=== PATIENT | male | born 1935 | race Caucasian/White ===

== ENCOUNTER → 2016-08-09 | Outpatient (CLI) | payer OTHER ==
[~2016-08-09] MED LIST: ASCA500 PO; ATOR-14 PO; CLOP1TAB15 PO; GLC/500 PO; LOSA1TAB38 PO; LPR25 PO; MGNO400 PO; MULTTAB58 PO; VITA400C3 PO
[2016-08-09 12:50] LABS: HEMATOCRIT 39.2 % (42-52); MEAN CELL VOLUME 87.5 fL (80-100); MEAN CORPUSCULAR HEMOGLOBIN 31.3 pg (25-34); MEAN CORPUSCULAR HGB CONC 35.7 g/dl (32-36); MEAN PLATELET VOLUME 8.6 fL (7.4-10.4); PLATELET COUNT 275 K/uL (130-400); RED BLOOD COUNT 4.48 M/uL (4.7-6.1); WHITE BLOOD COUNT 6.78 K/uL (4.8-10.8)
[2016-08-09 12:56] LABS: ALT/SGPT 22 U/L (12-78); AST/SGOT 14 U/L (15-37); BLOOD UREA NITROGEN 8 mg/dl (7-18); BUN/CREATININE RATIO 9.5 (10-20); CALCIUM 8.5 mg/dl (8.5-10.1); CARBON DIOXIDE 26 mmol/L (21-32); CHLORIDE 98 mmol/L (98-107); CREATININE 0.81 mg/dl (0.60-1.40); GLUCOSE 138 mg/dl (70-99); SODIUM 133 mmol/L (136-145)
[2016-08-09 13:07] LABS: ALB/GLOB RATIO 1.1 (0.9-2); ALKALINE PHOSPHATASE 44 U/L (45-117); CHOLESTEROL 126 mg/dl (0-200); CHOLESTEROL/HDL RATIO 2.6; HDL CHOLESTEROL 48 mg/dl; LDL CHOLESTEROL CALCULATED 61 mg/dl; TRIGLYCERIDES 86 mg/dl (0-150); VERY LOW DENSITY LIPOPROT CALC 17 mg/dl
[2016-08-09 14:10] LABS: ESTIMATED AVERAGE GLUCOSE 134 mg/dl; HA1C FLAG Normal (Normal)
== END | disposition home or self-care (01) ==
LOC: C.LABBFT 10:49
PROVIDERS: ATTEND Internal Medicine
DX: E11.29 Type 2 diabetes mellitus with other diabetic kidney complication (principal)

== ENCOUNTER → 2017-03-06 | Outpatient (CLI) | payer OTHER ==
[2017-03-06 12:41] LABS: MEAN CELL VOLUME 89.3 fL (80-100); MEAN CORPUSCULAR HEMOGLOBIN 31.3 pg (25-34); MEAN PLATELET VOLUME 8.6 fL (7.4-10.4); PLATELET COUNT 239 K/uL (130-400); RED BLOOD COUNT 4.48 M/uL (4.7-6.1); WHITE BLOOD COUNT 8.01 K/uL (4.8-10.8)
[2017-03-06 12:59] LABS: ESTIMATED AVERAGE GLUCOSE 143 mg/dl; HA1C FLAG Normal (Normal)
[2017-03-06 16:55] LABS: ALT/SGPT 21 U/L (12-78); BLOOD UREA NITROGEN 8 mg/dl (7-18); BUN/CREATININE RATIO 11.3 (10-20); CALCIUM 9.5 mg/dl (8.5-10.1); CARBON DIOXIDE 29 mmol/L (21-32); CHLORIDE 94 mmol/L (98-107); CHOLESTEROL 134 mg/dl (0-200); CREATININE 0.69 mg/dl (0.60-1.40); GLUCOSE 114 mg/dl (70-99); POTASSIUM 4.2 mmol/L (3.5-5.1); SODIUM 129 mmol/L (136-145)
[2017-03-06 17:06] LABS: ALB/GLOB RATIO 1.1 (0.9-2); ALKALINE PHOSPHATASE 49 U/L (45-117); AST/SGOT 16 U/L (15-37); CHOLESTEROL/HDL RATIO 3.4; HDL CHOLESTEROL 40 mg/dl; LDL CHOLESTEROL CALCULATED 70 mg/dl; TRIGLYCERIDES 119 mg/dl (0-150); VERY LOW DENSITY LIPOPROT CALC 24 mg/dl
[2017-03-06 17:22] LABS: CREATININE RANDOM URINE < 13.0 mg/dl
== END | disposition home or self-care (01) ==
LOC: C.LABBFT 11:08
PROVIDERS: ATTEND Internal Medicine
DX: E11.29 Type 2 diabetes mellitus with other diabetic kidney complication (principal)

== ENCOUNTER 2017-04-15 18:05 | Inpatient (IN) | payer OTHER ==
[~2017-04-15] VITALS: Ht 177.8 cm; Wt 80.2 kg
[2017-04-15] MEDS ORDERED: SODIUM CHLORIDE 0.9% 1000ML 1,000 ML IV SCH (18:26)
[2017-04-15] MEDS ORDERED: ASCO500T16 PO (19:08)
[2017-04-15] MEDS ORDERED: LPT10 PO (19:08)
--- NOTE | 2017-04-15 19:58 | DIAGNOSTIC IMAGING REPORT ---
AP CHEST WITH LEFT-SIDED RIB SERIES CLINICAL HISTORY: Fall. Left-sided chest wall pain. FINDINGS: An AP upright chest radiograph with 5 additional views from a left-sided rib series is compared to study dated 10/29/2012. Correlation is made with chest CT dated 12/16/2011. The AP view is degraded by patient rotation. The heart is mildly enlarged and there is atherosclerotic calcification of the thoracic aorta. The pulmonary vasculature is noncongested. Emphysema is suspected and there is chronic interstitial thickening. No airspace consolidation or pleural effusion is identified. No pneumothorax is seen. The skeletal structures are osteopenic. Question a nondistracted left posterior 7th rib fracture on the rib series. No additional findings are concerning for acute rib fracture. The remainder of the bony thorax is grossly intact. Degenerative change and scoliosis is noted in the thoracic spine. Arthritic change is seen in the shoulders. IMPRESSION: 1. Cardiomegaly and mild emphysema. 2. No airspace consolidation, pleural effusion, or pneumothorax is seen. 3. Question a nondistracted left posterior 7th rib fracture on the rib series. Correlate for point tenderness at this site. 4. No additional findings are concerning for acute rib fracture. Electronically signed by: Aureliano Cortés M.D. 04/15/2017 7:57 PM Dictated Date/Time: 04/15/2017 7:51 PM
--- NOTE | 2017-04-15 20:04 | DIAGNOSTIC IMAGING REPORT ---
SINGLE VIEW PELVIS CLINICAL HISTORY: Fall. Hip pain. FINDINGS: An AP view of the pelvis is obtained. No prior studies are available for comparison at the time of dictation. The skeletal structures are osteopenic. There is no radiographic evidence of fracture involving the hips or bony pelvis. Moderate arthritic change and joint space narrowing is present in both hips. Large enthesophytes arise from the greater trochanters of the proximal femora and the anterior superior iliac spines. Degenerative sclerosis is seen in the sacroiliac joints and pubic symphysis. The overlying soft tissues are within normal limits. Prostatic calcifications are noted. Lumbosacral spondylosis is partially imaged. There is a nonobstructed abdominal bowel gas pattern. IMPRESSION: Osteopenia and degenerative change as above. There is no radiographic evidence of fracture involving the hips or bony pelvis. Electronically signed by: Aureliano Cortés M.D. 04/15/2017 8:03 PM Dictated Date/Time: 04/15/2017 8:02 PM
[2017-04-15 20:13] LABS: BASO % 0.2 %; BASO ABS # 0.02 K/uL (0-0.2); COMPLETE YES; EOS % 2.9 %; HEMATOCRIT 39.4 % (42-52); IG% 0.2 %; LYMPH % 17.1 %; LYMPH ABS # 1.41 K/uL (1.2-3.4); MEAN CELL VOLUME 87.9 fL (80-100); MEAN CORPUSCULAR HGB CONC 35.3 g/dl (32-36); MEAN PLATELET VOLUME 8.6 fL (7.4-10.4); MONO % 12.3 %; NEUT % 67.3 %; PLATELET COUNT 292 K/uL (130-400); RED BLOOD COUNT 4.48 M/uL (4.7-6.1); WHITE BLOOD COUNT 8.26 K/uL (4.8-10.8)
[2017-04-15 20:19] LABS: PARTIAL THROMBOPLASTIN RATIO 1.1; PROTHROMBIN TIME (PATIENT) 10.7 SECONDS (9.0-12.0)
[2017-04-15 20:21] LABS: BLOOD UREA NITROGEN 13 mg/dl (7-18); BUN/CREATININE RATIO 15.6 (10-20); CALCIUM 9.4 mg/dl (8.5-10.1); CARBON DIOXIDE 28 mmol/L (21-32); CHLORIDE 94 mmol/L (98-107); CREATININE 0.83 mg/dl (0.60-1.40); GLUCOSE 202 mg/dl (70-99); POTASSIUM 3.9 mmol/L (3.5-5.1); SODIUM 128 mmol/L (136-145)
[2017-04-15 20:26] LABS: CKMB/CK RATIO 1.8 (0-3.0)
--- NOTE | 2017-04-15 20:31 | DIAGNOSTIC IMAGING REPORT ---
CT SCAN OF THE BRAIN WITHOUT IV CONTRAST CLINICAL HISTORY: Strokelike symptoms. COMPARISON STUDY: CT of the brain dated 03/18/2015. MRI of the brain dated 03/18/2015. TECHNIQUE: Unenhanced axial CT scan of the brain is performed from the vertex to the skull base. A dose lowering technique was utilized adhering to the principles of ALARA. CT DOSE: 614.27 mGy.cm FINDINGS: Brain parenchyma: Again seen is extensive left MCA territory encephalomalacia consistent with remote infarct. Wallerian degeneration is noted in the left bea. There are age-related involutional changes noting moderate confluent subcortical and periventricular microangiopathic change. There is no hemorrhage, mass effect, or evidence of acute territorial ischemia by CT criteria. Salcedo-white matter is preserved. No extra-axial fluid collection is seen. Ventricles, sulci, cisterns: Prominent secondary to involutional change. There is ex vacuo dilatation of the left lateral ventricle. Intracranial vascular: There is atherosclerotic calcification of the cavernous carotid and vertebral arteries. Calvarium: Intact. Soft tissues: There is a 2.7 cm irregular soft tissue density just deep to the skin in the right suboccipital scalp. This is best seen on image 5 and unchanged from prior examinations. Sinuses and mastoids: There is trace mucosal thickening within the sphenoid and ethmoid sinuses. The remaining visualized paranasal sinuses are clear. The mastoid air cells are well pneumatized. Orbits: The bony orbits are grossly intact. IMPRESSION: 1. Senescent changes and large remote left MCA territory infarct as above. There is no hemorrhage, mass effect, or evidence of acute territorial ischemia by CT criteria. 2. There is unchanged appearance of a 2.7 cm soft tissue density structure just deep to the skin in the right suboccipital scalp as compared to prior examinations. Electronically signed by: Aureliano Cortés M.D. 04/15/2017 8:30 PM Dictated Date/Time: 04/15/2017 8:26 PM
[2017-04-15] MEDS ORDERED: ACETAMINOPHEN IV 100 ML IV PRN (21:00)
[2017-04-15] MEDS ORDERED: DEXTROSE 50% 50 ML SYR IV PRN (21:00)
[2017-04-15] MEDS ORDERED: GLUCOSE 40% GEL 15 GM TUBE PO PRN (21:00)
[2017-04-15] MEDS: INSULIN ASPART 100 UNITS/ML 3 ML PEN SC SCH (21:00)
[2017-04-15] MEDS ORDERED: ONDANSETRON INJ 2 MG/ML 2 ML VIAL IV PRN (21:00)
[2017-04-15] MEDS ORDERED: GLUCOSE 10 TABS/TUBE PO PRN (21:00)
[2017-04-15] MEDS ORDERED: GLUCAGON FOR INJ 1 MG VIAL SQ PRN (21:00)
[2017-04-15 21:36] VITALS: BP 161/83; PULSE 103; TEMP 36.8; O2SAT 96; BMI 25.1
--- NOTE | 2017-04-15 22:00 | EMERGENCY ROOM VISIT NOTE ---
History Report prepared by David: Sunil Barnes Under the Supervision of: Dr. Roberto Riley M.D. First contact with patient: 18:17 Chief Complaint: FALL Stated Complaint: FELL IN SHOWER History of Present Illness The patient is a 81 year old male who presents to the Emergency Room with complaints of constant right sided numbness and weakness beginning yesterday. The patient states that he had a history of right sided weakness with a prior stroke occurring in 1992. He states that his right side weakness has improved significantly since 1992, but he felt similar weakness yesterday before his fall. He states that his right side currently has increased numbness and weakness as well. The patient is on Plavix. He notes that he fell on his left side in the bathtub yesterday while showering. He states that he fell because he lost his balance due to his right leg weakness. He was turning around that time. The patient typically ambulates at home with a cane. He states that he has been unstable recently and has not been able to walk because of his weakness and numbness. He denies any known fevers, vomiting, headache, SOB, chest pain, or abdominal pain. The patient's family notes that the patient occasionally has trouble understanding words. Source of History: patient Onset: Yesterday Position: other (right side of body) Quality: numbness, other (weakness) Timing: constant Associated Symptoms: No fevers (known), No headache, No chest pain, No SOB, No abdominal pain Review of Systems See HPI for pertinent positives & negatives. A total of 10 systems reviewed and were otherwise negative. 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 Social History Smoking Status: Former Smoker Drug Use: none Marital Status: Housing Status: lives with family Occupation Status: retired Current/Historical Medications Scheduled Ascorbic Acid (Ascorbic Acid), 500 MG PO DAILY Atorvastatin (Atorvastatin Calcium), 10 MG PO HS Clopidogrel (Plavix), 75 MG PO DAILY Losartan Potassium (Cozaar), 100 MG PO DAILY Magnesium Oxide (Magnesium-Oxide), 400 MG PO BID Metformin Hcl (Glucophage), 500 MG PO DAILY Metoprolol Tartrate (Lopressor), 12.5 MG PO BID Multiple Vitamin (Multivitamin), 1 TAB PO DAILY Allergies Coded Allergies: No Known Allergies (Verified , 04/15/17) Physical Exam Vital Signs Date Time Temp Pulse Resp B/P (MAP) Pulse Ox O2 Delivery O2 Flow Rate FiO2 04/15/17 20:26 97 16 146/82 96 Room Air 04/15/17 18:57 Room Air 04/15/17 18:11 36.9 98 18 129/86 96 Room Air Physical Exam Constitutional: Vital signs reviewed. Eyes: Pupils are equal round reactive to light. Conjunctiva are noninjected. ENT: Pharynx is clear without erythema or exudate. Mucous membranes are moist. Neck supple without meningeal signs. Respiratory: Clear to auscultation bilaterally. Breath sounds are equal bilaterally. Cardiovascular: Regular rate and rhythm. No rubs or gallops. GI: Soft, nondistended and nontender. Bowel sounds are present. Musculoskeletal: Ecchymosis to the left lower back. Mild tenderness to the left lower ribs. Integumentary: No cyanosis. Neurological: The patient is awake and alert. Cranial nerves II-XII are intact. Sensation is intact to light touch all extremities. No limb ataxia. Right pronator drift with 3/5 strength in the RUE. 4/5 strength in RLE. Aphasia. Psychiatric: Normal affect. Medical Decision & Procedures ER Provider Diagnostic Interpretation: Radiology results as stated below per my review and the radiologist's interpretation: CT SCAN OF THE BRAIN WITHOUT IV CONTRAST FINDINGS: Brain parenchyma: Again seen is extensive left MCA territory encephalomalacia consistent with remote infarct. Wallerian degeneration is noted in the left bea. There are age-related involutional changes noting moderate confluent subcortical and periventricular microangiopathic change. There is no hemorrhage, mass effect, or evidence of acute territorial ischemia by CT criteria. Salcedo-white matter is preserved. No extra-axial fluid collection is seen. Ventricles, sulci, cisterns: Prominent secondary to involutional change. There is ex vacuo dilatation of the left lateral ventricle. Intracranial vascular: There is atherosclerotic calcification of the cavernous carotid and vertebral arteries. Calvarium: Intact. Soft tissues: There is a 2.7 cm irregular soft tissue density just deep to the skin in the right suboccipital scalp. This is best seen on image 5 and unchanged from prior examinations. Sinuses and mastoids: There is trace mucosal thickening within the sphenoid and ethmoid sinuses. The remaining visualized paranasal sinuses are clear. The mastoid air cells are well pneumatized. Orbits: The bony orbits are grossly intact. IMPRESSION: 1. Senescent changes and large remote left MCA territory infarct as above. There is no hemorrhage, mass effect, or evidence of acute territorial ischemia by CT criteria. 2. There is unchanged appearance of a 2.7 cm soft tissue density structure just deep to the skin in the right suboccipital scalp as compared to prior examinations. Electronically signed by: Aureliano Cortés M.D. 04/15/2017 8:30 PM SINGLE VIEW PELVIS FINDINGS: An AP view of the pelvis is obtained. No prior studies are available for comparison at the time of dictation. The skeletal structures are osteopenic. There is no radiographic evidence of fracture involving the hips or bony pelvis. Moderate arthritic change and joint space narrowing is present in both hips. Large enthesophytes arise from the greater trochanters of the proximal femora and the anterior superior iliac spines. Degenerative sclerosis is seen in the sacroiliac joints and pubic symphysis. The overlying soft tissues are within normal limits. Prostatic calcifications are noted. Lumbosacral spondylosis is partially imaged. There is a nonobstructed abdominal bowel gas pattern. IMPRESSION: Osteopenia and degenerative change as above. There is no radiographic evidence of fracture involving the hips or bony pelvis. Electronically signed by: Aureliano Cortés M.D. 04/15/2017 8:03 PM AP CHEST WITH LEFT-SIDED RIB SERIES FINDINGS: An AP upright chest radiograph with 5 additional views from a left-sided rib series is compared to study dated 10/29/2012. Correlation is made with chest CT dated 12/16/2011. The AP view is degraded by patient rotation. The heart is mildly enlarged and there is atherosclerotic calcification of the thoracic aorta. The pulmonary vasculature is noncongested. Emphysema is suspected and there is chronic interstitial thickening. No airspace consolidation or pleural effusion is identified. No pneumothorax is seen. The skeletal structures are osteopenic. Question a nondistracted left posterior 7th rib fracture on the rib series. No additional findings are concerning for acute rib fracture. The remainder of the bony thorax is grossly intact. Degenerative change and scoliosis is noted in the thoracic spine. Arthritic change is seen in the shoulders. IMPRESSION: 1. Cardiomegaly and mild emphysema. 2. No airspace consolidation, pleural effusion, or pneumothorax is seen. 3. Question a nondistracted left posterior 7th rib fracture on the rib series. Correlate for point tenderness at this site. 4. No additional findings are concerning for acute rib fracture. Electronically signed by: Aureliano Cortés M.D. 04/15/2017 7:57 PM Laboratory Results 04/15/17 18:42 Red Blood Count 4.48, Mean Corpuscular Volume 87.9, Mean Corpuscular Hemoglobin 31.0, Mean Corpuscular Hemoglobin Concent 35.3, Mean Platelet Volume 8.6, Neutrophils (%) (Auto) 67.3, Lymphocytes (%) (Auto) 17.1, Monocytes (%) (Auto) 12.3, Eosinophils (%) (Auto) 2.9, Basophils (%) (Auto) 0.2, Neutrophils # (Auto ) 5.55, Lymphocytes # (Auto) 1.41, Monocytes # (Auto) 1.02, Eosinophils # (Auto ) 0.24, Basophils # (Auto) 0.02 04/15/17 18:42 Test 04/15/17 18:42 04/15/17 18:48 White Blood Count 8.26 K/uL (4.8-10.8) Red Blood Count 4.48 M/uL (4.7-6.1) Hemoglobin 13.9 g/dL (14.0-18.0) Hematocrit 39.4 % (42-52) Mean Corpuscular Volume 87.9 fL (80-100) Mean Corpuscular Hemoglobin 31.0 pg (25-34) Mean Corpuscular Hemoglobin Concent 35.3 g/dl (32-36) Platelet Count 292 K/uL (130-400) Mean Platelet Volume 8.6 fL (7.4-10.4) Neutrophils (%) (Auto) 67.3 % Lymphocytes (%) (Auto) 17.1 % Monocytes (%) (Auto) 12.3 % Eosinophils (%) (Auto) 2.9 % Basophils (%) (Auto) 0.2 % Neutrophils # (Auto) 5.55 K/uL (1.4-6.5) Lymphocytes # (Auto) 1.41 K/uL (1.2-3.4) Monocytes # (Auto) 1.02 K/uL (0.11-0.59) Eosinophils # (Auto) 0.24 K/uL (0-0.5) Basophils # (Auto) 0.02 K/uL (0-0.2) RDW Standard Deviation 40.5 fL (36.4-46.3) RDW Coefficient of Variation 12.6 % (11.5-14.5) Immature Granulocyte % (Auto) 0.2 % Immature Granulocyte # (Auto) 0.02 K/uL (0.00-0.02) Prothrombin Time 10.7 SECONDS (9.0-12.0) Prothromb Time International Ratio 1.0 (0.9-1.1) Activated Partial Thromboplast Time 29.4 SECONDS (21.0-31.0) Partial Thromboplastin Ratio 1.1 Anion Gap 6.0 mmol/L (3-11) Est Creatinine Clear Calc Drug Dose 74.5 ml/min Estimated GFR () 97.0 Estimated GFR (Non- 83.7 BUN/Creatinine Ratio 15.6 (10-20) Calcium Level 9.4 mg/dl (8.5-10.1) Total Creatine Kinase 108 U/L (39-308) Creatine Kinase MB 1.9 ng/ml (0.5-3.6) Creatine Kinase MB Ratio 1.8 (0-3.0) Troponin I < 0.015 ng/ml (0-0.045) Bedside Prothrombin Time INR 1.0 (0.9-1.1) Laboratory results as reviewed by me. ECG Indication: other (neurologic symptoms) Rate (beats per minute): 102 Rhythm: sinus tachycardia Findings: no ectopy, other (Low voltage QRS. Limited interpretation due to baseline artifact. ) ED Course 1817: The patient was evaluated in room B2. A complete history and physical exam was performed. 1825: Ordered Sodium Chloride 1000 ml @ 50 mls/hr IV. 2049: Upon reevaluation, the patient is resting comfortably. I discussed tonight 's findings with him. He verbalized agreement of the treatment plan. The patient will be evaluated for further management. Medical Decision This is a 81-year-old male who presents with a fall and difficulty walking with right-sided weakness and numbness. Differential diagnosis includes CVA, TIA, intracranial hemorrhage, intracranial mass, rib fracture, metabolic derangement , pelvic fracture. I did perform a limited focused review of portions of the patient's old chart on the electronic medical record. The patient has had no recent pertinent visits to this hospital. I did evaluate the patient as noted above. On examination patient has right- sided weakness, greater in the upper extremity. He and his family state that he has had some residual weakness as well as aphasia since his stroke in 1992 but he has been able to walk with a cane which she has not been able to do over the past 2 days. He does have some tenderness to his left lower ribs and some ecchymosis in that area. IV access was established. The patient was placed on a continuous syrup mixer assistant. I did order and personally review the patient's 12-lead EKG and chest and pelvis x-ray as described above. He does appear to have a left-sided rib fracture. I did order and review the patient's blood work as noted in the electronic medical record. He is hyponatremic. I did order a CT of the head. I did review the images myself as well as the radiology report as described above. There is no evidence of stroke or bleed. I did discuss the test results with the patient. I did recommend hospitalization for further evaluation of his symptoms. I did discuss case with the hospitalist and registered nurse hh case manager. Medication Reconcilliation Current Medication List: was personally reviewed by me Blood Pressure Screening Patient's blood pressure: Elevated blood pressure Blood pressure disposition: Referred to PCP Consults Time Called: 2029 Consulting Physician[place] [place] [address] [place] [facility] [place] discussed the patient and his results. The patient will be further evaluated [place] [facility] [place] Impression Primary Impression: Right sided weakness Additional Impressions: Right leg numbness Fall Left rib fracture Hyponatremia Scribe Attestation The scribe's documentation has been prepared under my direct and personally reviewed by me in its entirety. I confirm that the note above accurately reflects all work, treatment, procedures, and medical decision making performed by me. Departure Information Dispostion Being Evaluated By Hospitalist Referrals Kevon Post M.D. (PCP) Patient Instructions My [facility] Problem Qualifiers Additional Impressions: Fall Encounter type: initial encounter Qualified Codes: W19.XXXA - Unspecified fall, initial encounter Left rib fracture Encounter type: initial encounter Rib fracture type: single rib Fracture type: closed Qualified Codes: S22.32XA - Fracture of one rib, left side, initial encounter for closed fracture
[2017-04-15] MEDS: NSS + 20MEQ KCL 1000ML 1,000 ML IV SCH (22:07)
[2017-04-15] MEDS: METOPROLOL TARTRATE 25 MG TAB PO SCH (22:08)
[2017-04-15] MEDS: FAMOTIDINE IV INJ 20 MG in DEXTROSE 5% 100ML 100 ML IV SCH (22:08)
[2017-04-15] MEDS: ENOXAPARIN 40 MG/0.4 ML SYR SC SCH (22:09)
[2017-04-15] MEDS: ATORVASTATIN 10 MG TAB PO SCH (22:09)
--- NOTE | 2017-04-15 22:29 | History and Physical ---
History & Physical Date & Time of Service: Apr 15, 2017 at 22:11 Chief Complaint: Fall, Hemiparesis Affecting Right Side As Late Primary Care Physician: Kevon Post M.D. History of Present Illness Source: patient, hospital records The patient is a 81-year-old male with a past medical history of remote, large left MCA CVA in 1992, with residual right hemiparesis, who presents to the emergency department after a fall and reportedly right-sided weakness and numbness that began the previous day. Upon my questioning, the patient reports little change in his symptoms, and notes that he fell while getting out of the bathtub onto his left side yesterday while showering. He usually ambulates with a cane, but does report having felt more unstable recently. The patient's family reports that he occasionally has trouble understanding words, and his speech is occasionally garbled. The patient denies injuring his head with his recent fall. Past Medical/Surgical History Medical Problems: (1) CVA Status: Resolved (2) 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 Status: Chronic Family History Noncontributory Social History Smoking Status: Former Smoker Drug Use: none Marital Status: Housing status: lives with family Occupational Status: retired Immunizations History of Influenza Vaccine: Yes History of Tetanus Vaccine?: Yes History of Pneumococcal: Yes History of Hepatitis B Vaccine: Unknown Multi-Drug Resistant Organisms History of MDRO: No Allergies Coded Allergies: No Known Allergies (Verified , 04/15/17) Home Medications Scheduled Ascorbic Acid (Ascorbic Acid), 500 MG PO DAILY Atorvastatin (Atorvastatin Calcium), 10 MG PO HS Clopidogrel (Plavix), 75 MG PO DAILY Losartan Potassium (Cozaar), 100 MG PO DAILY Magnesium Oxide (Magnesium-Oxide), 400 MG PO BID Metformin Hcl (Glucophage), 500 MG PO DAILY Metoprolol Tartrate (Lopressor), 12.5 MG PO BID Multiple Vitamin (Multivitamin), 1 TAB PO DAILY Review of Systems The patient denies chest pain, palpitations, shortness of breath, cough, lower extremity swelling, vision change, hearing change, sore throat, fevers, chills, sweats, weight change, fatigue, nausea, vomiting, diarrhea or constipation, abdominal pain, pelvic pain, blood in urine or stool, dysuria, urinary frequency or urgency, lightheadedness , dizziness, headache, loss of consciousness, rash, abnormal bruising or bleeding, generalized weakness, generalized arthralgias or myalgias, neck pain, or night sweats. The review of systems is otherwise negative other than for that already noted above, and at least 10 systems have been reviewed. Physical Exam Vital Signs Date Time Temp Pulse Resp B/P (MAP) Pulse Ox O2 Delivery O2 Flow Rate FiO2 04/15/17 21:25 93 16 152/78 98 04/15/17 20:26 97 16 146/82 96 Room Air 04/15/17 18:57 Room Air 04/15/17 18:11 36.9 98 18 129/86 96 Room Air The patient is awake, well-developed and adequately nourished, alert and oriented 3, normocephalic and atraumatic, has somewhat garbled speech, lying in bed and in no acute distress. HEENT--PERRL, EOMI, mucous membranes and oropharynx dry. Neck--supple, no JVD or bruits, thyroid normal, trachea midline, no adenopathy. Heart--normal S1 and S2, no extra beats, no murmurs, rubs or gallops. Lungs--clear bilaterally but diminished throughout, no respiratory distress, no accessory muscle use. Abdomen--normal bowel sounds and soft, nontender and nondistended, no hernias or masses, no organomegaly. Extremities--no cyanosis, clubbing or edema. There are good distal pulses b/l. Dermatologic--normal skin turgor, normal color, warm and dry, no abnormal lymph nodes, no rash. Neurologic--cranial nerves II through XII grossly intact. Right upper extremity 3/5 and right lower extremity 4/5 motor strength, right pronator drift. Rheumatologic--range of motion limited by arthritis Psychiatric--normal affect. Diagnostics Laboratory Results Results Past 24 Hours Test 04/15/17 18:42 04/15/17 18:48 04/15/17 22:02 Range/Units White Blood Count 8.26 4.8-10.8 K/uL Red Blood Count 4.48 4.7-6.1 M/uL Hemoglobin 13.9 14.0-18.0 g/dL Hematocrit 39.4 42-52 % Mean Corpuscular Volume 87.9 80-100 fL Mean Corpuscular Hemoglobin 31.0 25-34 pg Mean Corpuscular Hemoglobin Concent 35.3 32-36 g/dl Platelet Count 292 130-400 K/uL Mean Platelet Volume 8.6 7.4-10.4 fL Neutrophils (%) (Auto) 67.3 % Lymphocytes (%) (Auto) 17.1 % Monocytes (%) (Auto) 12.3 % Eosinophils (%) (Auto) 2.9 % Basophils (%) (Auto) 0.2 % Neutrophils # (Auto) 5.55 1.4-6.5 K/uL Lymphocytes # (Auto) 1.41 1.2-3.4 K/uL Monocytes # (Auto) 1.02 0.11-0.59 K/uL Eosinophils # (Auto) 0.24 0-0.5 K/uL Basophils # (Auto) 0.02 0-0.2 K/uL RDW Standard Deviation 40.5 36.4-46.3 fL RDW Coefficient of Variation 12.6 11.5-14.5 % Immature Granulocyte % (Auto) 0.2 % Immature Granulocyte # (Auto) 0.02 0.00-0.02 K/uL Prothrombin Time 10.7 9.0-12.0 SECONDS Prothromb Time International Ratio 1.0 0.9-1.1 Activated Partial Thromboplast Time 29.4 21.0-31.0 SECONDS Partial Thromboplastin Ratio 1.1 Sodium Level 128 136-145 mmol/L Potassium Level 3.9 3.5-5.1 mmol/L Chloride Level 94 98-107 mmol/L Carbon Dioxide Level 28 21-32 mmol/L Anion Gap 6.0 3-11 mmol/L Blood Urea Nitrogen 13 7-18 mg/dl Creatinine 0.83 0.60-1.40 mg/dl Est Creatinine Clear Calc Drug Dose 74.5 ml/min Estimated GFR () 97.0 Estimated GFR (Non- 83.7 BUN/Creatinine Ratio 15.6 10-20 Random Glucose 202 70-99 mg/dl Calcium Level 9.4 8.5-10.1 mg/dl Total Creatine Kinase 108 39-308 U/L Creatine Kinase MB 1.9 0.5-3.6 ng/ml Creatine Kinase MB Ratio 1.8 0-3.0 Troponin I < 0.015 0-0.045 ng/ml Bedside Prothrombin Time INR 1.0 0.9-1.1 Diagnostic Radiology Patient Name: TEODORA HOGAN Unit Number: [id number] Dictated: 04/15/171950 Transcribed: 04/15/171950 EV Printed Date/Time: [~ rep prt dt]/[~ rep prt tm] [~ rep ct labl] - [~ rep ct ivnm] [facility] Radiology Department [place] [id number] Dictated: 04/15/171950 Transcribed: 04/15/171950 EV Printed Date/Time: [~ rep prt dt]/[~ rep prt tm] [~ rep ct labl] - [~ rep ct ivnm] [~ rep ct add3]] AP CHEST WITH LEFT-SIDED RIB SERIES CLINICAL HISTORY: Fall. Left-sided chest wall pain. FINDINGS: An AP upright chest radiograph with 5 additional views from a left-sided rib series is compared to study dated 10/29/2012. Correlation is made with chest CT dated 12/16/2011. The AP view is degraded by patient rotation. The heart is mildly enlarged and there is atherosclerotic calcification of the thoracic aorta. The pulmonary vasculature is noncongested. Emphysema is suspected and there is chronic interstitial thickening. No airspace consolidation or pleural effusion is identified. No pneumothorax is seen. The skeletal structures are osteopenic. Question a nondistracted left posterior 7th rib fracture on the rib series. No additional findings are concerning for acute rib fracture. The remainder of the bony thorax is grossly intact. Degenerative change and scoliosis is noted in the thoracic spine. Arthritic change is seen in the shoulders. IMPRESSION: 1. Cardiomegaly and mild emphysema. 2. No airspace consolidation, pleural effusion, or pneumothorax is seen. 3. Question a nondistracted left posterior 7th rib fracture on the rib series. Correlate for point tenderness at this site. 4. No additional findings are concerning for acute rib fracture. Electronically signed by: Aureliano Cortés M.D. 04/15/2017 7:57 PM Dictated Date/Time: 04/15/2017 7:51 PM The status of this report is Signed. Draft = Not yet reviewed or approved by Radiologist. Signed = Reviewed and approved by Radiologist. <AttendingPhy></AttendingPhy> <FamilyPhy>Sejal, Kevon,M.D.</FamilyPhy> < PrimaryPhy>Kevon Pots M.D.</PrimaryPhy> <UnitNumber>[id number]</UnitNumber > <VisitNumber>[id number]</VisitNumber> <PatientName>TEODORA HOGAN</ PatientName> <DateOfBirth>1935</DateOfBirth> <Location>C.EDB</Location> < ServiceDate>04/15/17</ServiceDate> <MNE>ESINDI</MNE> <OrderingPhy>Roberto Riley MD</OrderingPhy> <OrderingPhyMNE>f rep ord dr hartley</OrderingPhyMNE> < DictatingPhyMNE>f rep dict dr hartley</DictatingPhyMNE> <CCListMNE>f rep ct mne</ CCListMNE> <AdmittingPhyMNE>f pt admit dr hartley</AdmittingPhyMNE> <AttendingPhyMNE >f pt attend dr hartley</AttendingPhyMNE> <ConsultingPhyMNE>f pt consult dr hartley</ConsultingPhyMNE> <FamilyPhyMNE>f pt fam dr hartley</FamilyPhyMNE> <OtherPhyMNE>f pt other dr hartley</OtherPhyMNE> < PrimaryPhyMNE>f pt prim care dr hartley</PrimaryPhyMNE> <ReferringPhyMNE>f pt referring dr hartley</ReferringPhyMNE> Patient Name: TEODORA HOGAN Unit Number: [id number] Dictated: 04/15/172001 Transcribed: 04/15/172001 EV Printed Date/Time: [~ rep prt dt]/[~ rep prt tm] [~ rep ct labl] - [~ rep ct ivnm] [facility] Radiology Department [place] [id number] Dictated: 04/15/172001 Transcribed: 04/15/172001 EV Printed Date/Time: [~ rep prt dt]/[~ rep prt tm] [~ rep ct labl] - [~ rep ct ivnm] SINGLE VIEW PELVIS CLINICAL HISTORY: Fall. Hip pain. FINDINGS: An AP view of the pelvis is obtained. No prior studies are available for comparison at the time of dictation. The skeletal structures are osteopenic. There is no radiographic evidence of fracture involving the hips or bony pelvis. Moderate arthritic change and joint space narrowing is present in both hips. Large enthesophytes arise from the greater trochanters of the proximal femora and the anterior superior iliac spines. Degenerative sclerosis is seen in the sacroiliac joints and pubic symphysis. The overlying soft tissues are within normal limits. Prostatic calcifications are noted. Lumbosacral spondylosis is partially imaged. There is a nonobstructed abdominal bowel gas pattern. IMPRESSION: Osteopenia and degenerative change as above. There is no radiographic evidence of fracture involving the hips or bony pelvis. Electronically signed by: Aureliano Cortés M.D. 04/15/2017 8:03 PM Dictated Date/Time: 04/15/2017 8:02 PM The status of this report is Signed. Draft = Not yet reviewed or approved by Radiologist. Signed = Reviewed and approved by Radiologist. <AttendingPhy></AttendingPhy> <FamilyPhy>Kevon Post M.D.</FamilyPhy> < PrimaryPhy>Kevon Post M.D.</PrimaryPhy> <UnitNumber>[id number]</UnitNumber > <VisitNumber>[id number]</VisitNumber> <PatientName>TEODORA HOGAN [place]</ PatientName> <DateOfBirth>1935</DateOfBirth> <Location>C.EDB</Location> < ServiceDate>04/15/17</ServiceDate> <MNE>ESINDI</MNE> <OrderingPhy>Roberto Riley MD</OrderingPhy> <OrderingPhyMNE>f rep ord dr hartley</OrderingPhyMNE> < DictatingPhyMNE>f rep dict dr hartley</DictatingPhyMNE> <CCListMNE>f rep ct odilia</ CCListMNE> <AdmittingPhyMNE>f pt admit dr hartley</AdmittingPhyMNE> <AttendingPhyMNE >f pt attend dr hartley</AttendingPhyMNE> <ConsultingPhyMNE>f pt consult dr hartley</ConsultingPhyMNE> <FamilyPhyMNE>f pt fam dr hartley</FamilyPhyMNE> <OtherPhyMNE>f pt other dr hartley</OtherPhyMNE> < PrimaryPhyMNE>f pt prim care dr hartley</PrimaryPhyMNE> <ReferringPhyMNE>f pt referring dr hartley</ReferringPhyMNE> Patient Name: TEODORA HOGAN Unit Number: [id number] Dictated: 04/15/172025 Transcribed: 04/15/172025 EV Printed Date/Time: [~ rep prt dt]/[~ rep prt tm] [~ rep ct labl] - [~ rep ct ivnm] [facility] Radiology Department [place], [place] [id number] Dictated: 04/15/172025 Transcribed: 04/15/172025 EV Printed Date/Time: [~ rep prt dt]/[~ rep prt tm] [~ rep ct labl] - [~ rep ct ivnm] [~ rep ct add3]] CT SCAN OF THE BRAIN WITHOUT IV CONTRAST CLINICAL HISTORY: Strokelike symptoms. COMPARISON STUDY: CT of the brain dated 03/18/2015. MRI of the brain dated 03/18/2015. TECHNIQUE: Unenhanced axial CT scan of the brain is performed from the vertex to the skull base. A dose lowering technique was utilized adhering to the principles of ALARA. CT DOSE: 614.27 mGy.cm FINDINGS: Brain parenchyma: Again seen is extensive left MCA territory encephalomalacia consistent with remote infarct. Wallerian degeneration is noted in the left bea. There are age-related involutional changes noting moderate confluent subcortical and periventricular microangiopathic change. There is no hemorrhage, mass effect, or evidence of acute territorial ischemia by CT criteria. Salcedo-white matter is preserved. No extra-axial fluid collection is seen. Ventricles, sulci, cisterns: Prominent secondary to involutional change. There is ex vacuo dilatation of the left lateral ventricle. Intracranial vascular: There is atherosclerotic calcification of the cavernous carotid and vertebral arteries. Calvarium: Intact. Soft tissues: There is a 2.7 cm irregular soft tissue density just deep to the skin in the right suboccipital scalp. This is best seen on image 5 and unchanged from prior examinations. Sinuses and mastoids: There is trace mucosal thickening within the sphenoid and ethmoid sinuses. The remaining visualized paranasal sinuses are clear. The mastoid air cells are well pneumatized. Orbits: The bony orbits are grossly intact. IMPRESSION: 1. Senescent changes and large remote left MCA territory infarct as above. There is no hemorrhage, mass effect, or evidence of acute territorial ischemia by CT criteria. 2. There is unchanged appearance of a 2.7 cm soft tissue density structure just deep to the skin in the right suboccipital scalp as compared to prior examinations. Electronically signed by: Aureliano Cortés M.D. 04/15/2017 8:30 PM Dictated Date/Time: 04/15/2017 8:26 PM The status of this report is Signed. Draft = Not yet reviewed or approved by Radiologist. Signed = Reviewed and approved by Radiologist. <AttendingPhy></AttendingPhy> <FamilyPhy>Kevon Post M.D.</FamilyPhy> < PrimaryPhy>Kevon Post M.D.</PrimaryPhy> <UnitNumber>[id number]</UnitNumber > <VisitNumber>[id number]</VisitNumber> <PatientName>TEODORA HOGAN</ PatientName> <DateOfBirth>1935</DateOfBirth> <Location>C.EDB</Location> < ServiceDate>04/15/17</ServiceDate> <MNE>ESINDI</MNE> <OrderingPhy>Roberto Riley MD</OrderingPhy> <OrderingPhyMNE>f rep ord dr hartley</OrderingPhyMNE> < DictatingPhyMNE>f rep dict dr hartley</DictatingPhyMNE> <CCListMNE>f rep ct odilia</ CCListMNE> <AdmittingPhyMNE>f pt admit dr hartley</AdmittingPhyMNE> <AttendingPhyMNE >f pt attend dr hartley</AttendingPhyMNE> <ConsultingPhyMNE>f pt consult dr hartley</ConsultingPhyMNE> <FamilyPhyMNE>f pt fam dr hartley</FamilyPhyMNE> <OtherPhyMNE>f pt other dr hartley</OtherPhyMNE> < PrimaryPhyMNE>f pt prim care dr hartley</PrimaryPhyMNE> <ReferringPhyMNE>f pt referring dr hartley</ReferringPhyMNE> EKG EKG shows sinus tachycardia at 102 bpm, there are no acute ST-T changes, and no change compared to 03/18/2015 Impression Assessment and Plan History of remote left, large MCA territory CVA/residual right hemiparesis/with question of recurrent weakness and numbness that is improved today-- CT of the head shows no acute findings Order MRI of brain combo The patient will be admitted to telemetry for serial cardiac enzymes, cardiac rhythm monitoring and a 2-D echocardiogram with Dopplers. Consult PT/OT/social services analyst Continue Plavix 75 mg by mouth daily. Continue metoprolol tartrate 12.5 mg by mouth twice a day. Hold losartan potassium 100 mg by mouth daily. Right posterior seventh rib fracture--asymptomatic Hyperlipidemia--continue atorvastatin 10 mg by mouth at bedtime Diabetes mellitus hold metformin Place on Accu-Cheks before meals and at bedtime with NovoLog coverage per scale. Level of Care Telemetry Resuscitation Status FULL RESUSCITATION VTE Prophylaxis VTE Risk Assessment Done? Y/N: Yes Risk Level: High Given or contraindicated: Enoxaparin (Lovenox)SQ, SCD's
[2017-04-15] MEDS ORDERED: PHARMACIST DISCHARGE MED REC CONSULT PRN (22:30)
[2017-04-15] MEDS ORDERED: INFLUENZA ADMINISTRATION CHARGE ONE (22:45)
[2017-04-15] MEDS ORDERED: INFLUENZA VACCINE HIGH DOSE 65+ 0.5 ML SYR IM. ONE (22:45)
[2017-04-15 23:56] VITALS: BP 143/66; PULSE 87; TEMP 36.8; O2SAT 97
[2017-04-16] VITALS (7 sets, daily range): BP systolic 151–171; BP diastolic 80–97; PULSE 66–106; TEMP 36.6–36.9; O2SAT 93–97
[2017-04-16 05:02] LABS: BASO % 0.2 %; BASO ABS # 0.02 K/uL (0-0.2); COMPLETE YES; EOS % 1.5 %; HEMATOCRIT 38.1 % (42-52); IG% 0.2 %; LYMPH % 12.7 %; LYMPH ABS # 1.08 K/uL (1.2-3.4); MEAN CELL VOLUME 87.4 fL (80-100); MEAN CORPUSCULAR HEMOGLOBIN 31.4 pg (25-34); MEAN PLATELET VOLUME 8.3 fL (7.4-10.4); MONO % 12.9 %; NEUT % 72.5 %; PLATELET COUNT 261 K/uL (130-400); RED BLOOD COUNT 4.36 M/uL (4.7-6.1); WHITE BLOOD COUNT 8.48 K/uL (4.8-10.8)
[2017-04-16 05:12] LABS: PARTIAL THROMBOPLASTIN RATIO 1.2; PROTHROMBIN TIME (PATIENT) 10.9 SECONDS (9.0-12.0)
[2017-04-16 05:36] LABS: BLOOD UREA NITROGEN 10 mg/dl (7-18); BUN/CREATININE RATIO 14.9 (10-20); CALCIUM 8.8 mg/dl (8.5-10.1); CARBON DIOXIDE 27 mmol/L (21-32); CHLORIDE 98 mmol/L (98-107); CREATININE 0.67 mg/dl (0.60-1.40); GLUCOSE 163 mg/dl (70-99); MAGNESIUM 1.9 mg/dl (1.8-2.4); POTASSIUM 3.8 mmol/L (3.5-5.1); SODIUM 129 mmol/L (136-145)
[2017-04-16 05:41] LABS: CHOLESTEROL 128 mg/dl (0-200); CHOLESTEROL/HDL RATIO 2.6; CKMB/CK RATIO 1.9 (0-3.0); HDL CHOLESTEROL 50 mg/dl; LDL CHOLESTEROL CALCULATED 61 mg/dl; TRIGLYCERIDES 86 mg/dl (0-150); VERY LOW DENSITY LIPOPROT CALC 17 mg/dl
[2017-04-16] MEDS: METOPROLOL TARTRATE 25 MG TAB PO SCH ×2 (07:56→20:56)
[2017-04-16] MEDS: NSS + 20MEQ KCL 1000ML 1,000 ML IV SCH (07:56)
[2017-04-16] MEDS: CLOPIDOGREL BISULFATE 75 MG TAB PO SCH (07:57)
[2017-04-16] MEDS: INSULIN ASPART 100 UNITS/ML 3 ML PEN SC SCH ×4 (08:03→21:01)
--- NOTE | 2017-04-16 09:07 | Neurology Consultation ---
Neurology Consultation Date of Consultation: Apr 16, 2017. Attending Physician: Kwame Xavier M.D. Primary Care Physician: Kevon Post M.D. 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 He has presented to [facility] on multiple previous occasions (2011, 2012, 2014, and currently) for perceived transient worsening of his chronic, residual, stroke symptoms. I evaluated him during his 2012 and 2013 hospitalizations. The admission record indicates the patient fell in his shower at home 3 days ago. He has been observed to have more difficulty ambulating and has potentially complained of worsening right-sided symptoms. The patient does have a chronic, residual, expressive aphasia and he is not really able to provide a reliable history of present illness. His family had expressed some concern in the emergency department as he has appeared to have more difficulty ambulating with a walker at home. A recent x-ray reveals a nondisplaced posterior left rib fracture. A CT of the head has revealed the previously identified, chronic, large, left MCA territory infarct with associated encephalomalacia. No hemorrhage. No significant change compared with the previous study done in 2015. I reviewed the images and reports. EKG completed yesterday and today both reveal sinus tachycardia, no atrial fibrillation. As above, the patient is a limited historian due to his significant aphasia. He denies headache, recent vision change, new weakness, new sensory loss, or dizziness. Past Medical/Surgical History Medical Problems: (1) Hyponatremia Status: Acute (2) Left rib fracture Status: Acute (3) Right leg numbness Status: Acute (4) Right sided weakness Status: Acute Family History Family history significant for stroke in the father according to medical records. Social History Smoking Status: Former smoker Drug Use: none Marital Status: Housing Status: lives with family Occupation Status: retired Allergies Coded Allergies: No Known Allergies (Verified , 04/15/17) Current Inpatient Medications Current Inpatient Medications Medications (Trade) Dose Ordered Sig/Mirella Route Start Time Stop Time Status Last Admin Dose Admin Enoxaparin Sodium (Lovenox Inj) 40 mg Q24H SC 10/21/17 22:00 05/15/17 21:59 04/15/17 22:09 40 MG Potassium Chloride/Sodium Chloride 1,000 ml @ 100 mls/hr Q10H IV 04/15/17 22:00 05/15/17 21:59 04/16/17 07:56 100 MLS/HR Atorvastatin Calcium (Lipitor Tab) 10 mg HS PO 04/15/17 21:00 05/15/17 20:59 04/15/17 22:09 10 MG Clopidogrel Bisulfate (plAVix TAB) 75 mg DAILY PO 04/16/17 09:00 05/16/17 08:59 04/16/17 07:57 75 MG Metoprolol Tartrate (Lopressor Tab) 12.5 mg BID PO 04/15/17 21:00 05/15/17 20:59 04/16/17 07:56 12.5 MG Ondansetron HCl (Zofran Inj) 4 mg Q6H PRN IV 04/15/17 21:00 05/15/17 20:59 Insulin Aspart (novoLOG ASPART) SLIDING SCALE If C... ACHS SC 04/15/17 21:00 05/15/17 20:59 04/16/17 08:03 5 UNITS Glucose (Glucose 40% Gel) UD PRN PO 04/15/17 21:00 05/15/17 20:59 Glucose (Glucose Chew Tab) 1 tabs UD PRN PO 04/15/17 21:00 05/15/17 20:59 Dextrose (Dextrose 50% 50ML Syringe) 50 ml UD PRN IV 04/15/17 21:00 05/15/17 20:59 Glucagon (Glucagon Inj) 1 mg UD PRN SQ 04/15/17 21:00 05/15/17 20:59 Acetaminophen 100 ml @ 400 mls/hr Q8H PRN IV 04/15/17 21:00 05/15/17 20:59 Famotidine 20 mg/ Dextrose 102 ml @ 200 mls/hr Q12H IV 04/15/17 22:00 05/15/17 21:59 04/15/17 22:08 200 MLS/HR Miscellaneous Information (Pharmacist Discharge Med Rec Consult) 1 ea UD PRN N/A 04/15/17 22:30 05/15/17 22:29 Review of Systems As above, this patient's aphasia makes him an unreliable historian. Constitutional: No fever or chills Eyes: No recent change in vision or diplopia ENT: No vertigo or dizziness Cardiovascular: No chest pain or palpitations Respiratory: No cough and wheezing or shortness of breath Neurological: As per history of present illness A full 10 point review of systems was obtained from this patient with pertinent positives and negatives as described in history of present illness and otherwise listed above. All remaining systems reviewed and are negative. Again, this patient's aphasia renders the obtained review of systems unreliable. Physical Exam Vital Signs (Past 24 Hrs): Date Time Temp Pulse Resp B/P (MAP) Pulse Ox O2 Delivery O2 Flow Rate FiO2 04/16/17 07:36 36.9 99 20 151/85 (107) 97 Room Air 04/16/17 04:07 36.7 66 18 171/97 (121) 93 Room Air 04/16/17 00:00 Room Air 04/15/17 23:56 36.8 87 18 143/66 (91) 97 Room Air 04/15/17 21:36 36.8 103 22 161/83 96 Room Air 04/15/17 21:25 93 16 152/78 98 04/15/17 20:26 97 16 146/82 96 Room Air 04/15/17 18:57 Room Air 04/15/17 18:11 36.9 98 18 129/86 96 Room Air The patient is a well-developed elderly male. He is lying comfortably in bed and in no acute distress. He is alert and oriented to person and hospital. His aphasia renders the mental status assessment unreliable. He is attentive. Memory function cannot be reliably assessed. The patient has difficulty naming objects due to his expressive aphasia. He has difficulty repeating phrases. I'm unable to assess this patient's fund of knowledge due to his aphasia. He does seem to understand simple commands which indicates at least a moderate degree of verbal comprehension. Visual cazares are grossly full to confrontation although he does appear to have an element of right visual field neglect. Visual acuity normal to finger count. Pupils equal round reactive to light and accommodation. Eye movements normal although patient has a tendency to avoid looking to the right in the context of suspected visual neglect (or possibly chronic injury to the left hemispheric frontal eye cazares for initiation of volitional gaze.) Facial sensation intact. There is a right facial droop present. Hearing intact to finger rub bilaterally. Palate elevates to midline. There is decreased shoulder shrug strength on the right. Tongue protrudes to midline. Sensory examination cannot be reliably assessed due to patient's aphasia. Deep tendon reflexes are increased for the right arm and leg as compared to the left. There is an upgoing plantar response for the right as well. Left plantar response downgoing. Patient exhibits significant dysmetria with finger to nose and heel to lewis for the right. No dysmetria for the left. Ophthalmoscopic examination reveals normal-appearing optic disks and posterior segments. No papilledema or hemorrhages. There are no carotid bruits to auscultation. Gait and station cannot be tested due to safety concerns. Assessment of muscle strength reveals a spastic right hemiparesis affecting the arm and leg. Strength 4/5 for the right arm and leg. Normal for the left arm and leg. There is no atrophy. No abnormal movements observed. Laboratory Results Past 24 Hours: 04/16/17 04:42 Red Blood Count 4.36, Mean Corpuscular Volume 87.4, Mean Corpuscular Hemoglobin 31.4, Mean Corpuscular Hemoglobin Concent 36.0, Mean Platelet Volume 8.3, Neutrophils (%) (Auto) 72.5, Lymphocytes (%) (Auto) 12.7, Monocytes (%) (Auto) 12.9, Eosinophils (%) (Auto) 1.5, Basophils (%) (Auto) 0.2, Neutrophils # (Auto ) 6.14, Lymphocytes # (Auto) 1.08, Monocytes # (Auto) 1.09, Eosinophils # (Auto ) 0.13, Basophils # (Auto) 0.02 04/16/17 04:42 Test 04/15/17 18:48 04/15/17 22:39 04/16/17 04:42 04/16/17 06:57 Bedside Prothrombin Time INR 1.0 (0.9-1.1) White Blood Count 8.48 K/uL (4.8-10.8) Red Blood Count 4.36 M/uL (4.7-6.1) Hemoglobin 13.7 g/dL (14.0-18.0) Hematocrit 38.1 % (42-52) Mean Corpuscular Volume 87.4 fL (80-100) Mean Corpuscular Hemoglobin 31.4 pg (25-34) Mean Corpuscular Hemoglobin Concent 36.0 g/dl (32-36) Platelet Count 261 K/uL (130-400) Mean Platelet Volume 8.3 fL (7.4-10.4) Neutrophils (%) (Auto) 72.5 % Lymphocytes (%) (Auto) 12.7 % Monocytes (%) (Auto) 12.9 % Eosinophils (%) (Auto) 1.5 % Basophils (%) (Auto) 0.2 % Neutrophils # (Auto) 6.14 K/uL (1.4-6.5) Lymphocytes # (Auto) 1.08 K/uL (1.2-3.4) Monocytes # (Auto) 1.09 K/uL (0.11-0.59) Eosinophils # (Auto) 0.13 K/uL (0-0.5) Basophils # (Auto) 0.02 K/uL (0-0.2) RDW Standard Deviation 39.8 fL (36.4-46.3) RDW Coefficient of Variation 12.3 % (11.5-14.5) Immature Granulocyte % (Auto) 0.2 % Immature Granulocyte # (Auto) 0.02 K/uL (0.00-0.02) Prothrombin Time 10.9 SECONDS (9.0-12.0) Prothromb Time International Ratio 1.0 (0.9-1.1) Activated Partial Thromboplast Time 31.3 SECONDS (21.0-31.0) Partial Thromboplastin Ratio 1.2 Anion Gap 4.0 mmol/L (3-11) Est Creatinine Clear Calc Drug Dose 92.3 ml/min Estimated GFR () 105.9 Estimated GFR (Non- 91.4 BUN/Creatinine Ratio 14.9 (10-20) Calcium Level 8.8 mg/dl (8.5-10.1) Magnesium Level 1.9 mg/dl (1.8-2.4) Total Creatine Kinase 107 U/L (39-308) Creatine Kinase MB 2.0 ng/ml (0.5-3.6) Creatine Kinase MB Ratio 1.9 (0-3.0) Troponin I < 0.015 ng/ml (0-0.045) Triglycerides Level 86 mg/dl (0-150) Cholesterol Level 128 mg/dl (0-200) HDL Cholesterol 50 mg/dl LDL Cholesterol, Calculated 61 mg/dl VLDL Cholesterol, Calculated 17 mg/dl Cholesterol/HDL Ratio 2.6 Bedside Glucose 163 mg/dl (70-99) Impression This is a 81-year-old male with a chronic, spastic, right hemiparesis and associated aphasia due to a chronic, large, left MCA territory infarct occurring over 20 years ago due to an occluded left internal carotid artery. He fell in his bathroom 3 days ago and has been admitted for further assessment of possible reported worsening in his right hemiparesis. This patient has had multiple presentations to [facility] for very similar circumstances. I evaluated this patient in 2011 and 2012 for the same. He was also admitted in 2014 for the same. With each of these previous 3 admissions, a subsequent brain MRI was negative for acute or subacute infarct. It is probably unlikely that we will find evidence of a recent stroke during this patient's current hospitalization. However, an acute or subacute infarct cannot be excluded at this time. There is no evidence to suggest seizures, meningoencephalitis, or other significant [employer] pathology in this patient. Plan Agree with obtaining a brain MRI as ordered. Continue with Plavix as ordered. There does not appear to be an indication for anticoagulation in this patient at this time. An up-to-date carotid ultrasound would be reasonable to assess the patency/flow of the right internal carotid artery. I would not expect any change in the chronically occluded left internal carotid artery. Consultations with PT/OT/speech therapy. Please feel free to contact the neurology service for fear any remaining questions or concerns regarding this patient's management.
[2017-04-16 09:57] LABS: ESTIMATED AVERAGE GLUCOSE 134 mg/dl; HA1C FLAG Normal (Normal)
--- NOTE | 2017-04-16 10:11 | DIAGNOSTIC IMAGING REPORT ---
ORBIT RADIOGRAPHS 3 VIEWS HISTORY: pre-MRI screening. COMPARISON: None. FINDINGS: There are no radiopaque foreign bodies identified within the orbits. IMPRESSION: No radiopaque foreign bodies identified within the orbits. Electronically signed by: Jim King M.D. 04/16/2017 10:10 AM Dictated Date/Time: 04/16/2017 10:10 AM
[2017-04-16] MEDS ORDERED: GADAVIST IV PRN (10:55)
--- NOTE | 2017-04-16 11:27 | DIAGNOSTIC IMAGING REPORT ---
MRI OF THE BRAIN WITHOUT AND WITH IV CONTRAST CLINICAL HISTORY: Stroke. Head trauma. COMPARISON STUDY: Head CT dated 04/15/2017, MRI the brain dated 03/18/2015 TECHNIQUE: MRI of the brain was performed from the vertex to the skull base utilizing various T1 and T2 weighted sequences. Following the IV administration of 8 mL of Gadavist contrast, additional enhanced images were obtained. FINDINGS: Sagittal T1, axial diffusion, proton density and T2 weighted axial, coronal FLAIR, and pre and post axial T1-weighted images were acquired. These were supplemented with post gadolinium coronal T1 weighted images. No intra or extra-axial mass lesions are visualized. Axial diffusion-weighted images reveal no evidence of acute or subacute infarction. There is mild compensatory dilatation of the left lateral ventricle. Proton density T2-weighted and FLAIR images reveal scattered foci of increased T2 signal within the white matter, likely on a small vessel basis. 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 There is an absent left internal carotid artery flow void suggesting slow flow or occlusion. There is a 2.5 cm right occipital scalp lesion. This remain similar to the preceding study. IMPRESSION: 1. Old large left MCA territory infarct 2. No evidence of intracranial mass 3. No evidence of acute or subacute infarction 4. No change the nonspecific right occipital scalp lesion Electronically signed by: Jim King M.D. 04/16/2017 11:26 AM Dictated Date/Time: 04/16/2017 11:22 AM
--- NOTE | 2017-04-16 11:46 | DIAGNOSTIC IMAGING REPORT ---
ULTRASOUND OF THE CAROTID ARTERIES CLINICAL HISTORY: Occlusive left internal carotid artery. Transient ischemic attack. COMPARISON STUDY: 03/18/2015 TECHNIQUE: Real-time, grayscale, and color Doppler sonography of the carotid arteries was performed. Imaging reviewed in the transverse and longitudinal planes. NASCET criteria was utilized for stenosis calcification. FINDINGS: There is mild atherosclerotic plaque present . The peak systolic velocity within the right internal carotid artery is 81 cm/sec. The systolic velocity ratio of right internal to common carotid artery is 1.3. The peak systolic velocity within the left internal carotid artery is 0 cm/sec. The systolic velocity ratio left internal to common carotid artery is N/A. Antegrade flow is seen in the vertebral arteries. The external carotid arteries are patent. IMPRESSION: 1. Occluded left internal carotid artery 2. No evidence of hemodynamic significant right internal carotid artery stenosis Electronically signed by: Jim King M.D. 04/16/2017 11:45 AM Dictated Date/Time: 04/16/2017 11:43 AM
[2017-04-16] MEDS: FAMOTIDINE IV INJ 20 MG in DEXTROSE 5% 100ML 100 ML IV SCH ×2 (12:25→21:26)
[2017-04-16] MEDS ORDERED: TRAMADOL HCL 50 MG TAB PO PRN (13:30)
--- NOTE | 2017-04-16 14:22 | Progress Note ---
Subjective Date of Service: Apr 16, 2017. Subjective Pt evaluation today including: conversation w/ patient, conversation w/ family , physical exam, lab review, review of studies, conversation w/ sr technical sales consultant, review of inpatient medication list Pain: 7 out of 10, left rib fracture PO Intake: adequate Voiding: requires PRN straight cath patient feeling well overall, just c/o pain in left posterior rib reviewed MRI and carotid results, shows old left MCA stroke and left internal carotid chronic occlusion, nothing new appreciate neurology consultation, no further recommendations PT recommends rehab, balance is off compared to baseline, would benefit from therapy patient reluctant to going to rehab called by RN, patient trying to void, very little out, bladder scanned for 700cc straight cath for the 700cc per patient, he has had issues with retention, has never seen a urologist will start Flomax and finasteride Problem List Medical Problems: (1) Hyponatremia Status: Acute (2) Left rib fracture Status: Acute (3) Right leg numbness Status: Acute (4) Right sided weakness Status: Acute Review of Systems Constitutional: + weakness, + fatigue Male : + slowing stream, + problem reported (retention) Neurologic: + weakness (right sided), + balance problems All Other Systems: Reviewed and Negative Medications Current Inpatient Medications Medications (Trade) Dose Ordered Sig/Mirella Route Start Time Stop Time Status Last Admin Dose Admin Enoxaparin Sodium (Lovenox Inj) 40 mg Q24H SC 04/15/17 22:00 05/15/17 21:59 04/15/17 22:09 40 MG Atorvastatin Calcium (Lipitor Tab) 10 mg HS PO 04/15/17 21:00 05/15/17 20:59 04/15/17 22:09 10 MG Clopidogrel Bisulfate (plAVix TAB) 75 mg DAILY PO 04/16/17 09:00 05/16/17 08:59 04/16/17 07:57 75 MG Metoprolol Tartrate (Lopressor Tab) 12.5 mg BID PO 04/15/17 21:00 05/15/17 20:59 04/16/17 07:56 12.5 MG Ondansetron HCl (Zofran Inj) 4 mg Q6H PRN IV 04/15/17 21:00 05/15/17 20:59 Insulin Aspart (novoLOG ASPART) SLIDING SCALE If C... ACHS SC 04/15/17 21:00 05/15/17 20:59 04/16/17 12:28 3 UNITS Glucose (Glucose 40% Gel) UD PRN PO 04/15/17 21:00 05/15/17 20:59 Glucose (Glucose Chew Tab) 1 tabs UD PRN PO 04/15/17 21:00 05/15/17 20:59 Dextrose (Dextrose 50% 50ML Syringe) 50 ml UD PRN IV 04/15/17 21:00 05/15/17 20:59 Glucagon (Glucagon Inj) 1 mg UD PRN SQ 04/15/17 21:00 05/15/17 20:59 Acetaminophen 100 ml @ 400 mls/hr Q8H PRN IV 04/15/17 21:00 05/15/17 20:59 Famotidine 20 mg/ Dextrose 102 ml @ 200 mls/hr Q12H IV 04/15/17 22:00 05/15/17 21:59 04/16/17 12:25 200 MLS/HR Miscellaneous Information (Pharmacist Discharge Med Rec Consult) 1 ea UD PRN N/A 04/15/17 22:30 05/15/17 22:29 Gadobutrol (Gadavist) 8 mmol UD PRN IV 04/16/17 10:55 04/20/17 10:54 Tramadol HCl (Ultram Tab) 50 mg Q4H PRN PO 04/16/17 13:30 05/16/17 13:29 Objective Vital Signs Date Time Temp Pulse Resp B/P (MAP) Pulse Ox O2 Delivery O2 Flow Rate FiO2 04/16/17 12:02 36.6 88 18 153/91 (111) 97 Room Air 04/16/17 08:25 106 04/16/17 08:00 97 Room Air 04/16/17 07:36 36.9 99 20 151/85 (107) 97 Room Air 04/16/17 04:07 36.7 66 18 171/97 (121) 93 Room Air 04/16/17 00:00 Room Air 04/15/17 23:56 36.8 87 18 143/66 (91) 97 Room Air 04/15/17 21:36 36.8 103 22 161/83 96 Room Air 04/15/17 21:25 93 16 152/78 98 04/15/17 20:26 97 16 146/82 96 Room Air 04/15/17 18:57 Room Air 04/15/17 18:11 36.9 98 18 129/86 96 Room Air Physical Exam General Appearance: WD/WN, no apparent distress Eyes: normal inspection, EOMI, sclerae normal Neck: supple, no adenopathy, no JVD, trachea midline Respiratory/Chest: chest non-tender, lungs clear, normal breath sounds, no respiratory distress, no accessory muscle use Cardiovascular: regular rate, rhythm, no edema, no gallop, no JVD, no murmur Abdomen: normal bowel sounds, non tender, soft, no organomegaly Extremities: non-tender, no pedal edema, no calf tenderness, normal capillary refill, pelvis stable Neurologic/Psychiatric: rebrander II-XII nml as tested, alert, normal mood/affect, oriented x 3, + abnormal gait, + motor weakness (right side weak) Skin: normal color, warm/dry, no rash Laboratory Results Last 24 Hours Test 04/15/17 18:42 04/15/17 18:48 04/15/17 22:02 04/15/17 22:39 White Blood Count 8.26 K/uL Red Blood Count 4.48 M/uL Hemoglobin 13.9 g/dL Hematocrit 39.4 % Mean Corpuscular Volume 87.9 fL Mean Corpuscular Hemoglobin 31.0 pg Mean Corpuscular Hemoglobin Concent 35.3 g/dl Platelet Count 292 K/uL Mean Platelet Volume 8.6 fL Neutrophils (%) (Auto) 67.3 % Lymphocytes (%) (Auto) 17.1 % Monocytes (%) (Auto) 12.3 % Eosinophils (%) (Auto) 2.9 % Basophils (%) (Auto) 0.2 % Neutrophils # (Auto) 5.55 K/uL Lymphocytes # (Auto) 1.41 K/uL Monocytes # (Auto) 1.02 K/uL Eosinophils # (Auto) 0.24 K/uL Basophils # (Auto) 0.02 K/uL RDW Standard Deviation 40.5 fL RDW Coefficient of Variation 12.6 % Immature Granulocyte % (Auto) 0.2 % Immature Granulocyte # (Auto) 0.02 K/uL Prothrombin Time 10.7 SECONDS Prothromb Time International Ratio 1.0 Activated Partial Thromboplast Time 29.4 SECONDS Partial Thromboplastin Ratio 1.1 Sodium Level 128 mmol/L Potassium Level 3.9 mmol/L Chloride Level 94 mmol/L Carbon Dioxide Level 28 mmol/L Anion Gap 6.0 mmol/L Blood Urea Nitrogen 13 mg/dl Creatinine 0.83 mg/dl Est Creatinine Clear Calc Drug Dose 74.5 ml/min Estimated GFR () 97.0 Estimated GFR (Non- 83.7 BUN/Creatinine Ratio 15.6 Random Glucose 202 mg/dl Calcium Level 9.4 mg/dl Total Creatine Kinase 108 U/L Creatine Kinase MB 1.9 ng/ml Creatine Kinase MB Ratio 1.8 Troponin I < 0.015 ng/ml Bedside Prothrombin Time INR 1.0 Bedside Glucose 199 mg/dl 137 mg/dl Estimated Average Glucose 134 mg/dl Hemoglobin A1c 6.3 % Test 04/16/17 04:42 04/16/17 06:57 04/16/17 11:44 04/16/17 12:39 White Blood Count 8.48 K/uL Red Blood Count 4.36 M/uL Hemoglobin 13.7 g/dL Hematocrit 38.1 % Mean Corpuscular Volume 87.4 fL Mean Corpuscular Hemoglobin 31.4 pg Mean Corpuscular Hemoglobin Concent 36.0 g/dl Platelet Count 261 K/uL Mean Platelet Volume 8.3 fL Neutrophils (%) (Auto) 72.5 % Lymphocytes (%) (Auto) 12.7 % Monocytes (%) (Auto) 12.9 % Eosinophils (%) (Auto) 1.5 % Basophils (%) (Auto) 0.2 % Neutrophils # (Auto) 6.14 K/uL Lymphocytes # (Auto) 1.08 K/uL Monocytes # (Auto) 1.09 K/uL Eosinophils # (Auto) 0.13 K/uL Basophils # (Auto) 0.02 K/uL RDW Standard Deviation 39.8 fL RDW Coefficient of Variation 12.3 % Immature Granulocyte % (Auto) 0.2 % Immature Granulocyte # (Auto) 0.02 K/uL Prothrombin Time 10.9 SECONDS Prothromb Time International Ratio 1.0 Activated Partial Thromboplast Time 31.3 SECONDS Partial Thromboplastin Ratio 1.2 Sodium Level 129 mmol/L Potassium Level 3.8 mmol/L Chloride Level 98 mmol/L Carbon Dioxide Level 27 mmol/L Anion Gap 4.0 mmol/L Blood Urea Nitrogen 10 mg/dl Creatinine 0.67 mg/dl Est Creatinine Clear Calc Drug Dose 92.3 ml/min Estimated GFR () 105.9 Estimated GFR (Non- 91.4 BUN/Creatinine Ratio 14.9 Random Glucose 163 mg/dl Calcium Level 8.8 mg/dl Magnesium Level 1.9 mg/dl Total Creatine Kinase 107 U/L 98 U/L Creatine Kinase MB 2.0 ng/ml 2.0 ng/ml Creatine Kinase MB Ratio 1.9 2.0 Troponin I < 0.015 ng/ml < 0.015 ng/ml Triglycerides Level 86 mg/dl Cholesterol Level 128 mg/dl HDL Cholesterol 50 mg/dl LDL Cholesterol, Calculated 61 mg/dl VLDL Cholesterol, Calculated 17 mg/dl Cholesterol/HDL Ratio 2.6 Bedside Glucose 163 mg/dl 134 mg/dl Assessment and Plan 81 yo male with history of large MCA stroke 20 years ago with right hemiparesis , presented with weakness, balance issues, fell in tub at home with left back pain - Fall at home: appears to be due to chronic issues with residual right hemiparesis, h/o left MCA stroke no new findings on MRI brain or carotid dopplers PT recommends rehab, patient resistant to the idea but it may help since his balance is off Continue Plavix 75 mg by mouth daily. Continue metoprolol tartrate 12.5 mg by mouth twice a day. continue losartan potassium 100 mg by mouth daily. transfer to medical floor, cancel echocardiogram - Right posterior seventh rib fracture: 7 out of 10 pain treat with Tylenol and Ultram - Urinary retention: new issue that has been occurring at home, getting worse straight cath for 700cc start Flomax and finasteride consider urology consult if no improvement - Hyperlipidemia--continue atorvastatin 10 mg by mouth at bedtime Diabetes mellitus hold metformin Place on Accu-Cheks before meals and at bedtime with NovoLog coverage per scale. transfer to medical floor, ask CM to look into rehab tomorrow
[2017-04-16] MEDS: TAMSULOSIN HCL 0.4 MG CAP PO SCH (20:55)
[2017-04-16] MEDS: ATORVASTATIN 10 MG TAB PO SCH (20:56)
[2017-04-16] MEDS: ENOXAPARIN 40 MG/0.4 ML SYR SC SCH (20:57)
[2017-04-16 21:53] LABS: URINE APPEARANCE CLEAR (CLEAR); URINE BILIRUBIN NEG (NEG); URINE COLOR YELLOW; URINE NITRITE NEG (NEG); URINE PH 6.5 (4.5-7.5); UROBILINOGEN NEG (NEG)
[2017-04-16 21:56] LABS: MANUAL MICROSCOPIC REQUIRED? NO; REVIEW REQ? NO
[2017-04-17 00:05] VITALS: BP 148/80; PULSE 78; TEMP 36.6; O2SAT 99
[2017-04-17 06:35] LABS: BASO % 0.2 %; BASO ABS # 0.02 K/uL (0-0.2); COMPLETE YES; EOS % 1.6 %; HEMATOCRIT 37.6 % (42-52); IG% 0.2 %; LYMPH % 11.8 %; LYMPH ABS # 1.03 K/uL (1.2-3.4); MEAN CORPUSCULAR HGB CONC 35.6 g/dl (32-36); MEAN PLATELET VOLUME 8.5 fL (7.4-10.4); MONO % 9.9 %; NEUT % 76.3 %; PLATELET COUNT 265 K/uL (130-400); RED BLOOD COUNT 4.32 M/uL (4.7-6.1)
[2017-04-17 06:42] LABS: PARTIAL THROMBOPLASTIN RATIO 1.2; PROTHROMBIN TIME (PATIENT) 10.6 SECONDS (9.0-12.0)
[2017-04-17 07:04] LABS: BUN/CREATININE RATIO 18.6 (10-20); CALCIUM 8.7 mg/dl (8.5-10.1); CREATININE 0.63 mg/dl (0.60-1.40); MAGNESIUM 1.9 mg/dl (1.8-2.4); POTASSIUM 3.9 mmol/L (3.5-5.1)
[2017-04-17 08:05] VITALS: BP 169/82; PULSE 92; TEMP 36.6; O2SAT 97
[2017-04-17] MEDS: CLOPIDOGREL BISULFATE 75 MG TAB PO SCH (08:18)
[2017-04-17] MEDS: FINASTERIDE 5 MG TAB PO SCH (08:18)
[2017-04-17] MEDS: METOPROLOL TARTRATE 25 MG TAB PO SCH ×2 (08:19→21:15)
[2017-04-17] MEDS: INSULIN ASPART 100 UNITS/ML 3 ML PEN SC SCH ×4 (08:25→21:00)
[2017-04-17] MEDS: FAMOTIDINE 20 MG TAB PO SCH ×2 (10:19→21:16)
--- NOTE | 2017-04-17 13:13 | Progress Note ---
Subjective Date of Service: Apr 17, 2017. Subjective Pt evaluation today including: conversation w/ patient, conversation w/ family , physical exam, chart review, lab review, review of studies, review of inpatient medication list Pt resting comfortably in bed Residual right sided weakness Difficulty speaking and understanding commands as well Problem List Medical Problems: (1) Hyponatremia Status: Acute (2) Left rib fracture Status: Acute (3) Right leg numbness Status: Acute (4) Right sided weakness Status: Acute Review of Systems Constitutional: No fever, No chills, No sweats, No weakness Eyes: No worsening of vision, No eye pain, No redness, No discharge, No diplopia ENT: No hearing loss, No unusual epistaxis, No nasal symptoms, No tinnitus Respiratory: No cough, No sputum, No wheezing, No shortness of breath Cardiac: No chest pain, No orthopnea, No PND, No edema, No claudication Abdomen: No pain, No nausea, No vomiting, No diarrhea Musculoskeletal: No joint pain, No muscle pain, No swelling, No calf pain Male : No dysuria, No urinary frequency, No incontinence, No slowing stream Neurologic: + weakness (residual right sided weakness), + problem reported ( facial droop), No memory loss Psychiatric: No depression symptoms, No anhedonism, No anxiety Endo: No fatigue, No excessive thirst Skin: No rash, No itch Objective Vital Signs Date Time Temp Pulse Resp B/P (MAP) Pulse Ox O2 Delivery O2 Flow Rate FiO2 04/17/17 08:05 36.6 92 18 169/82 (111) 97 04/17/17 08:00 Room Air 04/17/17 01:30 Room Air 04/17/17 00:05 36.6 78 19 148/80 (102) 99 Room Air 04/16/17 16:00 Room Air 04/16/17 14:20 36.6 87 18 155/80 (105) 97 Room Air 04/16/17 14:00 36.6 87 18 97 Physical Exam General Appearance: WD/WN, no apparent distress Eyes: normal inspection, PERRL, EOMI, sclerae normal Neck: supple, no adenopathy, thyroid normal, no JVD Respiratory/Chest: chest non-tender, lungs clear, normal breath sounds, no respiratory distress Cardiovascular: no edema, no gallop, no JVD, no murmur Abdomen: normal bowel sounds, non tender, soft, no organomegaly Neurologic/Psychiatric: alert, + aphasia, + facial droop, + motor weakness ( right sided weakness), + depressed affect Skin: normal color, warm/dry, no rash Lymphatic: no adenopathy Laboratory Results Last 24 Hours Test 04/16/17 16:27 04/16/17 20:55 04/16/17 21:14 04/17/17 05:45 Bedside Glucose 131 mg/dl 173 mg/dl Urine Color YELLOW Urine Appearance CLEAR Urine pH 6.5 Urine Specific [place] 1.020 Urine Protein NEG Urine Glucose (UA) 1+ Urine Ketones NEG Urine Occult Blood NEG Urine Nitrite NEG Urine Bilirubin NEG Urine Urobilinogen NEG Urine Leukocyte Esterase NEG White Blood Count 8.70 K/uL Red Blood Count 4.32 M/uL Hemoglobin 13.4 g/dL Hematocrit 37.6 % Mean Corpuscular Volume 87.0 fL Mean Corpuscular Hemoglobin 31.0 pg Mean Corpuscular Hemoglobin Concent 35.6 g/dl Platelet Count 265 K/uL Mean Platelet Volume 8.5 fL Neutrophils (%) (Auto) 76.3 % Lymphocytes (%) (Auto) 11.8 % Monocytes (%) (Auto) 9.9 % Eosinophils (%) (Auto) 1.6 % Basophils (%) (Auto) 0.2 % Neutrophils # (Auto) 6.63 K/uL Lymphocytes # (Auto) 1.03 K/uL Monocytes # (Auto) 0.86 K/uL Eosinophils # (Auto) 0.14 K/uL Basophils # (Auto) 0.02 K/uL RDW Standard Deviation 39.8 fL RDW Coefficient of Variation 12.3 % Immature Granulocyte % (Auto) 0.2 % Immature Granulocyte # (Auto) 0.02 K/uL Prothrombin Time 10.6 SECONDS Prothromb Time International Ratio 1.0 Activated Partial Thromboplast Time 31.7 SECONDS Partial Thromboplastin Ratio 1.2 Sodium Level 125 mmol/L Potassium Level 3.9 mmol/L Chloride Level 91 mmol/L Carbon Dioxide Level 26 mmol/L Anion Gap 7.0 mmol/L Blood Urea Nitrogen 12 mg/dl Creatinine 0.63 mg/dl Est Creatinine Clear Calc Drug Dose 98.2 ml/min Estimated GFR () 108.6 Estimated GFR (Non- 93.7 BUN/Creatinine Ratio 18.6 Random Glucose 157 mg/dl Calcium Level 8.7 mg/dl Magnesium Level 1.9 mg/dl Test 04/17/17 07:04 04/17/17 11:32 Bedside Glucose 146 mg/dl 180 mg/dl Assessment and Plan 81 yo male with 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 Continue metoprolol tartrate 12.5 mg by mouth twice a day. continue losartan potassium 100 mg by mouth daily. - Right posterior seventh rib fracture: pain improved treat with Tylenol and Ultram - Urinary retention: straight cath PRN cont flomax and finasteride consider urology consult if no improvement - Hyperlipidemia--continue atorvastatin 10 mg by mouth at bedtime, lipid panel unremarkable Diabetes mellitus hold metformin Place on Accu-Cheks before meals and at bedtime with NovoLog coverage per scale.
--- NOTE | 2017-04-17 15:25 | Medical Student: [facility] ---
Med Student History & Physical Date & Time of Service: Apr 17, 2017 at 14:55 Chief Complaint: Fall, Hemiparesis Affecting Right Side As Late Primary Care Physician: Kevon Post M.D. History of Present Illness Source: patient, family Mr. Strickland is a 81 yo male with history of Left MCA stroke in 1992 with subsequent right sided hemiparesis who presented on 04/15 following a fall where he injured his head, back, and leg. Per patient and his son, 1 day prior to the fall he started developing worsening weakness and speech. Initial labs notable for hyponatremia and hypochloridemia, radiology findings notable for no acute brain injuries, possible posterior left 7th rib fracture, no hip fracture , and normal ekg. Past Medical/Surgical History Medical Problems: (1) Hyponatremia Status: Acute (2) Left rib fracture Status: Acute (3) Right leg numbness Status: Acute (4) Right sided weakness Status: Acute Family History Father: cancer (Found lump in his neck, led to cancer, in 40's. Uncertain of cancer type) Social History Smoking Status: Former Smoker (quit 30+ years ago. 10-15 pack years. Swtiched to chewing tobacco till 1992) Smokeless Tobacco Use: Yes (used after quitting smoking until 1992) Alcohol Use: occasionally Drug Use: none Marital Status: Housing status: lives with family Occupational Status: retired Immunizations History of Influenza Vaccine: Yes History of Tetanus Vaccine?: Yes History of Pneumococcal: Yes History of Hepatitis B Vaccine: Unknown Allergies Coded Allergies: No Known Allergies (Verified , 04/15/17) Medications Ascorbic Acid (Ascorbic Acid), 500 MG PO DAILY Atorvastatin (Atorvastatin Calcium), 10 MG PO HS Clopidogrel (Plavix), 75 MG PO DAILY Losartan Potassium (Cozaar), 100 MG PO DAILY Magnesium Oxide (Magnesium-Oxide), 400 MG PO BID Metformin Hcl (Glucophage), 500 MG PO DAILY Metoprolol Tartrate (Lopressor), 12.5 MG PO BID Multiple Vitamin (Multivitamin), 1 TAB PO DAILY Review of Systems Constitutional: + weakness, No fever, No chills, No sweats, No weight loss, No fatigue Eyes: No worsening of vision, No eye pain, No redness, No discharge, No diplopia, No problem reported ENT: No hearing loss, No unusual epistaxis, No nasal symptoms, No sore throat, No tinnitus, No trouble swallowing, No problem reported Respiratory: No cough, No sputum, No wheezing, No shortness of breath, No dyspnea on exertion, No dyspnea at rest, No hemoptysis, No problem reported Cardiovascular: No chest pain, No edema, No claudication, No palpitations, No problem reported Abdomen: No pain, No nausea, No vomiting, No diarrhea, No constipation, No GI bleeding, No problem reported Musculoskeletal: No joint pain, No muscle pain, No swelling, No problem reported Genitourinary - Male: + urinary retention, No hematuria, No dysuria, No urinary frequency, No urinary urgency, No urinary hesitancy, No urinary incontinence Neurologic: + paralysis, + weakness, + problem reported (aphasia) Physical Exam Vital Signs (24 Hours) Date Time Temp Pulse Resp B/P (MAP) Pulse Ox O2 Delivery O2 Flow Rate FiO2 04/17/17 08:05 36.6 92 18 169/82 (111) 97 04/17/17 08:00 Room Air 04/17/17 01:30 Room Air 04/17/17 00:05 36.6 78 19 148/80 (102) 99 Room Air 04/16/17 16:00 Room Air General Appearance: WD/WN, no apparent distress Head: normocephalic ENT: hearing grossly normal Neck: supple, no JVD, no carotid bruits, trachea midline Respiratory/Chest: chest non-tender, lungs clear, normal breath sounds, no respiratory distress, no accessory muscle use Cardiovascular: regular rate, rhythm, no edema, no gallop, no JVD, no murmur, normal peripheral pulses Abdomen/GI: normal bowel sounds, non tender, soft Extremities/Musculoskelatal: no pedal edema Neurologic/Psych: + 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 4/5 strength to R shoulder abduction. Increased tone in RUE. LUE normal strength. 1/ 5 strength to R knee flexion/extension, 3/5 R dorsiflexion, 4/5 R plantarflexion and hip flexion. LLE notable for difficulty flexing knee, otherwise 5/5 strength. Normal tone in lower extremities.), + abnormal reflexes (hyporeflexic on right side) Diagnostics Laboratory Results Results Past 24 Hours Test 04/16/17 16:27 04/16/17 20:55 04/16/17 21:14 04/17/17 05:45 Range/Units Bedside Glucose 131 173 70-99 mg/dl Urine Color YELLOW Urine Appearance CLEAR CLEAR Urine pH 6.5 4.5-7.5 Urine Specific [place] 1.020 1.000-1.030 Urine Protein NEG NEG Urine Glucose (UA) 1+ NEG Urine Ketones NEG NEG Urine Occult Blood NEG NEG Urine Nitrite NEG NEG Urine Bilirubin NEG NEG Urine Urobilinogen NEG NEG Urine Leukocyte Esterase NEG NEG White Blood Count 8.70 4.8-10.8 K/uL Red Blood Count 4.32 4.7-6.1 M/uL Hemoglobin 13.4 14.0-18.0 g/dL Hematocrit 37.6 42-52 % Mean Corpuscular Volume 87.0 80-100 fL Mean Corpuscular Hemoglobin 31.0 25-34 pg Mean Corpuscular Hemoglobin Concent 35.6 32-36 g/dl Platelet Count 265 130-400 K/uL Mean Platelet Volume 8.5 7.4-10.4 fL Neutrophils (%) (Auto) 76.3 % Lymphocytes (%) (Auto) 11.8 % Monocytes (%) (Auto) 9.9 % Eosinophils (%) (Auto) 1.6 % Basophils (%) (Auto) 0.2 % Neutrophils # (Auto) 6.63 1.4-6.5 K/uL Lymphocytes # (Auto) 1.03 1.2-3.4 K/uL Monocytes # (Auto) 0.86 0.11-0.59 K/uL Eosinophils # (Auto) 0.14 0-0.5 K/uL Basophils # (Auto) 0.02 0-0.2 K/uL RDW Standard Deviation 39.8 36.4-46.3 fL RDW Coefficient of Variation 12.3 11.5-14.5 % Immature Granulocyte % (Auto) 0.2 % Immature Granulocyte # (Auto) 0.02 0.00-0.02 K/uL Prothrombin Time 10.6 9.0-12.0 SECONDS Prothromb Time International Ratio 1.0 0.9-1.1 Activated Partial Thromboplast Time 31.7 21.0-31.0 SECONDS Partial Thromboplastin Ratio 1.2 Sodium Level 125 136-145 mmol/L Potassium Level 3.9 3.5-5.1 mmol/L Chloride Level 91 98-107 mmol/L Carbon Dioxide Level 26 21-32 mmol/L Anion Gap 7.0 3-11 mmol/L Blood Urea Nitrogen 12 7-18 mg/dl Creatinine 0.63 0.60-1.40 mg/dl Est Creatinine Clear Calc Drug Dose 98.2 ml/min Estimated GFR () 108.6 Estimated GFR (Non- 93.7 BUN/Creatinine Ratio 18.6 10-20 Random Glucose 157 70-99 mg/dl Calcium Level 8.7 8.5-10.1 mg/dl Magnesium Level 1.9 1.8-2.4 mg/dl Test 04/17/17 07:04 04/17/17 11:32 Range/Units Bedside Glucose 146 180 70-99 mg/dl Diagnostic Radiology ORBIT RADIOGRAPHS 3 VIEWS HISTORY: pre-MRI screening. COMPARISON: None. FINDINGS: There are no radiopaque foreign bodies identified within the orbits. IMPRESSION: No radiopaque foreign bodies identified within the orbits. Electronically signed by: Jim King M.D. 04/16/2017 10:10 AM ULTRASOUND OF THE CAROTID ARTERIES CLINICAL HISTORY: Occlusive left internal carotid artery. Transient ischemic attack. COMPARISON STUDY: 03/18/2015 TECHNIQUE: Real-time, grayscale, and color Doppler sonography of the carotid arteries was performed. Imaging reviewed in the transverse and longitudinal planes. NASCET criteria was utilized for stenosis calcification. FINDINGS: There is mild atherosclerotic plaque present . The peak systolic velocity within the right internal carotid artery is 81 cm/sec. The systolic velocity ratio of right internal to common carotid artery is 1.3. The peak systolic velocity within the left internal carotid artery is 0 cm/sec. The systolic velocity ratio left internal to common carotid artery is N/A. Antegrade flow is seen in the vertebral arteries. The external carotid arteries are patent. IMPRESSION: 1. Occluded left internal carotid artery 2. No evidence of hemodynamic significant right internal carotid artery stenosis Electronically signed by: Jim King M.D. 04/16/2017 11:45 AM MRI OF THE BRAIN WITHOUT AND WITH IV CONTRAST CLINICAL HISTORY: Stroke. Head trauma. COMPARISON STUDY: Head CT dated 04/15/2017, MRI the brain dated 03/18/2015 TECHNIQUE: MRI of the brain was performed from the vertex to the skull base utilizing various T1 and T2 weighted sequences. Following the IV administration of 8 mL of Gadavist contrast, additional enhanced images were obtained. FINDINGS: Sagittal T1, axial diffusion, proton density and T2 weighted axial, coronal FLAIR, and pre and post axial T1-weighted images were acquired. These were supplemented with post gadolinium coronal T1 weighted images. No intra or extra-axial mass lesions are visualized. Axial diffusion-weighted images reveal no evidence of acute or subacute infarction. There is mild compensatory dilatation of the left lateral ventricle. Proton density T2-weighted and FLAIR images reveal scattered foci of increased T2 signal within the white matter, likely on a small vessel basis. 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 There is an absent left internal carotid artery flow void suggesting slow flow or occlusion. There is a 2.5 cm right occipital scalp lesion. This remain similar to the preceding study. IMPRESSION: 1. Old large left MCA territory infarct 2. No evidence of intracranial mass 3. No evidence of acute or subacute infarction 4. No change the nonspecific right occipital scalp lesion Electronically signed by: Jim King M.D. 04/16/2017 11:26 AM SINGLE VIEW PELVIS CLINICAL HISTORY: Fall. Hip pain. FINDINGS: An AP view of the pelvis is obtained. No prior studies are available for comparison at the time of dictation. The skeletal structures are osteopenic. There is no radiographic evidence of fracture involving the hips or bony pelvis. Moderate arthritic change and joint space narrowing is present in both hips. Large enthesophytes arise from the greater trochanters of the proximal femora and the anterior superior iliac spines. Degenerative sclerosis is seen in the sacroiliac joints and pubic symphysis. The overlying soft tissues are within normal limits. Prostatic calcifications are noted. Lumbosacral spondylosis is partially imaged. There is a nonobstructed abdominal bowel gas pattern. IMPRESSION: Osteopenia and degenerative change as above. There is no radiographic evidence of fracture involving the hips or bony pelvis. Electronically signed by: Aureliano Cortés M.D. 04/15/2017 8:03 PM AP CHEST WITH LEFT-SIDED RIB SERIES CLINICAL HISTORY: Fall. Left-sided chest wall pain. FINDINGS: An AP upright chest radiograph with 5 additional views from a left-sided rib series is compared to study dated 10/29/2012. Correlation is made with chest CT dated 12/16/2011. The AP view is degraded by patient rotation. The heart is mildly enlarged and there is atherosclerotic calcification of the thoracic aorta. The pulmonary vasculature is noncongested. Emphysema is suspected and there is chronic interstitial thickening. No airspace consolidation or pleural effusion is identified. No pneumothorax is seen. The skeletal structures are osteopenic. Question a nondistracted left posterior 7th rib fracture on the rib series. No additional findings are concerning for acute rib fracture. The remainder of the bony thorax is grossly intact. Degenerative change and scoliosis is noted in the thoracic spine. Arthritic change is seen in the shoulders. IMPRESSION: 1. Cardiomegaly and mild emphysema. 2. No airspace consolidation, pleural effusion, or pneumothorax is seen. 3. Question a nondistracted left posterior 7th rib fracture on the rib series. Correlate for point tenderness at this site. 4. No additional findings are concerning for acute rib fracture. Electronically signed by: Aureliano Cortés M.D. 04/15/2017 7:57 PM Normal EKG Impression Assessment and Plan Mr. 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 Imaging and testing performed suggest possible Left Posterior 7th rib fracture, hyponatremia and hypochloridemia. Fall in the setting of R sided hemiparesis: patient is doing well, imaging is supportive that there were no serious injuries inflicted. Chest pain has improved since yesterday. Breathing well, no shortness of breath. Continues to have weakness of the right side. Plan: Plan for physical therapy/Occupational therapy. Likely will be discharged to rehab facility such as [facility] (Son of patient would prefer). Promote ambulation as tolerated. Hypertension: Fluctuates with a range from 148 to 169 systolic. Asymptomatic. Plan: Continue with Atorvastatin PO 10mg HS, Metoprolol 12.5mg PO BID Diabetes Mellitus, Type 2: Metformin controlled. Plan: Continue with Metformin 500mg PO daily. Blood glucose checks with meals. Urinary retention: Likely has a BPH component. Currently catheterized and no complaints at this time. Plan: Continue with Finasteride 5mg QAM and tamsulosin 0.4mg PO HS Previous Stroke: R sided hemiparesis still evident. MRI negative for new lesions. Likely has returned to his baseline status. Plan: Clopidogrel 75mg PO daily, Enoxaparin 40mg SC daily. Monitor BP. Rib Fracture: No pain today, likely resolving. Plan: Continue with pain management with tramadol 50mg PO q4h PRN for pain. Health Maintenance: Plan: Continue Ascorbic acid and Multivitamin Advanced Directives Existing Living Will: Yes Existing Power of Manager Power: Yes
[2017-04-17 16:11] VITALS: BP 149/81; PULSE 87; TEMP 36.4; O2SAT 98
[2017-04-17 18:25] VITALS: BP 151/75; PULSE 96; TEMP 36.6; O2SAT 97
[2017-04-17] MEDS: ATORVASTATIN 10 MG TAB PO SCH (21:14)
[2017-04-17] MEDS: TAMSULOSIN HCL 0.4 MG CAP PO SCH (21:15)
[2017-04-17] MEDS: ENOXAPARIN 40 MG/0.4 ML SYR SC SCH (21:16)
[2017-04-17 23:10] VITALS: BP 145/80; PULSE 86; TEMP 36.7; O2SAT 94
[2017-04-18] VITALS (7 sets, daily range): BP systolic 93–171; BP diastolic 56–106; PULSE 61–100; TEMP 36.3–36.6; O2SAT 94–97; Ht 177.8 cm; Wt 80.2 kg
[2017-04-18 06:06] LABS: BASO % 0.1 %; BASO ABS # 0.01 K/uL (0-0.2); COMPLETE YES; EOS % 0.4 %; HEMATOCRIT 33.9 % (42-52); IG% 0.2 %; LYMPH % 11.3 %; MEAN CELL VOLUME 84.5 fL (80-100); MEAN CORPUSCULAR HEMOGLOBIN 31.2 pg (25-34); MEAN CORPUSCULAR HGB CONC 36.9 g/dl (32-36); MONO % 8.9 %; NEUT % 79.1 %; PLATELET COUNT 235 K/uL (130-400); RED BLOOD COUNT 4.01 M/uL (4.7-6.1); WHITE BLOOD COUNT 9.74 K/uL (4.8-10.8)
[2017-04-18 06:17] LABS: PARTIAL THROMBOPLASTIN RATIO 1.2; PROTHROMBIN TIME (PATIENT) 10.9 SECONDS (9.0-12.0)
[2017-04-18 06:39] LABS: BUN/CREATININE RATIO 22.2 (10-20); CALCIUM 8.5 mg/dl (8.5-10.1); CREATININE 0.6 mg/dl (0.60-1.40); MAGNESIUM 2.1 mg/dl (1.8-2.4); POTASSIUM 4.1 mmol/L (3.5-5.1)
[2017-04-18] MEDS: CLOPIDOGREL BISULFATE 75 MG TAB PO SCH (08:21)
[2017-04-18] MEDS: METOPROLOL TARTRATE 25 MG TAB PO SCH ×2 (08:21→20:35)
[2017-04-18] MEDS: LOSARTAN POTASSIUM 50 MG TAB PO SCH (08:22)
[2017-04-18] MEDS: FAMOTIDINE 20 MG TAB PO SCH ×2 (08:22→20:35)
[2017-04-18] MEDS: FINASTERIDE 5 MG TAB PO SCH (08:22)
[2017-04-18] MEDS: INSULIN ASPART 100 UNITS/ML 3 ML PEN SC SCH ×4 (08:25→20:29)
[2017-04-18] MEDS ORDERED: HydrALAZINE HCL 20 MG/ML VIAL IV. PRN (10:15)
[2017-04-18] MEDS ORDERED: INSULIN ASPART 100 UNITS/ML 3 ML PEN SC ONE (11:30)
[2017-04-18] MEDS ORDERED: FLM4 PO (13:52)
--- NOTE | 2017-04-18 13:56 | Discharge Instructions ---
Discharge Instructions Date of Service Apr 18, 2017. Admission Reason for Admission: Fall, Hemiparesis Affecting Right Side As Late Discharge Discharge Diagnosis / Problem: Fall, deconditioning Discharge Goals Goal(s): Decrease discomfort, Improve function, Increase independence, Improve disease control, Learn about illness, Diagnostic testing, Therapeutic intervention, Prevent Disease Progression Activity Recommendations Activity Limitations: resume your previous activity Exercise/Sports Limitations: as tolerated . Instructions / Follow-Up Instructions / Follow-Up Patient to be discharged to [facility] Will need intensive rehab for deconditioning Has had prior falls with this fall leading to rib fracture Please continue taking flomax once daily for urinary retention No further changes in medication Current Hospital Diet Patient's current hospital diet: AHA Diet (Heart Healthy), Diabetes Type 2 Diet Discharge Diet Recommended Diet: Diabetes Type 2 Diet Pending Studies Studies pending at discharge: no Laboratory Results Hemoglobin A1c Test 04/15/17 22:39 Range/Units Estimated Average Glucose 134 mg/dl Hemoglobin A1c 6.3 H 4.5-5.6 % Lipid Panel Test 04/16/17 04:42 Range/Units Triglycerides Level 86 0-150 mg/dl Cholesterol Level 128 0-200 mg/dl HDL Cholesterol 50 mg/dl Cholesterol/HDL Ratio 2.6 LDL Cholesterol, Calculated 61 mg/dl Medical Emergencies . Who to Call and When: Medical Emergencies: If at any time you feel your situation is an emergency, please call 911 immediately. . Non-Emergent Contact Non-Emergency issues call your: Primary Care Provider Call Non-Emergent contact if: you have any medication questions . . "Provider Documentation" section prepared by Chester Anderson. . VTE Core Measure Inpt VTE Proph given/why not?: Enoxaparin (Lovenox)SQ, SCD's
--- NOTE | 2017-04-18 15:02 | Medical Student: [facility] ---
Med Student Progress Note Date of Service Apr 18, 2017. Subjective Pt evaluation today including: conversation w/ patient, physical exam Mr. Strickland is feeling well today. No changes since yesterday. Denies chest pain , fever, chills, n/v/d/c, swelling, rib pain, headaches. Review of Systems Constitutional: + see HPI Respiratory: + see HPI Cardiac: + see HPI Abdomen: + see HPI Musculoskeletal: + see HPI Neurologic: + see HPI Heme: + see HPI Objective Vital Signs Date Time Temp Pulse Resp B/P (MAP) Pulse Ox O2 Delivery O2 Flow Rate FiO2 04/18/17 13:01 36.5 85 16 107/67 (80) 97 Room Air 04/18/17 12:03 93/56 (68) 04/18/17 09:55 92 171/97 (121) 04/18/17 08:10 Room Air 04/18/17 07:25 36.6 100 20 164/106 (125) 96 04/18/17 00:00 94 Room Air 04/17/17 23:10 36.7 86 20 145/80 (101) 94 Room Air 04/17/17 18:25 36.6 96 151/75 (100) 97 Room Air 04/17/17 16:11 36.4 87 18 149/81 (103) 98 Room Air 04/17/17 16:00 Room Air Physical Exam General Appearance: WD/WN, no apparent distress ENT: hearing grossly normal Neck: no JVD, no carotid bruits, trachea midline Respiratory/Chest: chest non-tender, lungs clear, normal breath sounds, no respiratory distress, no accessory muscle use Cardiovascular: regular rate, rhythm, no edema, no gallop, no JVD, no murmur Abdomen: normal bowel sounds, non tender, soft Extremities: non-tender, normal inspection, no pedal edema, no calf tenderness Neurologic/Psychiatric: alert, normal mood/affect, + aphasia, + facial droop, + motor weakness, + pertinent finding (Muscle strength findings same as yesterday per my H&P. R extremities in general are hypertonic, areflexic and diffuse motor weakness. Has difficulty with coordination of right sided movements. Often tries to use L arm to manipulate R arm when asking him to perform tests. May have carlin neglect present. ) Laboratory Results Last 24 Hours Test 04/17/17 16:25 04/17/17 20:16 04/18/17 05:55 04/18/17 07:14 Bedside Glucose 203 mg/dl 124 mg/dl 154 mg/dl White Blood Count 9.74 K/uL Red Blood Count 4.01 M/uL Hemoglobin 12.5 g/dL Hematocrit 33.9 % Mean Corpuscular Volume 84.5 fL Mean Corpuscular Hemoglobin 31.2 pg Mean Corpuscular Hemoglobin Concent 36.9 g/dl Platelet Count 235 K/uL Mean Platelet Volume 8.0 fL Neutrophils (%) (Auto) 79.1 % Lymphocytes (%) (Auto) 11.3 % Monocytes (%) (Auto) 8.9 % Eosinophils (%) (Auto) 0.4 % Basophils (%) (Auto) 0.1 % Neutrophils # (Auto) 7.70 K/uL Lymphocytes # (Auto) 1.10 K/uL Monocytes # (Auto) 0.87 K/uL Eosinophils # (Auto) 0.04 K/uL Basophils # (Auto) 0.01 K/uL RDW Standard Deviation 37.7 fL RDW Coefficient of Variation 12.1 % Immature Granulocyte % (Auto) 0.2 % Immature Granulocyte # (Auto) 0.02 K/uL Prothrombin Time 10.9 SECONDS Prothromb Time International Ratio 1.0 Activated Partial Thromboplast Time 31.7 SECONDS Partial Thromboplastin Ratio 1.2 Sodium Level 121 mmol/L Potassium Level 4.1 mmol/L Chloride Level 88 mmol/L Carbon Dioxide Level 24 mmol/L Anion Gap 9.0 mmol/L Blood Urea Nitrogen 13 mg/dl Creatinine 0.60 mg/dl Est Creatinine Clear Calc Drug Dose 103.1 ml/min Estimated GFR () 110.8 Estimated GFR (Non- 95.6 BUN/Creatinine Ratio 22.2 Random Glucose 164 mg/dl Calcium Level 8.5 mg/dl Magnesium Level 2.1 mg/dl Test 04/18/17 11:20 Bedside Glucose 382 mg/dl Assessment and Plan Assessment and Plan: Mr. 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 Imaging and testing performed suggest possible Left Posterior 7th rib fracture, hyponatremia and hypochloridemia. Fall in the setting of R sided hemiparesis: patient is doing well, imaging is supportive that there were no serious injuries inflicted. Rib pain continues to be absent since 2 days ago. Breathing well, no shortness of breath. Continues to have weakness of the right side secondary to L MCA stroke. Plan: Plan for physical therapy/Occupational therapy upon discharge. Likely will be discharged today to [facility] (Son of patient would prefer). Promote ambulation as tolerated as well as consider passive muscle stretching. Hypertension: Fluctuates with a range from 145 to 164 systolic. Asymptomatic. Losartan given today. Plan: Continue with Atorvastatin PO 10mg HS, Metoprolol 12.5mg PO BID, Losartan 100mg PO daily Diabetes Mellitus, Type 2: Metformin controlled. Plan: Continue with Metformin 500mg PO daily. Blood glucose checks with meals. Hyponatremia: Has been downtrending since admission. Recently 121 and Chloride of 88. May be worsening his aphasia, and due to aphasia it is difficult to assess for altered mental status. Plan: NaCl tablets PO daily. Repeat BMP within week following discharge. Monitor for altered mental status. Urinary retention: Patient confirmed BPH history. Straight cathed this AM, produced 1000mL. Plan: Continue with Finasteride 5mg QAM and tamsulosin 0.4mg PO HS Previous Stroke: R sided hemiparesis still evident. MRI negative for new lesions. Likely has returned to his baseline status. Plan: Clopidogrel 75mg PO daily upon discharge. Monitor BP. Rib Fracture: No pain today, likely resolving. Plan: Continue with pain management with tramadol 50mg PO q4h PRN for pain. Health Maintenance: Plan: Continue Ascorbic acid and Multivitamin Discharge planning: rehab hospital
--- NOTE | 2017-04-18 15:39 | Discharge Summary ---
Discharge Summary Date of Service Apr 18, 2017. Discharge Summary Admission Date: Apr 15, 2017 at 20:50 Discharge Date: Apr 18, 2017 Discharge Disposition: Rehab Principal Diagnosis: Deconditioning, fall, rib fracture Immunizations: Have You Had Influenza Vaccine: Yes History of Tetanus Vaccine?: Yes History of Pneumococcal: Yes History of Hepatitis B Vaccine: Unknown Consultations: Neurology Medication Reconciliation New Medications: Tamsulosin HCl (Tamsulosin HCl) 0.4 Mg Cap 0.4 MG PO HS, #30 CAP Continued Medications: Ascorbic Acid (Ascorbic Acid) 500 Mg Tab 500 MG PO DAILY, TAB Atorvastatin (Atorvastatin Calcium) 10 Mg Tab 10 MG PO HS Clopidogrel (Plavix) 75 Mg Tab 75 MG PO DAILY, TAB Losartan Potassium (Cozaar) 100 Mg Tab 100 MG PO DAILY, TAB Magnesium Oxide (Magnesium-Oxide) 400 Mg Tab 400 MG PO BID for 5 Days, TAB Metformin Hcl (Glucophage) 500 Mg Tab 500 MG PO DAILY, TAB Metoprolol Tartrate (Lopressor) 25 Mg Tab 12.5 MG PO BID for 30 Days, TAB Multiple Vitamin (Multivitamin) 1 Tab Tab 1 TAB PO DAILY, TAB Discharge Exam Review of Systems: Constitutional: + weakness, + fatigue, No fever, No chills, No sweats Respiratory: No cough, No sputum, No wheezing, No shortness of breath, No dyspnea on exertion Cardiovascular: No chest pain, No orthopnea, No PND, No edema Abdomen: No pain, No nausea, No vomiting, No diarrhea Musculoskeletal: No joint pain, No muscle pain, No swelling, No calf pain Genitourinary - Male: + urinary retention, No hematuria, No dysuria, No urinary frequency Neurologic: + weakness (right sided), No memory loss, No paralysis, No numbness/tingling Psychiatric: No depression symptoms, No anhedonism, No anxiety, No insomnia Endocrine: No fatigue, No excessive thirst Integumentary: No rash, No itch Physical Exam: General Appearance: WD/WN, no apparent distress Eyes: normal inspection, PERRL, EOMI, sclerae normal Neck: supple, no adenopathy, thyroid normal, no JVD Respiratory/Chest: chest non-tender, lungs clear, normal breath sounds, no respiratory distress Cardiovascular: regular rate, rhythm, no edema, no gallop, no JVD Abdomen / GI: normal bowel sounds, non tender, soft, no organomegaly Extremities: normal inspection, no calf tenderness, normal capillary refill , no pedal edema Neurologic/Psychiatric: alert, normal mood/affect, normal reflexes, + motor weakness (right sided residual weakness, 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 Continue metoprolol tartrate 12.5 mg by mouth twice a day. continue losartan potassium 100 mg by mouth daily. - Right posterior seventh rib fracture: pain improved treat with Tylenol and Ultram - Urinary retention: straight cath PRN straight cath PRN cont flomax on discharge consider urology consult if no improvement - Hyperlipidemia--continue atorvastatin 10 mg by mouth at bedtime, lipid panel unremarkable Diabetes mellitus hold metformin Place on Accu-Cheks before meals and at bedtime with NovoLog coverage per scale. Total Time Spent: Greater than 30 minutes This includes examination of the patient, discharge planning, medication reconciliation, and communication with other providers. Discharge Instructions Please refer to the electronic Patient Visit Report (Discharge Instructions) for additional information. Additional Copies To Kevon Post M.D.
[2017-04-18] MEDS: ENOXAPARIN 40 MG/0.4 ML SYR SC SCH (20:34)
[2017-04-18] MEDS: TAMSULOSIN HCL 0.4 MG CAP PO SCH (20:35)
[2017-04-18] MEDS: ATORVASTATIN 10 MG TAB PO SCH (20:35)
[2017-04-19 00:48] VITALS: BP 138/77; PULSE 84; TEMP 36.7; O2SAT 95
[2017-04-19 07:09] VITALS: BP 155/83; PULSE 99; TEMP 36.6; O2SAT 96
[2017-04-19] MEDS: FINASTERIDE 5 MG TAB PO SCH (07:46)
[2017-04-19] MEDS: CLOPIDOGREL BISULFATE 75 MG TAB PO SCH (07:46)
[2017-04-19] MEDS: METOPROLOL TARTRATE 25 MG TAB PO SCH (07:46)
[2017-04-19] MEDS: FAMOTIDINE 20 MG TAB PO SCH (07:46)
[2017-04-19] MEDS: LOSARTAN POTASSIUM 50 MG TAB PO SCH (07:46)
[2017-04-19] MEDS: INSULIN ASPART 100 UNITS/ML 3 ML PEN SC SCH (08:14)
[2017-04-19 11:07] VITALS: BP 155/83; PULSE 99; TEMP 36.6; O2SAT 96
== END 2017-04-19 11:45 | DRG 57 ==
LOC: C.EDB 18:06 → C.2E 20:50 → ENRESERV 21:01 → EDBEDREQ 21:03 → ENRESERV 04-16 13:39 → C.MS2W 04-16 14:15
PROVIDERS: ADMIT Hospitalist; ATTEND Hospitalist
DX: I69.951 Hemiplegia and hemiparesis following unspecified cerebrovascular disease affecting right dominant side (principal); S22.32XA Fracture of one rib, left side, initial encounter for closed fracture; E87.1 Hypo-osmolality and hyponatremia; I65.22 Occlusion and stenosis of left carotid artery; I69.920 Aphasia following unspecified cerebrovascular disease; R33.9 Retention of urine, unspecified; E11.9 Type 2 diabetes mellitus without complications; Y92.012 Bathroom of single-family (private) house as the place of occurrence of the external cause; Y93.E1 Activity, personal bathing and showering; Z87.891 Personal history of nicotine dependence; W18.2XXA Fall in (into) shower or empty bathtub, initial encounter

== ENCOUNTER → 2017-05-01 | Outpatient (CLI) | payer OTHER ==
[~2017-05-01] MED LIST changes: -ASCA500 PO; +ASCO500T16 PO; -ATOR-14 PO; +FLM4 PO; +LPT10 PO; -VITA400C3 PO
--- NOTE | 2017-05-01 07:52 | DIAGNOSTIC IMAGING REPORT ---
LUMBAR SPINE W/O CONTRAST CLINICAL HISTORY: 81 years-old Male with HX STROKE. Acute fall with inability to ambulate. COMPARISON: CT abdomen and pelvis 04/28/2017 TECHNIQUE: Multiplanar, multi sequence MRI of the lumbar spine was performed without intravenous contrast. FINDINGS: Horseshoe kidney redemonstrated with fibrous band. There is trabeculation of the urinary bladder wall with marked urinary bladder distention measuring approximately 11.6 x 8.2 x 14.3 cm in transverse, AP and craniocaudal dimension. The prostate also appears to be enlarged. There is 15 degrees levoscoliosis measured from L1-L4. No acute fracture or focal bone marrow edema. Conus medullaris terminates at L1. Signal within the cord appears normal. Remote Schmorl's node involves the superior endplate L1 with mild anterior endplate wedging. Multilevel endplate spurring and facet arthropathy is noted with discogenic degenerative changes as below. 4 mm anterolisthesis L4 on L5 is likely secondary to long-standing severe facet disease. T12-L1: Moderate intervertebral disc space narrowing with spondylitic spurring and circumferential annular disc bulge with moderate facet arthrosis. Flattening of the ventral thecal sac without significant central canal or foraminal narrowing on the sagittal images. L1-L2: Moderate to severe intervertebral disc space narrowing with spondylitic spurring and circumferential annular disc bulge with severe facet arthrosis. There is mild central canal and mild to moderate bilateral foraminal narrowing. L2-L3: Moderate intervertebral disc space narrowing with spondylitic spurring and circumferential annular disc bulge with moderate facet arthropathy. Flattening of the ventral thecal sac without central canal stenosis. There is mild bilateral foraminal narrowing. L3-L4: Moderate to severe intervertebral disc space narrowing with posterior spondylitic spurring, broad-based posterior disc bulge and superimposed right foraminal disc protrusion with severe facet arthropathy. There is moderate central canal, mild right lateral recess and moderate bilateral foraminal narrowing. L4-L5: Moderate intervertebral disc space narrowing with 4 mm anterolisthesis. Spondylitic spurring with broad-based posterior disc bulge, severe facet arthropathy and small bilateral facet effusions with ligamentum flavum thickening. These changes cause mild to moderate central canal, moderate left and mild to moderate right foraminal narrowing. L5-S1: Severe intervertebral disc space narrowing with posterior spondylitic spurring, annular fissure and broad-based posterior disc bulge flattens the ventral thecal sac. Severe facet arthropathy is also noted. Central canal is generally patent. There is moderate bilateral foraminal narrowing. IMPRESSION: 1. No acute fracture, subluxation or focal bone marrow edema. 2. Multilevel severe facet arthropathy with moderate to severe discogenic degenerative changes as above, most pronounced at the L3-L4 level where there is moderate central canal and moderate bilateral foraminal narrowing. 3. 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 4. 4 mm anterolisthesis L4 on L5 is likely secondary to long-standing advanced facet disease. The above report was generated using voice recognition software. It may contain grammatical, syntax or spelling errors. Electronically signed by: Dany Goyal M.D. 05/01/2017 7:50 AM Dictated Date/Time: 05/01/2017 7:30 AM
== END | disposition home or self-care (01) ==
LOC: C.MRI 06:24
PROVIDERS: ATTEND Physical Medicine & Rehabilitation
DX: I63.9 Cerebral infarction, unspecified (principal); R29.6 Repeated falls; M99.73 Connective tissue and disc stenosis of intervertebral foramina of lumbar region; Q63.1 Lobulated, fused and horseshoe kidney; N40.0 Benign prostatic hyperplasia without lower urinary tract symptoms; M53.86 Other specified dorsopathies, lumbar region

== ENCOUNTER → 2017-05-15 | Outpatient (CLI) | payer OTHER ==
[2017-05-15 09:57] LABS: BASO % 0.4 %; BASO ABS # 0.03 K/uL (0-0.2); COMPLETE YES; EOS % 3.3 %; HEMATOCRIT 37.5 % (42-52); IG% 0.3 %; LYMPH % 15.4 %; LYMPH ABS # 1.08 K/uL (1.2-3.4); MEAN CELL VOLUME 93.3 fL (80-100); MEAN CORPUSCULAR HEMOGLOBIN 31.1 pg (25-34); MEAN CORPUSCULAR HGB CONC 33.3 g/dl (32-36); MEAN PLATELET VOLUME 8.9 fL (7.4-10.4); MONO % 11.7 %; NEUT % 68.9 %; PLATELET COUNT 286 K/uL (130-400); RED BLOOD COUNT 4.02 M/uL (4.7-6.1); WHITE BLOOD COUNT 7.02 K/uL (4.8-10.8)
[2017-05-15 10:16] LABS: ALT/SGPT 26 U/L (12-78); BLOOD UREA NITROGEN 13 mg/dl (7-18); BUN/CREATININE RATIO 17.8 (10-20); CALCIUM 8.8 mg/dl (8.5-10.1); CARBON DIOXIDE 29 mmol/L (21-32); CHLORIDE 99 mmol/L (98-107); CREATININE 0.74 mg/dl (0.60-1.40); GLUCOSE 149 mg/dl (70-99); POTASSIUM 3.9 mmol/L (3.5-5.1); SODIUM 134 mmol/L (136-145)
[2017-05-15 10:19] LABS: ALB/GLOB RATIO 0.8 (0.9-2); ALKALINE PHOSPHATASE 56 U/L (45-117); AST/SGOT 13 U/L (15-37)
== END ==
LOC: C.LABCC 09:38
PROVIDERS: ATTEND Internal Medicine
DX: E87.1 Hypo-osmolality and hyponatremia (principal); D64.9 Anemia, unspecified; R33.9 Retention of urine, unspecified; I10 Essential (primary) hypertension

== ENCOUNTER → 2017-06-06 | Outpatient (CLI) | payer OTHER ==
[~2017-06-06] MED LIST changes: +OPTIRAY 320 IV PRN
--- NOTE | 2017-06-06 10:12 | DIAGNOSTIC IMAGING REPORT ---
ABD/PELVIS COMBO HISTORY: 81 years-old Male R31.29 Hematuria, [id number] Benign prostatic hyperplasia COMPARISON: CT abdomen 04/28/2017 TECHNIQUE: Multiple axial CT images of the abdomen and pelvis were obtained both with and without the use of 119 mL Optiray 320 IV contrast utilizing institutional hematuria protocol. A dose lowering technique was used consistent with the principals of BERENICE. FINDINGS: The exam is mildly motion degraded. Large consolidation of the left lower lobe and to a lesser extent the inferior segment lingular appears unchanged with central air bronchograms. Calcific granuloma of the right middle lobe. Groundglass opacities of the right lung base suggest atelectasis. No pneumatosis or pneumoperitoneum. Imaged inferior cardiac chambers are mildly enlarged. Trace pericardial effusion. Coronary arterial disease. The liver, spleen, and right adrenal gland are unremarkable. Calcification near the lateral limb left adrenal gland is unchanged and may reflect prior hemorrhage or infection. Mild gallbladder distention without inflammatory changes to suggest acute cholecystitis. Moderate diffuse pancreatic atrophy. No intrahepatic biliary ductal dilation. Horseshoe kidney noted with fibrous connection. Mild nonspecific bilateral perinephric stranding. 4 mm calcification of the inferior pole left kidney is again noted, image 242 series 3 which appears to be a parenchymal calcification. No hydronephrosis or additional renal calcifications identified. Ureters appear normal in caliber. Prostamegaly with central coarse prostate calcifications. Circumferential wall thickening of the bladder is noted with mild bladder distention. No filling defects identified within either collecting system or within the right ureter. Portions of the mid and distal ureters are not well opacified and therefore difficult to evaluate. Contrast-filled outpouching involves the distal left ureter, 1.6 x 0.7 x 1.5 cm nicely seen on image 362 series 5. No associated mass identified within this region. The remainder of the left ureter is within normal limits. Moderate to severe mixed atherosclerotic plaquing of the abdominal aorta. Mildly prominent 11 x 8 mm right iliac chain lymph node is seen on image 292 series 5. Additional smaller nonenlarged iliac chain and periaortic lymph nodes are present suggesting physiologic etiology. Small sliding-type hiatal hernia. There is no bowel obstruction or focal bowel wall thickening. The appendix is not dilated and appears noninflamed. Mild diastases recti. Soft tissues are unremarkable. Bones appear intact without suspicious lytic or blastic bony lesions identified. Multilevel facet arthrosis and endplate spurring of the spine. Grade 1 anterolisthesis L4 on L5, likely secondary to facet disease. IMPRESSION: 1. Horseshoe kidney with fibrous connection. No renal calculi or hydronephrosis. Cortical calcification of the inferior pole left kidney is again seen, 4 mm. 2. Prostamegaly with chronic bladder outlet obstruction. 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 3. Chronic left lower lobe consolidation. 4. Additional findings as above. The above report was generated using voice recognition software. It may contain grammatical, syntax or spelling errors. Electronically signed by: Dany Goyal M.D. 06/06/2017 10:10 AM Dictated Date/Time: 06/06/2017 9:29 AM
== END | disposition home or self-care (01) ==
LOC: C.CTS 08:54
PROVIDERS: ATTEND Urology
DX: R31.29 Other microscopic hematuria (principal); N40.1 Benign prostatic hyperplasia with lower urinary tract symptoms; R33.9 Retention of urine, unspecified; Q63.1 Lobulated, fused and horseshoe kidney; J84.10 Pulmonary fibrosis, unspecified

== ENCOUNTER 2017-10-10 14:33 | Emergency (ER) | payer OTHER ==
[~2017-10-10 14:33] MED LIST changes: -OPTIRAY 320 IV PRN
[2017-10-10 14:41] VITALS: TEMP 36.7; Ht 172.7 cm
[2017-10-10] MEDS ORDERED: LIDOCAINE/EPINEPH/TETRACAINE 1 EA SYR EXT STA (15:12)
--- NOTE | 2017-10-10 15:36 | EMERGENCY ROOM VISIT NOTE ---
ED Visit Note First contact with patient: 14:46 I have seen and examined this patient with Elijah Montez and agree with the treatment plan Problem List Medical Problems: (1) CVA Status: Resolved (2) 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 Status: Chronic Current/Historical Medications Scheduled Ascorbic Acid (Ascorbic Acid), 500 MG PO DAILY Atorvastatin (Lipitor), 10 MG PO HS Clopidogrel (Plavix), 75 MG PO DAILY Losartan Potassium (Cozaar), 100 MG PO DAILY Magnesium Oxide (Magnesium-Oxide), 400 MG PO BID Metformin Hcl (Glucophage), 500 MG PO DAILY Metoprolol Tartrate (Lopressor), 12.5 MG PO BID Multiple Vitamin (Multivitamin), 1 TAB PO DAILY Tamsulosin HCl (Tamsulosin HCl), 0.4 MG PO HS Allergies Coded Allergies: No Known Allergies (Verified , 04/15/17) Vital Signs Date Time Temp Pulse Resp B/P (MAP) Pulse Ox O2 Delivery O2 Flow Rate FiO2 10/10/17 14:41 36.7 43 20 172/83 90 Room Air Departure Information Referrals Kevon Post M.D. (PCP) Patient Instructions My [facility]
--- NOTE | 2017-10-10 15:43 | DIAGNOSTIC IMAGING REPORT ---
HEAD WITHOUT CONTRAST (CT) CLINICAL HISTORY: 82 years-old Male with Fall, L eyebrow laceration. Acute left-sided facial pain status post fall TECHNIQUE: Multiple axial CT images of the head were obtained without contrast. A dose lowering technique was utilized adhering to the principles of ALARA. CT DOSE: 788.63 mGycm COMPARISON: Head CT 04/15/2017. FINDINGS: No acute intracranial hemorrhage, midline shift, intracranial mass, hydrocephalus, territorial ischemia or abnormal extra-axial collection. Large area of encephalomalacia involving the left MCA distribution from remote infarction is redemonstrated. There is moderate atrophy with ex vacuo ventriculomegaly. Moderate areas of low-attenuation within the white matter of the cerebral hemispheres bilaterally suggests chronic microvascular ischemic changes, also unchanged. The calvarium is intact. Mastoid air cells are clear. Mild mucosal thickening of the ethmoid air cells. No skull fracture. Orbits are unremarkable. Unchanged 2.4 cm soft tissue density structure involving the subcutaneous tissues adjacent to the right occiput, unchanged. IMPRESSION: 1. No acute intracranial abnormality. 2. Atrophy with chronic microvascular ischemic changes and large area of encephalomalacia from remote infarction involving the left MCA distribution. The above report was generated using voice recognition software. It may contain grammatical, syntax or spelling errors. Electronically signed by: Dany Goyal M.D. 10/10/2017 3:41 PM Dictated Date/Time: 10/10/2017 3:38 PM
--- NOTE | 2017-10-10 15:43 | DIAGNOSTIC IMAGING REPORT ---
CERVICAL SPINE W/O CLINICAL HISTORY: 82 years-old Male presenting with Fall, L eyebrow laceration. TECHNIQUE: Multidetector CT of the cervical spine was performed without the use of intravenous contrast. IV contrast: None. A dose lowering technique was used consistent with the principles of ALARA (as low as reasonably achievable). COMPARISON: MR from 05/02/2017. CT DOSE (mGy.cm): The estimated cumulative dose is 480.92 mGycm. FINDINGS: Associate Director Of Development topogram: Unremarkable. Slight reversal of normal cervical lordosis likely due to extensive multilevel degenerative changes. No acute fracture or malalignment. Vertebral bodies maintain normal height and alignment. Intervertebral disc height loss noted at C5-6 and C6-7. Disc osteophyte complexes evident at every level to varying degrees. Significant posterior bony spurring at C5-6 and C6-7. Significant anterior osteophytosis with associated mass effect on the cervical esophagus. Disc osteophyte complexes/uncovertebral hypertrophy in combination with facet arthropathy results in osseous neural foraminal narrowing on the right at C2-3, on the right at C3-4 bilaterally at C5-6 and bilaterally at C6-7. Skull base intact. Significant degenerative change at the atlantodental articulation. Lung apices clear. Paraspinal soft tissues within normal limits allowing for noncontrast technique. IMPRESSION: 1. No acute osseous injury of the cervical spine. 2. Significant multilevel degenerative changes. Electronically signed by: Davis Castillo M.D. 10/10/2017 3:42 PM Dictated Date/Time: 10/10/2017 3:38 PM
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
[2017-10-10 17:16] VITALS: BP 146/88; PULSE 78; O2SAT 96
== END 2017-10-10 17:17 | disposition home or self-care (01) ==
LOC: C.EDB 14:37 → C.EDC 17:17
DX: T14.8XXA Other injury of unspecified body region, initial encounter (principal); S01.81XA Laceration without foreign body of other part of head, initial encounter; W19.XXXA Unspecified fall, initial encounter; Z86.73 Personal history of transient ischemic attack (TIA), and cerebral infarction without residual deficits; I69.351 Hemiplegia and hemiparesis following cerebral infarction affecting right dominant side

== ENCOUNTER → 2018-01-23 | Outpatient (CLI) | payer OTHER ==
[2018-01-23 17:27] LABS: BASO % 0.3 %; BASO ABS # 0.02 K/uL (0-0.2); EOS % 6.7 %; EOS ABS # 0.46 K/uL (0-0.5); HEMATOCRIT 42.9 % (42-52); IG# 0.01 K/uL (0.00-0.02); LYMPH % 22.4 %; LYMPH ABS # 1.54 K/uL (1.2-3.4); MEAN CELL VOLUME 90.1 fL (80-100); MEAN CORPUSCULAR HEMOGLOBIN 31.5 pg (25-34); MONO % 11.2 %; MONO ABS # 0.77 K/uL (0.11-0.59); NEUT % 59.3 %; NEUT ABS # 4.09 K/uL (1.4-6.5); PLATELET COUNT 216 K/uL (130-400); RED CELL DISTRIBUTION WIDTH CV 12.7 % (11.5-14.5); RED CELL DISTRIBUTION WIDTH SD 41.7 fL (36.4-46.3); WHITE BLOOD COUNT 6.89 K/uL (4.8-10.8)
[2018-01-23 17:53] LABS: ALBUMIN 3.8 gm/dl (3.4-5.0); ALKALINE PHOSPHATASE 46 U/L (45-117); ALT/SGPT 25 U/L (12-78); AST/SGOT 17 U/L (15-37); BLOOD UREA NITROGEN 14 mg/dl (7-18); CARBON DIOXIDE 27 mmol/L (21-32); CHOLESTEROL 127 mg/dl (0-200); CREATININE 0.97 mg/dl (0.60-1.40); GLUCOSE 181 mg/dl (70-99); LDL CHOLESTEROL CALCULATED 53 mg/dl; POTASSIUM 4.5 mmol/L (3.5-5.1); SODIUM 132 mmol/L (136-145); TOTAL PROTEIN 7.8 gm/dl (6.4-8.2)
[2018-01-24 07:27] LABS: HEMOGLOBIN A1C 6.8 % (4.5-5.6)
== END | disposition home or self-care (01) ==
LOC: C.LABBFT 14:34
PROVIDERS: ATTEND Physician Assistant Medical
DX: E11.29 Type 2 diabetes mellitus with other diabetic kidney complication (principal)

== ENCOUNTER 2022-07-23 03:34 | Inpatient (IN) ==
--- NOTE | 2022-07-23 03:53 | Emergency Department Note ---
History of Present Illness General Chief complaint: Neuro Symptoms/Deficit Stated complaint: Weakness, R Side Pain, Hypertension Time Seen by Provider: 07/23/22 03:36 History of Present Illness 86-year-old male presents emergency department very poor historian reportedly had confusion and right arm pain; patient reportedly is on Plavix and has been having generalized weakness and arm pain for the past week with a cyst on his arm as well. According to EMS family stated that he had generalized weakness and some confusion this evening as well. Home Medications Medication Instructions Recorded Confirmed Type [id number] acid 300 1 tab PO QAM 02/15/19 05/02/22 History mcg-lycopene 600 mcg-lutein 300 mcg tablet (Centrum Silver Men) magnesium oxide 400 mg PO BID 03/30/21 05/02/22 History clopidogrel 75 mg tablet 75 mg PO QAM 10/16/21 05/02/22 History loratadine 10 mg tablet (Claritin) 10 mg PO QAM 10/16/21 05/02/22 History simvastatin 20 mg tablet 20 mg PO HS #90 tabs 10/26/21 05/02/22 Rx metformin 500 mg tablet 500 mg PO BID #180 tabs 11/11/21 05/02/22 Rx bilateral LE AFO braces #1 ea 11/23/21 05/02/22 Rx losartan 100 mg tablet 100 mg PO QAM #90 tabs 01/28/22 05/02/22 Rx metoprolol tartrate 25 mg tablet 12.5 mg PO BID #90 tabs 02/02/22 05/02/22 Rx finasteride 5 mg tablet 5 mg PO QAM #90 tabs 07/15/22 Rx Allergies Allergy/AdvReac Type Severity Reaction Status Date / Time No Known Allergies Allergy Verified 05/02/22 13:13 Past Med/Surg History Medical History (Updated 07/23/22 @ 06:13 by Stephanie Kang DO) Cerebral vascular accident Diabetes Hyperlipidemia Hypertension Peripheral artery disease Surgical History No significant past surgical history Family History Mother Coronary heart disease Brother Coronary heart disease Diabetes Hypertension Father Diabetes Denies family history of Ovarian cancer Prostate cancer Myocardial infarction Breast cancer Lung cancer Colorectal cancer Social History Smoking Status: Unknown if ever smoked Tobacco Type: Cigarettes Age Started Using Tobacco: 18; Age Quit Using Tobacco: 37; packs per day: 1; Second Hand Exposure: No; Hx Alcohol Use: Yes Alcohol type: beer, wine and hard liquor Alcohol Intake Frequency: 2-4 x/Month Alcohol Intake Frequency Comment: OCCASIONAL Hx Substance Use: No Preferred Language: Georgian Communication Ability: Effective Visual Impairment: No Limitations Hearing Ability: Use of Hearing Aid marital status: / Current Living Situation: Alone and Family Current Living Situation Comment: has one of his children stay with him everyday/night current occupational status: retired 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 Feels Safe at Home: Yes Childhood Exposure to Second-Hand Smoke: Yes caffeine: Yes Dental Care, Regularly: No Physical Activity Frequency: 5-6 Times per Week Seatbelt Use: never Sunscreen Use: Yes Review of Systems Unobtainable due to cognitive status Physical Exam Vital Signs Vital Signs - 24 hr 07/23/22 03:50 07/23/22 03:57 07/23/22 04:27 Temperature 36.5 C Temperature Source Oral Pulse Rate 74 Pulse Rate [Apical] 68 Pulse Rhythm [Apical] Pulse Strength [Apical] Respiratory Rate 22 16 Respiratory Effort / Characteristics Non-Labored Spontaneous Non-Labored Spontaneous Respiratory Depth Normal Normal Respiratory Pattern Regular Regular Blood Pressure 202/98 H Blood Pressure [Left Arm] 193/97 H Blood Pressure Mean 132 Blood Pressure Mean [Left Arm] 129 Blood Pressure Position Semi-fowlers Blood Pressure Position [Left Arm] Semi-fowlers Pulse Oximetry 95 95 95 Oxygen Delivery Method Room Air Room Air Room Air Sepsis Recent Fever Within 48 Hours No Sepsis New/Unexplained Change in Mental Status N/A Sepsis Action Taken by Nursing No Action Required 07/23/22 05:31 07/23/22 06:00 Temperature Temperature Source Pulse Rate Pulse Rate [Apical] 76 78 Pulse Rhythm [Apical] Regular Pulse Strength [Apical] Normal Respiratory Rate 16 18 Respiratory Effort / Characteristics Non-Labored Spontaneous Non-Labored Spontaneous Respiratory Depth Normal Normal Respiratory Pattern Regular Regular Blood Pressure Blood Pressure [Left Arm] 164/101 H 189/92 H Blood Pressure Mean Blood Pressure Mean [Left Arm] 122 124 Blood Pressure Position Blood Pressure Position [Left Arm] Semi-fowlers Semi-fowlers Pulse Oximetry 97 98 Oxygen Delivery Method Room Air Room Air Sepsis Recent Fever Within 48 Hours Sepsis New/Unexplained Change in Mental Status Sepsis Action Taken by Nursing GENERAL: Patient is awake alert in no acute distress EYES: The conjunctivae are clear. The pupils are round and reactive. EARS, NOSE, MOUTH AND THROAT: The nose is without any evidence of any deformity. Mucous membranes are moist. Tongue is midline. NECK: The neck is nontender and supple. RESPIRATORY: Normal respiratory effort is noted there is no evidence of wheezing rhonchi or rales CARDIOVASCULAR: Regular rate and rhythm noted there no murmurs rubs or gallops normal S1 normal S2. GASTROINTESTINAL: The abdomen is soft. Abdomen is nontender. BACK: No midline tenderness or or step-off noted range of motion in flexion extension as well as rotation no signs of muscle spasm noted MUSCULOSKELETAL/EXTREMITIES: There is no evidence of gross deformity; patient is in the bilateral lower extremities the right upper extremity has decreased range of motion is a small cystic structure on the extensor surface of the right forearm SKIN: There is no obvious evidence of any rash. There are no petechiae, pallor or cyanosis noted. NEUROLOGIC: Patient is awake alert oriented x1; has right-sided upper and lower extremity weakness that appears to be chronic Course Reevaluation(s) Reevaluation #1: Repeat examination the patient is alert speaking to me complains of right upper and right lower extremity pain. I did speak to the family who are at bedside. They were concerned about a cystic structure on the patient's right forearm plus he typically does not complain of pain there is been no recent fall no injury. Patient typically walks with a cane. Patient was tested for ambulation and complains of pain and inability to ambulate Time: 05:21 Consultations [facility] Time: 05:21 Medical Decision Making Medical Records Attestation: I reviewed the patient's medical records. Home Medications Current Medication List: was personally reviewed by me Laboratory Data Attestation: I reviewed the patient's lab results. Labs reviewed by me unremarkable 07/23/22 03:47 07/23/22 03:47 Lab Results 07/23/22 07/23/22 07/23/22 Range/Units 03:47 03:47 03:47 WBC 9.73 (4.8-10.8) K/ul RBC 4.72 (4.70-6.10) M/uL Hgb 14.5 (14.0-18.0) g/dl Hct 42.7 (42.0-52.0) % MCV 90.5 (80.0-100.0) fL MCH 30.7 (25.0-34.0) pg MCHC 34.0 (32.0-36.0) g/dL RDW Std Deviation 42.0 (36.4-46.3) fL RDW Coeff of Doris 12.7 (11.5-14.5) % Plt Count 248 (130-400) K/uL MPV 8.6 L (9.4-12.4) fL Immature Gran % (Auto) 0.3 % Neut % (Auto) 64.7 % Lymph % (Auto) 21.6 % Lawrence % (Auto) 9.1 % Eos % (Auto) 3.7 % Baso % (Auto) 0.6 % Neut # (Auto) 6.29 (1.40-6.50) K/uL Lymph # (Auto) 2.10 (1.2-3.4) K/uL Lawrence # (Auto) 0.89 H (0.11-0.59) K/uL Eos # (Auto) 0.36 (0-0.50) K/uL Baso # (Auto) 0.06 (0-0.2) K/uL Immature Gran # (Auto) 0.03 (0.01-0.20) K/uL PT 10.8 (9.0-12.0) Seconds INR 1.0 (0.9-1.1) Sodium 133 L (136-145) mmol/L Potassium 4.6 (3.5-5.1) mmol/L Chloride 99 (98-107) mmol/L Carbon Dioxide 29 (21-32) mmol/L Anion Gap 5 (3-11) BUN 21 (6-23) mg/dl Creatinine 0.95 (0.6-1.4) mg/dl Est Cr Clr Drug Dosing Not Reportable Est GFR ( Amer) 84.9 ml/min Est GFR (Non-Af Amer) 73.2 ml/min BUN/Creatinine Ratio 22.1 H (10-20) Glucose 129 H (70-99(Fasting)) mg/dl POC Glucose (70-99) mg/dl Calcium 9.9 (8.5-10.1) mg/dl Magnesium 1.9 (1.7-2.4) mg/dl Total Bilirubin 0.5 (0.2-1.0) mg/dl AST 16 (13-39) U/L ALT 13 (7-52) U/L Alkaline Phosphatase 41 (34-104) U/L Troponin I High Sens 7.6 (0-20) pg/ml Total Protein 7.7 (6.0-8.3) gm/dl Albumin 4.3 (3.4-5.0) gm/dl Globulin 3.4 (2.5-4.0) gm/dl Albumin/Globulin Ratio 1.3 (0.9-2) SARS-CoV-2, RNA, NAAT (NEGATIVE) 07/23/22 07/23/22 Range/Units 03:47 03:51 WBC (4.8-10.8) K/ul RBC (4.70-6.10) M/uL Hgb (14.0-18.0) g/dl Hct (42.0-52.0) % MCV (80.0-100.0) fL MCH (25.0-34.0) pg MCHC (32.0-36.0) g/dL RDW Std Deviation (36.4-46.3) fL RDW Coeff of Doris (11.5-14.5) % Plt Count (130-400) K/uL MPV (9.4-12.4) fL Immature Gran % (Auto) % Neut % (Auto) % Lymph % (Auto) % Lawrence % (Auto) % Eos % (Auto) % Baso % (Auto) % Neut # (Auto) (1.40-6.50) K/uL Lymph # (Auto) (1.2-3.4) K/uL Lawrence # (Auto) (0.11-0.59) K/uL Eos # (Auto) (0-0.50) K/uL Baso # (Auto) (0-0.2) K/uL Immature Gran # (Auto) (0.01-0.20) K/uL PT (9.0-12.0) Seconds INR (0.9-1.1) Sodium (136-145) mmol/L Potassium (3.5-5.1) mmol/L Chloride (98-107) mmol/L Carbon Dioxide (21-32) mmol/L Anion Gap (3-11) BUN (6-23) mg/dl Creatinine (0.6-1.4) mg/dl Est Cr Clr Drug Dosing Est GFR ( Amer) ml/min Est GFR (Non-Af Amer) ml/min BUN/Creatinine Ratio (10-20) Glucose (70-99(Fasting)) mg/dl POC Glucose 109 H (70-99) mg/dl Calcium (8.5-10.1) mg/dl Magnesium (1.7-2.4) mg/dl Total Bilirubin (0.2-1.0) mg/dl AST (13-39) U/L ALT (7-52) U/L Alkaline Phosphatase (34-104) U/L Troponin I High Sens (0-20) pg/ml Total Protein (6.0-8.3) gm/dl Albumin (3.4-5.0) gm/dl Globulin (2.5-4.0) gm/dl Albumin/Globulin Ratio (0.9-2) SARS-CoV-2, RNA, NAAT NEGATIVE (NEGATIVE) Imaging Data Attestation: I personally reviewed and interpreted this imaging study as follows: My Impression: Chest x-ray interpreted by me negative for infiltrate, right forearm xray :negative for fracture CT of the brain reviewed by me and appreciate stat rads interpretation Radiologist's Impression: * Patient: TEODORA HOGAN (Male) : 39 Status: ER Date: 07/23/22 04:16 Room #: History: WEAKNESS, RIGHT SIDED PAIN , HYPERTENSION Slices: 66 Priors: Tech: Mehdi Hein @ [phone] Exams: CT HEAD Contrast: Accession Numbers: [id number] Referring Physician: TERRY CASTRO Preliminary Findings Only See Final Report For Complete Findings CT HEAD: Comparison 04/14/22. No acute intracranial abnormality. Large left MCA territory ischemic infarct. Atrophy and chronic small vessel ischemic changes. Chronic right sphenoid sinusitis. Radiologist: Ramona Veloz MD4:54 AM10 days left ECG Data Attestation: I personally reviewed and interpreted this ECG as follows: MDM Narrative Medical decision making differential diagnosis includes TIA, metabolic derangement, electrolyte abnormality, musculoskeletal pain, radiculopathy, deconditioning Plan is to check labs, EKG, CT brain External medical records were reviewed by me EMS records of this patient's presentation were reviewed by me Nursing notes reviewed and appreciated Patient's CT was nonrevealing, labs were unremarkable, patient was having ambulatory dysfunction, complaining of pain on the right upper and right lower extremity. Patient will be admitted for further evaluation from PT OT and potential for rehab Impression & Plan 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, Gait abnormality, Upper extremity pain Discharge Plan Visit Data Chief Complaint: Neuro Symptoms/Deficit Stated Complaint: Weakness, R Side Pain, Hypertension ED Provider: Terry Castro Discharge Problem: 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, Gait abnormality, Upper extremity pain Patient Disposition: Admitted As Inpatient Forms Stand Alone Forms: My [facility] Prescriptions Prescriptions: No Action simvastatin 20 mg tablet 20 mg PO HS Qty: 90 3RF metformin 500 mg tablet 500 mg PO BID Qty: 180 3RF losartan 100 mg tablet 100 mg PO QAM Qty: 90 3RF metoprolol tartrate 25 mg tablet 12.5 mg PO BID Qty: 90 3RF Rx Instructions: take 1/2 tablet by mouth every 12 hours finasteride 5 mg tablet 5 mg PO QAM Qty: 90 3RF Centrum Silver Men 300-600-300 mcg tablet 1 tab PO QAM (DME) bilateral LE AFO braces See Rx Instructions .Route .MEDSUPPLY Qty: 1 0RF Rx Instructions: As directed clopidogrel 75 mg tablet 75 mg PO QAM loratadine [Claritin] 10 mg tablet 10 mg PO QAM magnesium oxide 400 mg magnesium Tablet 400 mg PO BID Referrals Referrals: Salomon Stanton, [Primary Care Provider] -
[2022-07-23 03:56] LABS: Basophils # (auto) 0.06 K/uL (0-0.2); Basophils % (auto) 0.6 %; Eosinophils # (auto) 0.36 K/uL (0-0.50); Eosinophils % (auto) 3.7 %; Hematocrit (blood only) 42.7 % (42.0-52.0); Hemoglobin 14.5 g/dl (14.0-18.0); Immature Granulocytes # (auto) 0.03 K/uL (0.01-0.20); Immature Granulocytes % (auto) 0.3 %; Lymphocytes % (auto) 21.6 %; Mean Corpuscular Hemoglobin 30.7 pg (25.0-34.0); Mean Corpuscular Volume 90.5 fL (80.0-100.0); Mean Platelet Volume 8.6 fL (9.4-12.4); Monocytes # (auto) 0.89 K/uL (0.11-0.59); Monocytes % (auto) 9.1 %; Neutrophils # (auto) 6.29 K/uL (1.40-6.50); Neutrophils % (auto) 64.7 %; Platelet Count 248 K/uL (130-400); RDW Coefficient of Variation 12.7 % (11.5-14.5); Red Blood Count 4.72 M/uL (4.70-6.10); White Blood Count 9.73 K/ul (4.8-10.8)
[2022-07-23 04:16] LABS: Prothrombin Time 10.8 Seconds (9.0-12.0)
[2022-07-23 04:21] LABS: Albumin Level 4.3 gm/dl (3.4-5.0); Anion Gap 5 (3-11); Bilirubin,Total 0.5 mg/dl (0.2-1.0); Calcium 9.9 mg/dl (8.5-10.1); Carbon Dioxide 29 mmol/L (21-32); Chloride 99 mmol/L (98-107); Magnesium 1.9 mg/dl (1.7-2.4); Potassium 4.6 mmol/L (3.5-5.1); Sodium 133 mmol/L (136-145)
[2022-07-23 04:24] LABS: Troponin I High Sensitivity 7.6 pg/ml (0-20)
[2022-07-23 04:27] LABS: Alanine Aminotransferase 13 U/L (7-52); Albumin Globulin Ratio 1.3 (0.9-2); Alkaline Phosphatase 41 U/L (34-104); Aspartate Aminotransferase 16 U/L (13-39); BUN Creatinine Ratio 22.1 (10-20); Blood Urea Nitrogen 21 mg/dl (6-23); Est GFR (African American) 84.9 ml/min; Est GFR (Non-African American) 73.2 ml/min; Globulin 3.4 gm/dl (2.5-4.0); Glucose 129 mg/dl (70-99(Fasting)); Total Protein 7.7 gm/dl (6.0-8.3)
--- NOTE | 2022-07-23 06:16 | History & Physical Report ---
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 Patient is having difficulty ambulating and standing with this new pain. He denies trauma or fall. No other instigating factors identified. Patient's muscles do appear tight and painful to the touch. Question central neurological disorder such as central poststroke pain syndrome versus muscle spasm Labs and images are largely unremarkable Observation to medical Check total CK Please heat wraps to right side of body as tolerateduse caution to avoid tolliver in elderly patient with diminished sensation likely Tylenol as needed for pain Tizanidine 2 mg p.o. twice daily for possible spasm. Advance as tolerated Fall precautions PT/OT evaluations appreciated (2) Cerebral vascular accident: Plan: Patient with prior CVA stroke in 1992 with resultant right-sided hemiparesis. Continue Plavix Continue simvastatin (3) Controlled type 2 diabetes mellitus with microalbuminuria: Plan: Overall well controlled. Last hemoglobin A1c = 6.5 on 03/25/2021. Patient is on metformin We will hold metformin while inpatient Lantus 40 units twice daily and insulin sliding scale Check hemoglobin A1c with next blood draw (4) Hypercholesteremia: Plan: Chronic. Stable. Continue simvastatin (5) Hypertension: Plan: Blood pressure elevated upon arrival Continue metoprolol 12.5 mg p.o. twice daily Continue losartan 100 mg p.o. every morning Continue to monitor (6) Benign prostatic hyperplasia with urinary obstruction: Plan: Monitor urine output Continue finasteride F/E/NLR at 80 mL/h x 1 L, monitor electrolytes and replete as needed, consistent carb diet as tolerated with aspiration precautions CodeDNR per discussion with family Dispoobservation to medical History of Present Illness Chief Complaint: Right-sided pain Primary Care Provider: Salomon Stanton DO Chris Strickland is an 86-year-old male with history of prior MCA stroke in 1992 with resultant right-sided hemiparesis, diabetes, hypertension, hyperlipidemia and DALY presenting with his sons with complaint of right-sided pain that began this morning around 2 AM. Patient has pain in his right neck, right shoulder, forearm as well as right leg. He has been having difficulty ambulating and standing with this new pain. Patient denies fall, trauma, changes in his braces or shoes. No rash but he does have new wartlike bump on his right forearm. Patient lives at home. He ambulates with the use of a cane and occasionally a wheelchair. He has 5 children that take care of him nearly [id number]. Overall, he does well at home. In the ER, he is afebrile, hypertensive Allergies Allergy/AdvReac Type Severity Reaction Status Date / Time No Known Allergies Allergy Verified 05/02/22 13:13 Home Medications Medication Instructions Recorded Confirmed Type flilqhdb-mhn-[id number] acid 300 1 tab PO QAM 02/15/19 05/02/22 History mcg-lycopene 600 mcg-lutein 300 mcg tablet (Centrum Silver Men) magnesium oxide 400 mg PO BID 03/30/21 05/02/22 History clopidogrel 75 mg tablet 75 mg PO QAM 10/16/21 05/02/22 History loratadine 10 mg tablet (Claritin) 10 mg PO QAM 10/16/21 05/02/22 History simvastatin 20 mg tablet 20 mg PO HS #90 tabs 10/26/21 05/02/22 Rx metformin 500 mg tablet 500 mg PO BID #180 tabs 11/11/21 05/02/22 Rx bilateral LE AFO braces #1 ea 11/23/21 05/02/22 Rx losartan 100 mg tablet 100 mg PO QAM #90 tabs 01/28/22 05/02/22 Rx metoprolol tartrate 25 mg tablet 12.5 mg PO BID #90 tabs 02/02/22 05/02/22 Rx finasteride 5 mg tablet 5 mg PO QAM #90 tabs 07/15/22 Rx Past Med/Surg History Medical History (Updated 07/23/22 @ 06:13 by Stephanie Kang DO) Cerebral vascular accident Diabetes Hyperlipidemia Hypertension Peripheral artery disease Surgical History No significant past surgical history Family History Mother Coronary heart disease Brother Coronary heart disease Diabetes Hypertension Father Diabetes Denies family history of Ovarian cancer Prostate cancer Myocardial infarction Breast cancer Lung cancer Colorectal cancer Social History Smoking Status: Unknown if ever smoked Tobacco Type: Cigarettes Age Started Using Tobacco: 18; Age Quit Using Tobacco: 37; packs per day: 1; Second Hand Exposure: No; Hx Alcohol Use: Yes Alcohol type: beer, wine and hard liquor Alcohol Intake Frequency: 2-4 x/Month Alcohol Intake Frequency Comment: OCCASIONAL Hx Substance Use: No Preferred Language: Citizen Of [place] Communication Ability: Effective Visual Impairment: No Limitations Hearing Ability: Use of Hearing Aid marital status: / Current Living Situation: Alone and Family Current Living Situation Comment: has one of his children stay with him everyday/night current occupational status: retired 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 Feels Safe at Home: Yes Childhood Exposure to Second-Hand Smoke: Yes caffeine: Yes Dental Care, Regularly: No Physical Activity Frequency: 5-6 Times per Week Seatbelt Use: never Sunscreen Use: Yes Review of Systems Review of Systems: All systems reviewed & are unremarkable except as noted in HPI & below Physical Exam Physical Exam: General: patient resting comfortably, NAD, non-toxic in appearance Skin: warm, dry, intact, wartlike bump on right forearm HEENT: NC/AT, PERRL, EOMI, anicteric sclera, conjunctiva without injection, external ear normal to inspection and nontender, nares patent, moist mucus membranes, dentition intact, no oropharyngeal lesions, neck supple, trachea midline, no LAD, no thyromegaly, no JVD Heart: +S1/S2, regular, no m/r/g Lungs: equal air entry bilaterally, no rales/rhonchi/wheezes Abd: +BS, soft, NT/ND, no masses/organomegaly/ascites Ext: warm, 2+ pulses in UE/LE bilaterally, no clubbing/cyanosis or edema Neuro: Right-sided hemiparesis with flexion contractures of upper extremity, pain with palpation of the right side of the neck, shoulder, forearm as well as thigh and leg. Muscles do feel tight and in spasm to some degree. Results & Data Results & Data ([facility]) Vital Signs (Past 12 Hours) Vital Signs Temp Pulse Pulse Resp BP BP Pulse Ox 07/23/22 05:31 76 16 164/101 H 97 07/23/22 04:27 68 16 193/97 H 95 07/23/22 03:57 36.5 C 74 22 202/98 H 95 07/23/22 03:50 95 O2 Del Method 07/23/22 05:31 Room Air 07/23/22 04:27 Room Air 07/23/22 03:57 Room Air 07/23/22 03:50 Room Air Laboratory Results Laboratory Results WBC 9.73 K/ul (4.8-10.8) 07/23/22 03:47 RBC 4.72 M/uL (4.70-6.10) 07/23/22 03:47 Hgb 14.5 g/dl (14.0-18.0) 07/23/22 03:47 Hct 42.7 % (42.0-52.0) 07/23/22 03:47 MCV 90.5 fL (80.0-100.0) 07/23/22 03:47 MCH 30.7 pg (25.0-34.0) 07/23/22 03:47 MCHC 34.0 g/dL (32.0-36.0) 07/23/22 03:47 RDW Std Deviation 42.0 fL (36.4-46.3) 07/23/22 03:47 RDW Coeff of Doris 12.7 % (11.5-14.5) 07/23/22 03:47 Plt Count 248 K/uL (130-400) 07/23/22 03:47 MPV 8.6 fL (9.4-12.4) L 07/23/22 03:47 Immature Gran % (Auto) 0.3 % 07/23/22 03:47 Neut % (Auto) 64.7 % 07/23/22 03:47 Lymph % (Auto) 21.6 % 07/23/22 03:47 Emmons % (Auto) 9.1 % 07/23/22 03:47 Eos % (Auto) 3.7 % 07/23/22 03:47 Baso % (Auto) 0.6 % 07/23/22 03:47 Neut # (Auto) 6.29 K/uL (1.40-6.50) 07/23/22 03:47 Lymph # (Auto) 2.10 K/uL (1.2-3.4) 07/23/22 03:47 Emmons # (Auto) 0.89 K/uL (0.11-0.59) H 07/23/22 03:47 Eos # (Auto) 0.36 K/uL (0-0.50) 07/23/22 03:47 Baso # (Auto) 0.06 K/uL (0-0.2) 07/23/22 03:47 Immature Gran # (Auto) 0.03 K/uL (0.01-0.20) 07/23/22 03:47 PT 10.8 Seconds (9.0-12.0) 07/23/22 03:47 INR 1.0 (0.9-1.1) 07/23/22 03:47 Sodium 133 mmol/L (136-145) L 07/23/22 03:47 Potassium 4.6 mmol/L (3.5-5.1) 07/23/22 03:47 Chloride 99 mmol/L (98-107) 07/23/22 03:47 Carbon Dioxide 29 mmol/L (21-32) 07/23/22 03:47 Anion Gap 5 (3-11) 07/23/22 03:47 BUN 21 mg/dl (6-23) 07/23/22 03:47 Creatinine 0.95 mg/dl (0.6-1.4) 07/23/22 03:47 Est Cr Clr Drug Dosing Not Reportable 07/23/22 03:47 Est GFR ( Amer) 84.9 ml/min 07/23/22 03:47 Est GFR (Non-Af Amer) 73.2 ml/min 07/23/22 03:47 BUN/Creatinine Ratio 22.1 (10-20) H 07/23/22 03:47 Glucose 129 mg/dl (70-99(Fasting)) H 07/23/22 03:47 POC Glucose 109 mg/dl (70-99) H 07/23/22 03:51 Calcium 9.9 mg/dl (8.5-10.1) 07/23/22 03:47 Magnesium 1.9 mg/dl (1.7-2.4) 07/23/22 03:47 Total Bilirubin 0.5 mg/dl (0.2-1.0) 07/23/22 03:47 AST 16 U/L (13-39) 07/23/22 03:47 ALT 13 U/L (7-52) 07/23/22 03:47 Alkaline Phosphatase 41 U/L (34-104) 07/23/22 03:47 Troponin I High Sens 7.6 pg/ml (0-20) 07/23/22 03:47 Total Protein 7.7 gm/dl (6.0-8.3) 07/23/22 03:47 Albumin 4.3 gm/dl (3.4-5.0) 07/23/22 03:47 Globulin 3.4 gm/dl (2.5-4.0) 07/23/22 03:47 Albumin/Globulin Ratio 1.3 (0.9-2) 07/23/22 03:47 SARS-CoV-2, RNA, NAAT NEGATIVE (NEGATIVE) 07/23/22 03:47 PG Care Time/CCT Total # of Minutes Spent Total Time Spent with Patient: Total time spent is greater than 50% in coordination of care (as documented) at patient's floor/unit and/or counseling patient: Coding Level of Care Code 18061 INT INP/OBS CARE 2/55MIN Diagnoses Upper extremity pain M79.603 Cerebral vascular accident I63.9 Controlled type 2 diabetes mellitus with microalbuminuria E11.29; R80.9 Hypercholesteremia E78.00 Hypertension I10 Benign prostatic hyperplasia with urinary obstruction N40.1; N13.8
--- NOTE | 2022-07-23 07:17 | Electrocardiogram Report ---
Test Reason : Blood Pressure : / mmHG Vent. Rate : 074 BPM Atrial Rate : 074 BPM P-R Int : 154 ms QRS Dur : 096 ms QT Int : 382 ms P-R-T Axes : 057 -02 015 degrees QTc Int : 424 ms Poor data quality, interpretation may be adversely affected Normal sinus rhythm Nonspecific ST abnormality Abnormal ECG When compared with ECG of 14-APR-2022 07:03, ST no longer depressed in Anterior leads Confirmed by Carson Leon ([id number]) on 07/23/2022 7:17:01 AM Referred By: REFERRED SELF Confirmed By:Beau Leon
--- NOTE | 2022-07-23 07:55 | XRay Report ---
XR chest 1V portable CLINICAL HISTORY: weakness COMPARISON STUDY: Chest radiograph April 14, 2022. Chest CT April 28, 2017 FINDINGS: No pneumothorax is present. Slight blunting of the left costophrenic angle is noted. There is no evidence for pulmonary edema. Mild cardiomegaly is unchanged. Mild left basilar opacity favors atelectasis. IMPRESSION: 1. Mild bibasilar opacities which favor atelectasis. An infectious process is considered less likely. 2. Possible trace left pleural effusion. ACT 112: Negative or not required by law. Electronically signed by: Sanya Hernández M.D. 07/23/2022 7:54 AM
--- NOTE | 2022-07-23 07:57 | XRay Report ---
XR forearm RT 2V CLINICAL HISTORY: Right forearm pain. COMPARISON: Right forearm radiographs December 27, 2021. FINDINGS: No fracture within the right radius or ulna site identified. No osseous lesions are noted. Alignment of the right elbow is anatomic. There is no evidence for right elbow joint effusion. There are mild degenerative changes of the right elbow. IMPRESSION: No fractures within the right radius or ulna. ACT 112: Negative or not required by law. Electronically signed by: Sanya Hernández M.D. 07/23/2022 7:56 AM
--- NOTE | 2022-07-23 08:01 | CT Scan Report ---
CT OF THE HEAD WITHOUT CONTRAST CLINICAL HISTORY: weakness COMPARISON STUDY: MRI of the brain April 26, 2017. Head CT April 14, 2022. CT DOSE: 614.27 mGy.cm TECHNIQUE: Helical axial images of the head were obtained without IV contrast. Automated exposure con trol was utilized for the study. A dose lowering technique was utilized adhering to the principles o f ALARA. FINDINGS: No acute intracranial hemorrhage, midline shift or mass effect is present. A large left MCA territory infarct with extensive encephalomalacia is unchanged. The appearance of the brain is uncha nged. There is associated dilatation of the left lateral ventricle. Basal cisterns are patent. There are no extra-axial collections. White matter hypodensities are unchanged. There are no findings to guzman ggest acute dural sinus thrombosis or acute territorial infarct. 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 No acute calvarial fracture. IMPRESSION: 1. No acute intracranial findings. No change in appearance of the brain. 2. Old left MCA territory infarct. ACT 112: Negative or not required by law. Electronically signed by: Sanya Hernández M.D. 07/23/2022 7:59 AM
[2022-07-23] MEDS ORDERED: CARBOHYDRATES FOR HYPOGLYCEMIA PO PRN (08:29)
[2022-07-23] MEDS ORDERED: GLUCAGON FOR INJ 1 MG VIAL SQ PRN (08:29)
[2022-07-23] MEDS ORDERED: GLUCOSE 10 TAB/TUBE PO PRN (08:29)
[2022-07-23] MEDS ORDERED: LACTATED RINGER'S 1,000 ML IV SCH (08:29)
[2022-07-23] MEDS ORDERED: DEXTROSE 50% 50 ML SYRINGE IV PRN (08:29)
[2022-07-23] MEDS ORDERED: GLUCOSE 40% GEL 15 GM TUBE PO PRN (08:29)
[2022-07-23] MEDS ORDERED: ACETAMINOPHEN 325 MG TAB PO PRN (08:29)
[2022-07-23] MEDS: tiZANidine HCL 4 MG TABLET PO SCH ×2 (10:12→20:50)
[2022-07-23] MEDS: LORATADINE 10 MG TAB PO SCH (10:13)
[2022-07-23] MEDS: LOSARTAN POTASSIUM 50 MG TAB PO SCH (10:13)
[2022-07-23] MEDS: FINASTERIDE 5 MG TAB PO SCH (10:13)
[2022-07-23] MEDS: MAGNESIUM OXIDE 400 MG TAB PO SCH ×2 (10:13→20:50)
[2022-07-23] MEDS: CLOPIDOGREL BISULFATE 75 MG TAB PO SCH (10:13)
[2022-07-23] MEDS: METOPROLOL TARTRATE 25 MG TAB PO SCH ×2 (10:14→20:51)
[2022-07-23] MEDS: INSULIN ASPART PER UNIT SC SCH ×4 (10:26→20:27)
[2022-07-23] MEDS: LANTUS PER UNIT CHARGE SQ SCH ×2 (10:26→20:55)
[2022-07-23 10:44] LABS: Estimated Average Glucose 137 mg/dl; Hemoglobin A1C 6.4 % (4.5-5.6)
[2022-07-23] MEDS: AMOXICILLIN/CLAVULANATE 875 MG TAB PO SCH (20:49)
[2022-07-23] MEDS: SIMVASTATIN 20 MG TAB PO SCH (20:49)
[2022-07-23] MEDS: DOCUSATE SODIUM 100 MG CAP PO SCH (20:52)
[2022-07-24 07:04] LABS: Hematocrit (blood only) 40.1 % (42.0-52.0); Mean Corpuscular Hemoglobin 30.7 pg (25.0-34.0); Mean Corpuscular Hgb Conc 34.9 g/dL (32.0-36.0); Mean Corpuscular Volume 87.9 fL (80.0-100.0); Mean Platelet Volume 8.7 fL (9.4-12.4); Platelet Count 229 K/uL (130-400); RDW Coefficient of Variation 12.7 % (11.5-14.5); RDW Standard Deviation 40.5 fL (36.4-46.3); Red Blood Count 4.56 M/uL (4.70-6.10); White Blood Count 8.71 K/ul (4.8-10.8)
[2022-07-24 07:25] LABS: Calcium 9.4 mg/dl (8.5-10.1)
[2022-07-24 07:31] LABS: BUN Creatinine Ratio 21.6 (10-20); Creatinine Clr Calc Pharmacy 70.9 ml/min; Est GFR (African American) 98.2 ml/min; Est GFR (Non-African American) 84.7 ml/min
[2022-07-24] MEDS: METOPROLOL TARTRATE 25 MG TAB PO SCH ×2 (08:08→19:30)
[2022-07-24] MEDS: MAGNESIUM OXIDE 400 MG TAB PO SCH ×2 (08:09→19:32)
[2022-07-24] MEDS: CLOPIDOGREL BISULFATE 75 MG TAB PO SCH (08:09)
[2022-07-24] MEDS: tiZANidine HCL 4 MG TABLET PO SCH ×2 (08:09→19:31)
[2022-07-24] MEDS: LOSARTAN POTASSIUM 50 MG TAB PO SCH (08:09)
[2022-07-24] MEDS: AMOXICILLIN/CLAVULANATE 875 MG TAB PO SCH ×2 (08:09→18:02)
[2022-07-24] MEDS: LORATADINE 10 MG TAB PO SCH (08:09)
[2022-07-24] MEDS: FINASTERIDE 5 MG TAB PO SCH (08:09)
[2022-07-24] MEDS: DOCUSATE SODIUM 100 MG CAP PO SCH ×3 (08:14→19:30)
--- NOTE | 2022-07-24 08:34 | CT Scan Report ---
ABDOMEN AND PELVIS CT WITHOUT CONTRAST CT DOSE: 644.10 mGy.cm HISTORY: abdominal distention, pain TECHNIQUE: Multiaxial CT images of the abdomen and pelvis were performed without contrast. A dose lo wering technique was utilized adhering to the principles of ALARA. COMPARISON STUDY: Abdomen and pelvis CT 08/28/2021. FINDINGS: Dependent changes noted at the lung bases. No pneumoperitoneum. No pneumatosis. There is an acute nondisplaced right lateral 10th rib fracture on image 146. The unenhanced liver, gallbladder, pancreas, spleen, and adrenal glands unremarkable. A horseshoe kidney is again noted. No hydronephros is. The bladder is distended. Calcified plaque again noted within the normal caliber abdominal aorta. No retroperitoneal or pelvic lymphadenopathy. No pelvic free fluid. Suboptimal evaluation for bowel pathology due to the lack of intravenous and oral contrast. However, there is no definite bowel wall thickening or obstruction. Moderate fecal retention is noted. Small left posterior bladder diverticul um. IMPRESSION: 1. No definite bowel wall thickening or obstruction. 2. Moderate fecal retention. 3. Horseshoe kidney. 4. Distended bladder. 5. An acute nondisplaced right lateral 10th rib fracture. ACT 112: Negative or not required by law. Electronically signed by: Attila Sifuentes M.D. 07/24/2022 8:32 AM
[2022-07-24] MEDS: INSULIN ASPART PER UNIT SC SCH ×4 (08:37→20:55)
[2022-07-24] MEDS: LANTUS PER UNIT CHARGE SQ SCH ×2 (08:37→21:10)
--- NOTE | 2022-07-24 19:17 | Hospitalist Progress Note ---
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 Patient is having difficulty ambulating and standing with this new pain. He denies trauma or fall. No other instigating factors identified. Patient's muscles do appear tight and painful to the touch. Question central neurological disorder such as central poststroke pain syndrome versus muscle spasm Labs and images are largely unremarkable Observation to medical Check total CK Please heat wraps to right side of body as tolerateduse caution to avoid tolliver in elderly patient with diminished sensation likely Tylenol as needed for pain Tizanidine 2 mg p.o. twice daily for possible spasm. Advance as tolerated Fall precautions PT/OT evaluations appreciated 07/24-patient had CT of abdomen that shows no definite bowel wall thickening or obstruction Patient has moderate fecal retention with a distended bladder and acute right lateral 10th rib fracture Patient does not have any respiratory difficulty Is right-sided pain most likely secondary to a fall PT OT to be continued and discussed with family that Based on PT OT recommendations and safety recommendations further discharge planning whether he returns to his home Or to a facility will be decided Case management assistance for placement Answered all questions to the family who was present at the bedside Patient also had some induration over this right hand with early cellulitic changes On oral antibiotic regimen with Augmentin started yesterday shows improvement (2) Cerebral vascular accident: Plan: Patient with prior CVA stroke in 1992 with resultant right-sided hemiparesis. Continue Plavix Continue simvastatin (3) Controlled type 2 diabetes mellitus with microalbuminuria: Plan: Overall well controlled. Last hemoglobin A1c = 6.5 on 03/25/2021. Patient is on metformin We will hold metformin while inpatient Lantus 40 units twice daily and insulin sliding scale Check hemoglobin A1c with next blood draw (4) Hypercholesteremia: Plan: Chronic. Stable. Continue simvastatin (5) Hypertension: Plan: Blood pressure elevated upon arrival Continue metoprolol 12.5 mg p.o. twice daily Continue losartan 100 mg p.o. every morning Continue to monitor (6) Benign prostatic hyperplasia with urinary obstruction: Plan: Monitor urine output Continue finasteride F/E/NLR at 80 mL/h x 1 L, monitor electrolytes and replete as needed, consistent carb diet as tolerated with aspiration precautions CodeDNR per discussion with family Dispoobservation to medical Admission and Anticipated Discharge Date Admission Date: July 23, 2022 Results & Data Results & Data ([facility]) Vital Signs (Past 12 Hours) Vital Signs Temp Pulse Resp BP Pulse Ox O2 Del Method 07/24/22 15:02 36.4 C L 64 18 151/75 H 98 Room Air PG Care Time/CCT Total # of Minutes Spent Total Time Spent with Patient: Total time spent is greater than 50% in coordination of care (as documented) at patient's floor/unit and/or counseling patient: Coding Level of Care Code 05863 SUB INP/OBS CARE 2/35MIN Diagnoses Upper extremity pain M79.603 Cerebral vascular accident I63.9 Controlled type 2 diabetes mellitus with microalbuminuria E11.29; R80.9 Hypercholesteremia E78.00 Hypertension I10 Benign prostatic hyperplasia with urinary obstruction N40.1; N13.8
[2022-07-24] MEDS: SIMVASTATIN 20 MG TAB PO SCH (19:32)
[2022-07-25 06:19] LABS: Hematocrit (blood only) 39.5 % (42.0-52.0); Hemoglobin 13.7 g/dl (14.0-18.0); Mean Corpuscular Hemoglobin 30.9 pg (25.0-34.0); Mean Corpuscular Hgb Conc 34.7 g/dL (32.0-36.0); Mean Platelet Volume 8.7 fL (9.4-12.4); Platelet Count 233 K/uL (130-400); RDW Coefficient of Variation 12.8 % (11.5-14.5); RDW Standard Deviation 41.8 fL (36.4-46.3); Red Blood Count 4.44 M/uL (4.70-6.10); White Blood Count 9.51 K/ul (4.8-10.8)
[2022-07-25 06:50] LABS: Calcium 9.3 mg/dl (8.5-10.1); Potassium 4.1 mmol/L (3.5-5.1)
[2022-07-25 06:55] LABS: BUN Creatinine Ratio 21.7 (10-20); Creatinine Clr Calc Pharmacy 63.2 ml/min; Est GFR (African American) 93.6 ml/min; Est GFR (Non-African American) 80.8 ml/min
[2022-07-25] MEDS: MAGNESIUM OXIDE 400 MG TAB PO SCH (08:37)
[2022-07-25] MEDS: METOPROLOL TARTRATE 25 MG TAB PO SCH (08:37)
[2022-07-25] MEDS: tiZANidine HCL 4 MG TABLET PO SCH (08:37)
[2022-07-25] MEDS: AMOXICILLIN/CLAVULANATE 875 MG TAB PO SCH (08:37)
[2022-07-25] MEDS: DOCUSATE SODIUM 100 MG CAP PO SCH (08:37)
[2022-07-25] MEDS: CLOPIDOGREL BISULFATE 75 MG TAB PO SCH (08:37)
[2022-07-25] MEDS: LORATADINE 10 MG TAB PO SCH (08:37)
[2022-07-25] MEDS: FINASTERIDE 5 MG TAB PO SCH (08:37)
[2022-07-25] MEDS: LOSARTAN POTASSIUM 50 MG TAB PO SCH (08:37)
[2022-07-25] MEDS: LANTUS PER UNIT CHARGE SQ SCH (08:44)
[2022-07-25] MEDS: INSULIN ASPART PER UNIT SC SCH ×2 (08:44→12:21)
[2022-07-25] MEDS ORDERED: metFORMIN HCL 500 MG TAB PO SCH (09:30)
--- NOTE | 2022-07-25 11:15 | Discharge Summary ---
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 Patient has pain in his right neck, right shoulder, forearm as well as right leg. He has been having difficulty ambulating and standing with this new pain. Patient denies fall, trauma, changes in his braces or shoes. No rash but he does have new wartlike bump on his right forearm. Patient lives at home. He ambulates with the use of a cane and occasionally a wheelchair. He has 5 children that take care of him nearly [id number]. Overall, he does well at home. In the ER, he is afebrile, hypertensive Principal Diagnosis Right-sided body pain, right 10th rib fracture, mechanical fall, new raised lesion on the right mid forearm with possible associated cellulitis Discharge Exam General-alert, no fevers, no chills HEENT-head atraumatic and normocephalic, pupils equal and reactive to light, extraocular muscles intact Neck-no lymphadenopathy or thyromegaly, trachea midline Chest-clear to auscultation percussion. No rales wheezing or rhonchi Cardiac-regular rate and rhythm, normal S1 and S2, no murmurs Abdomen-normal bowel sounds, nontender, no hepatosplenomegaly Extremities-1/2 cm circular raised lesion on the mid right forearm dorsally with surrounding erythema. Mildly tender to touch. No bleeding Neuro-cranial nerves II through XII intact, motor and sensory function within normal limits, strength symmetrical , no focal deficits Psych-normal affect, normal mood, baseline dementia Discharge Data Allergies Allergy/AdvReac Type Severity Reaction Status Date / Time No Known Allergies Allergy Verified 05/02/22 13:13 Consultations 07/23/22 05:22 ED Decision to Admit Stat Ordered Studies 07/23/22 03:43 CT head/brain wo con Urgent 07/23/22 18:47 CT Abd and Pelvis [CT abd pelvis wo con] Routine Hospital Course (1) Upper extremity pain: 86-year-old male with history of hypertension, hyperlipidemia, diabetes and prior MCA CVA in 1992 with resultant right-sided hemiparesis presenting with acute onset of right-sided body pain to involve his neck, upper and lower extremities. Patient is having difficulty ambulating and standing with this new pain. He denies trauma or fall. No other instigating factors identified. Patient's muscles do appear tight and painful to the touch. Question central neurological disorder such as central poststroke pain syndrome versus muscle spasm Labs and images are largely unremarkable Observation to medical Check total CK Please heat wraps to right side of body as tolerateduse caution to avoid tolliver in elderly patient with diminished sensation likely Tylenol as needed for pain Tizanidine 2 mg p.o. twice daily for possible spasm. Advance as tolerated Fall precautions PT/OT evaluations appreciated 07/24-patient had CT of abdomen that shows no definite bowel wall thickening or obstruction Patient has moderate fecal retention with a distended bladder and acute right lateral 10th rib fracture Patient does not have any respiratory difficulty Is right-sided pain most likely secondary to a fall PT OT to be continued and discussed with family that Based on PT OT recommendations and safety recommendations further discharge planning whether he returns to his home Or to a facility will be decided Case management assistance for placement Answered all questions to the family who was present at the bedside Patient also had some induration over this right hand with early cellulitic changes On oral antibiotic regimen with Augmentin started yesterday shows improvement 07/25 resolved (2) Cerebral vascular accident: Patient with prior CVA stroke in 1992 with resultant right-sided hemiparesis. Continue Plavix Continue simvastatin -Supportive care (3) Controlled type 2 diabetes mellitus with microalbuminuria: Overall well controlled. Last hemoglobin A1c = 6.5 on 03/25/2021. Patient is on metformin We will hold metformin while inpatient. Restart at discharge Lantus 40 units twice daily and insulin sliding scale while hospitalized (4) Hypercholesteremia: Chronic. Stable. Continue simvastatin (5) Hypertension: Blood pressure elevated upon arrival Continue metoprolol 12.5 mg p.o. twice daily Continue losartan 100 mg p.o. every morning Continue to monitor (6) Benign prostatic hyperplasia with urinary obstruction: Monitor urine output Continue finasteride Plan Discharge to home today, July 25. Family is not requesting home health services at this time Total Time Total Time Spent Total Time Spent (In Minutes): 35 minutes Discharge Plan Discharge Items Patient Disposition: Home - Self-Care Reason For Visit: RIGHT SIDED PAIN Discharge Diagnosis: Mechanical fall, right-sided body pain, right 10th rib fracture, raised right forearm lesion with possible surrounding cellulitis Activity: Resume your previous activity Non-emergency contact: Primary Care Provider Call non-emergency contact if: you have any medication questions Follow-up/Referrals: Salomon Stanton, [Primary Care Provider] - Diet: Carb Consistent or DM2 and Heart Healthy Addtl Attending Provider Instructions: Take amoxicillin/clavulanate for 1 more week. Have the right forearm lesion looked at by your primary care provider. It may need to be removed Pending Studies at Discharge: No Stand-Alone Forms: [facility], Sm[facility] Cess[facility] Medications and DC Order Prescriptions: New amoxicillin-pot clavulanate 875-125 mg Tablet 1 tab PO BIDM Qty: 10 0RF Continued simvastatin 20 mg tablet 20 mg PO HS Qty: 90 3RF metformin 500 mg tablet 500 mg PO BID Qty: 180 3RF losartan 100 mg tablet 100 mg PO QAM Qty: 90 3RF metoprolol tartrate 25 mg tablet 12.5 mg PO BID Qty: 90 3RF Rx Instructions: take 1/2 tablet by mouth every 12 hours finasteride 5 mg tablet 5 mg PO QAM Qty: 90 3RF Centrum Silver Men 300-600-300 mcg tablet 1 tab PO QAM (DME) bilateral LE AFO braces See Rx Instructions .Route .MEDSUPPLY Qty: 1 0RF Rx Instructions: As directed clopidogrel 75 mg tablet 75 mg PO QAM loratadine [Claritin] 10 mg tablet 10 mg PO QAM magnesium oxide 400 mg magnesium Tablet 400 mg PO BID Discharge Orders: Discharge Order (Routine); Ordered 07/25/22 Ordered By: Riley Ayala/Other Patient Handouts: Managing Type 2 Diabetes Admission Data Admit Date/Time: 07/25/22 09:07 Attending Provider: Riley Petersen Admit Provider: Stephanie Kang Primary Care Provider: Salomon Stanton Other Providers: Stephanie Kagn Coding Level of Care Code HOSP INP/OBS DISCH >30 MIN Diagnoses Upper extremity pain M79.603 Cerebral vascular accident I63.9 Controlled type 2 diabetes mellitus with microalbuminuria E11.29; R80.9 Hypercholesteremia E78.00 Hypertension I10 Benign prostatic hyperplasia with urinary obstruction N40.1; N13.8
== END 2022-07-25 13:37 | disposition home or self-care (01) | DRG 556 ==
LOC: ED 03:34 → 3E 03:34 → SUATTDRO 06:00 → 3E 08:12

== ENCOUNTER 2022-12-24 18:26 | Inpatient (IN) ==
[2022-12-24] MEDS ORDERED: ACETAMINOPHEN 500 MG TAB PO STA (18:47)
[2022-12-24] MEDS ORDERED: ONDANSETRON INJ 2 MG/ML 2 ML VIAL IV STA (18:51)
[2022-12-24] MEDS ORDERED: MoRPHine SULFATE 4 MG/ML 1 ML CARP\\VIAL IV STA (18:51)
[2022-12-24 19:09] LABS: Basophils # (auto) 0.06 K/uL (0-0.2); Basophils % (auto) 0.7 %; Eosinophils # (auto) 0.54 K/uL (0-0.50); Hematocrit (blood only) 40.9 % (42.0-52.0); Hemoglobin 14.3 g/dl (14.0-18.0); Immature Granulocytes # (auto) 0.04 K/uL (0.01-0.20); Immature Granulocytes % (auto) 0.4 %; Lymphocytes # (auto) 2.18 K/uL (1.2-3.4); Lymphocytes % (auto) 24.2 %; Mean Corpuscular Hemoglobin 31.3 pg (25.0-34.0); Mean Corpuscular Volume 89.5 fL (80.0-100.0); Mean Platelet Volume 8.6 fL (9.4-12.4); Monocytes # (auto) 0.88 K/uL (0.11-0.59); Monocytes % (auto) 9.8 %; Neutrophils # (auto) 5.32 K/uL (1.40-6.50); Neutrophils % (auto) 58.9 %; Platelet Count 287 K/uL (130-400); RDW Coefficient of Variation 12.2 % (11.5-14.5); RDW Standard Deviation 39.8 fL (36.4-46.3); Red Blood Count 4.57 M/uL (4.70-6.10); White Blood Count 9.02 K/ul (4.8-10.8)
[2022-12-24 19:14] LABS: Albumin Globulin Ratio 1.4 (0.9-2); Albumin Level 4.5 gm/dl (3.4-5.0); BUN Creatinine Ratio 19.4 (10-20); Bilirubin,Total 0.4 mg/dl (0.2-1.0); Creatinine Clr Calc Pharmacy 56.2 ml/min; Est GFR (African American) 86.5 ml/min; Est GFR (Non-African American) 74.6 ml/min; Globulin 3.2 gm/dl (2.5-4.0); Potassium 4.2 mmol/L (3.5-5.1); Total Protein 7.7 gm/dl (6.0-8.3)
[2022-12-24 19:21] LABS: Troponin I High Sensitivity 9.5 pg/ml (0-20)
[2022-12-24 19:36] LABS: Prothrombin Time 10.8 Seconds (9.0-12.0)
--- NOTE | 2022-12-24 20:00 | XRay Report ---
XR femur RT 2V routine, XR knee RT 3V CLINICAL HISTORY: Right femur and right knee pain, distal, fall COMPARISON STUDY: Right knee 08/26/2020. FINDINGS: No acute fracture or dislocation within the right femur or right knee. No significant knee effusion. Vascular calcifications are noted. The visualized pelvic bones are intact. 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 No significant soft tissue swelling. IMPRESSION: No fractures within the right femur or right knee. ACT 112: Negative or not required by law. Electronically signed by: Attila Sifuentes M.D. 12/24/2022 7:59 PM
--- NOTE | 2022-12-24 20:02 | XRay Report ---
XR chest 1V not portable HISTORY: Fall. leg pain COMPARISON: Chest 07/15/2022. FINDINGS: No pneumothorax. No pleural effusions. No new focal lung consolidations to suggest a pneumo grecia. No evidence for pulmonary edema. The cardiac silhouette is normal in size. There are calcificati ons within the aortic knob. No acute fractures identified. A few small left basilar linear densities suggesting subsegmental atelectasis or scarring. IMPRESSION: No acute process. ACT 112: Negative or not required by law. Electronically signed by: Attila Sifuentes M.D. 12/24/2022 8:01 PM
[2022-12-24] MEDS ORDERED: LABETALOL HCL IV 5 MG/ML 20ML IV STA (20:08)
--- NOTE | 2022-12-24 20:13 | Emergency Department Note ---
Impression & Plan Severe hypertension, Acute pain of right knee, Abnormal ECG ED Provider Note INFORMANT: Patient and family ED PROVIDER(S): Azeem Wilkinson MD CHIEF COMPLAINT: Leg pain PLAN: Disposition: Admitted Condition: Good Outpatient prescription management: none Referral: None patient presented because of leg pain. MEDICAL DECISION MAKING: Family noted he was also weak. He was markedly hypertensive when he came in. ECG was performed and did show inferolateral T wave inversions which are new. Patient's troponin was negative. X-ray imaging of the right lower extremity did not reveal any evidence of bony pathology. Degenerative changes noted. There was some abrasion noted to the right knee and it appeared the patient may have fallen. Patient CBC, chemistry panel and LFTs were unremarkable. Patient was given IV labetalol. He was also given Tylenol. Patient declined morphine. Consultation was made with the [facility]. Patient was evaluated in the ER admitted for further management. Discussed with public policy manager After review of the information above and other included data, I feel the patient requires admission. Triage Nursing notes reviewed and agree them. Vital Signs: reviewed and remarkable for marked hypertension Prior /Outside records reviewed: none Differential diagnosis: Fracture, dislocation, neurovascular compromise, compartment syndrome, soft tissue injury, as well as other pathologies. Diagnostics, as interpreted by me: ECG: Twelve-lead ECG reveals sinus tachycardia 107 bpm. Inferolateral T wave inversions present. No ST elevation. Cardiac Monitoring: Cardiac monitoring ordered by me: The patient was placed on continuous cardiac monitoring and observed. It revealed a normal sinus rhythm at 79 beats per minute without ectopy or evidence of dysrhythmia. Medical decision rules: none Imaging studies: X-ray ridging of the right femur and right knee negative for acute process. Degenerative changes. Chest x-ray. Findings: A chest x-ray was performed and revealed no pneumothorax, effusion, infiltrate, pulmonary edema, free air under the diaphragm, or wide mediastinum. Impression: No acute disease. HPI: The patient is a 87year old male who presents to the Emergency Room with complaints of right leg pain.. This started yesterday and is localized to the right knee. Patient states that he may have fallen yesterday. 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 Patient's daughter did arrive and states that he did have a fall a week ago. Today the ambulance was called because he was having trouble bearing weight on the right leg. She denies any change in his mental status. The patient also notes the following associated symptoms, none. The patient has taken no medication for relieving factors. Current pain is rated as 5/10. Pt denies LOC, headache, fevers, chills, diaphoresis, visual changes, neck pain, chest pain, breathing difficulties, nausea, vomiting, abdominal pain, back pain, melena, hematochezia, urinary symptoms, numbness, focal weakness, lymphadenopathy, rash, or other complaints. PAST MEDICAL HISTORY: See Below, CVA, hypertension PAST SURGICAL HISTORY: See Below, SOCIAL HISTORY: See Below, retired HOME MEDICATIONS: See Below ALLERGIES: See Below VITALS: See Below PHYSICAL EXAMINATION: GENERAL: Awake, alert, well-appearing, in no distress HENT: Normocephalic, atraumatic. Oropharynx unremarkable. EYES: Normal conjunctiva. Sclera non-icteric. NECK: Inspection normal. Non-tender. Supple. No nuchal rigidity. FROM. No masses. RESPIRATORY: Clear to auscultation. No wheezes. No rales. Normal respiratory effort. CARDIAC: Normal rate. Normal rhythm. No murmurs. No rubs. Extremities warm and well perfused. Pulses equal. No JVD. GI: Soft, non-distended. No tenderness to palpation. No rebound or guarding. No masses. RECTAL: Deferred. MUSCULOSKELETAL: Abrasion and scab noted to the anterior aspect of the right knee. There is associated tenderness around this area without obvious joint effusion. Range of motion is somewhat limited of the right knee secondary to pain. The distal right lower extremity as well as the proximal right lower extremity examined atraumatically and unremarkable. Good range of motion of the right hip. Chest examination reveals no tenderness. The back is symmetrical on inspection without obvious abnormality. There is no CVA tenderness to palpation. No joint edema. LOWER EXTREMITIES: Calves are equal size bilaterally and non-tender. No edema. No discoloration. NEURO: Normal sensorium. Expressive aphasia present. Patient is able to communicate basic information. No focal sensory or motor deficits noted. SKIN: No rash or jaundice noted. Past Med/Surg History Medical History Benign prostatic hyperplasia with urinary obstruction Cerebral vascular accident Controlled type 2 diabetes mellitus with microalbuminuria Diabetes Gait abnormality 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 Hypercholesteremia Hyperlipidemia Hypertension Peripheral artery disease Surgical History No significant past surgical history Family History Mother Coronary heart disease Brother Coronary heart disease Diabetes Hypertension Father Diabetes Denies family history of Ovarian cancer Prostate cancer Myocardial infarction Breast cancer Lung cancer Colorectal cancer Social History Smoking Status: Former smoker Tobacco Type: Cigarettes Age Started Using Tobacco: 18; Age Quit Using Tobacco: 37; packs per day: 1; Second Hand Exposure: No; Do You Dip or Chew Tobacco: No; Hx Alcohol Use: No Hx Substance Use: No Preferred Language: Czech Communication Ability: Effective Visual Impairment: No Limitations Hearing Ability: Use of Hearing Aid Punch Out Crew Member Required: No Beliefs That Will Affect Care: None marital status: / Current Living Situation: Alone Current Living Situation Comment: has one of his children stay with him everyday/night current occupational status: retired 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 Feels Safe at Home: Yes Childhood Exposure to Second-Hand Smoke: Yes Diet: regular caffeine: Yes Dental Care, Regularly: No Physical Activity Frequency: 5-6 Times per Week Seatbelt Use: never Sunscreen Use: Yes Assistive Devices: Cane Allergies Allergies Allergy/AdvReac Type Severity Reaction Status Date / Time No Known Allergies Allergy Verified 12/24/22 21:35 Home Meds Home Medications Medication Instructions Recorded Confirmed gmngeumj-vco-jwflb acid 300 1 tab PO QAM 02/15/19 12/24/22 mcg-lycopene 600 mcg-lutein 300 mcg tablet (Centrum Silver Men) magnesium oxide 400 mg PO BID 03/30/21 12/24/22 loratadine 10 mg tablet (Claritin) 10 mg PO QAM PRN allergies 10/16/21 12/24/22 clopidogrel 75 mg tablet 75 mg PO DAILY 12/24/22 12/24/22 Previous Rx's Medication Instructions Recorded bilateral LE AFO braces #1 ea 11/23/21 losartan 100 mg tablet 100 mg PO QAM #90 tabs 01/28/22 metoprolol tartrate 25 mg tablet 12.5 mg PO BID #90 tabs 02/02/22 finasteride 5 mg tablet 5 mg PO QAM #90 tabs 07/15/22 triamcinolone acetonide 0.1 % 1 applic topical BID PRN Skin 08/01/22 topical cream Irritation #30 grams blood sugar diagnostic (FreeStyle #100 ea 08/02/22 Lite Strips) blood-glucose meter (FreeStyle #1 ea 08/02/22 Lite Meter kit) lancets 28 gauge (FreeStyle #100 ea 08/02/22 Lancets) simvastatin 20 mg tablet 20 mg PO HS #90 tabs 09/07/22 metformin 500 mg tablet 500 mg PO BID #180 tabs 10/13/22 Results & Data (ED) Vital Signs Vital Signs - 24 hr 12/24/22 18:34 12/24/22 18:53 12/24/22 18:34 Temperature 36.7 C Temperature Source Oral Pulse Rate 113 H 113 H 111 H Respiratory Rate 20 17 Respiratory Effort / Characteristics Non-Labored Spontaneous Respiratory Depth Normal Blood Pressure 226/113 H Blood Pressure Mean 150 Pulse Oximetry 96 Oxygen Delivery Method Room Air Sepsis Recent Fever Within 48 Hours No Sepsis New/Unexplained Change in Mental Status N/A Sepsis Action Taken by Nursing No Action Required 12/24/22 18:45 12/24/22 19:00 12/24/22 19:15 Temperature Temperature Source Pulse Rate 107 H 103 H 101 H Respiratory Rate 15 21 19 Respiratory Effort / Characteristics Respiratory Depth Blood Pressure 215/109 H Blood Pressure Mean 144 Pulse Oximetry Oxygen Delivery Method Sepsis Recent Fever Within 48 Hours Sepsis New/Unexplained Change in Mental Status Sepsis Action Taken by Nursing 12/24/22 20:35 12/24/22 20:00 12/24/22 20:15 Temperature Temperature Source Pulse Rate 97 H 98 H 101 H Respiratory Rate 15 25 H Respiratory Effort / Characteristics Respiratory Depth Blood Pressure 179/107 H 203/131 H Blood Pressure Mean 155 Pulse Oximetry 94 Oxygen Delivery Method Room Air Sepsis Recent Fever Within 48 Hours Sepsis New/Unexplained Change in Mental Status Sepsis Action Taken by Nursing 12/24/22 20:30 12/24/22 20:53 12/24/22 20:45 Temperature Temperature Source Pulse Rate 98 H 86 88 Respiratory Rate 17 26 H Respiratory Effort / Characteristics Respiratory Depth Blood Pressure 179/107 H Blood Pressure Mean 131 Pulse Oximetry 95 Oxygen Delivery Method Room Air Sepsis Recent Fever Within 48 Hours Sepsis New/Unexplained Change in Mental Status Sepsis Action Taken by Nursing 12/24/22 20:52 12/24/22 21:00 12/24/22 21:15 Temperature Temperature Source Pulse Rate 82 86 88 Respiratory Rate 19 19 14 Respiratory Effort / Characteristics Respiratory Depth Blood Pressure 152/75 H 159/85 H Blood Pressure Mean 100 109 Pulse Oximetry 95 97 97 Oxygen Delivery Method Room Air Room Air Room Air Sepsis Recent Fever Within 48 Hours Sepsis New/Unexplained Change in Mental Status Sepsis Action Taken by Nursing 12/24/22 21:30 12/24/22 21:45 12/24/22 22:00 Temperature Temperature Source Pulse Rate 86 87 87 Respiratory Rate 19 18 13 Respiratory Effort / Characteristics Respiratory Depth Blood Pressure 154/79 H 145/77 H Blood Pressure Mean 104 99 Pulse Oximetry 92 91 92 Oxygen Delivery Method Room Air Room Air Room Air Sepsis Recent Fever Within 48 Hours Sepsis New/Unexplained Change in Mental Status Sepsis Action Taken by Nursing 12/24/22 22:15 12/24/22 22:30 12/24/22 22:45 Temperature Temperature Source Pulse Rate 86 85 84 Respiratory Rate 19 20 14 Respiratory Effort / Characteristics Respiratory Depth Blood Pressure 139/73 Blood Pressure Mean 95 Pulse Oximetry 91 94 94 Oxygen Delivery Method Room Air Room Air Room Air Sepsis Recent Fever Within 48 Hours Sepsis New/Unexplained Change in Mental Status Sepsis Action Taken by Nursing 12/24/22 22:30 Temperature Temperature Source Pulse Rate 85 Respiratory Rate Respiratory Effort / Characteristics Respiratory Depth Blood Pressure 139/73 Blood Pressure Mean Pulse Oximetry Oxygen Delivery Method Sepsis Recent Fever Within 48 Hours Sepsis New/Unexplained Change in Mental Status Sepsis Action Taken by Nursing Laboratory Data 12/24/22 18:40 12/24/22 18:40 Lab Results 12/24/22 12/24/22 12/24/22 Range/Units 18:40 18:40 18:40 WBC 9.02 (4.8-10.8) K/ul RBC 4.57 L (4.70-6.10) M/uL Hgb 14.3 (14.0-18.0) g/dl Hct 40.9 L (42.0-52.0) % MCV 89.5 (80.0-100.0) fL MCH 31.3 (25.0-34.0) pg MCHC 35.0 (32.0-36.0) g/dL RDW Std Deviation 39.8 (36.4-46.3) fL RDW Coeff of Doris 12.2 (11.5-14.5) % Plt Count 287 (130-400) K/uL MPV 8.6 L (9.4-12.4) fL Immature Gran % (Auto) 0.4 % Neut % (Auto) 58.9 % Lymph % (Auto) 24.2 % Jenkins % (Auto) 9.8 % Eos % (Auto) 6.0 % Baso % (Auto) 0.7 % Neut # (Auto) 5.32 (1.40-6.50) K/uL Lymph # (Auto) 2.18 (1.2-3.4) K/uL Jenkins # (Auto) 0.88 H (0.11-0.59) K/uL Eos # (Auto) 0.54 H (0-0.50) K/uL Baso # (Auto) 0.06 (0-0.2) K/uL Immature Gran # (Auto) 0.04 (0.01-0.20) K/uL PT 10.8 (9.0-12.0) Seconds INR 1.0 (0.9-1.1) APTT 29.0 (21.0-31.0) Seconds PTT Ratio 1.0 Sodium 130 L (136-145) mmol/L Potassium 4.2 (3.5-5.1) mmol/L Chloride 95 L (98-107) mmol/L Carbon Dioxide 25 (21-32) mmol/L Anion Gap 10 (3-11) BUN 18 (6-23) mg/dl Creatinine 0.93 (0.6-1.4) mg/dl Est Cr Clr Drug Dosing 56.2 ml/min Est GFR ( Amer) 86.5 ml/min Est GFR (Non-Af Amer) 74.6 ml/min BUN/Creatinine Ratio 19.4 (10-20) Glucose 171 H (70-99(Fasting)) mg/dl Calcium 10.0 (8.6-10.3) mg/dl Total Bilirubin 0.4 (0.2-1.0) mg/dl AST 17 (13-39) U/L ALT 13 (7-52) U/L Alkaline Phosphatase 44 (34-104) U/L Troponin I High Sens 9.5 (0-20) pg/ml Total Protein 7.7 (6.0-8.3) gm/dl Albumin 4.5 (3.4-5.0) gm/dl Globulin 3.2 (2.5-4.0) gm/dl Albumin/Globulin Ratio 1.4 (0.9-2) SARS-CoV-2, RNA, NAAT (NEGATIVE) 12/24/22 Range/Units 21:32 WBC (4.8-10.8) K/ul RBC (4.70-6.10) M/uL Hgb (14.0-18.0) g/dl Hct (42.0-52.0) % MCV (80.0-100.0) fL MCH (25.0-34.0) pg MCHC (32.0-36.0) g/dL RDW Std Deviation (36.4-46.3) fL RDW Coeff of Doris (11.5-14.5) % Plt Count (130-400) K/uL MPV (9.4-12.4) fL Immature Gran % (Auto) % Neut % (Auto) % Lymph % (Auto) % Jenkins % (Auto) % Eos % (Auto) % Baso % (Auto) % Neut # (Auto) (1.40-6.50) K/uL Lymph # (Auto) (1.2-3.4) K/uL Jenkins # (Auto) (0.11-0.59) K/uL Eos # (Auto) (0-0.50) K/uL Baso # (Auto) (0-0.2) K/uL Immature Gran # (Auto) (0.01-0.20) K/uL PT (9.0-12.0) Seconds INR (0.9-1.1) APTT (21.0-31.0) Seconds PTT Ratio Sodium (136-145) mmol/L Potassium (3.5-5.1) mmol/L Chloride (98-107) mmol/L Carbon Dioxide (21-32) mmol/L Anion Gap (3-11) BUN (6-23) mg/dl Creatinine (0.6-1.4) mg/dl Est Cr Clr Drug Dosing ml/min Est GFR ( Amer) ml/min Est GFR (Non-Af Amer) ml/min BUN/Creatinine Ratio (10-20) Glucose (70-99(Fasting)) mg/dl Calcium (8.6-10.3) mg/dl Total Bilirubin (0.2-1.0) mg/dl AST (13-39) U/L ALT (7-52) U/L Alkaline Phosphatase (34-104) U/L Troponin I High Sens (0-20) pg/ml Total Protein (6.0-8.3) gm/dl Albumin (3.4-5.0) gm/dl Globulin (2.5-4.0) gm/dl Albumin/Globulin Ratio (0.9-2) SARS-CoV-2, RNA, NAAT NEGATIVE (NEGATIVE) Administered Medications Discontinued Medications Acetaminophen (Acetaminophen 500 Mg Tab) 1,000 mg PO NOW STA Stop: 12/24/22 18:48 Last Admin: 12/24/22 19:03 Dose: 1,000 mg Documented By: VINNY Labetalol HCl (Labetalol Hcl Iv 5 Mg/Ml 20ml) 10 mg IV NOW STA Stop: 12/24/22 20:09 Last Admin: 12/24/22 20:35 Dose: 10 mg Documented By: VINNY Co-signed By: ARIANA Morphine Sulfate (Morphine Sulfate 4 Mg/Ml 1 Ml Carp\Vial) 4 mg IV NOW STA Stop: 12/24/22 18:52 Last Admin: 12/24/22 19:05 Dose: Not Given Documented By: VINNY Ondansetron HCl (Ondansetron Inj 2 Mg/Ml 2 Ml Vial) 4 mg IV NOW STA Stop: 12/24/22 18:52 Last Admin: 12/24/22 19:04 Dose: 4 mg Documented By: VINNY Imaging Data Radiologist's Impression: Chest X-Ray 12/24/22 18:47 XR chest 1V not portable HISTORY: Fall. leg pain COMPARISON: Chest 07/15/2022. FINDINGS: No pneumothorax. No pleural effusions. No new focal lung consolidations to suggest a pneumonia. No evidence for pulmonary edema. The cardiac silhouette is normal in size. There are calcifications within the aortic knob. No acute fractures identified. A few small left basilar linear densities suggesting subsegmental atelectasis or scarring. IMPRESSION: No acute process. ACT 112: Negative or not required by law. Electronically signed by: Attila Sifuentes M.D. 12/24/2022 8:01 PM Femur X-Ray 12/24/22 18:47 XR femur RT 2V routine, XR knee RT 3V CLINICAL HISTORY: Right femur and right knee pain, distal, fall COMPARISON STUDY: Right knee 08/26/2020. FINDINGS: No acute fracture or dislocation within the right femur or right knee. No significant knee effusion. Vascular calcifications are noted. The visualized pelvic bones are intact. 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 No significant soft tissue swelling. IMPRESSION: No fractures within the right femur or right knee. ACT 112: Negative or not required by law. Electronically signed by: Attila Sifuentes M.D. 12/24/2022 7:59 PM Knee X-Ray 12/24/22 18:47 XR femur RT 2V routine, XR knee RT 3V CLINICAL HISTORY: Right femur and right knee pain, distal, fall COMPARISON STUDY: Right knee 08/26/2020. FINDINGS: No acute fracture or dislocation within the right femur or right knee. No significant knee effusion. Vascular calcifications are noted. The visualized pelvic bones are intact. 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 No significant soft tissue swelling. IMPRESSION: No fractures within the right femur or right knee. ACT 112: Negative or not required by law. Electronically signed by: Attila Sifuentes M.D. 12/24/2022 7:59 PM Discharge Plan Visit Data Chief Complaint: Leg Injury/Pain Stated Complaint: LEG INJURY ED Provider: Azeem Wilkinson Discharge Problem: Severe hypertension, Acute pain of right knee, Abnormal ECG Discharge Instructions Interventions: ED Discharge Assessment Last Done: 12/25/22 00:20
--- NOTE | 2022-12-24 23:00 | History & Physical Report ---
Date of Service December 24, 2022 Assessment & Plan (1) Severe hypertension: Plan: Markedly elevated blood pressure on arrival with EKG changes. No report of chest pain. Blood pressure improved with IV Labetalol as did EKG changes -Monitor BP -Continue Losartan -Continue Metoprolol -Repeat troponin in AM (2) Acute pain of right knee: Plan: Etiology unclear. Patient did fall on the knee several days ago. Small abrasion. No swelling or effusion. No point tenderness on exam. No anterior/posterior laxity. X-rays of hip and knee with no fracture. Some tenderness over right IT band as well. -Pain control with Tylenol PRN -PT/OT evaluation (3) Controlled type 2 diabetes mellitus with microalbuminuria: Plan: Blood sugar 171. Overall well controlled. Last AcaG8Y=4.4 -Lantus 5u BID -ISS -Goal blood sugar 110 - 140 -Continue Losartan (4) Hyperlipidemia: Plan: Chronic. Controlled -Continue Simvastatin 20mg po qHS F/E/N - Heplock. Electrolytes WNL. Heart healthy diet as tolerated Ppx - Low risk for DVT Code - DNR/DNI per discussion with patient Dispo - Observation to medical with telemetry. 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 Patient did fall onto his right knee approximately 4 days ago. Hypertensive on arrival to 226/113. EKG at that time with marked irregularities to include ST depressions in inferior and lateral leads. Blood pressure improved with IV Labetalol as did EKG changes. No report of chest pain, SOB or palpitations ER Course: Tylenol 100mg Zofran 4mg IV Labetalol 10mg IV Insulin 1 unit Allergies Allergy/AdvReac Type Severity Reaction Status Date / Time No Known Allergies Allergy Verified 12/24/22 21:35 Home Medications Medication Instructions Recorded Confirmed Type [id number]-[id number] acid 300 1 tab PO QAM 02/15/19 12/24/22 History mcg-lycopene 600 mcg-lutein 300 mcg tablet (Centrum Silver Men) magnesium oxide 400 mg PO BID 03/30/21 12/24/22 History loratadine 10 mg tablet (Claritin) 10 mg PO QAM PRN allergies 10/16/21 12/24/22 History bilateral LE AFO braces #1 ea 11/23/21 12/24/22 Rx losartan 100 mg tablet 100 mg PO QAM #90 tabs 01/28/22 12/24/22 Rx metoprolol tartrate 25 mg tablet 12.5 mg PO BID #90 tabs 02/02/22 12/24/22 Rx finasteride 5 mg tablet 5 mg PO QAM #90 tabs 07/15/22 12/24/22 Rx triamcinolone acetonide 0.1 % 1 applic topical BID PRN Skin 08/01/22 12/24/22 Rx topical cream Irritation #30 grams blood sugar diagnostic (FreeStyle #100 ea 08/02/22 12/24/22 Rx Lite Strips) blood-glucose meter (FreeStyle #1 ea 08/02/22 12/24/22 Rx Lite Meter kit) lancets 28 gauge (FreeStyle #100 ea 08/02/22 12/24/22 Rx Lancets) simvastatin 20 mg tablet 20 mg PO HS #90 tabs 09/07/22 12/24/22 Rx metformin 500 mg tablet 500 mg PO BID #180 tabs 10/13/22 12/24/22 Rx clopidogrel 75 mg tablet 75 mg PO DAILY 12/24/22 12/24/22 History Past Med/Surg History Medical History Benign prostatic hyperplasia with urinary obstruction Cerebral vascular accident Controlled type 2 diabetes mellitus with microalbuminuria Diabetes Gait abnormality 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 Hypercholesteremia Hyperlipidemia Hypertension Peripheral artery disease Surgical History No significant past surgical history Family History Mother Coronary heart disease Brother Coronary heart disease Diabetes Hypertension Father Diabetes Denies family history of Ovarian cancer Prostate cancer Myocardial infarction Breast cancer Lung cancer Colorectal cancer Social History Smoking Status: Former smoker Tobacco Type: Cigarettes Age Started Using Tobacco: 18; Age Quit Using Tobacco: 37; packs per day: 1; Second Hand Exposure: No; Do You Dip or Chew Tobacco: No; Hx Alcohol Use: No Hx Substance Use: No Preferred Language: Palauan Communication Ability: Effective Visual Impairment: No Limitations Hearing Ability: Use of Hearing Aid Stove Polisher Required: No Beliefs That Will Affect Care: None marital status: / Current Living Situation: Alone Current Living Situation Comment: has one of his children stay with him everyday/night current occupational status: retired 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 Feels Safe at Home: Yes Childhood Exposure to Second-Hand Smoke: Yes Diet: regular caffeine: Yes Dental Care, Regularly: No Physical Activity Frequency: 5-6 Times per Week Seatbelt Use: never Sunscreen Use: Yes Assistive Devices: Cane Review of Systems Review of Systems: All systems reviewed & are unremarkable except as noted in HPI & below Physical Exam Physical Exam: General: patient resting comfortably, NAD, non-toxic in appearance, expressive aphasia Skin: warm, dry, intact, no rashes or lesions HEENT: NC/AT, PERRL, EOMI, anicteric sclera, conjunctiva without injection, external ear normal to inspection and nontender, nares patent, moist mucus membranes, dentition intact, no oropharyngeal lesions, neck supple, trachea midline, no LAD, no thyromegaly, no JVD Heart: +S1/S2, regular, no m/r/g Lungs: equal air entry bilaterally, no rales/rhonchi/wheezes Abd: +BS, soft, NT/ND, no masses/organomegaly/ascites Ext: warm, 2+ pulses in UE/LE bilaterally, no clubbing/cyanosis or edema, tenderness with palpation of right hip and lateral leg Neuro: patient AA&O x 4, expressive aphasia no facial droop, moving all extremities on command, residual right sided weakness from prior CVA 4/5 Results & Data Results & Data Vital Signs (Past 12 Hours) Vital Signs Temp Pulse Resp BP Pulse Ox O2 Del Method 12/24/22 22:00 87 13 145/77 H 92 Room Air 12/24/22 21:45 87 18 91 Room Air 12/24/22 21:30 86 19 154/79 H 92 Room Air 12/24/22 21:15 88 14 97 Room Air 12/24/22 21:00 86 19 159/85 H 97 Room Air 12/24/22 20:52 82 19 152/75 H 95 Room Air 12/24/22 20:45 88 26 H 95 Room Air 12/24/22 20:53 86 12/24/22 20:30 98 H 17 179/107 H 12/24/22 20:15 101 H 25 H 12/24/22 20:00 98 H 15 203/131 H 94 Room Air 12/24/22 20:35 97 H 179/107 H 12/24/22 19:15 101 H 19 12/24/22 19:00 103 H 21 215/109 H 12/24/22 18:45 107 H 15 12/24/22 18:34 111 H 17 12/24/22 18:53 36.7 C 113 H 20 226/113 H 96 Room Air 12/24/22 18:34 113 H Laboratory Results Laboratory Results WBC 9.02 K/ul (4.8-10.8) 12/24/22 18:40 RBC 4.57 M/uL (4.70-6.10) L 12/24/22 18:40 Hgb 14.3 g/dl (14.0-18.0) 12/24/22 18:40 Hct 40.9 % (42.0-52.0) L 12/24/22 18:40 MCV 89.5 fL (80.0-100.0) 12/24/22 18:40 MCH 31.3 pg (25.0-34.0) 12/24/22 18:40 MCHC 35.0 g/dL (32.0-36.0) 12/24/22 18:40 RDW Std Deviation 39.8 fL (36.4-46.3) 12/24/22 18:40 RDW Coeff of Doris 12.2 % (11.5-14.5) 12/24/22 18:40 Plt Count 287 K/uL (130-400) 12/24/22 18:40 MPV 8.6 fL (9.4-12.4) L 12/24/22 18:40 Immature Gran % (Auto) 0.4 % 12/24/22 18:40 Neut % (Auto) 58.9 % 12/24/22 18:40 Lymph % (Auto) 24.2 % 12/24/22 18:40 [place] % (Auto) 9.8 % 12/24/22 18:40 Eos % (Auto) 6.0 % 12/24/22 18:40 Baso % (Auto) 0.7 % 12/24/22 18:40 Neut # (Auto) 5.32 K/uL (1.40-6.50) 12/24/22 18:40 Lymph # (Auto) 2.18 K/uL (1.2-3.4) 12/24/22 18:40 [place] # (Auto) 0.88 K/uL (0.11-0.59) H 12/24/22 18:40 Eos # (Auto) 0.54 K/uL (0-0.50) H 12/24/22 18:40 Baso # (Auto) 0.06 K/uL (0-0.2) 12/24/22 18:40 Immature Gran # (Auto) 0.04 K/uL (0.01-0.20) 12/24/22 18:40 PT 10.8 Seconds (9.0-12.0) 12/24/22 18:40 INR 1.0 (0.9-1.1) 12/24/22 18:40 APTT 29.0 Seconds (21.0-31.0) 12/24/22 18:40 PTT Ratio 1.0 12/24/22 18:40 Sodium 130 mmol/L (136-145) L 12/24/22 18:40 Potassium 4.2 mmol/L (3.5-5.1) 12/24/22 18:40 Chloride 95 mmol/L (98-107) L 12/24/22 18:40 Carbon Dioxide 25 mmol/L (21-32) 12/24/22 18:40 Anion Gap 10 (3-11) 12/24/22 18:40 BUN 18 mg/dl (6-23) 12/24/22 18:40 Creatinine 0.93 mg/dl (0.6-1.4) 12/24/22 18:40 Est Cr Clr Drug Dosing 56.2 ml/min 12/24/22 18:40 Est GFR ( Amer) 86.5 ml/min 12/24/22 18:40 Est GFR (Non-Af Amer) 74.6 ml/min 12/24/22 18:40 BUN/Creatinine Ratio 19.4 (10-20) 12/24/22 18:40 Glucose 171 mg/dl (70-99(Fasting)) H 12/24/22 18:40 POC Glucose 156 mg/dl (70-99) H 12/25/22 01:18 Calcium 10.0 mg/dl (8.6-10.3) 12/24/22 18:40 Total Bilirubin 0.4 mg/dl (0.2-1.0) 12/24/22 18:40 AST 17 U/L (13-39) 12/24/22 18:40 ALT 13 U/L (7-52) 12/24/22 18:40 Alkaline Phosphatase 44 U/L (34-104) 12/24/22 18:40 Troponin I High Sens 9.5 pg/ml (0-20) 12/24/22 18:40 Total Protein 7.7 gm/dl (6.0-8.3) 12/24/22 18:40 Albumin 4.5 gm/dl (3.4-5.0) 12/24/22 18:40 Globulin 3.2 gm/dl (2.5-4.0) 12/24/22 18:40 Albumin/Globulin Ratio 1.4 (0.9-2) 12/24/22 18:40 SARS-CoV-2, RNA, NAAT NEGATIVE (NEGATIVE) 12/24/22 21:32 Impressions Chest X-Ray 12/24/22 18:47 XR chest 1V not portable HISTORY: Fall. leg pain COMPARISON: Chest 07/15/2022. FINDINGS: No pneumothorax. No pleural effusions. No new focal lung consolidations to suggest a pneumonia. No evidence for pulmonary edema. The cardiac silhouette is normal in size. There are calcifications within the aortic knob. No acute fractures identified. A few small left basilar linear densities suggesting subsegmental atelectasis or scarring. IMPRESSION: No acute process. ACT 112: Negative or not required by law. Electronically signed by: Attila Sifuentes M.D. 12/24/2022 8:01 PM Femur X-Ray 12/24/22 18:47 XR femur RT 2V routine, XR knee RT 3V CLINICAL HISTORY: Right femur and right knee pain, distal, fall COMPARISON STUDY: Right knee 08/26/2020. FINDINGS: No acute fracture or dislocation within the right femur or right knee. No significant knee effusion. Vascular calcifications are noted. The visualized pelvic bones are intact. 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 No significant soft tissue swelling. IMPRESSION: No fractures within the right femur or right knee. ACT 112: Negative or not required by law. Electronically signed by: Attila Sifuentes M.D. 12/24/2022 7:59 PM Knee X-Ray 12/24/22 18:47 XR femur RT 2V routine, XR knee RT 3V CLINICAL HISTORY: Right femur and right knee pain, distal, fall COMPARISON STUDY: Right knee 08/26/2020. FINDINGS: No acute fracture or dislocation within the right femur or right knee. No significant knee effusion. Vascular calcifications are noted. The visualized pelvic bones are intact. 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 No significant soft tissue swelling. IMPRESSION: No fractures within the right femur or right knee. ACT 112: Negative or not required by law. Electronically signed by: Attila Sifuentes M.D. 12/24/2022 7:59 PM PG Care Time/CCT Total # of Minutes Spent Total Time Spent with Patient: Total time spent is greater than 50% in coordination of care (as documented) at patient's floor/unit and/or counseling patient: Coding Level of Care Code 27337 INT INP/OBS CARE 2/55MIN Diagnoses Severe hypertension I10 Acute pain of right knee M25.561 Controlled type 2 diabetes mellitus with microalbuminuria E11.29; R80.9 Hyperlipidemia E78.5
[2022-12-25] MEDS ORDERED: ACETAMINOPHEN 325 MG TAB PO PRN (00:39)
[2022-12-25] MEDS ORDERED: CARBOHYDRATES FOR HYPOGLYCEMIA PO PRN (00:39)
[2022-12-25] MEDS ORDERED: GLUCOSE 10 TAB/TUBE PO PRN (00:39)
[2022-12-25] MEDS ORDERED: DEXTROSE 50% 50 ML SYRINGE IV PRN (00:39)
[2022-12-25] MEDS ORDERED: GLUCOSE 40% GEL 15 GM TUBE PO PRN (00:39)
[2022-12-25] MEDS ORDERED: GLUCAGON FOR INJ 1 MG VIAL SQ PRN (00:39)
[2022-12-25] MEDS: INSULIN ASPART PER UNIT CHARGE SC SCH ×5 (01:22→21:11)
[2022-12-25 04:04] LABS: Appearance Urine Clear (Clear); Bacteria Urine Automated 1+ (Negative); Bilirubin Urine Negative (Negative); Blood Urine Negative (Negative); Cast Urine Automated 0 /lpf (0-5); Color Urine Yellow; Glucose Urine UA Negative (Negative); Ketones Urine Negative (Negative); Leukocyte Esterase Urine 1+ (Negative); Nitrite Urine Positive (Negative); Protein Urine Negative (Negative); RBC Urine Automated 0-4 /hpf (0-4); Specific Gravity Urine 1.009 (1.000-1.030); Urobilinogen Urine Negative (Negative); pH Urine 7.5 (4.5-7.5)
[2022-12-25 06:13] LABS: Hematocrit (blood only) 36.7 % (42.0-52.0); Hemoglobin 12.8 g/dl (14.0-18.0); Mean Corpuscular Hgb Conc 34.9 g/dL (32.0-36.0); Mean Corpuscular Volume 88.9 fL (80.0-100.0); Mean Platelet Volume 8.5 fL (9.4-12.4); Platelet Count 259 K/uL (130-400); RDW Coefficient of Variation 11.9 % (11.5-14.5); RDW Standard Deviation 38.2 fL (36.4-46.3); Red Blood Count 4.13 M/uL (4.70-6.10); White Blood Count 9.81 K/ul (4.8-10.8)
[2022-12-25 06:26] LABS: BUN Creatinine Ratio 18.3 (10-20); Calcium 8.9 mg/dl (8.6-10.3); Creatinine Clr Calc Pharmacy 63.7 ml/min; Est GFR (African American) 93.5 ml/min; Est GFR (Non-African American) 80.6 ml/min; Potassium 4.1 mmol/L (3.5-5.1)
[2022-12-25 06:35] LABS: Troponin I High Sensitivity 4158.9 pg/ml (0-20)
[2022-12-25] MEDS: METOPROLOL TARTRATE 25 MG TAB PO SCH ×2 (09:32→21:12)
[2022-12-25] MEDS: LOSARTAN POTASSIUM 50 MG TAB PO SCH (09:32)
[2022-12-25] MEDS: CLOPIDOGREL BISULFATE 75 MG TAB PO SCH (09:32)
[2022-12-25] MEDS: FINASTERIDE 5 MG TAB PO SCH (09:32)
[2022-12-25] MEDS: LANTUS PER UNIT CHARGE SQ SCH ×2 (09:37→21:17)
--- NOTE | 2022-12-25 11:18 | Hospitalist Progress Note ---
Date of Service December 25, 2022 Assessment & Plan (1) Hypertensive emergency: Plan: Markedly elevated blood pressure on arrival with EKG changes. No report of chest pain. Blood pressure improved with IV Labetalol as did EKG changes -BP is now better 150/79 this morning -Continue Losartan -Continue Metoprolol -Repeat troponin and ekg (2) Acute pain of right knee: Plan: Likely from mechanical fall, Small abrasion. No swelling or effusion. No point tenderness on exam. No anterior/posterior laxity. X-rays of hip and knee with no fracture. Some tenderness over right IT band as well. -Pain control with Tylenol PRN -PT/OT evaluation (3) Controlled type 2 diabetes mellitus with microalbuminuria: Plan: Overall well controlled. Last EkvK8J=9.4 -Lantus 5u BID -ISS -Goal blood sugar 110 - 140 -Continue Losartan (4) Hyperlipidemia: Plan: Chronic. Controlled -Continue Simvastatin 20mg po qHS (5) Severe hypertension: Plan F/E/N - Heplock. Electrolytes WNL. Heart healthy diet as tolerated Ppx - Low risk for DVT Code - DNR/DNI per discussion with patient Dispo - Observation to medical with telemetry. await PT eval, patient may need snf. He has been declining at home Admission and Anticipated Discharge Date Admission Date: December 24, 2022 Subjective patient seen and examined, no new complaints, apart from right knee soreness Review of Systems Review of Systems: All systems reviewed are negative, apart from the ones contained in the history. Physical Exam Physical Exam: The patient is awake, alert and oriented 3, well developed and well nourished, normocephalic and atraumatic, lying in bed and in no acute distress. HEENT--PERRL, EOMI, mucous membranes and oropharynx mildly dry Neck--supple. No JVD. No bruits. Thyroid normal, trachea midline, no adenopathy. Heart--normal S1 and S2. No murmurs, rubs or gallops. Lungs--clear bilaterally, no respiratory distress, no accessory muscle use. Abdomen--normal bowel sounds and soft. Mild epigastric and left sided abdominal pain Extremities--no cyanosis or clubbing. No edema. Dermatologic--normal skin turgor, normal color, no abnormal lymph nodes, no rash. Neurologic--cranial nerves II through XII grossly intact. right hemiparesis Rheumatologic--normal range of motion. Psychiatric--normal affect. Results & Data Results & Data Vital Signs (Past 12 Hours) Vital Signs Temp Pulse Pulse Resp BP Pulse Ox O2 Del Method 12/25/22 07:11 97.5 F L 77 20 150/79 H 97 Room Air 12/25/22 07:00 78 12/25/22 04:10 161/80 H 12/25/22 04:00 98.1 F 87 20 180/86 H 96 Room Air 12/25/22 00:30 64 12/25/22 00:40 97.7 F 75 12 149/78 H 95 Room Air 12/25/22 00:30 97.7 F 74 12 149/78 H 95 Room Air PG Care Time/CCT Total # of Minutes Spent Total Time Spent with Patient: Total time spent is greater than 50% in coordination of care (as documented) at patient's floor/unit and/or counseling patient: Coding Level of Care Code 62788 SUB INP/OBS CARE 2/35MIN Diagnoses Hypertensive emergency I16.1 Acute pain of right knee M25.561 Controlled type 2 diabetes mellitus with microalbuminuria E11.29; R80.9 Hyperlipidemia E78.5 Severe hypertension I10 Time Spent (min) 35
[2022-12-25] MEDS ORDERED: SIMVASTATIN 20 MG TAB PO SCH (21:00)
[2022-12-26 06:52] LABS: Hematocrit (blood only) 40.9 % (42.0-52.0); Hemoglobin 14.1 g/dl (14.0-18.0); Mean Corpuscular Hemoglobin 31.3 pg (25.0-34.0); Mean Corpuscular Hgb Conc 34.5 g/dL (32.0-36.0); Mean Corpuscular Volume 90.9 fL (80.0-100.0); Mean Platelet Volume 8.3 fL (9.4-12.4); Platelet Count 287 K/uL (130-400); RDW Coefficient of Variation 12.2 % (11.5-14.5); RDW Standard Deviation 40.5 fL (36.4-46.3); White Blood Count 11.42 K/ul (4.8-10.8)
[2022-12-26 07:04] LABS: Calcium 9.3 mg/dl (8.6-10.3); Creatinine Clr Calc Pharmacy 65.3 ml/min; Est GFR (African American) 94.4 ml/min; Est GFR (Non-African American) 81.5 ml/min
[2022-12-26 07:20] LABS: Troponin I High Sensitivity 1322.8 pg/ml (0-20)
[2022-12-26] MEDS: FINASTERIDE 5 MG TAB PO SCH (08:22)
[2022-12-26] MEDS: METOPROLOL TARTRATE 25 MG TAB PO SCH (08:22)
[2022-12-26] MEDS: CLOPIDOGREL BISULFATE 75 MG TAB PO SCH (08:23)
[2022-12-26] MEDS: LOSARTAN POTASSIUM 50 MG TAB PO SCH (08:23)
[2022-12-26] MEDS: LANTUS PER UNIT CHARGE SQ SCH (08:30)
[2022-12-26] MEDS: INSULIN ASPART PER UNIT CHARGE SC SCH ×3 (08:30→17:48)
[2022-12-26] MEDS ORDERED: POLYETHYLENE (MIRALAX) 17 GM PACK PO PRN (10:40)
--- NOTE | 2022-12-26 14:26 | Discharge Summary ---
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 Patient did fall onto his right knee approximately 4 days ago. Hypertensive on arrival to 226/113. EKG at that time with marked irregularities to include ST depressions in inferior and lateral leads. Blood pressure improved with IV Labetalol as did EKG changes. No report of chest pain, SOB or palpitations ER Course: Tylenol 100mg Zofran 4mg IV Labetalol 10mg IV Insulin 1 unit Principal Diagnosis HTN emergency, frequent falls Discharge Exam The patient is awake, alert and oriented 3, well developed and well nourished, normocephalic and atraumatic, lying in bed and in no acute distress. HEENT--PERRL, EOMI, mucous membranes and oropharynx mildly dry Neck--supple. No JVD. No bruits. Thyroid normal, trachea midline, no adenopathy. Heart--normal S1 and S2. No murmurs, rubs or gallops. Lungs--clear bilaterally, no respiratory distress, no accessory muscle use. Abdomen--normal bowel sounds and soft. Mild epigastric and left sided abdominal pain Extremities--no cyanosis or clubbing. No edema. Dermatologic--normal skin turgor, normal color, no abnormal lymph nodes, no josh h. Neurologic--cranial nerves II through XII grossly intact. right hemiparesis Rheumatologic--normal range of motion. Psychiatric--normal affect. Discharge Data Allergies Allergy/AdvReac Type Severity Reaction Status Date / Time No Known Allergies Allergy Verified 12/24/22 21:35 Consultations 12/24/22 21:58 ED Decision to Admit Stat Hospital Course (1) Hypertensive emergency: Markedly elevated blood pressure on arrival with EKG changes. No report of chest pain. Blood pressure improved with IV Labetalol as did EKG changes Now resolved -BP is now better 124/719 this morning -Continue Losartan -Continue Metoprolol -Repeat troponin and ekg (2) Acute pain of right knee: Likely from mechanical fall, Small abrasion. No swelling or effusion. No point tenderness on exam. No anterior/posterior laxity. X-rays of hip and knee with no fracture. Some tenderness over right IT band as well. -Pain control with Tylenol PRN -PT/OT evaluation (3) Controlled type 2 diabetes mellitus with microalbuminuria: Overall well controlled. Last XkhO0Y=3.4 -Lantus 5u BID -ISS -Goal blood sugar 110 - 140 -Continue Losartan (4) Hyperlipidemia: Chronic. Controlled -Continue Simvastatin 20mg po qHS (5) Severe hypertension: Plan F/E/N - Heplock. Electrolytes WNL. Heart healthy diet as tolerated Ppx - Low risk for DVT Code - DNR/DNI per discussion with patient Dispo - d/c to snf. Total Time Total Time Spent Total Time Spent (In Minutes): 35 Discharge Plan Discharge Items Patient Disposition: Transfer [facility] Living Fac Reason For Visit: RIGHT HIP PAIN Discharge Diagnosis: Frequent falls, HTN emergency Activity: Resume your previous activity Non-emergency contact: Primary Care Provider Call non-emergency contact if: you have any medication questions Follow-up/Referrals: Salomon Stanton, [Primary Care Provider] - Diet: Regular Addtl Attending Provider Instructions: please follow up with your regular PCP Pending Studies at Discharge: No Stand-Alone Forms: My FriendsClear Skilled Items Patient informed of condition?: Yes DNR: Yes Discharge Level of Care: Skilled Communicable Disease: No Discharge Prognosis: Stable Lines: None Urinary Catheter: No Medications and DC Order Prescriptions: Continued losartan 100 mg tablet 100 mg PO QAM Qty: 90 3RF metoprolol tartrate 25 mg tablet 12.5 mg PO BID Qty: 90 3RF Rx Instructions: take 1/2 tablet by mouth every 12 hours finasteride 5 mg tablet 5 mg PO QAM Qty: 90 3RF (DME) blood-glucose meter [FreeStyle Lite Meter] Kit See Rx Instructions .Route Qty: 1 0RF Rx Instructions: As directed (DME) FreeStyle Lite Strips Strip See Rx Instructions .Route Qty: 100 5RF Rx Instructions: test once daily (DME) lancets [FreeStyle Lancets] 28 gauge misc See Rx Instructions .Route Qty: 100 5RF Rx Instructions: test once daily simvastatin 20 mg tablet 20 mg PO HS Qty: 90 3RF metformin 500 mg tablet 500 mg PO BID Qty: 180 3RF Centrum Silver Men 300-600-300 mcg tablet 1 tab PO QAM (DME) bilateral LE AFO braces See Rx Instructions .Route .MEDSUPPLY Qty: 1 0RF Rx Instructions: As directed triamcinolone acetonide 0.1 % cream 1 applic topical BID PRN (Reason: Skin Irritation) Qty: 30 2RF loratadine [Claritin] 10 mg tablet 10 mg PO QAM PRN (Reason: allergies) magnesium oxide 400 mg magnesium Tablet 400 mg PO BID clopidogrel 75 mg tablet 75 mg PO DAILY Rx Instructions: take 1 tablet by mouth daily Discharge Orders: Discharge Order (Routine); Ordered 12/26/22 Ordered By: Naldo Adams Admission Data Admit Date/Time: 12/26/22 10:48 Attending Provider: Naldo Adams Admit Provider: Stephanie Kang Primary Care Provider: Salomon Stanton Other Providers: Stephanie Kang ; [facility] Coding Level of Care Code 03183 INP/OBS DISCH >30 MIN Diagnoses Hypertensive emergency I16.1 Acute pain of right knee M25.561 Controlled type 2 diabetes mellitus with microalbuminuria E11.29; R80.9 Hyperlipidemia E78.5 Severe hypertension I10 Time Spent (min) 35
--- NOTE | 2022-12-27 06:50 | Electrocardiogram Report ---
Test Reason : Blood Pressure : / mmHG Vent. Rate : 107 BPM Atrial Rate : 107 BPM P-R Int : 176 ms QRS Dur : 098 ms QT Int : 334 ms P-R-T Axes : 063 001 -05 degrees QTc Int : [address] depression, consider anterior ischemia Abnormal ECG When compared with ECG of 23-OCT-2022 13:29, ST now depressed in Anterior leads and inferior leads Confirmed by Edgar Reese ([id number]) on 12/27/2022 6:50:28 AM Referred By: REFERRED SELF Confirmed By:Edgar Reese
--- NOTE | 2022-12-27 06:58 | Electrocardiogram Report ---
Test Reason : Blood Pressure : / mmHG Vent. Rate : 079 BPM Atrial Rate : 079 BPM P-R Int : 162 ms QRS Dur : 098 ms QT Int : 376 ms P-R-T Axes : 052 -03 -16 degrees QTc Int : 431 ms Normal sinus rhythm Nonspecific ST abnormality Abnormal ECG When compared with ECG of 24-DEC-2022 18:38, ST no longer depressed in Anterior leads T wave inversion no longer evident in Anterolateral leads Confirmed by Edgar Reese ([id number] on 12/27/2022 6:57:49 AM Referred By: REFERRED SELF Confirmed By:Edgar Reese
== END 2022-12-26 18:10 | DRG 305 ==
LOC: 4W 18:26 → ED 18:26 → SUATTDRO 23:00 → 4W 12-25 00:20

== ENCOUNTER 2023-08-10 13:44 | Observation (INO) ==
--- NOTE | 2023-08-10 14:33 | Emergency Department Note ---
History of Present Illness General Chief complaint: Fall Time Seen by Provider: 08/10/23 14:12 History of Present Illness Maximum Pain Intensity: 8 87-year-old male with past medical history significant for right-sided hemiparesis s/p stroke presents to the emergency department accompanied by son for evaluation status post fall. Son states patient reportedly fell yesterday. Patient currently lives alone but has family members with him at all times of the day. Son states a family friend was with him yesterday during the day and he did not see the note until this morning that he fell yesterday. Patient notes that he tripped and landed on his right side of his body. He notes pain to the whole right side of his body. He denies hitting head or loss of consciousness. He is on Plavix. Patient typically ambulates with a cane. Son denies any changes in mental status and appears to be at his baseline. Patient denies any chest pain, shortness of breath, abdominal pain, blood in his urine or stool. No back or neck pain. Patient has not taken anything for symptoms. No known allergies. Home Medications Medication Instructions Recorded Confirmed Type [id number] 300 mcg-K 60 1 tab PO QAM 02/15/19 07/06/23 History mcg-lycop 600 mcg-lutein 300 mcg tablet (Centrum Silver Men) magnesium oxide 400 mg PO BID 03/30/21 07/06/23 History bilateral LE AFO braces #1 ea 11/23/21 07/06/23 Rx triamcinolone acetonide 0.1 % 1 applic topical BID PRN Skin 08/01/22 07/06/23 Rx topical cream Irritation #30 grams blood sugar diagnostic (FreeStyle #100 ea 08/02/22 07/06/23 Rx Lite Strips) blood-glucose meter (FreeStyle #1 ea 08/02/22 07/06/23 Rx Lite Meter kit) lancets 28 gauge (FreeStyle #100 ea 08/02/22 07/06/23 Rx Lancets) simvastatin 20 mg tablet 20 mg PO HS #90 tabs 09/07/22 07/06/23 Rx metformin 500 mg tablet 500 mg PO BID #180 tabs 10/13/22 07/06/23 Rx CPAP Supplies #1 ea 02/07/23 07/06/23 Rx losartan 100 mg tablet 100 mg PO QAM #90 tabs 03/06/23 07/06/23 Rx metoprolol tartrate 25 mg tablet 25 mg PO BID #180 tabs 03/28/23 07/06/23 Rx clopidogrel 75 mg tablet 75 mg PO QAM #90 tabs 07/18/23 Rx finasteride 5 mg tablet 5 mg PO QAM #90 tabs 07/18/23 Rx Allergies Allergy/AdvReac Type Severity Reaction Status Date / Time No Known Allergies Allergy Verified 07/06/23 12:08 Past Med/Surg History Medical History History of COVID-19 04/04/23, symptoms lasted 3 days, tx w/paxlovid>no residual symptoms Sleep apnea cpap Hx of squamous cell carcinoma CVA, old, speech/language deficit Hyponatremia Right otitis externa cream prn Gait abnormality Benign prostatic hyperplasia with urinary obstruction Peripheral artery disease Hyperlipidemia Cerebral vascular accident ~age 60, unsure of what initial symptoms>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, cannot talk Hypertension Hypercholesteremia Controlled type 2 diabetes mellitus with microalbuminuria 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 Surgical History Hx of cataract surgery right History of cardiac cath 03/2023, "wasn't feeling right," no stents>"pt has minimal damage to heart"; f/u [facility] cardio Hx of squamous cell carcinoma excision No significant past surgical history Family History Mother Coronary heart disease Brother Coronary heart disease Diabetes Hypertension Father Diabetes Denies family history of Ovarian cancer Prostate cancer Myocardial infarction Breast cancer Lung cancer Colorectal cancer Social History Smoking Status: Never smoker Tobacco Type: Cigarettes Age Started Using Tobacco: 18; Age Quit Using Tobacco: 37; packs per day: 1; Second Hand Exposure: Yes ( smoked); Do You Dip or Chew Tobacco: No; Hx Alcohol Use: Yes Alcohol type: hard liquor Alcohol Intake Frequency: 2-4 x/Month Alcohol Intake Frequency Comment: OCCASIONAL Hx Substance Use: No Preferred Language: Omani Communication Ability: Effective Communication Ability Comment: loss of speech w/stroke Visual Impairment: No Limitations Hearing Ability: Use of Hearing Aid Intake Worker Required: No Beliefs That Will Affect Care: None marital status: / Current Living Situation: Family Current Living Situation Comment: Patient lives in his home with family staying with him for care current occupational status: retired 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 Feels Safe at Home: Yes Childhood Exposure to Second-Hand Smoke: Yes Diet: regular caffeine: Yes Dental Care, Regularly: No Physical Activity Frequency: 5-6 Times per Week Seatbelt Use: never Sunscreen Use: Yes Assistive Devices: CPAP, Denture - Upper, Glasses and Wheelchair Physical Exam Vital Signs Vital Signs - 24 hr 08/10/23 13:56 08/10/23 13:56 08/10/23 14:30 Temperature 36.1 C L Temperature Source Oral Pulse Rate 70 72 Pulse Rate [Apical] 77 Pulse Rhythm Regular Pulse Rhythm [Apical] Regular Pulse Strength Normal Pulse Strength [Apical] Normal Respiratory Rate 20 17 15 Respiratory Effort / Characteristics Non-Labored Spontaneous Non-Labored Spontaneous Respiratory Depth Normal Normal Respiratory Pattern Regular Regular Blood Pressure 152/84 H Blood Pressure [Right Arm] 148/81 H Blood Pressure Mean 106 Blood Pressure Mean [Right Arm] 103 Blood Pressure Position Semi-fowlers Blood Pressure Position [Right Arm] Semi-fowlers Pulse Oximetry 97 95 Oxygen Delivery Method Room Air Room Air Sepsis Recent Fever Within 48 Hours No Sepsis New/Unexplained Change in Mental Status N/A Sepsis Action Taken by Nursing No Action Required 08/10/23 14:31 08/10/23 15:36 08/10/23 19:00 Temperature Temperature Source Pulse Rate 65 Pulse Rate [Apical] 67 74 Pulse Rhythm Regular Pulse Rhythm [Apical] Pulse Strength Pulse Strength [Apical] Respiratory Rate 19 18 16 Respiratory Effort / Characteristics Non-Labored Non-Labored Respiratory Depth Normal Normal Respiratory Pattern Regular Blood Pressure Blood Pressure [Right Arm] 180/90 H 166/102 H Blood Pressure Mean Blood Pressure Mean [Right Arm] 120 123 Blood Pressure Position Blood Pressure Position [Right Arm] Lying Pulse Oximetry 96 96 94 Oxygen Delivery Method Room Air Room Air Room Air Sepsis Recent Fever Within 48 Hours Sepsis New/Unexplained Change in Mental Status Sepsis Action Taken by Nursing Constitutional: alert and oriented x3. no acute distress. Nontoxic HEENT: normocephalic, atraumatic. No facial trauma. No scalp tenderness or hematoma. Normal conjunctiva.PERRLA. EOM's grossly intact. No thornton signs or raccoon eyes. TMs pearly yo without effusion. No hemotympanum. Pharynx pink without exudate. Tonsils nonenlarged. Mucus membranes moist Neck: neck is supple, nontender. Midline C-spine nontender Respiratory: lungs are clear to auscultation without wheezes, rhonchi, or rales bilaterally. equal chest rise. normal respiratory effort, no accessory muscle use. Right lower rib tenderness, no ecchymosis. No flail chest. Cardiovascular: normal heart sounds without murmur. regular rate and rhythm. GI: abdomen is soft, nondistended. Right-sided abdominal tenderness. No ecchymosis. No palpable masses. No rebound tenderness or guarding. No CVA tenderness MSK: Right sided hemiplegia. Difficult to locate exact pain secondary to hemiplegia. No obvious bony deformities, ecchymosis, wounds, erythema on the right extremities. No tenderness to the left extremities. Peripheral vascular: Upper and lower extremities warm and well perfused with palpable pulses. Neuro: without focal neuro deficits. GCS 15. Slow to answer questions but answers appropriately, follows commands. CNII-XII intact. Speech clear, tongue midline, without facial droop. Strength equal throughout all for extremities. Psych:appropriate mood and affect. Course Administered Medications Discontinued Medications Acetaminophen (Acetaminophen 325 Mg Tab) 650 mg PO NOW STA Stop: 08/10/23 17:11 Last Admin: 08/10/23 18:08 Dose: 650 mg Documented By: WANG Ioversol (Optiray 320 500ml) 86 ml IV ONCE ONE Stop: 08/10/23 16:24 Last Admin: 08/10/23 16:23 Dose: 86 ml Documented By: IRMA Medical Decision Making Differential Diagnosis Fracture, dislocation, contusion, intra-abdominal, pneumothorax, intrathoracic, intracranial, neurologic, compartment syndrome, rhabdomyolysis, as well as other pathologies. Laboratory Data Attestation: I reviewed the patient's lab results. 08/10/23 14:00 08/10/23 14:00 Lab Results 08/10/23 08/10/23 Range/Units 14:00 18:16 WBC 8.06 (4.8-10.8) K/ul RBC 4.85 (4.70-6.10) M/uL Hgb 15.0 (14.0-18.0) g/dl Hct 43.9 (42.0-52.0) % MCV 90.5 (80.0-100.0) fL MCH 30.9 (25.0-34.0) pg MCHC 34.2 (32.0-36.0) g/dL RDW Std Deviation 41.6 (36.4-46.3) fL RDW Coeff of Doris 12.6 (11.5-14.5) % Plt Count 271 (130-400) K/uL MPV 9.1 L (9.4-12.4) fL Immature Gran % (Auto) 0.2 % Neut % (Auto) 64.4 % Lymph % (Auto) 19.7 % [place] % (Auto) 10.4 % Eos % (Auto) 4.6 % Baso % (Auto) 0.7 % Neut # (Auto) 5.18 (1.40-6.50) K/uL Lymph # (Auto) 1.59 (1.20-3.40) K/uL [place] # (Auto) 0.84 H (0.11-0.59) K/uL Eos # (Auto) 0.37 (0.00-0.50) K/uL Baso # (Auto) 0.06 (0.00-0.20) K/uL Immature Gran # (Auto) 0.02 (0.01-0.20) K/uL Sodium 134 L (136-145) mmol/L Potassium 4.3 (3.5-5.1) mmol/L Chloride 99 (98-107) mmol/L Carbon Dioxide 29 (21-32) mmol/L Anion Gap 6 (3-11) BUN 14 (6-23) mg/dl Creatinine 0.79 (0.6-1.4) mg/dl Est Cr Clr Drug Dosing 70.6 ml/min Est GFR ( Amer) 94.9 ml/min Est GFR (Non-Af Amer) 81.9 ml/min BUN/Creatinine Ratio 17.7 (10-20) Glucose 130 H (70-99(Fasting)) mg/dl Calcium 10.0 (8.6-10.3) mg/dl Total Bilirubin 0.5 (0.2-1.0) mg/dl AST 21 (13-39) U/L ALT 17 (7-52) U/L Alkaline Phosphatase 50 (34-104) U/L Total Protein 8.0 (6.0-8.3) gm/dl Albumin 4.5 (3.4-5.0) gm/dl Globulin 3.5 (2.5-4.0) gm/dl Albumin/Globulin Ratio 1.3 (0.9-2) SARS-CoV-2, RNA, NAAT NEGATIVE (NEGATIVE) Imaging Data Radiologist's Impression: Femur X-Ray 08/10/23 14:23 RIGHT FEMUR 2 VIEWS CLINICAL HISTORY: Fall. Right leg pain. FINDINGS: AP and crosstable lateral views of the right femur are compared to study dated 12/24/2022. The skeletal structures are osteopenic. There is no radiographic evidence of right femoral fracture. The visualized right hemipelvis appears intact. Arthritic changes noted in the hip and knee joints. Enthesophytes arise from the greater trochanter. There is chondrocalcinosis of the knee. There is degenerative sclerosis of the right sacroiliac joint and the pubic symphysis. The overlying soft tissues are within normal limits. Atherosclerotic calcification is noted in the femoral artery. There are prostatic calcifications seen in the pelvis. IMPRESSION: There is no radiographic evidence of right femoral fracture. Electronically signed by: Aureliano Cortés M.D. 08/10/2023 3:59 PM Forearm X-Ray 08/10/23 14:23 XR forearm RT 2V CLINICAL HISTORY: fall. Right forearm pain. COMPARISON STUDY: None. FINDINGS: No fracture or dislocation within the right forearm. No radiopaque foreign bodies. Mild vascular calcifications are noted. No significant soft tissue swelling. IMPRESSION: No fracture or dislocation within the right forearm. ACT 112: Negative or not required by law. Electronically signed by: Attila Sifuentes M.D. 08/10/2023 3:34 PM Humerus X-Ray 08/10/23 14:23 XR humerus RT 2V CLINICAL HISTORY: fall COMPARISON: Right humerus radiographs August 26, 2020. FINDINGS: No acute fracture within the right humerus. No osseous lesions are identified. Moderate to severe degenerative changes within the right shoulder are present. IMPRESSION: 1. No acute fracture within the right humerus. 2. Moderate to severe degenerative changes within the right shoulder. ACT 112: Negative or not required by law. Electronically signed by: Sanya Hernández M.D. 08/10/2023 3:41 PM Abdomen/Pelvis CT 08/10/23 14:24 CT OF THE ABDOMEN AND PELVIS WITH CONTRAST CLINICAL HISTORY: Trauma COMPARISON STUDY: CT of the abdomen and pelvis March 17, 2023. TECHNIQUE: Following IV administration of 86 mL of Optiray, axial images of the abdomen and pelvis were obtained from the lung bases to the proximal femurs. Images were reviewed in the axial, sagittal, and coronal planes. IV contrast was administered without complication. Automated exposure control was utilized for the study. A dose lowering technique was utilized adhering to the principles of ALARA. CT DOSE: 3183.81 mGy.cm FINDINGS: Please note that the chest CT will be reported separately. There is an acute nondisplaced lateral right 10th rib fracture. There is no pneumothorax. No evidence for traumatic injury to the liver, spleen, adrenal glands or pancreas. Horseshoe kidney is again noted. There is no hydronephrosis. No hemoperitoneum or pneumoperitoneum is present. Possible intraductal calculi within the pancreatic body with upstream pancreatic ductal dilatation is similar to prior exam. Bladder wall thickening is likely chronic. The caliber and wall thickness of small and large bowel are normal. No free fluid is present. No acute lumbar spine, pelvic or hip fractures are present. IMPRESSION: 1. No acute traumatic findings within the abdomen or pelvis. 2. Acute nondisplaced lateral right 10th rib fracture. ACT 112: Negative or not required by law. Electronically signed by: Sanya Hernández M.D. 08/10/2023 4:[address] 08/10/23 14:24 CT SCAN OF THE CERVICAL SPINE CLINICAL HISTORY: Fall. COMPARISON STUDY: CT of the cervical spine dated 04/17/2023. TECHNIQUE: CT scan of the cervical spine is performed from the skull base to the upper thoracic spine. Images are reviewed in the axial, sagittal, and coronal planes. IV contrast was not administered for this examination. A dose lowering technique was utilized adhering to the principles of ALARA. FINDINGS: Skeletal structures: The skeletal structures are osteopenic. There is no evidence of fracture or subluxation involving the cervical spine. Vertebral body height and alignment are maintained. There is straightening of the cervical lordosis. Anterior osteophytes are seen throughout. The odontoid process and lateral masses are intact. The atlantoaxial articulation is preserved noting advanced productive degenerative change. The spinous processes appear intact. There is moderate to advanced multilevel cervical spondylosis. Uncovertebral and facet arthropathy contributing to neural foraminal narrowing at most levels. Intervertebral discs: There is moderate disc space narrowing at C5-C6 and C6-C7. Mild narrowing is noted at the remaining cervical levels. Central canal: Posterior disc osteophyte complexes at C3-C4, C5-C6, and C6-C7 may contribute to mild acquired compromise of the central canal. Soft tissues: The prevertebral and paraspinous soft tissues are within normal limits. There is atherosclerotic calcification of the carotid bulbs. Soft tissue thickening in the right suboccipital tissues is similar to previous. Calvarium: The visualized calvarium at the skull base appears intact. Brain parenchyma: Left MCA territory encephalomalacia is consistent with a remote insult. Sinuses and mastoids: There is mucosal thickening and fluid within the sphenoid sinuses. The mastoid air cells are well pneumatized. IMPRESSION: 1. There is no evidence of cervical spine fracture or subluxation. 2. Osteopenia and spondylotic change as above. ACT 112: Negative or not required by law. Electronically signed by: Aureliano Cortés M.D. 08/10/2023 4:[address] 08/10/23 14:24 CT SCAN OF THE CHEST WITH IV CONTRAST CLINICAL HISTORY: Fall. COMPARISON STUDY: Chest x-ray dated 08/10/2023. Chest CT dated 04/28/2017. Abdominal CT dated 03/17/2023. TECHNIQUE: Following the IV administration of 86 cc of Optiray 320, CT scan of the thorax was performed from the thoracic inlet to the upper abdomen. Images are reviewed in the axial, sagittal, and coronal planes. IV contrast was administered without complication. A dose lowering technique was utilized adhering to the principles of ALARA. The examination is degraded by streak artifact from the right arm which could not be elevated above the chest. FINDINGS: Thyroid: Imaged portions of the thyroid gland are normal in size and attenuation. Thoracic aorta: There is atherosclerotic calcification of the thoracic aorta, which is normal in caliber and demonstrates bovine variant arch anatomy. No dissection is seen. Pulmonary vasculature: The pulmonary trunk is normal in caliber. There are no filling defects identified in the central pulmonary vessels to indicate pulmonary embolus. Note that this examination was not protocoled for evaluation of the pulmonary arteries. Heart: The heart is enlarged and without pericardial effusion. The coronary arteries are densely calcified. Lungs and pleural spaces: There is no airspace consolidation, pleural effusion, or pneumothorax. Scarring/atelectasis is seen at the lung bases. The trachea and central airways are clear. Scattered calcific granulomas are observed. Mediastinum: There are calcifications containing mediastinal lymph nodes. There is no mediastinal hematoma or lymphadenopathy. Connie: There are calcification containing hilar nodes. No adenopathy is seen. Axillae: There is no axillary lymphadenopathy. Upper abdomen: There is a small hiatal hernia. Partially visualized upper abdominal viscera is otherwise grossly unremarkable. Skeletal structures: The skeletal structures are osteopenic. There is a right lateral 10th rib fracture. The bony thorax appears intact. Degenerative change and kyphoscoliosis is noted in the thoracic spine. There is a mild chronic superior end plate compression deformity of T9. No lytic or blastic bony lesions are seen. Advanced arthritic changes noted in the shoulders. IMPRESSION: 1. Right lateral 10th rib fracture. 2. There is no airspace consolidation, pleural effusion, or pneumothorax. 3. Cardiomegaly with advanced coronary artery atherosclerosis. 4. Additional findings as above. ACT 112: Negative or not required by law. Electronically signed by: Aureliano Cortés M.D. 08/10/2023 5:03 PM Chest X-Ray 08/10/23 14:24 XR chest 1V not portable CLINICAL HISTORY: fall COMPARISON STUDY: Chest radiograph April 17, 2023. Chest CT April 28, 2017. FINDINGS: There is no pneumothorax or pleural effusion. Mild interstitial thickening is present. Cardiomegaly is unchanged. No consolidation is identified. IMPRESSION: 1. No pneumothorax. 2. Cardiomegaly. Interstitial thickening which favors pulmonary vascular congestion. An infectious process could appear similar. ACT 112: Negative or not required by law. Electronically signed by: Sanya Hernández M.D. 08/10/2023 3:[address] 08/10/23 14:24 CT OF THE HEAD WITHOUT CONTRAST CLINICAL HISTORY: Trauma COMPARISON STUDY: Head CT April 17, 2023. TECHNIQUE: Helical axial images of the head were obtained without IV contrast. Automated exposure control was utilized for the study. A dose lowering technique was utilized adhering to the principles of ALARA. FINDINGS: No acute intracranial hemorrhage is present. 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 The appearance of the brain is unchanged. Ventricular system is stable. Basal cisterns are patent. There are nodular axial collections. There are no calvarial fractures. Sphenoid sinuses are partially opacified. A trace right occipital scalp hyperdensity remains unchanged from earlier exams. IMPRESSION: 1. No acute intracranial findings. No change in appearance of the brain. 2. No calvarial fracture. ACT 112: Negative or not required by law. Electronically signed by: Sanya Hernández M.D. 08/10/2023 4:35 PM MDM Narrative 87-year-old male with past medical history significant for right sided hemiplegia status post CVA presents to the emergency department accompanied by son for evaluation status post mechanical fall. Reviewed pertinent visits and past medical history performed. Vital signs in ED stable, afebrile. Patient was seen and evaluated as above. He sustained ground-level fall yesterday onto his right side. He notes pain diffusely to the right side of his body and is difficult to locate his exact pain. They deny loss of consciousness. He is on Plavix with history of stroke. On exam, patient is well-appearing in no acute distress. He is neurologically intact without acute focal deficits. Right hemiplegia noted. GCS 15. There are no signs of facial or head trauma on exam. He is tender in the right lower ribs and right upper quadrant abdomen as well as diffusely to the right arm and hip/thigh. Left side of his body is unremarkable. Lungs clear without adventitious sounds. Given presentation, head/neck CT as well as chest and abdomen/pelvis CTs were obtained. Head and neck CTs unremarkable for acute intracranial pathology. No evidence for hemorrhage or skull fracture. No cervical neck fracture. Chest and abdomen/pelvis CT demonstrates an acute nondisplaced right lateral 10th rib fracture. No other chest or intra-abdominal pathology noted. X-ray of the right humerus and forearm as well as femur performed and negative for acute fracture or dislocation. Patient was medicated with p.o. Tylenol for pain. Patient was reassessed on multiple occasions throughout ED stay and remained stable without new concerns. They were updated on all exam findings and test results. Workup demonstrates an acute nondisplaced right 10th rib fracture otherwise no traumatic injuries. Options of care were discussed. An ambulatory trial was performed however patient did not tolerate very well became shaky and anxious secondary to pain. Son and patient did not feel comfortable going home. Discussed potential rehab placement as he does not medically require admission to the hospital. They were agreeable to this. I discussed with case management who attempted to direct admit patient to [facility] rehab facility but unfortunately they did not have any available beds. Patient and son continue to express concern to going home and therefore patient will require admission until [facility] bed becomes available. Case was discussed with hospitalist, Dr. Kang, who graciously accepted patient to her service for continued management. He was admitted in stable condition. Case was discussed with ED attending, Dr. Beaulieu, who agrees with workup and treatment plan. Impression & Plan Right rib fracture, 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, Fall from slip, trip, or stumble, Closed head injury Discharge Plan Visit Data Chief Complaint: Fall ED Provider: James Beaulieu ED Midlevel Provider: Lizett Howe Discharge Problem: Right rib fracture, 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, Fall from slip, trip, or stumble, Closed head injury Patient Disposition: Admitted As Inpatient Forms Stand Alone Forms: My [facility] Prescriptions Prescriptions: No Action (DME) blood-glucose meter [FreeStyle Lite Meter] Kit See Rx Instructions .Route Qty: 1 0RF Rx Instructions: As directed (DME) FreeStyle Lite Strips Strip See Rx Instructions .Route Qty: 100 5RF Rx Instructions: test once daily (DME) lancets [FreeStyle Lancets] 28 gauge misc See Rx Instructions .Route Qty: 100 5RF Rx Instructions: test once daily simvastatin 20 mg tablet 20 mg PO HS Qty: 90 3RF Hold Instructions: Hold starting 04/04 for Paxlovid, c/w s/p 2 weeks off med metformin 500 mg tablet 500 mg PO BID Qty: 180 3RF (DME) CPAP Supplies Misc See Rx Instructions .Route Qty: 1 0RF Rx Instructions: CPAP Mask use qHS losartan 100 mg tablet 100 mg PO QAM Qty: 90 3RF finasteride 5 mg tablet 5 mg PO QAM Qty: 90 3RF clopidogrel 75 mg tablet 75 mg PO QAM Qty: 90 3RF Centrum Silver Men 300-600-300 mcg tablet 1 tab PO QAM (DME) bilateral LE AFO braces See Rx Instructions .Route .MEDSUPPLY Qty: 1 0RF Rx Instructions: As directed triamcinolone acetonide 0.1 % cream 1 applic topical BID PRN (Reason: Skin Irritation) Qty: 30 2RF metoprolol tartrate 25 mg tablet 25 mg PO BID Qty: 180 3RF magnesium oxide 400 mg magnesium Tablet 400 mg PO BID Referrals Referrals: Salomon Stanton DO [Primary Care Provider] -
[2023-08-10 14:52] LABS: Basophils # (auto) 0.06 K/uL (0.00-0.20); Basophils % (auto) 0.7 %; Eosinophils # (auto) 0.37 K/uL (0.00-0.50); Eosinophils % (auto) 4.6 %; Hematocrit (blood only) 43.9 % (42.0-52.0); Immature Granulocytes # (auto) 0.02 K/uL (0.01-0.20); Immature Granulocytes % (auto) 0.2 %; Lymphocytes # (auto) 1.59 K/uL (1.20-3.40); Lymphocytes % (auto) 19.7 %; Mean Corpuscular Hemoglobin 30.9 pg (25.0-34.0); Mean Corpuscular Hgb Conc 34.2 g/dL (32.0-36.0); Mean Corpuscular Volume 90.5 fL (80.0-100.0); Mean Platelet Volume 9.1 fL (9.4-12.4); Monocytes # (auto) 0.84 K/uL (0.11-0.59); Monocytes % (auto) 10.4 %; Neutrophils # (auto) 5.18 K/uL (1.40-6.50); Neutrophils % (auto) 64.4 %; Platelet Count 271 K/uL (130-400); RDW Coefficient of Variation 12.6 % (11.5-14.5); RDW Standard Deviation 41.6 fL (36.4-46.3); Red Blood Count 4.85 M/uL (4.70-6.10); White Blood Count 8.06 K/ul (4.8-10.8)
[2023-08-10 15:12] LABS: Albumin Globulin Ratio 1.3 (0.9-2); Albumin Level 4.5 gm/dl (3.4-5.0); BUN Creatinine Ratio 17.7 (10-20); Bilirubin,Total 0.5 mg/dl (0.2-1.0); Creatinine Clr Calc Pharmacy 70.6 ml/min; Est GFR (African American) 94.9 ml/min; Est GFR (Non-African American) 81.9 ml/min; Globulin 3.5 gm/dl (2.5-4.0); Potassium 4.3 mmol/L (3.5-5.1)
--- NOTE | 2023-08-10 15:36 | XRay Report ---
XR forearm RT 2V CLINICAL HISTORY: fall. Right forearm pain. COMPARISON STUDY: None. FINDINGS: No fracture or dislocation within the right forearm. No radiopaque foreign bodies. Mild vas cular calcifications are noted. No significant soft tissue swelling. IMPRESSION: No fracture or dislocation within the right forearm. ACT 112: Negative or not required by law. Electronically signed by: Attila Sifuentes M.D. 08/10/2023 3:34 PM
--- NOTE | 2023-08-10 15:42 | XRay Report ---
XR humerus RT 2V CLINICAL HISTORY: fall COMPARISON: Right humerus radiographs August 26, 2020. FINDINGS: No acute fracture within the right humerus. No osseous lesions are identified. Moderate to severe degenerative changes within the right shoulder are present. IMPRESSION: 1. No acute fracture within the right humerus. 2. Moderate to severe degenerative changes within the right shoulder. ACT 112: Negative or not required by law. Electronically signed by: Sanya Hernández M.D. 08/10/2023 3:41 PM
--- NOTE | 2023-08-10 15:47 | XRay Report ---
XR chest 1V not portable CLINICAL HISTORY: fall COMPARISON STUDY: Chest radiograph April 17, 2023. Chest CT April 28, 2017. FINDINGS: There is no pneumothorax or pleural effusion. Mild interstitial thickening is present. Card iomegaly is unchanged. No consolidation is identified. IMPRESSION: 1. No pneumothorax. 2. Cardiomegaly. Interstitial thickening which favors pulmonary vascular congestion. An infectious pr ocess could appear similar. ACT 112: Negative or not required by law. Electronically signed by: Sanya Hernández M.D. 08/10/2023 3:45 PM
--- NOTE | 2023-08-10 16:00 | XRay Report ---
RIGHT FEMUR 2 VIEWS CLINICAL HISTORY: Fall. Right leg pain. FINDINGS: AP and crosstable lateral views of the right femur are compared to study dated 12/24/2022. Th e skeletal structures are osteopenic. There is no radiographic evidence of right femoral fracture. Th e visualized right hemipelvis appears intact. Arthritic changes noted in the hip and knee joints. Ent hesophytes arise from the greater trochanter. There is chondrocalcinosis of the knee. There is degene rative sclerosis of the right sacroiliac joint and the pubic symphysis. The overlying soft tissues ar e within normal limits. Atherosclerotic calcification is noted in the femoral artery. There are prost atic calcifications seen in the pelvis. IMPRESSION: There is no radiographic evidence of right femoral fracture. Electronically signed by: Aureliano Cortés M.D. 08/10/2023 3:59 PM
[2023-08-10] MEDS: OPTIRAY 320 500ml IV ONE (16:23)
--- NOTE | 2023-08-10 16:36 | CT Scan Report ---
CT OF THE HEAD WITHOUT CONTRAST CLINICAL HISTORY: Trauma COMPARISON STUDY: Head CT April 17, 2023. TECHNIQUE: Helical axial images of the head were obtained without IV contrast. Automated exposure con trol was utilized for the study. A dose lowering technique was utilized adhering to the principles o f ALARA. FINDINGS: No acute intracranial hemorrhage is present. 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 The appearance of the brain is unchanged. Ventri cular system is stable. Basal cisterns are patent. There are nodular axial collections. There are no calvarial fractures. Sphenoid sinuses are partially opacified. A trace right occipital scalp hyperden sity remains unchanged from earlier exams. IMPRESSION: 1. No acute intracranial findings. No change in appearance of the brain. 2. No calvarial fracture. ACT 112: Negative or not required by law. Electronically signed by: Sanya Hernández M.D. 08/10/2023 4:35 PM
--- NOTE | 2023-08-10 16:38 | CT Scan Report ---
CT SCAN OF THE CERVICAL SPINE CLINICAL HISTORY: Fall. COMPARISON STUDY: CT of the cervical spine dated 04/17/2023. TECHNIQUE: CT scan of the cervical spine is performed from the skull base to the upper thoracic spine . Images are reviewed in the axial, sagittal, and coronal planes. IV contrast was not administered fo r this examination. A dose lowering technique was utilized adhering to the principles of ALARA. FINDINGS: Skeletal structures: The skeletal structures are osteopenic. There is no evidence of fracture or subl uxation involving the cervical spine. Vertebral body height and alignment are maintained. There is st raightening of the cervical lordosis. Anterior osteophytes are seen throughout. The odontoid process and lateral masses are intact. The atlantoaxial articulation is preserved noting advanced productive degenerative change. The spinous processes appear intact. There is moderate to advanced multilevel ce rvical spondylosis. Uncovertebral and facet arthropathy contributing to neural foraminal narrowing at most levels. Intervertebral discs: There is moderate disc space narrowing at C5-C6 and C6-C7. Mild narrowing is no mary anne at the remaining cervical levels. Central canal: Posterior disc osteophyte complexes at C3-C4, C5-C6, and C6-C7 may contribute to mild acquired compromise of the central canal. Soft tissues: The prevertebral and paraspinous soft tissues are within normal limits. There is athero sclerotic calcification of the carotid bulbs. Soft tissue thickening in the right suboccipital tissue s is similar to previous. Calvarium: The visualized calvarium at the skull base appears intact. Brain parenchyma: Left MCA territory encephalomalacia is consistent with a remote insult. Sinuses and mastoids: There is mucosal thickening and fluid within the sphenoid sinuses. The mastoid air cells are well pneumatized. IMPRESSION: 1. There is no evidence of cervical spine fracture or subluxation. 2. Osteopenia and spondylotic change as above. ACT 112: Negative or not required by law. Electronically signed by: Aureliano Cortés M.D. 08/10/2023 4:36 PM
--- NOTE | 2023-08-10 16:44 | CT Scan Report ---
CT OF THE ABDOMEN AND PELVIS WITH CONTRAST CLINICAL HISTORY: Trauma COMPARISON STUDY: CT of the abdomen and pelvis March 17, 2023. TECHNIQUE: Following IV administration of 86 mL of Optiray, axial images of the abdomen and pelvis we re obtained from the lung bases to the proximal femurs. Images were reviewed in the axial, sagittal, and coronal planes. IV contrast was administered without complication. Automated exposure control wa s utilized for the study. A dose lowering technique was utilized adhering to the principles of ALARA . CT DOSE: 3183.81 mGy.cm FINDINGS: Please note that the chest CT will be reported separately. There is an acute nondisplaced l ateral right 10th rib fracture. There is no pneumothorax. No evidence for traumatic injury to the faye er, spleen, adrenal glands or pancreas. Horseshoe kidney is again noted. There is no hydronephrosis. No hemoperitoneum or pneumoperitoneum is present. Possible intraductal calculi within the pancreatic body with upstream pancreatic ductal dilatation is similar to prior exam. Bladder wall thickening is likely chronic. The caliber and wall thickness of small and large bowel are normal. No free fluid is present. No acute lumbar spine, pelvic or hip fractures are present. IMPRESSION: 1. No acute traumatic findings within the abdomen or pelvis. 2. Acute nondisplaced lateral right 10th rib fracture. ACT 112: Negative or not required by law. Electronically signed by: Sanya Hernández M.D. 08/10/2023 4:43 PM
--- NOTE | 2023-08-10 17:05 | CT Scan Report ---
CT SCAN OF THE CHEST WITH IV CONTRAST CLINICAL HISTORY: Fall. COMPARISON STUDY: Chest x-ray dated 08/10/2023. Chest CT dated 04/28/2017. Abdominal CT dated 3. TECHNIQUE: Following the IV administration of 86 cc of Optiray 320, CT scan of the thorax was perform ed from the thoracic inlet to the upper abdomen. Images are reviewed in the axial, sagittal, and onel nal planes. IV contrast was administered without complication. A dose lowering technique was utilize d adhering to the principles of ALARA. The examination is degraded by streak artifact from the right arm which could not be elevated above the chest. FINDINGS: Thyroid: Imaged portions of the thyroid gland are normal in size and attenuation. Thoracic aorta: There is atherosclerotic calcification of the thoracic aorta, which is normal in delia forrest and demonstrates bovine variant arch anatomy. No dissection is seen. Pulmonary vasculature: The pulmonary trunk is normal in caliber. There are no filling defects identif ied in the central pulmonary vessels to indicate pulmonary embolus. Note that this examination was no t protocoled for evaluation of the pulmonary arteries. Heart: The heart is enlarged and without pericardial effusion. The coronary arteries are densely calc ified. Lungs and pleural spaces: There is no airspace consolidation, pleural effusion, or pneumothorax. Scar ring/atelectasis is seen at the lung bases. The trachea and central airways are clear. Scattered calc ific granulomas are observed. Mediastinum: There are calcifications containing mediastinal lymph nodes. There is no mediastinal hem atoma or lymphadenopathy. Connie: There are calcification containing hilar nodes. No adenopathy is seen. Axillae: There is no axillary lymphadenopathy. Upper abdomen: There is a small hiatal hernia. Partially visualized upper abdominal viscera is otherw ise grossly unremarkable. Skeletal structures: The skeletal structures are osteopenic. There is a right lateral 10th rib fractu re. The bony thorax appears intact. Degenerative change and kyphoscoliosis is noted in the thoracic s pine. There is a mild chronic superior end plate compression deformity of T9. No lytic or blastic bon y lesions are seen. Advanced arthritic changes noted in the shoulders. IMPRESSION: 1. Right lateral 10th rib fracture. 2. There is no airspace consolidation, pleural effusion, or pneumothorax. 3. Cardiomegaly with advanced coronary artery atherosclerosis. 4. Additional findings as above. ACT 112: Negative or not required by law. Electronically signed by: Aureliano Cortés M.D. 08/10/2023 5:03 PM
[2023-08-10] MEDS: ACETAMINOPHEN 325 MG TAB PO STA (18:08)
--- NOTE | 2023-08-10 19:58 | History & Physical Report ---
Date of Service August 10, 2023 Assessment & Plan (1) Right rib fracture: Plan: 87-year-old male status post ground-level fall resulting in right nondisplaced rib fracture. Patient's pain is fairly well-controlled. He is anxious about going home due to gait instability Will observe overnight on medical floor Incentive spirometry every hour Pain control with Tylenol 1 g p.o. 3 times daily. Patient appears comfortable at this time. PT/OT evaluations appreciated Case management consultation appreciated for placement needs (2) 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: Plan: Noted. Chronic. PT/OT evaluation Likely need placement short-term (3) Hyperlipidemia: Plan: Chronic. Stable. Continue simvastatin 20 mg p.o. nightly (4) Hypertension: Plan: Elevated blood pressure. Pain control Metoprolol 25 mg p.o. twice daily Cozaar 100 mg p.o. every morning Continue to monitor (5) Controlled type 2 diabetes mellitus with microalbuminuria: Plan: Noted. Diet controlled. Last hemoglobin A1c = 6.4 Consistent carb diet as tolerated F/E/N -saline lock. Electrolytes within normal limits. Consistent carb diet as tolerated ProphylaxisSCDs Code - Full per discussion with patient Dispo - Admit to medical History of Present Illness Chief Complaint: Right-sided pain Primary Care Provider: Salomon Stanton DO Chris Pascal is an 87-year-old male with history of hypertension, hy perlipidemia, diabetes and prior stroke with residual right-sided deficit presenting from home after sustaining a ground-level fall yesterday 08/09/2023. Patient reports that he tripped and landed on his side. He has had ongoing pain since then. In the ER, he is afebrile, hypertensive otherwise hemodynamically stable. Laboratory workup largely unremarkable. Extensive scanning as below revealed right lateral 10th rib fracture. No other traumatic injuries. Patient was offered discharge home with plans for home admission to [facility] in the morning. However, patient felt very unsteady on his feet and was uncomfortable going home therefore, is requesting admission until he can be placed at [facility] hopefully in the morning. Allergies Allergy/AdvReac Type Severity Reaction Status Date / Time No Known Allergies Allergy Verified 08/10/23 21:00 Home Medications Medication Instructions Recorded Confirmed Type [id number] 300 mcg-K 60 1 tab PO QAM 02/15/19 08/10/23 History mcg-lycop 600 mcg-lutein 300 mcg tablet (Centrum Silver Men) magnesium oxide 400 mg PO BID 03/30/21 08/10/23 History bilateral LE AFO braces #1 ea 11/23/21 07/06/23 Rx triamcinolone acetonide 0.1 % 1 applic topical BID PRN Skin 08/01/22 08/10/23 Rx topical cream Irritation #30 grams blood sugar diagnostic (FreeStyle #100 ea 08/02/22 07/06/23 Rx Lite Strips) blood-glucose meter (FreeStyle #1 ea 08/02/22 07/06/23 Rx Lite Meter kit) lancets 28 gauge (FreeStyle #100 ea 08/02/22 07/06/23 Rx Lancets) simvastatin 20 mg tablet 20 mg PO HS #90 tabs 09/07/22 08/10/23 Rx metformin 500 mg tablet 500 mg PO BID #180 tabs 10/13/22 08/10/23 Rx CPAP Supplies #1 ea 02/07/23 07/06/23 Rx losartan 100 mg tablet 100 mg PO QAM #90 tabs 03/06/23 08/10/23 Rx metoprolol tartrate 25 mg tablet 25 mg PO BID #180 tabs 03/28/23 08/10/23 Rx clopidogrel 75 mg tablet 75 mg PO QAM #90 tabs 07/18/23 08/10/23 Rx finasteride 5 mg tablet 5 mg PO QAM #90 tabs 07/18/23 08/10/23 Rx Past Med/Surg History Medical History (Updated 08/11/23 @ 01:50 by Stephanie Kang DO) Hyperlipidemia Hypertension Hypercholesteremia Controlled type 2 diabetes mellitus with microalbuminuria History of COVID-19 04/04/23, symptoms lasted 3 days, tx w/paxlovid>no residual symptoms Sleep apnea cpap Hx of squamous cell carcinoma CVA, old, speech/language deficit Hyponatremia Right otitis externa cream prn Gait abnormality Benign prostatic hyperplasia with urinary obstruction Peripheral artery disease Cerebral vascular accident ~age 60, unsure of what initial symptoms>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, cannot talk 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 Surgical History Hx of cataract surgery right History of cardiac cath 03/2023, "wasn't feeling right," no stents>"pt has minimal damage to heart"; f/u [facility] cardio Hx of squamous cell carcinoma excision No significant past surgical history Family History Mother Coronary heart disease Brother Coronary heart disease Diabetes Hypertension Father Diabetes Denies family history of Ovarian cancer Prostate cancer Myocardial infarction Breast cancer Lung cancer Colorectal cancer Social History Smoking Status: Former smoker Tobacco Type: Cigarettes Age Started Using Tobacco: 18; Age Quit Using Tobacco: 37; packs per day: 1; Second Hand Exposure: Yes ( smoked); Do You Dip or Chew Tobacco: No; Hx Alcohol Use: Yes Alcohol type: hard liquor Alcohol Intake Frequency: 2-4 x/Month Alcohol Intake Frequency Comment: OCCASIONAL Hx Substance Use: No Preferred Language: Pashto Communication Ability: Effective Communication Ability Comment: loss of speech w/stroke Visual Impairment: No Limitations Hearing Ability: Use of Hearing Aid Billet Assembler Required: No Beliefs That Will Affect Care: None marital status: / Current Living Situation: Family Current Living Situation Comment: Patient lives in his home with family staying with him for care current occupational status: retired 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 Other Information That Helps Us Care for You: No Feels Safe at Home: Yes Safety Concerns: Feels Safe At This Time Childhood Exposure to Second-Hand Smoke: Yes Diet: regular caffeine: Yes Dental Care, Regularly: No Physical Activity Frequency: 5-6 Times per Week Seatbelt Use: never Sunscreen Use: Yes Assistive Devices: Denture - Upper and Other Assistive Devices Comment: braces bilaterally Review of Systems Review of Systems: All systems reviewed & are unremarkable except as noted in HPI & below Physical Exam Physical Exam: General: patient resting comfortably, NAD, non-toxic in appearance, AA&O x 4 Skin: warm, dry, intact, no rashes or lesions HEENT: NC/AT, PERRL, EOMI, anicteric sclera, conjunctiva without injection, external ear normal to inspection and nontender, nares patent, moist mucus membranes, dentition intact, no oropharyngeal lesions, neck supple, trachea midline, no LAD, no thyromegaly, no JVD Heart: +S1/S2, regular, no m/r/g Lungs: equal air entry bilaterally, no rales/rhonchi/wheezes Abd: +BS, soft, NT/ND, no masses/organomegaly/ascites Pain with palpation of the right lateral ribs. No crepitus. No bruising Ext: warm, 2+ pulses in UE/LE bilaterally, no clubbing/cyanosis or edema Neuro: Stable, chronic right-sided neurological deficit from prior stroke. Results & Data Results & Data Vital Signs (Past 12 Hours) Vital Signs Temp Pulse Pulse Resp BP BP Pulse Ox 08/10/23 15:36 67 18 180/90 H 96 08/10/23 14:31 65 19 96 08/10/23 14:30 72 15 152/84 H 08/10/23 13:56 77 17 148/81 H 95 08/10/23 13:56 36.1 C L 70 20 97 O2 Del Method 08/10/23 15:36 Room Air 08/10/23 14:31 Room Air 08/10/23 14:30 08/10/23 13:56 Room Air 08/10/23 13:56 Room Air Laboratory Results Laboratory Results WBC 8.06 K/ul (4.8-10.8) 08/10/23 14:00 RBC 4.85 M/uL (4.70-6.10) 08/10/23 14:00 Hgb 15.0 g/dl (14.0-18.0) 08/10/23 14:00 Hct 43.9 % (42.0-52.0) 08/10/23 14:00 MCV 90.5 fL (80.0-100.0) 08/10/23 14:00 MCH 30.9 pg (25.0-34.0) 08/10/23 14:00 MCHC 34.2 g/dL (32.0-36.0) 08/10/23 14:00 RDW Std Deviation 41.6 fL (36.4-46.3) 08/10/23 14:00 RDW Coeff of Doris 12.6 % (11.5-14.5) 08/10/23 14:00 Plt Count 271 K/uL (130-400) 08/10/23 14:00 MPV 9.1 fL (9.4-12.4) L 08/10/23 14:00 Immature Gran % (Auto) 0.2 % 08/10/23 14:00 Neut % (Auto) 64.4 % 08/10/23 14:00 Lymph % (Auto) 19.7 % 08/10/23 14:00 [place] % (Auto) 10.4 % 08/10/23 14:00 Eos % (Auto) 4.6 % 08/10/23 14:00 Baso % (Auto) 0.7 % 08/10/23 14:00 Neut # (Auto) 5.18 K/uL (1.40-6.50) 08/10/23 14:00 Lymph # (Auto) 1.59 K/uL (1.20-3.40) 08/10/23 14:00 [place] # (Auto) 0.84 K/uL (0.11-0.59) H 08/10/23 14:00 Eos # (Auto) 0.37 K/uL (0.00-0.50) 08/10/23 14:00 Baso # (Auto) 0.06 K/uL (0.00-0.20) 08/10/23 14:00 Immature Gran # (Auto) 0.02 K/uL (0.01-0.20) 08/10/23 14:00 Sodium 134 mmol/L (136-145) L 08/10/23 14:00 Potassium 4.3 mmol/L (3.5-5.1) 08/10/23 14:00 Chloride 99 mmol/L (98-107) 08/10/23 14:00 Carbon Dioxide 29 mmol/L (21-32) 08/10/23 14:00 Anion Gap 6 (3-11) 08/10/23 14:00 BUN 14 mg/dl (6-23) 08/10/23 14:00 Creatinine 0.79 mg/dl (0.6-1.4) 08/10/23 14:00 Est Cr Clr Drug Dosing 70.6 ml/min 08/10/23 14:00 Est GFR ( Amer) 94.9 ml/min 08/10/23 14:00 Est GFR (Non-Af Amer) 81.9 ml/min 08/10/23 14:00 BUN/Creatinine Ratio 17.7 (10-20) 08/10/23 14:00 Glucose 130 mg/dl (70-99(Fasting)) H 08/10/23 14:00 POC Glucose 177 mg/dl (70-99) H 08/11/23 00:03 Calcium 10.0 mg/dl (8.6-10.3) 08/10/23 14:00 Phosphorus 2.9 mg/dl (2.5-4.9) 08/10/23 14:00 Magnesium 1.9 mg/dl (1.7-2.4) 08/10/23 14:00 Total Bilirubin 0.5 mg/dl (0.2-1.0) 08/10/23 14:00 AST 21 U/L (13-39) 08/10/23 14:00 ALT 17 U/L (7-52) 08/10/23 14:00 Alkaline Phosphatase 50 U/L (34-104) 08/10/23 14:00 Total Protein 8.0 gm/dl (6.0-8.3) 08/10/23 14:00 Albumin 4.5 gm/dl (3.4-5.0) 08/10/23 14:00 Globulin 3.5 gm/dl (2.5-4.0) 08/10/23 14:00 Albumin/Globulin Ratio 1.3 (0.9-2) 08/10/23 14:00 SARS-CoV-2, RNA, NAAT NEGATIVE (NEGATIVE) 08/10/23 18:16 Impressions Femur X-Ray 08/10/23 14:23 RIGHT FEMUR 2 VIEWS CLINICAL HISTORY: Fall. Right leg pain. FINDINGS: AP and crosstable lateral views of the right femur are compared to study dated 12/24/2022. The skeletal structures are osteopenic. There is no radiographic evidence of right femoral fracture. The visualized right hemipelvis appears intact. Arthritic changes noted in the hip and knee joints. Enthesophytes arise from the greater trochanter. There is chondrocalcinosis of the knee. There is degenerative sclerosis of the right sacroiliac joint and the pubic symphysis. The overlying soft tissues are within normal limits. Atherosclerotic calcification is noted in the femoral artery. There are prostatic calcifications seen in the pelvis. IMPRESSION: There is no radiographic evidence of right femoral fracture. Electronically signed by: Aureliano Cortés M.D. 08/10/2023 3:59 PM Forearm X-Ray 08/10/23 14:23 XR forearm RT 2V CLINICAL HISTORY: fall. Right forearm pain. COMPARISON STUDY: None. FINDINGS: No fracture or dislocation within the right forearm. No radiopaque foreign bodies. Mild vascular calcifications are noted. No significant soft tissue swelling. IMPRESSION: No fracture or dislocation within the right forearm. ACT 112: Negative or not required by law. Electronically signed by: Attila Sifuentes M.D. 08/10/2023 3:34 PM Humerus X-Ray 08/10/23 14:23 XR humerus RT 2V CLINICAL HISTORY: fall COMPARISON: Right humerus radiographs August 26, 2020. FINDINGS: No acute fracture within the right humerus. No osseous lesions are identified. Moderate to severe degenerative changes within the right shoulder are present. IMPRESSION: 1. No acute fracture within the right humerus. 2. Moderate to severe degenerative changes within the right shoulder. ACT 112: Negative or not required by law. Electronically signed by: Sanya Hernández M.D. 08/10/2023 3:41 PM Abdomen/Pelvis CT 08/10/23 14:24 CT OF THE ABDOMEN AND PELVIS WITH CONTRAST CLINICAL HISTORY: Trauma COMPARISON STUDY: CT of the abdomen and pelvis March 17, 2023. TECHNIQUE: Following IV administration of 86 mL of Optiray, axial images of the abdomen and pelvis were obtained from the lung bases to the proximal femurs. Images were reviewed in the axial, sagittal, and coronal planes. IV contrast was administered without complication. Automated exposure control was utilized for the study. A dose lowering technique was utilized adhering to the principles of ALARA. CT DOSE: 3183.81 mGy.cm FINDINGS: Please note that the chest CT will be reported separately. There is an acute nondisplaced lateral right 10th rib fracture. There is no pneumothorax. No evidence for traumatic injury to the liver, spleen, adrenal glands or pancreas. Horseshoe kidney is again noted. There is no hydronephrosis. No hemoperitoneum or pneumoperitoneum is present. Possible intraductal calculi within the pancreatic body with upstream pancreatic ductal dilatation is similar to prior exam. Bladder wall thickening is likely chronic. The caliber and wall thickness of small and large bowel are normal. No free fluid is present. No acute lumbar spine, pelvic or hip fractures are present. IMPRESSION: 1. No acute traumatic findings within the abdomen or pelvis. 2. Acute nondisplaced lateral right 10th rib fracture. ACT 112: Negative or not required by law. Electronically signed by: Sanya Hernández M.D. 08/10/2023 4:[address] 08/10/23 14:24 CT SCAN OF THE CERVICAL SPINE CLINICAL HISTORY: Fall. COMPARISON STUDY: CT of the cervical spine dated 04/17/2023. TECHNIQUE: CT scan of the cervical spine is performed from the skull base to the upper thoracic spine. Images are reviewed in the axial, sagittal, and coronal planes. IV contrast was not administered for this examination. A dose lowering technique was utilized adhering to the principles of ALARA. FINDINGS: Skeletal structures: The skeletal structures are osteopenic. There is no evidence of fracture or subluxation involving the cervical spine. Vertebral body height and alignment are maintained. There is straightening of the cervical lordosis. Anterior osteophytes are seen throughout. The odontoid process and lateral masses are intact. The atlantoaxial articulation is preserved noting advanced productive degenerative change. The spinous processes appear intact. There is moderate to advanced multilevel cervical spondylosis. Uncovertebral and facet arthropathy contributing to neural foraminal narrowing at most levels. Intervertebral discs: There is moderate disc space narrowing at C5-C6 and C6-C7. Mild narrowing is noted at the remaining cervical levels. Central canal: Posterior disc osteophyte complexes at C3-C4, C5-C6, and C6-C7 may contribute to mild acquired compromise of the central canal. Soft tissues: The prevertebral and paraspinous soft tissues are within normal limits. There is atherosclerotic calcification of the carotid bulbs. Soft tissue thickening in the right suboccipital tissues is similar to previous. Calvarium: The visualized calvarium at the skull base appears intact. Brain parenchyma: Left MCA territory encephalomalacia is consistent with a remote insult. Sinuses and mastoids: There is mucosal thickening and fluid within the sphenoid sinuses. The mastoid air cells are well pneumatized. IMPRESSION: 1. There is no evidence of cervical spine fracture or subluxation. 2. Osteopenia and spondylotic change as above. ACT 112: Negative or not required by law. Electronically signed by: Aureliano Cortés M.D. 08/10/2023 4:[address] 08/10/23 14:24 CT SCAN OF THE CHEST WITH IV CONTRAST CLINICAL HISTORY: Fall. COMPARISON STUDY: Chest x-ray dated 08/10/2023. Chest CT dated 04/28/2017. Abdominal CT dated 03/17/2023. TECHNIQUE: Following the IV administration of 86 cc of Optiray 320, CT scan of the thorax was performed from the thoracic inlet to the upper abdomen. Images are reviewed in the axial, sagittal, and coronal planes. IV contrast was administered without complication. A dose lowering technique was utilized adhering to the principles of ALARA. The examination is degraded by streak artifact from the right arm which could not be elevated above the chest. FINDINGS: Thyroid: Imaged portions of the thyroid gland are normal in size and attenuation. Thoracic aorta: There is atherosclerotic calcification of the thoracic aorta, which is normal in caliber and demonstrates bovine variant arch anatomy. No dissection is seen. Pulmonary vasculature: The pulmonary trunk is normal in caliber. There are no filling defects identified in the central pulmonary vessels to indicate pulmonary embolus. Note that this examination was not protocoled for evaluation of the pulmonary arteries. Heart: The heart is enlarged and without pericardial effusion. The coronary arteries are densely calcified. Lungs and pleural spaces: There is no airspace consolidation, pleural effusion, or pneumothorax. Scarring/atelectasis is seen at the lung bases. The trachea and central airways are clear. Scattered calcific granulomas are observed. Mediastinum: There are calcifications containing mediastinal lymph nodes. There is no mediastinal hematoma or lymphadenopathy. Connie: There are calcification containing hilar nodes. No adenopathy is seen. Axillae: There is no axillary lymphadenopathy. Upper abdomen: There is a small hiatal hernia. Partially visualized upper abdominal viscera is otherwise grossly unremarkable. Skeletal structures: The skeletal structures are osteopenic. There is a right lateral 10th rib fracture. The bony thorax appears intact. Degenerative change and kyphoscoliosis is noted in the thoracic spine. There is a mild chronic superior end plate compression deformity of T9. No lytic or blastic bony lesions are seen. Advanced arthritic changes noted in the shoulders. IMPRESSION: 1. Right lateral 10th rib fracture. 2. There is no airspace consolidation, pleural effusion, or pneumothorax. 3. Cardiomegaly with advanced coronary artery atherosclerosis. 4. Additional findings as above. ACT 112: Negative or not required by law. Electronically signed by: Aureliano Cortés M.D. 08/10/2023 5:03 PM Chest X-Ray 08/10/23 14:24 XR chest 1V not portable CLINICAL HISTORY: fall COMPARISON STUDY: Chest radiograph April 17, 2023. Chest CT April 28, 2017. FINDINGS: There is no pneumothorax or pleural effusion. Mild interstitial thickening is present. Cardiomegaly is unchanged. No consolidation is identified. IMPRESSION: 1. No pneumothorax. 2. Cardiomegaly. Interstitial thickening which favors pulmonary vascular congestion. An infectious process could appear similar. ACT 112: Negative or not required by law. Electronically signed by: Sanya Hernández M.D. 08/10/2023 3:[address] 08/10/23 14:24 CT OF THE HEAD WITHOUT CONTRAST CLINICAL HISTORY: Trauma COMPARISON STUDY: Head CT April 17, 2023. TECHNIQUE: Helical axial images of the head were obtained without IV contrast. Automated exposure control was utilized for the study. A dose lowering technique was utilized adhering to the principles of ALARA. FINDINGS: No acute intracranial hemorrhage is present. 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 The appearance of the brain is unchanged. Ventricular system is stable. Basal cisterns are patent. There are nodular axial collections. There are no calvarial fractures. Sphenoid sinuses are partially opacified. A trace right occipital scalp hyperdensity remains unchanged from earlier exams. IMPRESSION: 1. No acute intracranial findings. No change in appearance of the brain. 2. No calvarial fracture. ACT 112: Negative or not required by law. Electronically signed by: Sanya Hernández M.D. 08/10/2023 4:35 PM ECG Additional Comments: EKGper my interpretationstudy reveals normal sinus rhythm at 72 bpm, normal axis, NE = 134, QRS = 104, QTc = 438, nonspecific ST changes but no acute ischemia appreciated PG Care Time/CCT Total # of Minutes Spent Total Time Spent with Patient: Total time spent is greater than 50% in coordination of care (as documented) at patient's floor/unit and/or counseling patient: Coding Level of Care Code 79039 INT INP/OBS CARE 2/55MIN Diagnoses Right rib fracture S22.31XA 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 I69.351 Hyperlipidemia E78.5 Hypertension I10 Controlled type 2 diabetes mellitus with microalbuminuria E11.29; R80.9
--- NOTE | 2023-08-10 20:09 | Emergency Department Note ---
ED Visit Note I have personally evaluated this patient examined him and reviewed the pertinent labs and data. I have discussed the case with Lizett,the physician sales assistants and salespersons and agree with the plan. Please refer to the PA note This patient has baseline right-sided weakness from a previous stroke. Family numbers help care for him at home he fell today. He landed on his right side and has diffuse pain on the right side. We did extensive CAT scans and x-rays. He does have 1 rib fracture on the right. He has nothing to suggest acute coronary syndrome. I examined the patient he does have baseline right-sided weakness mostly in the right arm. He has no new neurologic deficits on my exam and the left is intact. His abdomen is benign, he is in no respiratory distress, his lungs are clear and he denies any chest pain. His son was concerned about him being able to be at home but the patient wants to go home we gave him an ambulatory trial but unfortunately he did not do well and is not safe to go home at this point. We tried to get him to [facility] but they cannot take him today. We have consulted to the hospitalist to see him in the ER for likely admission/observation given his ambulatory dysfunction and pain. [employer] per my independent interpretationnormal sinus rhythm rate of 72no acute ischemic change or ectopy. No ossific ST abnormality Head CTas per my independent interpretationno hemorrhage or mass effect seen.
[2023-08-10] MEDS ORDERED: GLUCOSE 40% GEL 15 GM TUBE PO PRN (23:53)
[2023-08-10] MEDS ORDERED: DEXTROSE 50% 50 ML SYRINGE IV PRN (23:53)
[2023-08-10] MEDS ORDERED: ONDANSETRON INJ 2 MG/ML 2 ML VIAL IV PRN (23:53)
[2023-08-10] MEDS ORDERED: GLUCAGON FOR INJ 1 MG VIAL SQ PRN (23:53)
[2023-08-10] MEDS ORDERED: GLUCOSE 10 TAB/TUBE PO PRN (23:53)
[2023-08-10] MEDS ORDERED: CARBOHYDRATES FOR HYPOGLYCEMIA PO PRN (23:53)
[2023-08-11 00:38] LABS: Magnesium 1.9 mg/dl (1.7-2.4); Phosphorus 2.9 mg/dl (2.5-4.9)
[2023-08-11] MEDS: METOPROLOL SUCC 25MG EXT REL TAB PO STA (00:50)
[2023-08-11] MEDS: ACETAMINOPHEN 500 MG TAB PO SCH (00:51)
--- NOTE | 2023-08-11 06:04 | Electrocardiogram Report ---
Test Reason : Blood Pressure : / mmHG Vent. Rate : 072 BPM Atrial Rate : 072 BPM P-R Int : 134 ms QRS Dur : 104 ms QT Int : 400 ms P-R-T Axes : 060 025 016 degrees QTc Int : 438 ms Poor data quality, interpretation may be adversely affected Normal sinus rhythm Nonspecific ST abnormality Abnormal ECG When compared with ECG of 17-APR-2023 05:00, T wave inversion no longer evident in Inferior leads Confirmed by Edgar Reese ([id number]) on 08/11/2023 6:03:48 AM Referred By: REFERRED SELF Confirmed By:Edgar Reese
[2023-08-11 07:02] LABS: BUN Creatinine Ratio 14.6 (10-20); Calcium 9.5 mg/dl (8.6-10.3); Creatinine Clr Calc Pharmacy 62.7 ml/min; Est GFR (African American) 90.4 ml/min
[2023-08-11] MEDS: LOSARTAN POTASSIUM 50 MG TAB PO SCH (08:29)
[2023-08-11] MEDS: FINASTERIDE 5 MG TAB PO SCH (08:30)
[2023-08-11] MEDS: CLOPIDOGREL BISULFATE 75 MG TAB PO SCH (08:30)
[2023-08-11] MEDS: METOPROLOL TARTRATE 25 MG TAB PO SCH (09:35)
--- NOTE | 2023-08-11 10:35 | Discharge Summary ---
Discharge Summary Date of Service August 11, 2023 Notes For Next Care Provider Short stay for rehab placement - had a fall at home, one rib fracture but pain is controlled with tylenol Medication Changes From Visit no changes Admission HPI Per Admitting Provider Chris Pascal is an 87-year-old male with history of hypertension, hyperlipidemia, diabetes and prior stroke with residual right-sided deficit presenting from home after sustaining a ground-level fall yesterday 08/09/2023. Patient reports that he tripped and landed on his side. He has had ongoing pain since then. In the ER, he is afebrile, hypertensive otherwise hemodynamically stable. Laboratory workup largely unremarkable. Extensive scanning as below revealed right lateral 10th rib fracture. No other traumatic injuries. Patient was offered discharge home with plans for home admission to [facility] likely in the morning. However, patient felt very unsteady on his feet and was uncomfortable going home therefore, is requesting admission until he can be placed at [facility] hopefully in the morning. Principal Dx & Hospital Course #1 = Principal Diagnosis (1) Right rib fracture: 87-year-old male status post ground-level fall resulting in right nondisplaced rib fracture. Patient's pain is fairly well-controlled. He is anxious about going home due to gait instability Incentive spirometry every hour Pain control with Tylenol 1 g p.o. 3 times daily. Pain well controlled. 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 Chronic. will benefit from short-term rehab, discharged to [facility] (3) Hyperlipidemia: Chronic. Stable. Continue simvastatin 20 mg p.o. nightly (4) Hypertension: Continue home medications Metoprolol 25 mg p.o. twice daily Cozaar 100 mg p.o. every morning (5) Controlled type 2 diabetes mellitus with microalbuminuria: Diet controlled. Last hemoglobin A1c = 6.4 Plan dispo: Discharged to [facility] today Son updated at bedside Discharge Exam General: NAD, VS as above Resp: normal respiratory effort, lungs clear to auscultation CV: RRR, no murmur, Abd: normal bowel sounds, non tender, no hepatosplenomegaly Updated Medication List Medication Instructions Recorded Confirmed Type [id number] 300 mcg-K 60 1 tab PO QAM 02/15/19 08/10/23 History mcg-lycop 600 mcg-lutein 300 mcg tablet (Centrum Silver Men) magnesium oxide 400 mg PO BID 03/30/21 08/10/23 History bilateral LE AFO braces #1 ea 11/23/21 07/06/23 Rx triamcinolone acetonide 0.1 % 1 applic topical BID PRN Skin 08/01/22 08/10/23 Rx topical cream Irritation #30 grams blood sugar diagnostic (FreeStyle #100 ea 08/02/22 07/06/23 Rx Lite Strips) blood-glucose meter (FreeStyle #1 ea 08/02/22 07/06/23 Rx Lite Meter kit) lancets 28 gauge (FreeStyle #100 ea 08/02/22 07/06/23 Rx Lancets) simvastatin 20 mg tablet 20 mg PO HS #90 tabs 09/07/22 08/10/23 Rx metformin 500 mg tablet 500 mg PO BID #180 tabs 10/13/22 08/10/23 Rx CPAP Supplies #1 ea 02/07/23 07/06/23 Rx losartan 100 mg tablet 100 mg PO QAM #90 tabs 03/06/23 08/10/23 Rx metoprolol tartrate 25 mg tablet 25 mg PO BID #180 tabs 03/28/23 08/10/23 Rx clopidogrel 75 mg tablet 75 mg PO QAM #90 tabs 07/18/23 08/10/23 Rx finasteride 5 mg tablet 5 mg PO QAM #90 tabs 07/18/23 08/10/23 Rx acetaminophen 500 mg tablet 1,000 mg (2 x 500 mg) PO Q8H 30 08/11/23 Rx (Tylenol Extra Strength) days #180 tabs Hospital Stay Data Consultations 08/10/23 19:36 ED Decision to Admit Stat Diagnostic Imagining Performed 08/10/23 14:24 CT abd pelvis IV con only Stat CT cervical spine wo con Stat CT chest diagnostic w con Stat CT head/brain wo con Stat Pending Results Patient Have Any Pending Studies at Discharge: No Discharge Instructions Given to Patient (Per Discharging Provider) Hospitalized for safety after fall and rib fracture. hx of stroke - chronic right sided hemiparesis pain well controlled with tylenol Follow up with PCP after discharge from [facility] Total Time Total Time Spent Total Time Spent (In Minutes): Time spend day of discharge 20 minutes including direct patient care, medication reconciliation, documentation, review of labs and images, and coordination of care. Supervising Physician Co-Signing Physician Notes Attending Attestation & Discharge Note - Pt seen/examined, chart reviewed, care plan d/w JOSE ALEJANDRO Brandt. I agree w/ the orozco components of her documentation. 87yo male with h/o HTN, DM, and prior stroke of the L MCA territory with resulting right-sided hemiparesis presented from home after suffering a fall. This led to a solitary rib fracture on the right - 10th rib. He received pain control for the rib fracture and is transferring to [facility] for ongoing PT/OT. Fortunately other imaging failed to show other acute injuries. CT head & CT c- spine did not show fractures or ICH. Discharge exam - gen - NAD, pleasant neck - no JVD heart - RRR, s1 s2 lungs - CTA b/l abd - soft NT BS+; mildly distended ext - no edema, pulses 2+ b/l A/P: 1. fall 2. right-sided #10 rib fracture 3. prior h/o L MCA territory CVA 4. 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
--- NOTE | 2023-08-11 11:35 | Electrocardiogram Report ---
Test Reason : Blood Pressure : / mmHG Vent. Rate : 068 BPM Atrial Rate : 068 BPM P-R Int : 154 ms QRS Dur : 100 ms QT Int : 410 ms P-R-T Axes : 057 001 -04 degrees QTc Int : 435 ms Normal sinus rhythm Nonspecific ST abnormality Abnormal ECG When compared with ECG of 10-AUG-2023 14:00, No significant change was found Confirmed by Delonte Freire ([id number]) on 08/11/2023 11:35:09 AM Referred By: REFERRED SELF Confirmed By:Delonte Freire
[2023-08-11] MEDS ORDERED: SIMVASTATIN 20 MG TAB PO SCH (21:00)
== END 2023-08-11 11:48 ==
LOC: ED 13:44 → 3W 13:44 → SUATTDRO 19:58 → 3W 23:30
DX: E78.5 Hyperlipidemia, unspecified; R80.9 Proteinuria, unspecified; E11.69 Type 2 diabetes mellitus with other specified complication; Z79.02 Long term (current) use of antithrombotics/antiplatelets; Z79.899 Other long term (current) drug therapy; I10 Essential (primary) hypertension; I69.351 Hemiplegia and hemiparesis following cerebral infarction affecting right dominant side; S22.31XA Fracture of one rib, right side, initial encounter for closed fracture; W19.XXXA Unspecified fall, initial encounter; Z79.84 Long term (current) use of oral hypoglycemic drugs

== ENCOUNTER 2023-11-08 00:25 | Inpatient (IN) ==
--- NOTE | 2023-11-08 00:41 | Emergency Department Note ---
History of Present Illness General Chief complaint: Syncope Stated complaint: SYNCOPAL, WEAK Time Seen by Provider: 11/08/23 00:29 History of Present Illness This 88-year-old male with right-sided hemiparalysis from CVA in the past presents to the ER for syncopal episode in the bathroom. This was unwitnessed. Son was concerned and called EMS. Patient is been more weak than normal this past day. Patient denies chest pain, abdominal pain, cough, congestion. He is on Plavix and he was immediately sent down for head CT for rule out bleed. Home Medications Medication Instructions Recorded Confirmed Type peqoeqzp-fa-tbrar 300 mcg-K 60 1 tab PO QAM 02/15/19 11/08/23 History mcg-lycop 600 mcg-lutein 300 mcg tablet (Centrum Silver Men) magnesium oxide 400 mg PO BID 03/30/21 11/08/23 History bilateral LE AFO braces #1 ea 11/23/21 08/25/23 Rx triamcinolone acetonide 0.1 % 1 applic topical BID PRN Skin 08/01/22 11/08/23 Rx topical cream Irritation #30 grams blood sugar diagnostic (FreeStyle #100 ea 08/02/22 08/25/23 Rx Lite Strips) blood-glucose meter (FreeStyle #1 ea 08/02/22 08/25/23 Rx Lite Meter kit) lancets 28 gauge (FreeStyle #100 ea 08/02/22 08/25/23 Rx Lancets) CPAP Supplies #1 ea 02/07/23 08/25/23 Rx losartan 100 mg tablet 100 mg PO QAM #90 tabs 03/06/23 11/08/23 Rx metoprolol tartrate 25 mg tablet 25 mg PO BID #180 tabs 03/28/23 11/08/23 Rx clopidogrel 75 mg tablet 75 mg PO QAM #90 tabs 07/18/23 11/08/23 Rx finasteride 5 mg tablet 5 mg PO QAM #90 tabs 07/18/23 11/08/23 Rx metformin 500 mg tablet 500 mg PO BID #180 tabs 10/23/23 11/08/23 Rx simvastatin 20 mg tablet 20 mg PO HS #90 tabs 10/31/23 11/08/23 Rx Allergies Allergy/AdvReac Type Severity Reaction Status Date / Time No Known Allergies Allergy Verified 11/08/23 00:55 Past Med/Surg History Problem List (Updated 11/08/23 @ 02:27 by Glenny Jain PA-C) Fall (Acute) AMS (altered mental status) (Acute) Acute UTI (Acute) Sepsis (Acute) Right rib fracture Hypercholesteremia Closed head injury (Acute) Fall from slip, trip, or stumble (Acute) COVID-19 Chest congestion Acute UTI (Acute) Scalp laceration Facial rash Elevated troponin Abnormal ECG (Acute) Acute pain of right knee (Acute) Frequent falls Upper extremity pain (Acute) Chronic skin ulcer of left ear (Acute) Seborrheic dermatitis (Acute) Carotid artery stenosis (Acute) Cervical disc disease (Acute) Obstructive sleep apnea (Chronic) Dermatophytosis TIA (transient ischemic attack) (Acute) Medical History Hyperlipidemia Hypertension Controlled type 2 diabetes mellitus with microalbuminuria History of COVID-19 04/04/23, symptoms lasted 3 days, tx w/paxlovid>no residual symptoms Sleep apnea cpap Hx of squamous cell carcinoma CVA, old, speech/language deficit Hyponatremia Right otitis externa cream prn Gait abnormality Benign prostatic hyperplasia with urinary obstruction Peripheral artery disease Cerebral vascular accident ~age 60, unsure of what initial symptoms>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, cannot talk 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 Surgical History Hx of cataract surgery right History of cardiac cath 03/2023, "wasn't feeling right," no stents>"pt has minimal damage to heart"; f/u [facility] cardio Hx of squamous cell carcinoma excision No significant past surgical history Family History Mother Coronary heart disease Brother Coronary heart disease Diabetes Hypertension Father Diabetes Denies family history of Ovarian cancer Prostate cancer Myocardial infarction Breast cancer Lung cancer Colorectal cancer Social History Smoking Status: Former smoker Tobacco Type: Cigarettes Age Started Using Tobacco: 18; Age Quit Using Tobacco: 37; packs per day: 1; Second Hand Exposure: Yes ( smoked); Do You Dip or Chew Tobacco: No; Hx Alcohol Use: Yes Alcohol type: hard liquor Alcohol Intake Frequency: 2-4 x/Month Alcohol Intake Frequency Comment: OCCASIONAL Hx Substance Use: No Preferred Language: Lao Communication Ability: Effective Communication Ability Comment: loss of speech w/stroke Visual Impairment: No Limitations Hearing Ability: Use of Hearing Aid Books Binder Required: No Beliefs That Will Affect Care: None marital status: / Current Living Situation: Family Current Living Situation Comment: Patient lives in his home with family staying with him for care current occupational status: retired 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 Feels Safe at Home: Yes Childhood Exposure to Second-Hand Smoke: Yes Diet: regular caffeine: Yes Dental Care, Regularly: No Physical Activity Frequency: 5-6 Times per Week Seatbelt Use: never Sunscreen Use: Yes Assistive Devices: Cane and Walker Review of Systems A total of 10 systems reviewed and were otherwise negative Physical Exam Vital Signs Vital Signs - 24 hr 11/08/23 00:35 11/08/23 00:45 11/08/23 01:33 Temperature 35.3 C L Temperature Source Rectal Pulse Rate 82 87 Pulse Rate [Apical] Respiratory Rate 19 Blood Pressure 175/99 H Blood Pressure [Left Arm] Blood Pressure Mean 124 Blood Pressure Mean [Left Arm] Pulse Oximetry 97 96 Oxygen Delivery Method Room Air Room Air Sepsis Recent Fever Within 48 Hours No Sepsis New/Unexplained Change in Mental Status Yes Sepsis Action Taken by Nursing Adv Provider Notified 11/08/23 01:33 11/08/23 01:33 Temperature Temperature Source Pulse Rate Pulse Rate [Apical] 87 Respiratory Rate 19 Blood Pressure Blood Pressure [Left Arm] 118/69 Blood Pressure Mean Blood Pressure Mean [Left Arm] 85 Pulse Oximetry 98 98 Oxygen Delivery Method Room Air Room Air Sepsis Recent Fever Within 48 Hours Sepsis New/Unexplained Change in Mental Status Sepsis Action Taken by Nursing VITALS: Vitals are noted on the nurse's note and reviewed by myself. Vital signs reviewed. GENERAL: Elderly male with right-sided hemiparalysis, in no acute distress, nondiaphoretic, well-developed well-nourished. SKIN: The skin was without rashes, erythema, edema, or bruising. There is no tenting of the skin. Capillary reflex less than 2 seconds. HEAD: Normocephalic atraumatic. EARS: External auditory canals clear EYES: Pupils equal round and reactive to light and accommodation. Conjunctivae without injection, sclerae without icterus. Extraocular movements intact. NOSE: Patent, no discharge. MOUTH: Mucous membranes moist. Pharynx without erythema or exudate. Uvula midline. Airway patent. Tongue does not deviate. NECK: Supple without nuchal rigidity. No lymphadenopathy. No thyromegaly. Cervical spine is nontender. No JVD. HEART: Regular rate and rhythm LUNGS: Clear to auscultation bilaterally without wheezes, rales or rhonchi. No retractions or accessory muscle use. ABDOMEN: Positive bowel sounds x 4. Normal tympanic percussion. Soft, nontender, without masses or organomegaly. Head sign negative. No guarding or rebound tenderness. No CVA tenderness MUSCULOSKELETAL: No muscle atrophy, erythema, or edema noted. NEURO: Patient was alert and oriented to person place and time. Patient is following commands and answering questions. 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 No new focal neurological deficits. Course Administered Medications Vancomycin HCl 1,750 mg/ (Sodium Chloride) 535 mls @ 200 mls/hr IV NOW ONE Stop: 11/08/23 03:48 Last Admin: 11/08/23 01:40 Dose: 200 mls/hr Documented By: KETAN Sodium Chloride (Nss) 1,000 mls @ 999 mls/hr IV .Q1H1M ONE Stop: 11/08/23 03:27 Last Admin: 11/08/23 02:42 Dose: 999 mls/hr Documented By: KETAN Discontinued Medications Sodium Chloride (Nss) 500 mls @ 999 mls/hr IV .Q31M CARMINA Stop: 11/08/23 01:15 Last Infusion: 11/08/23 02:27 Dose: Infused Documented By: Admin: 11/08/23 01:41 Dose: 999 mls/hr Documented By: KETAN Cefepime HCl (Maxipime) 2,000 mg in 20 mls @ 5 mls/min IV NOW STA; Protocol Stop: 11/08/23 01:11 Last Admin: 11/08/23 01:41 Dose: 5 mls/min Documented By: KETAN Medical Decision Making Medical Records Attestation: I reviewed the patient's medical records. Home Medications Current Medication List: was personally reviewed by me Laboratory Data Attestation: I reviewed the patient's lab results. 11/08/23 01:37 11/08/23 01:37 Lab Results 11/08/23 11/08/23 11/08/23 Range/Units 01:28 01:29 01:37 WBC 14.92 H (4.8-10.8) K/ul RBC 4.91 (4.70-6.10) M/uL Hgb 15.1 (14.0-18.0) g/dl Hct 45.6 (42.0-52.0) % MCV 92.9 (80.0-100.0) fL MCH 30.8 (25.0-34.0) pg MCHC 33.1 (32.0-36.0) g/dL RDW Std Deviation 42.5 (36.4-46.3) fL RDW Coeff of Doris 12.4 (11.5-14.5) % Plt Count 238 (130-400) K/uL MPV 8.9 L (9.4-12.4) fL Immature Gran % (Auto) 0.6 % Neut % (Auto) 84.2 % Lymph % (Auto) 7.1 % [place] % (Auto) 6.8 % Eos % (Auto) 0.9 % Baso % (Auto) 0.4 % Neut # (Auto) 12.57 H (1.40-6.50) K/uL Lymph # (Auto) 1.06 L (1.20-3.40) K/uL [place] # (Auto) 1.01 H (0.11-0.59) K/uL Eos # (Auto) 0.13 (0.00-0.50) K/uL Baso # (Auto) 0.06 (0.00-0.20) K/uL Immature Gran # (Auto) 0.09 (0.01-0.20) K/uL Sodium 136 (136-145) mmol/L Potassium 4.6 (3.5-5.1) mmol/L Chloride 102 (98-107) mmol/L Carbon Dioxide 24 (21-32) mmol/L Anion Gap 10 (3-11) BUN 21 (6-23) mg/dl Creatinine 1.17 (0.6-1.4) mg/dl Est Cr Clr Drug Dosing 48.6 ml/min Est GFR ( Amer) 65.0 ml/min Est GFR (Non-Af Amer) 56.1 ml/min BUN/Creatinine Ratio 17.9 (10-20) Glucose 186 H (70-99(Fasting)) mg/dl Lactate 3.1 H* (0.4-2.0) mmol/L Calcium 10.1 (8.6-10.3) mg/dl Magnesium 1.9 (1.7-2.4) mg/dl Total Bilirubin 0.4 (0.2-1.0) mg/dl Direct Bilirubin 0.1 (0-0.2) mg/dl AST 19 (13-39) U/L ALT 14 (7-52) U/L Alkaline Phosphatase 50 (34-104) U/L Total Creatine Kinase 141 (30-223) U/L Troponin I High Sens 11.8 (0-20) pg/ml Total Protein 8.3 (6.0-8.3) gm/dl Albumin 4.7 (3.4-5.0) gm/dl Procalcitonin < 0.02 (0-0.5) ng/ml Urine Color Yellow Urine Appearance Cloudy A (Clear) Urine pH 6.5 (4.5-7.5) Ur Specific [place] 1.019 (1.000-1.030) Urine Protein 1+ H (Negative) Urine Glucose (UA) Trace H (Negative) Urine Ketones Negative (Negative) Urine Blood Trace H (Negative) Urine Nitrite Negative (Negative) Urine Bilirubin Negative (Negative) Urine Urobilinogen Negative (Negative) Ur Leukocyte Esterase Trace H (Negative) Urine WBC (Auto) 6-10 H (0-5) /hpf Urine RBC (Auto) 3-5 H (0-2) /hpf U Hyaline Cast (Auto) 3-5 H (0-2) /lpf U Epithel Cells (Auto) 0-2 (0-2) /hpf Urine Bacteria (Auto) 4+ H (None Seen) Adenovirus (PCR) Not Detected (NotDetected) B. pertussis DNA (PCR) Not Detected (NotDetected) B.parapertussis DNA PCR Not Detected (NotDetected) C. pneumoniae DNA (PCR) Not Detected (NotDetected) Coronavirus OC43 (PCR) Not Detected (NotDetected) Coronavirus HKU1 (PCR) Not Detected (NotDetected) Coronavirus 229E (PCR) Not Detected (NotDetected) SARS-CoV-2 (PCR) Not Detected (NotDetected) Coronavirus NL63 (PCR) Not Detected (NotDetected) Human Metapneumovir PCR Not Detected (NotDetected) Influenza Type A (PCR) Not Detected (NotDetected) Influenza Type B (PCR) Not Detected (NotDetected) M. pneumoniae (PCR) Not Detected (NotDetected) Parainfluenza 1 (PCR) Not Detected (NotDetected) Parainfluenza 2 (PCR) Not Detected (NotDetected) Parainfluenza 3 (PCR) Not Detected (NotDetected) Parainfluenza 4 (PCR) Not Detected (NotDetected) RSV (PCR) Not Detected (NotDetected) Entero/Rhino (PCR) Not Detected (NotDetected) Imaging Data Attestation: I personally reviewed and interpreted this imaging study as follows: Radiologist's Impression: Cervical Spine CT 11/08/23 00:35 Exam(s): CT C SPINE EXAM: CT Cervical Spine Without Intravenous Contrast CLINICAL HISTORY: Reason for exam: fall, AMS. TECHNIQUE: Axial computed tomography images of the cervical spine without intravenous contrast. Automated exposure control was utilized for the study. A dose lowering technique was utilized adhering to the principles of ALARA. COMPARISON: Comparison made to prior CT scan cervical spine from August 10, 2023. FINDINGS: Vertebrae: Unremarkable. No acute fracture. Discs/spinal canal/neural foramina: No acute findings. There is a critical spinal canal stenosis at C5-6. Soft tissues: Unremarkable. IMPRESSION: No evidence of acute cervical spine pathology. 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 Recommend MRI to evaluate for myelopathy. Electronically signed by: Sejal Martinez MD 11/08/23 01:[address] 11/08/23 00:35 Exam(s): CT HEAD Without Contrast EXAM: CT Head Without Intravenous Contrast CLINICAL HISTORY: Reason for exam: fall, AMS. TECHNIQUE: Axial computed tomography images of the head/brain without intravenous contrast. Automated exposure control was utilized for the study. A dose lowering technique was utilized adhering to the principles of ALARA. COMPARISON: Comparison made to prior head CT from August 10, 2023. FINDINGS: Brain: Remote ischemic injury of the left temporal, frontal, parietal and occipital lobe with encephalomalacia and gliosis. Moderate nonspecific white matter changes. No edema. Ventricles: Moderate ventriculomegaly. Bones/joints: Unremarkable. No acute fracture. Soft tissues: Unremarkable. Sinuses: Chronic left sphenoid sinusitis. No acute sinusitis. Mastoid air cells: Unremarkable as visualized. No mastoid effusion. IMPRESSION: No evidence of acute intracranial pathology. Electronically signed by: Sejal Martinez MD 11/08/23 01:49 AM MDM Narrative Prior records/ancillary studies reviewed and summarized above. Nursing notes reviewed. Additional history obtained from EMS. The patient's history was concerning for fall in bathroom with concerns for syncope. Differential diagnosis: Etiologies such as metabolic, infection, hypo/hyperglycemia, electrolyte abnormalities, cardiac sources, intracerebral event, toxicologic, neurologic, as well as others were entertained. Physical examination: As above. ER treatment provided: IV Lock An order was placed for continuous cardiac monitoring. The monitor shows a rate of 60-100 with a sinus rhythm per my interpretation. IV fluids-2L total per septic protocol Elliott placed Cefepime and vancomycin given for concerns for sepsis On reassessment the patient felt better. Diagnostics interpretation by me: ECG: Ordered for weakness EKG: Poor baseline, normal sinus, normal intervals, no acute ST-T wave changes. Impression normal sinus rhythm independently interpreted by myself The labs Independently Interpreted by myself revealed leukocytosis, urine concerning for infection and sent for culture. Prior culture was reviewed and sensitive to vancomycin Blood cultures pending Imaging studies: Chest x-ray with no acute consolidation, pneumothorax or free air per my independent interpretation CTs as above Consultation: A consultation was placed with the hospitalist. The case was discussed and diagnostics were reviewed. The patient was evaluated in the ER for further treatment. Exam and history seem consistent with UTI with altered mental status with fall and concerns for sepsis. Patient was started on broad-spectrum antibiotics. Prior Urine culture was reviewed. Septic workup was initiated. Medicine was consulted and case was discussed. Patient will be admitted to the medical service for further evaluation and treatment. Family and patient are agreeable. By the evaluation outlined above emergent etiologies such as electrolyte abnormalities, cardiac sources, intracerebral event, toxologic, abnormalities blood glucose, metabolic, as well as others were deemed relatively unlikely. The pt/family informed about the findings as listed above. All questions were answered and pleased with the treatment. The chart was completed utilizing [employer] Speech voice recognition software. Grammatical errors, random word insertions, pronoun errors, and incomplete sentences are an occassional consequence of this system due to software limitations, ambient noise, and hardware issues. Any formal questions or concerns about the content, text, or information contained within the body of this dictation should be directly addressed to the physician marketing operations assistant for clarification. Impression & Plan Sepsis, Acute UTI, AMS (altered mental status), Fall Discharge Plan Visit Data Chief Complaint: Syncope Stated Complaint: SYNCOPAL, WEAK ED Provider: Marisol Baron ED Midlevel Provider: Glenny Jain Discharge Problem: Sepsis, Acute UTI, AMS (altered mental status), Fall Patient Disposition: Admitted As Inpatient Condition: Fair Forms Stand Alone Forms: Meeting To You [facility] Prescriptions Prescriptions: No Action (DME) blood-glucose meter [FreeStyle Lite Meter] Kit See Rx Instructions .Route Qty: 1 0RF Rx Instructions: As directed (DME) FreeStyle Lite Strips Strip See Rx Instructions .Route Qty: 100 5RF Rx Instructions: test once daily (DME) lancets [FreeStyle Lancets] 28 gauge misc See Rx Instructions .Route Qty: 100 5RF Rx Instructions: test once daily (DME) CPAP Supplies Misc See Rx Instructions .Route Qty: 1 0RF Rx Instructions: CPAP Mask use qHS losartan 100 mg tablet 100 mg PO QAM Qty: 90 3RF finasteride 5 mg tablet 5 mg PO QAM Qty: 90 3RF clopidogrel 75 mg tablet 75 mg PO QAM Qty: 90 3RF metformin 500 mg tablet 500 mg PO BID Qty: 180 3RF simvastatin 20 mg tablet 20 mg PO HS Qty: 90 3RF Hold Instructions: Hold starting 04/04 for Paxlovid, c/w s/p 2 weeks off med Centrum Silver Men 300-600-300 mcg tablet 1 tab PO QAM (DME) bilateral LE AFO braces See Rx Instructions .Route .MEDSUPPLY Qty: 1 0RF Rx Instructions: As directed triamcinolone acetonide 0.1 % cream 1 applic topical BID PRN (Reason: Skin Irritation) Qty: 30 2RF metoprolol tartrate 25 mg tablet 25 mg PO BID Qty: 180 3RF magnesium oxide 400 mg magnesium Tablet 400 mg PO BID Referrals Referrals: Salomon Stanton DO [Primary Care Provider] - Discharge Problem: Sepsis Qualifiers: Sepsis type: sepsis due to unspecified organism Sepsis acute organ dysfunction status: without acute organ dysfunction Qualified Code(s): A41.9 - Sepsis, unspecified organism
[2023-11-08] MEDS ORDERED: VANCOMYCIN CONSULT ACTIVE PRN ×2 (01:08→05:28)
[2023-11-08] MEDS: VANCOMYCIN HCL 1,750 MG in SODIUM CHLORIDE 0.9% 500 ML IV ONE (01:40)
[2023-11-08] MEDS: CEFEPIME 2,000 MG/20 ML VIAL IV STA (01:41)
[2023-11-08] MEDS: SODIUM CHLORIDE 0.9% 500 ML IV SCH (01:41)
[2023-11-08 01:46] LABS: Appearance Urine Cloudy (Clear); Bacteria Urine Automated 4+ (None Seen); Bilirubin Urine Negative (Negative); Blood Urine Trace (Negative); Color Urine Yellow; Epithelial Cell Urine Auto 0-2 /hpf (0-2); Glucose Urine UA Trace (Negative); Ketones Urine Negative (Negative); Leukocyte Esterase Urine Trace (Negative); Nitrite Urine Negative (Negative); Protein Urine 1+ (Negative); Specific Gravity Urine 1.019 (1.000-1.030); Urobilinogen Urine Negative (Negative); pH Urine 6.5 (4.5-7.5)
--- NOTE | 2023-11-08 01:47 | CT Scan Report ---
Exam(s): CT C SPINE EXAM: CT Cervical Spine Without Intravenous Contrast CLINICAL HISTORY: Reason for exam: fall, AMS. TECHNIQUE: Axial computed tomography images of the cervical spine without intravenous contrast. Automated exposure control was utilized for the study. A dose lowering technique was utilized adhering to the principles of ALARA. COMPARISON: Comparison made to prior CT scan cervical spine from August 10, 2023. FINDINGS: Vertebrae: Unremarkable. No acute fracture. Discs/spinal canal/neural foramina: No acute findings. There is a critical spinal canal stenosis at C5-6. Soft tissues: Unremarkable. IMPRESSION: No evidence of acute cervical spine pathology. 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 Recommend MRI to evaluate for myelopathy. Electronically signed by: Sejal Martinez MD 11/08/23 01:46 AM
--- NOTE | 2023-11-08 01:50 | CT Scan Report ---
Exam(s): CT HEAD Without Contrast EXAM: CT Head Without Intravenous Contrast CLINICAL HISTORY: Reason for exam: fall, AMS. TECHNIQUE: Axial computed tomography images of the head/brain without intravenous contrast. Automated exposure control was utilized for the study. A dose lowering technique was utilized adhering to the principles of ALARA. COMPARISON: Comparison made to prior head CT from August 10, 2023. FINDINGS: Brain: Remote ischemic injury of the left temporal, frontal, parietal and occipital lobe with encephalomalacia and gliosis. Moderate nonspecific white matter changes. No edema. Ventricles: Moderate ventriculomegaly. Bones/joints: Unremarkable. No acute fracture. Soft tissues: Unremarkable. Sinuses: Chronic left sphenoid sinusitis. No acute sinusitis. Mastoid air cells: Unremarkable as visualized. No mastoid effusion. IMPRESSION: No evidence of acute intracranial pathology. Electronically signed by: Sejal Martinez MD 11/08/23 01:49 AM
[2023-11-08 01:56] LABS: Basophils # (auto) 0.06 K/uL (0.00-0.20); Basophils % (auto) 0.4 %; Eosinophils # (auto) 0.13 K/uL (0.00-0.50); Eosinophils % (auto) 0.9 %; Hematocrit (blood only) 45.6 % (42.0-52.0); Hemoglobin 15.1 g/dl (14.0-18.0); Immature Granulocytes # (auto) 0.09 K/uL (0.01-0.20); Immature Granulocytes % (auto) 0.6 %; Lymphocytes # (auto) 1.06 K/uL (1.20-3.40); Lymphocytes % (auto) 7.1 %; Mean Corpuscular Hemoglobin 30.8 pg (25.0-34.0); Mean Corpuscular Hgb Conc 33.1 g/dL (32.0-36.0); Mean Corpuscular Volume 92.9 fL (80.0-100.0); Mean Platelet Volume 8.9 fL (9.4-12.4); Monocytes # (auto) 1.01 K/uL (0.11-0.59); Monocytes % (auto) 6.8 %; Neutrophils # (auto) 12.57 K/uL (1.40-6.50); Neutrophils % (auto) 84.2 %; Platelet Count 238 K/uL (130-400); RDW Coefficient of Variation 12.4 % (11.5-14.5); RDW Standard Deviation 42.5 fL (36.4-46.3); Red Blood Count 4.91 M/uL (4.70-6.10); White Blood Count 14.92 K/ul (4.8-10.8)
[2023-11-08 02:09] LABS: Albumin Level 4.7 gm/dl (3.4-5.0); BUN Creatinine Ratio 17.9 (10-20); Bilirubin Direct 0.1 mg/dl (0-0.2); Bilirubin,Total 0.4 mg/dl (0.2-1.0); Calcium 10.1 mg/dl (8.6-10.3); Creatinine Clr Calc Pharmacy 48.6 ml/min; Est GFR (Non-African American) 56.1 ml/min; Magnesium 1.9 mg/dl (1.7-2.4); Potassium 4.6 mmol/L (3.5-5.1); Total Protein 8.3 gm/dl (6.0-8.3)
[2023-11-08 02:15] LABS: Troponin I High Sensitivity 11.8 pg/ml (0-20)
[2023-11-08 02:29] LABS: Adenovirus PCR Not Detected (NotDetected); Bordetella parapertussis PCR Not Detected (NotDetected); Bordetella pertussis PCR Not Detected (NotDetected); Chlamydia pneumoniae PCR Not Detected (NotDetected); Coronavirus 229E PCR Not Detected (NotDetected); Coronavirus CoV-2 (COVID19)PCR Not Detected (NotDetected); Coronavirus HKU1 PCR Not Detected (NotDetected); Coronavirus NL63 PCR Not Detected (NotDetected); Coronavirus OC43PCR Not Detected (NotDetected); Human Metapneumovirus PCR Not Detected (NotDetected); Influenza A PCR Not Detected (NotDetected); Influenza B PCR Not Detected (NotDetected); Mycoplasma pneumoniae PCR Not Detected (NotDetected); Parainfluenza Virus 1 PCR Not Detected (NotDetected); Parainfluenza Virus 2 PCR Not Detected (NotDetected); Parainfluenza Virus 3 PCR Not Detected (NotDetected); Parainfluenza Virus 4 PCR Not Detected (NotDetected); Respiratory Syncytial VirusPCR Not Detected (NotDetected); Rhinovirus/Enterovirus PCR Not Detected (NotDetected)
[2023-11-08] MEDS: SODIUM CHLORIDE 0.9% 1,000 ML IV ONE (02:42)
--- NOTE | 2023-11-08 02:54 | History & Physical Report ---
Date of Service November 08, 2023 Assessment & Plan (1) Sepsis due to urinary tract infection: (2) Benign prostatic hyperplasia with urinary obstruction: (3) Urinary retention: (4) Recurrent urinary tract infection: (5) AMS (altered mental status): (6) Frequent falls: (7) Cerebral vascular accident: (8) Controlled type 2 diabetes mellitus with microalbuminuria: (9) History of cardiac cath: Plan Sepsis due to urinary tract infection/recurrent coag negative staph UTI/BPH with LUTS/urinary retention- Patient will be kept n.p.o. until becomes more alert Follow urine culture and sensitivity Empiric antibiotics: Vancomycin IV per pharmacokinetic monitoring, and cefepime 2 g IV every 12 hours Continue Elliott catheter placed in the emergency department Patient has grown 2 different coag negative staph infections in the past, one is oxacillin resistant, and the other is pansensitive Signs noted that the patient is uncircumcised, has difficulty keeping the area clean Status post 2 L total NSS in the ED Place on LR at 80 mL/h x 1 L following completion of NSS boluses Resume finasteride when able to take p.o., consider addition of tamsulosin Consult to urology History of CVA/right hemiparesis/aphasia/dysphagia- Family reports that patient chews his pills We should ask pharmacy to review and coordinate Diabetes mellitus- Holding metformin Glucose 186 on admission On Accu-Cheks with NovoLog SSI CODE STATUS: DNR/DNI History of Present Illness Chief Complaint: The patient was brought to the emergency department due to his son noticing a loud sound when his father was in the bathroom, and found him passed out on the commode. 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 He was noted by his son to have had a syncopal episode while in the bathroom, and was brought to the emergency department for assessment. His family reports that the patient has been having worsening weakness and inability to interact with them over the past several days. He is not able to talk, but does communicate with them by gesturing. In the emergency department, his urine suggested infection, and he was noted to have a coagulase-negative staph is a present several times over the past 3 years. They report that he had been to give her urology office at 1 time, and was unable to produce urine at that visit. They describe him standing at the commode for several minutes sometimes need to urinate but having difficulty doing so. He had Elliott catheter placed in the emergency department, and immediately produced large volumes of release 1 L of cloudy appearing urine. The patient himself was not able to contribute to HPI or review of systems due to acute and chronic issues as noted Allergies Allergy/AdvReac Type Severity Reaction Status Date / Time No Known Allergies Allergy Verified 11/08/23 00:55 Home Medications Medication Instructions Recorded Confirmed Type [id number] 300 mcg-K 60 1 tab PO QAM 02/15/19 11/08/23 History mcg-lycop 600 mcg-lutein 300 mcg tablet (Centrum Silver Men) magnesium oxide 400 mg PO BID 03/30/21 11/08/23 History bilateral LE AFO braces #1 ea 11/23/21 08/25/23 Rx triamcinolone acetonide 0.1 % 1 applic topical BID PRN Skin 08/01/22 11/08/23 Rx topical cream Irritation #30 grams blood sugar diagnostic (FreeStyle #100 ea 08/02/22 08/25/23 Rx Lite Strips) blood-glucose meter (FreeStyle #1 ea 08/02/22 08/25/23 Rx Lite Meter kit) lancets 28 gauge (FreeStyle #100 ea 08/02/22 08/25/23 Rx Lancets) CPAP Supplies #1 ea 02/07/23 08/25/23 Rx losartan 100 mg tablet 100 mg PO QAM #90 tabs 03/06/23 11/08/23 Rx metoprolol tartrate 25 mg tablet 25 mg PO BID #180 tabs 03/28/23 11/08/23 Rx clopidogrel 75 mg tablet 75 mg PO QAM #90 tabs 07/18/23 11/08/23 Rx finasteride 5 mg tablet 5 mg PO QAM #90 tabs 07/18/23 11/08/23 Rx metformin 500 mg tablet 500 mg PO BID #180 tabs 10/23/23 11/08/23 Rx simvastatin 20 mg tablet 20 mg PO HS #90 tabs 10/31/23 11/08/23 Rx Past Med/Surg History Problem List (Updated 11/08/23 @ 06:00 by Kwame Xavier MD) Recurrent urinary tract infection History of cardiac cath 03/2023, "wasn't feeling right," no stents>"pt has minimal damage to heart"; f/u [facility] cardio Cerebral vascular accident ~age 60, unsure of what initial symptoms>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, cannot talk Controlled type 2 diabetes mellitus with microalbuminuria Sepsis due to urinary tract infection Benign prostatic hyperplasia with urinary obstruction Urinary retention Fall (Acute) AMS (altered mental status) (Acute) Acute UTI (Acute) Sepsis (Acute) Right rib fracture Hypercholesteremia Closed head injury (Acute) Fall from slip, trip, or stumble (Acute) COVID-19 Chest congestion Acute UTI (Acute) Scalp laceration Facial rash Elevated troponin Abnormal ECG (Acute) Acute pain of right knee (Acute) Frequent falls Upper extremity pain (Acute) Chronic skin ulcer of left ear (Acute) Seborrheic dermatitis (Acute) Carotid artery stenosis (Acute) Cervical disc disease (Acute) Obstructive sleep apnea (Chronic) Dermatophytosis TIA (transient ischemic attack) (Acute) Medical History Hyperlipidemia Hypertension Controlled type 2 diabetes mellitus with microalbuminuria History of COVID-19 04/04/23, symptoms lasted 3 days, tx w/paxlovid>no residual symptoms Sleep apnea cpap Hx of squamous cell carcinoma CVA, old, speech/language deficit Hyponatremia Right otitis externa cream prn Gait abnormality Benign prostatic hyperplasia with urinary obstruction Peripheral artery disease Cerebral vascular accident ~age 60, unsure of what initial symptoms>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, cannot talk 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 Surgical History Hx of cataract surgery right History of cardiac cath 03/2023, "wasn't feeling right," no stents>"pt has minimal damage to heart"; f/u mn cardio Hx of squamous cell carcinoma excision No significant past surgical history Family History Mother Coronary heart disease Brother Coronary heart disease Diabetes Hypertension Father Diabetes Denies family history of Ovarian cancer Prostate cancer Myocardial infarction Breast cancer Lung cancer Colorectal cancer Social History Smoking Status: Former smoker Tobacco Type: Cigarettes Age Started Using Tobacco: 18; Age Quit Using Tobacco: 37; packs per day: 1; Second Hand Exposure: Yes ( smoked); Do You Dip or Chew Tobacco: No; Hx Alcohol Use: Yes Alcohol type: hard liquor Alcohol Intake Frequency: 2-4 x/Month Alcohol Intake Frequency Comment: OCCASIONAL Hx Substance Use: No Preferred Language: Japanese Communication Ability: Effective Communication Ability Comment: loss of speech w/stroke Visual Impairment: No Limitations Hearing Ability: Use of Hearing Aid Merchandise Supervisor Required: No Beliefs That Will Affect Care: None marital status: / Current Living Situation: Family Current Living Situation Comment: Patient lives in his home with family staying with him for care current occupational status: retired 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 HEENT--PERRL, EOMI, mucous membranes and oropharynx dry while mouth breathing Neck--supple. No JVD. No bruits. Thyroid normal, trachea midline, no adenopa thy. Heart--normal S1 and S2. No murmurs, rubs or gallops. Lungs--clear bilaterally, no respiratory distress, no accessory muscle use. Abdomen--normal bowel sounds and soft. Nontender. Nondistended Extremities--No edema. Dermatologic--normal skin turgor, normal color, no abnormal lymph nodes, no rash. Neurologic--cranial nerves II through XII grossly intact. Rheumatologic--limited exam Psychiatric-asleep and lethargic. Results & Data Results & Data Vital Signs (Past 12 Hours) Vital Signs Temp Pulse Pulse Resp BP BP Pulse Ox 11/08/23 02:47 52 L 16 127/78 97 11/08/23 01:33 98 11/08/23 01:33 87 19 118/69 98 11/08/23 01:33 96 11/08/23 00:45 87 11/08/23 00:35 35.3 C L 82 19 175/99 H 97 O2 Del Method 11/08/23 02:47 Room Air 11/08/23 01:33 Room Air 11/08/23 01:33 Room Air 11/08/23 01:33 Room Air 11/08/23 00:45 11/08/23 00:35 Room Air Laboratory Results Laboratory Results WBC 14.92 K/ul (4.8-10.8) H 11/08/23 01:37 RBC 4.91 M/uL (4.70-6.10) 11/08/23 01:37 Hgb 15.1 g/dl (14.0-18.0) 11/08/23 01:37 Hct 45.6 % (42.0-52.0) 11/08/23 01:37 MCV 92.9 fL (80.0-100.0) 11/08/23 01:37 MCH 30.8 pg (25.0-34.0) 11/08/23 01:37 MCHC 33.1 g/dL (32.0-36.0) 11/08/23 01:37 RDW Std Deviation 42.5 fL (36.4-46.3) 11/08/23 01:37 RDW Coeff of Doris 12.4 % (11.5-14.5) 11/08/23 01:37 Plt Count 238 K/uL (130-400) 11/08/23 01:37 MPV 8.9 fL (9.4-12.4) L 11/08/23 01:37 Immature Gran % (Auto) 0.6 % 11/08/23 01:37 Neut % (Auto) 84.2 % 11/08/23 01:37 Lymph % (Auto) 7.1 % 11/08/23 01:37 Eddy % (Auto) 6.8 % 11/08/23 01:37 Eos % (Auto) 0.9 % 11/08/23 01:37 Baso % (Auto) 0.4 % 11/08/23 01:37 Neut # (Auto) 12.57 K/uL (1.40-6.50) H 11/08/23 01:37 Lymph # (Auto) 1.06 K/uL (1.20-3.40) L 11/08/23 01:37 Eddy # (Auto) 1.01 K/uL (0.11-0.59) H 11/08/23 01:37 Eos # (Auto) 0.13 K/uL (0.00-0.50) 11/08/23 01:37 Baso # (Auto) 0.06 K/uL (0.00-0.20) 11/08/23 01:37 Immature Gran # (Auto) 0.09 K/uL (0.01-0.20) 11/08/23 01:37 Sodium 136 mmol/L (136-145) 11/08/23 01:37 Potassium 4.6 mmol/L (3.5-5.1) 11/08/23 01:37 Chloride 102 mmol/L (98-107) 11/08/23 01:37 Carbon Dioxide 24 mmol/L (21-32) 11/08/23 01:37 Anion Gap 10 (3-11) 11/08/23 01:37 BUN 21 mg/dl (6-23) 11/08/23 01:37 Creatinine 1.17 mg/dl (0.6-1.4) 11/08/23 01:37 Est Cr Clr Drug Dosing 48.6 ml/min 11/08/23 01:37 Est GFR ( Amer) 65.0 ml/min 11/08/23 01:37 Est GFR (Non-Af Amer) 56.1 ml/min 11/08/23 01:37 BUN/Creatinine Ratio 17.9 (10-20) 11/08/23 01:37 Glucose 186 mg/dl (70-99(Fasting)) H 11/08/23 01:37 Lactate 0.7 mmol/L (0.4-2.0) 11/08/23 04:02 Calcium 10.1 mg/dl (8.6-10.3) 11/08/23 01:37 Magnesium 1.9 mg/dl (1.7-2.4) 11/08/23 01:37 Total Bilirubin 0.4 mg/dl (0.2-1.0) 11/08/23 01:37 Direct Bilirubin 0.1 mg/dl (0-0.2) 11/08/23 01:37 AST 19 U/L (13-39) 11/08/23 01:37 ALT 14 U/L (7-52) 11/08/23 01:37 Alkaline Phosphatase 50 U/L (34-104) 11/08/23 01:37 Total Creatine Kinase 141 U/L (30-223) 11/08/23 01:37 Troponin I High Sens 11.8 pg/ml (0-20) 11/08/23 01:37 Total Protein 8.3 gm/dl (6.0-8.3) 11/08/23 01:37 Albumin 4.7 gm/dl (3.4-5.0) 11/08/23 01:37 Procalcitonin < 0.02 ng/ml (0-0.5) 11/08/23 01:37 Urine Color Yellow 11/08/23 01: Urine Appearance Cloudy (Clear) A 11/08/23 01: Urine pH 6.5 (4.5-7.5) 11/08/23 01: Ur Specific [place] 1.019 (1.000-1.030) 11/08/23 01: Urine Protein 1+ (Negative) H 11/08/23 01: Urine Glucose (UA) Trace (Negative) H 11/08/23 01: Urine Ketones Negative (Negative) 11/08/23 01: Urine Blood Trace (Negative) H 11/08/23 01: Urine Nitrite Negative (Negative) 11/08/23 01: Urine Bilirubin Negative (Negative) 11/08/23 01: Urine Urobilinogen Negative (Negative) 11/08/23 01: Ur Leukocyte Esterase Trace (Negative) H 11/08/23 01: Urine WBC (Auto) 6-10 /hpf (0-5) H 11/08/23 01: Urine RBC (Auto) 3-5 /hpf (0-2) H 11/08/23 01:29 U Hyaline Cast (Auto) 3-5 /lpf (0-2) H 11/08/23 01:29 U Epithel Cells (Auto) 0-2 /hpf (0-2) 11/08/23 01:29 Urine Bacteria (Auto) 4+ (None Seen) H 11/08/23 01:29 Adenovirus (PCR) Not Detected (NotDetected) 11/08/23 01:28 B. pertussis DNA (PCR) Not Detected (NotDetected) 11/08/23 01:28 B.parapertussis DNA PCR Not Detected (NotDetected) 11/08/23 01:28 C. pneumoniae DNA (PCR) Not Detected (NotDetected) 11/08/23 01:28 Coronavirus OC43 (PCR) Not Detected (NotDetected) 11/08/23 01:28 Coronavirus HKU1 (PCR) Not Detected (NotDetected) 11/08/23 01:28 Coronavirus 229E (PCR) Not Detected (NotDetected) 11/08/23 01:28 SARS-CoV-2 (PCR) Not Detected (NotDetected) 11/08/23 01:28 Coronavirus NL63 (PCR) Not Detected (NotDetected) 11/08/23 01:28 Human Metapneumovir PCR Not Detected (NotDetected) 11/08/23 01:28 Influenza Type A (PCR) Not Detected (NotDetected) 11/08/23 01:28 Influenza Type B (PCR) Not Detected (NotDetected) 11/08/23 01:28 M. pneumoniae (PCR) Not Detected (NotDetected) 11/08/23 01:28 Parainfluenza 1 (PCR) Not Detected (NotDetected) 11/08/23 01:28 Parainfluenza 2 (PCR) Not Detected (NotDetected) 11/08/23 01:28 Parainfluenza 3 (PCR) Not Detected (NotDetected) 11/08/23 01:28 Parainfluenza 4 (PCR) Not Detected (NotDetected) 11/08/23 01:28 RSV (PCR) Not Detected (NotDetected) 11/08/23 01:28 Entero/Rhino (PCR) Not Detected (NotDetected) 11/08/23 01:[address] 11/08/23 00:35 Exam(s): CT C SPINE EXAM: CT Cervical Spine Without Intravenous Contrast CLINICAL HISTORY: Reason for exam: fall, AMS. TECHNIQUE: Axial computed tomography images of the cervical spine without intravenous contrast. Automated exposure control was utilized for the study. A dose lowering technique was utilized adhering to the principles of ALARA. COMPARISON: Comparison made to prior CT scan cervical spine from August 10, 2023. FINDINGS: Vertebrae: Unremarkable. No acute fracture. Discs/spinal canal/neural foramina: No acute findings. There is a critical spinal canal stenosis at C5-6. Soft tissues: Unremarkable. IMPRESSION: No evidence of acute cervical spine pathology. 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 Recommend MRI to evaluate for myelopathy. Electronically signed by: Sejal Martinez MD 11/08/23 01:[address] 11/08/23 00:35 Exam(s): CT HEAD Without Contrast EXAM: CT Head Without Intravenous Contrast CLINICAL HISTORY: Reason for exam: fall, AMS. TECHNIQUE: Axial computed tomography images of the head/brain without intravenous contrast. Automated exposure control was utilized for the study. A dose lowering technique was utilized adhering to the principles of ALARA. COMPARISON: Comparison made to prior head CT from August 10, 2023. FINDINGS: Brain: Remote ischemic injury of the left temporal, frontal, parietal and occipital lobe with encephalomalacia and gliosis. Moderate nonspecific white matter changes. No edema. Ventricles: Moderate ventriculomegaly. Bones/joints: Unremarkable. No acute fracture. Soft tissues: Unremarkable. Sinuses: Chronic left sphenoid sinusitis. No acute sinusitis. Mastoid air cells: Unremarkable as visualized. No mastoid effusion. IMPRESSION: No evidence of acute intracranial pathology. Electronically signed by: Sejal Martinez MD 11/08/23 01:49 AM Code Status & VTE Plan Code Status DNR/DNI VTE Prophylaxis Plan VTE Prophylaxis will be ordered: Yes PG Care Time/CCT Total # of Minutes Spent Total Time Spent with Patient: Total time spent is greater than 50% in coordination of care (as documented) at patient's floor/unit and/or counseling patient: Coding Level of Care Code 18233 INT INP/OBS CARE 3/75MIN Diagnoses Sepsis due to urinary tract infection A41.9; N39.0 Benign prostatic hyperplasia with urinary obstruction N40.1; N13.8 Urinary retention R33.9 Recurrent urinary tract infection N39.0 AMS (altered mental status) R41.82 Frequent falls R29.6 Cerebral vascular accident I63.9 Controlled type 2 diabetes mellitus with microalbuminuria E11.29; R80.9 History of cardiac cath Z98.890
[2023-11-08] MEDS: SODIUM CHLORIDE 0.9% 500 ML IV ONE (03:25)
[2023-11-08] MEDS: LACTATED RINGER'S 1,000 ML IV SCH (04:25)
--- NOTE | 2023-11-08 04:34 | Urology Consultation ---
<Statement entered by Gume Aguilar MD - 11/08/23 07:48> I have discussed Mr. Strickland's case with Rosendo Porter PA-C and agree with the above documentation. Urinary retention managed with Elliott catheter. Would recommend at least 1 week of bladder rest with catheter in place. If he is still in the hospital, voiding trial could be performed at that time. This could also be coordinated as an outpatient. Blood and urine cultures are pending. Will follow these and narrow coverage as culture data becomes available. -Gume Aguilar MD. Date of Consultation November 08, 2023 Assessment & Plan (1) Urinary retention: Patient has been admitted on the hospitalist service. From a urologic perspective we recommend the following: The patient has been initiated on broad-spectrum antibiotics in the form of vancomycin and cefepime. Appropriate cultures have been sent and antibiotics be tailored based on these results Urinary retention may be in part related to underlying urinary tract infection As noted Elliott catheter has been placed. Would recommend maintaining bladder rest for several days and after appropriate treatment of patient's urinary tract infection a voiding trial can be attempted Additional recommendations will be forthcoming based on his clinical course as unfolds History of Present Illness Reason for Consultation: Urinary retention History of Present Illness This is an 88-year-old female who presented to the emergency department secondary to a syncopal episode. The patient reportedly has had some increased weakness over the past 24 hours and went to the restroom earlier this evening and suffered a syncopal episode. It was an unwitnessed event however the patient's son called EMS and brought the patient to the emergency department. The patient can provide no additional details. In the emergency department the patient was noted to have a urinary tract infection by urinalysis and was felt to be in urinary retention so Elliott catheter was placed. At the time of my presentation to the bedside the patient had an excess of 1.5 L of clear urine draining in the Elliott catheter bag. Since arrival to the hospital the patient has had labs and imaging which I independent reviewed. CT scan of the head showed no intracranial process acutely. CT scan of the cervical spine showed no evidence of fracture. Labs i ncluded CBC her white blood cell count was elevated 14.9. Hemoglobin and hematocrit were both within normal range. Platelet count was normal. Chemistry profile showed sodium and potassium as well as the BUN and creatinine were normal. Urinalysis showed cloudy urine. The specimen was negative for nitrites but had trace leukocyte Estrace and 6-10 white blood cells per high-power field. There is 4+ bacteria on the study. At the time my interview the patient was resting comfortably in bed in no distress. Allergies Allergy/AdvReac Type Severity Reaction Status Date / Time No Known Allergies Allergy Verified 11/08/23 00:55 Home Medications Medication Instructions Recorded Confirmed Type [id number] 300 mcg-K 60 1 tab PO QAM 02/15/19 11/08/23 History mcg-lycop 600 mcg-lutein 300 mcg tablet (Centrum Silver Men) magnesium oxide 400 mg PO BID 03/30/21 11/08/23 History bilateral LE AFO braces #1 ea 11/23/21 08/25/23 Rx triamcinolone acetonide 0.1 % 1 applic topical BID PRN Skin 08/01/22 11/08/23 Rx topical cream Irritation #30 grams blood sugar diagnostic (FreeStyle #100 ea 08/02/22 08/25/23 Rx Lite Strips) blood-glucose meter (FreeStyle #1 ea 08/02/22 08/25/23 Rx Lite Meter kit) lancets 28 gauge (FreeStyle #100 ea 08/02/22 08/25/23 Rx Lancets) CPAP Supplies #1 ea 02/07/23 08/25/23 Rx losartan 100 mg tablet 100 mg PO QAM #90 tabs 03/06/23 11/08/23 Rx metoprolol tartrate 25 mg tablet 25 mg PO BID #180 tabs 03/28/23 11/08/23 Rx clopidogrel 75 mg tablet 75 mg PO QAM #90 tabs 07/18/23 11/08/23 Rx finasteride 5 mg tablet 5 mg PO QAM #90 tabs 07/18/23 11/08/23 Rx metformin 500 mg tablet 500 mg PO BID #180 tabs 10/23/23 11/08/23 Rx simvastatin 20 mg tablet 20 mg PO HS #90 tabs 10/31/23 11/08/23 Rx Patient History Medical History Hyperlipidemia Hypertension Controlled type 2 diabetes mellitus with microalbuminuria History of COVID-19 04/04/23, symptoms lasted 3 days, tx w/paxlovid>no residual symptoms Sleep apnea cpap Hx of squamous cell carcinoma CVA, old, speech/language deficit Hyponatremia Right otitis externa cream prn Gait abnormality Benign prostatic hyperplasia with urinary obstruction Peripheral artery disease Cerebral vascular accident ~age 60, unsure of what initial symptoms>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, cannot talk 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 Surgical History Hx of cataract surgery right History of cardiac cath 03/2023, "wasn't feeling right," no stents>"pt has minimal damage to heart"; f/u mn cardio Hx of squamous cell carcinoma excision No significant past surgical history Family History Mother Coronary heart disease Brother Coronary heart disease Diabetes Hypertension Father Diabetes Denies family history of Ovarian cancer Prostate cancer Myocardial infarction Breast cancer Lung cancer Colorectal cancer Social History Smoking Status: Former smoker Tobacco Type: Cigarettes Age Started Using Tobacco: 18; Age Quit Using Tobacco: 37; packs per day: 1; Second Hand Exposure: Yes ( smoked); Do You Dip or Chew Tobacco: No; Hx Alcohol Use: Yes Alcohol type: hard liquor Alcohol Intake Frequency: 2-4 x/Month Alcohol Intake Frequency Comment: OCCASIONAL Hx Substance Use: No Preferred Language: Maori Communication Ability: Effective Communication Ability Comment: loss of speech w/stroke Visual Impairment: No Limitations Hearing Ability: Use of Hearing Aid Full Stack Software Developer Required: No Beliefs That Will Affect Care: None marital status: / Current Living Situation: Family Current Living Situation Comment: Patient lives in his home with family staying with him for care current occupational status: retired 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 Feels Safe at Home: Yes Childhood Exposure to Second-Hand Smoke: Yes Diet: regular caffeine: Yes Dental Care, Regularly: No Physical Activity Frequency: 5-6 Times per Week Seatbelt Use: never Sunscreen Use: Yes Assistive Devices: Cane and Walker Review of Systems Review of Systems: All systems reviewed & are unremarkable except as noted in HPI & below Physical Exam Constitutional: WD/WN, vitals as above ENMT: Ears: no external ear abnormality Neck: trachea midline Respiratory: + abnormal respiratory effort, no respir atory distress and no labored breathing Cardiovascular: Rate/Rhythm: regular rate and regular rhythm Gastrointestinal (Abdomen): Soft and nontender to palpation Musculoskeletal: No calf tenderness Skin: no rashes Genitourinary: Elliott catheter is in place draining clear yellow urine. No CVA tenderness with percussion Results & Data Vital Signs (Past 12 Hours) Vital Signs Temp Pulse Pulse Resp BP BP Pulse Ox 11/08/23 03:01 91 H 16 158/88 H 96 11/08/23 01:33 98 11/08/23 01:33 87 19 118/69 98 11/08/23 01:33 96 11/08/23 00:45 87 11/08/23 00:35 35.3 C L 82 19 175/99 H 97 O2 Del Method 11/08/23 03:01 Room Air 11/08/23 01:33 Room Air 11/08/23 01:33 Room Air 11/08/23 01:33 Room Air 11/08/23 00:45 11/08/23 00:35 Room Air PG Care Time/CCT Total # of Minutes Spent Total Time Spent with Patient: Total time spent is greater than 50% in coordination of care (as documented) at patient's floor/unit and/or counseling patient: Coding Level of Care Code 80729 INT INP/OBS CARE 3/75MIN Diagnoses Urinary retention R33.9
[2023-11-08] MEDS ORDERED: GLUCAGON FOR INJ 1 MG VIAL SQ PRN (05:28)
[2023-11-08] MEDS ORDERED: DEXTROSE 50% 50 ML SYRINGE IV PRN (05:28)
[2023-11-08] MEDS ORDERED: ONDANSETRON INJ 2 MG/ML 2 ML VIAL IV PRN (05:28)
[2023-11-08] MEDS ORDERED: CARBOHYDRATES FOR HYPOGLYCEMIA PO PRN (05:28)
[2023-11-08] MEDS ORDERED: GLUCOSE 40% GEL 15 GM TUBE PO PRN (05:28)
[2023-11-08] MEDS ORDERED: GLUCOSE 10 TAB/TUBE PO PRN (05:28)
[2023-11-08] MEDS: INSULIN ASPART PER UNIT CHARGE SC SCH ×2 (06:14→14:07)
--- NOTE | 2023-11-08 07:07 | XRay Report ---
XR chest 1V portable HISTORY: 88 years-old Male Sepsis acute sepsis COMPARISON: 08/10/2023 TECHNIQUE: AP view of the chest FINDINGS: Cardiac silhouette is enlarged. Mild chronic coarsening of interstitium. No pneumothorax, large pleur al effusion or overt pulmonary edema. Mild subsegmental left basilar densities. Degenerative changes of the shoulders and spine with sigmoidal scoliosis. Chronic appearing rib fractures. IMPRESSION: 1. Cardiomegaly without acute process. 2. Mild left basilar opacities suggest atelectasis. ACT 112: Negative or not required by law. The above report was generated using voice recognition software. It may contain grammatical, syntax o r spelling errors. Electronically signed by: Michael Goyal M.D. 11/08/2023 7:06 AM
--- NOTE | 2023-11-08 08:22 | Hospitalist Progress Note ---
Date of Service November 08, 2023 Assessment & Plan (1) Sepsis due to urinary tract infection: Plan: Sepsis due to urinary tract infection/recurrent coag negative staph UTI/BPH with LUTS/urinary retention- -reportedly had been to urology office at 1 time prior/unable to produce urine at that visit. 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 bladder wall thickening. does have enlarged prostate (no PSA in system, can add to AM labs) -Patient has grown 2 different coag negative staph infections in the past, one i s oxacillin resistant, and the other is pansensitive -Signs noted that the patient is uncircumcised, has difficulty keeping the area clean s/p mesa catheter placement in ER which immediately produced large volume of 1L of cloudy appearing urine UA w/ trace leuk esterase, blood/RBC, WBC 6-10, 3-5 hyaline cast, 4+ bacteria WBC 14.9k IV Abx: Vancomycin, Cefepime Urine/blood cultures pending s/p 2L NSS in ER Continue on NS @ 80cc/hr x 1L Advance diet as tolerated now that more awake/alert - clear liquid then advance as tolerated. Aspiration precautions Resumed home finasteride - consider addition of tamsulosin Urology consulted- planning to continue to follow, continue mesa catheter for at least 1 week for bladder rest. If still in hospital, voiding trial could be performed vs outpatient pending clinical course Updated son Kulwant by phone, Kulwant/Chris landry POA for Chris. Monitor labs in AM (2) Benign prostatic hyperplasia with urinary obstruction: Plan: resumed home finasteride, consider flomax to start prior to voiding trial to prevent retention given above (3) Urinary retention: Plan: mesa to remain in place at least 1 week, urology following (4) Recurrent urinary tract infection: (5) AMS (altered mental status): Plan: in setting of UTI with baselined hx CVA/right hemiparesis/aphasia/dysphagia- Family reports that patient chews his pills- can ask pharmacy to review and coordinate Resumed plavix daily, metoprolol BID (6) Frequent falls: (7) Cerebral vascular accident: Plan: plavix resumed (8) Controlled type 2 diabetes mellitus with microalbuminuria: Plan: Diabetes mellitus- Holding metformin Glucose 186 on admission On Accu-Cheks with NovoLog SSI (9) History of cardiac cath: Plan continued inpatient stay on IV abx/mesa in place and urology following f/u urine/blood cultures Admission and Anticipated Discharge Date Admission Date: November 08, 2023 Supervising Physician Co-Signing Physician Notes The patient was not seen by me. The chart was reviewed. Case discussed with JOSE ALEJANDRO Mace. Agree with assessment and plan Subjective BRIDGE NOTE: ADMITTED AFTER MIDNIGHT Eval around noon, aide checking blood sugar. Appears more alert/awake today. Does answer questions yes/no, gestures confirmed. He does endorse being hungry, will order diet now that more awake. Discussed will need to remain with catheter in for now/trial after a week but suspecting ongoing issues due to large prostate and now worsened with infection. He is ok for me to update family -- will call son Chris. Questions/concerns addressed at this time. Physical Exam Physical Exam: The patient sitting up in bed, more awake/alert, answering yes/no questions Head atraumatic, normocephalic, mm slightly dry Resp; even/unlabored, slight crackles L base but no w/r, 99% on RA CV:-normal S1 and S2. No murmurs, rubs or gallops. Abdomen-- +BS, soft/NT Extremities--No edema. Dermatologic--normal skin turgor, normal color, no abnormal lymph nodes, no rash. Neurologic--cranial nerves II through XII grossly intact. Rheumatologic--limited exam : mesa draining copious yellow urine Psychiatric-asleep and lethargic. Results & Data Results & Data Vital Signs (Past 12 Hours) Vital Signs Temp Pulse Pulse Pulse Resp BP BP 11/08/23 05:29 11/08/23 05:29 36.8 C 95 H 20 146/84 H 11/08/23 04:51 99 H 16 159/91 H 11/08/23 04:40 98 H 16 159/91 H 11/08/23 03:01 91 H 16 158/88 H 11/08/23 01:33 11/08/23 01:33 87 19 118/69 11/08/23 01:33 11/08/23 00:45 87 11/08/23 00:35 35.3 C L 82 19 175/99 H Pulse Ox O2 Del Method 11/08/23 05:29 Room Air 11/08/23 05:29 99 Room Air 11/08/23 04:51 96 Room Air 11/08/23 04:40 95 Room Air 11/08/23 03:01 96 Room Air 11/08/23 01:33 98 Room Air 11/08/23 01:33 98 Room Air 11/08/23 01:33 96 Room Air 11/08/23 00:45 11/08/23 00:35 97 Room Air Laboratory Results 11/08/23 11/08/23 11/08/23 Range/Units 06:11 04:02 01:37 WBC 14.92 H (4.8-10.8) K/ul RBC 4.91 (4.70-6.10) M/uL Hgb 15.1 (14.0-18.0) g/dl Hct 45.6 (42.0-52.0) % MCV 92.9 (80.0-100.0) fL MCH 30.8 (25.0-34.0) pg MCHC 33.1 (32.0-36.0) g/dL RDW Std Deviation 42.5 (36.4-46.3) fL RDW Coeff of Doris 12.4 (11.5-14.5) % Plt Count 238 (130-400) K/uL MPV 8.9 L (9.4-12.4) fL Immature Gran % (Auto) 0.6 % Neut % (Auto) 84.2 % Lymph % (Auto) 7.1 % Hall % (Auto) 6.8 % Eos % (Auto) 0.9 % Baso % (Auto) 0.4 % Neut # (Auto) 12.57 H (1.40-6.50) K/uL Lymph # (Auto) 1.06 L (1.20-3.40) K/uL Hall # (Auto) 1.01 H (0.11-0.59) K/uL Eos # (Auto) 0.13 (0.00-0.50) K/uL Baso # (Auto) 0.06 (0.00-0.20) K/uL Immature Gran # (Auto) 0.09 (0.01-0.20) K/uL Sodium 136 (136-145) mmol/L Potassium 4.6 (3.5-5.1) mmol/L Chloride 102 (98-107) mmol/L Carbon Dioxide 24 (21-32) mmol/L Anion Gap 10 (3-11) BUN 21 (6-23) mg/dl Creatinine 1.17 (0.6-1.4) mg/dl Est Cr Clr Drug Dosing 48.6 ml/min Est GFR ( Amer) 65.0 ml/min Est GFR (Non-Af Amer) 56.1 ml/min BUN/Creatinine Ratio 17.9 (10-20) Glucose 186 H (70-99(Fasting)) mg/dl POC Glucose 158 H (70-99) mg/dl Lactate 0.7 3.1 H* (0.4-2.0) mmol/L Calcium 10.1 (8.6-10.3) mg/dl Magnesium 1.9 (1.7-2.4) mg/dl Total Bilirubin 0.4 (0.2-1.0) mg/dl Direct Bilirubin 0.1 (0-0.2) mg/dl AST 19 (13-39) U/L ALT 14 (7-52) U/L Alkaline Phosphatase 50 (34-104) U/L Total Creatine Kinase 141 (30-223) U/L Troponin I High Sens 11.8 (0-20) pg/ml Total Protein 8.3 (6.0-8.3) gm/dl Albumin 4.7 (3.4-5.0) gm/dl Procalcitonin < 0.02 (0-0.5) ng/ml Urine Color Urine Appearance (Clear) Urine pH (4.5-7.5) Ur Specific [place] (1.000-1.030) Urine Protein (Negative) Urine Glucose (UA) (Negative) Urine Ketones (Negative) Urine Blood (Negative) Urine Nitrite (Negative) Urine Bilirubin (Negative) Urine Urobilinogen (Negative) Ur Leukocyte Esterase (Negative) Urine WBC (Auto) (0-5) /hpf Urine RBC (Auto) (0-2) /hpf U Hyaline Cast (Auto) (0-2) /lpf U Epithel Cells (Auto) (0-2) /hpf Urine Bacteria (Auto) (None Seen) Adenovirus (PCR) (NotDetected) B. pertussis DNA (PCR) (NotDetected) B.parapertussis DNA PCR (NotDetected) C. pneumoniae DNA (PCR) (NotDetected) Coronavirus OC43 (PCR) (NotDetected) Coronavirus HKU1 (PCR) (NotDetected) Coronavirus 229E (PCR) (NotDetected) SARS-CoV-2 (PCR) (NotDetected) Coronavirus NL63 (PCR) (NotDetected) Human Metapneumovir PCR (NotDetected) Influenza Type A (PCR) (NotDetected) Influenza Type B (PCR) (NotDetected) M. pneumoniae (PCR) (NotDetected) Parainfluenza 1 (PCR) (NotDetected) Parainfluenza 2 (PCR) (NotDetected) Parainfluenza 3 (PCR) (NotDetected) Parainfluenza 4 (PCR) (NotDetected) RSV (PCR) (NotDetected) Entero/Rhino (PCR) (NotDetected) 11/08/23 11/08/23 Range/Units 01:29 01:28 WBC (4.8-10.8) K/ul RBC (4.70-6.10) M/uL Hgb (14.0-18.0) g/dl Hct (42.0-52.0) % MCV (80.0-100.0) fL MCH (25.0-34.0) pg MCHC (32.0-36.0) g/dL RDW Std Deviation (36.4-46.3) fL RDW Coeff of Doris (11.5-14.5) % Plt Count (130-400) K/uL MPV (9.4-12.4) fL Immature Gran % (Auto) % Neut % (Auto) % Lymph % (Auto) % Hall % (Auto) % Eos % (Auto) % Baso % (Auto) % Neut # (Auto) (1.40-6.50) K/uL Lymph # (Auto) (1.20-3.40) K/uL Hall # (Auto) (0.11-0.59) K/uL Eos # (Auto) (0.00-0.50) K/uL Baso # (Auto) (0.00-0.20) K/uL Immature Gran # (Auto) (0.01-0.20) K/uL Sodium (136-145) mmol/L Potassium (3.5-5.1) mmol/L Chloride (98-107) mmol/L Carbon Dioxide (21-32) mmol/L Anion Gap (3-11) BUN (6-23) mg/dl Creatinine (0.6-1.4) mg/dl Est Cr Clr Drug Dosing ml/min Est GFR ( Amer) ml/min Est GFR (Non-Af Amer) ml/min BUN/Creatinine Ratio (10-20) Glucose (70-99(Fasting)) mg/dl POC Glucose (70-99) mg/dl Lactate (0.4-2.0) mmol/L Calcium (8.6-10.3) mg/dl Magnesium (1.7-2.4) mg/dl Total Bilirubin (0.2-1.0) mg/dl Direct Bilirubin (0-0.2) mg/dl AST (13-39) U/L ALT (7-52) U/L Alkaline Phosphatase (34-104) U/L Total Creatine Kinase (30-223) U/L Troponin I High Sens (0-20) pg/ml Total Protein (6.0-8.3) gm/dl Albumin (3.4-5.0) gm/dl Procalcitonin (0-0.5) ng/ml Urine Color Yellow Urine Appearance Cloudy A (Clear) Urine pH 6.5 (4.5-7.5) Ur Specific [place] 1.019 (1.000-1.030) Urine Protein 1+ H (Negative) Urine Glucose (UA) Trace H (Negative) Urine Ketones Negative (Negative) Urine Blood Trace H (Negative) Urine Nitrite Negative (Negative) Urine Bilirubin Negative (Negative) Urine Urobilinogen Negative (Negative) Ur Leukocyte Esterase Trace H (Negative) Urine WBC (Auto) 6-10 H (0-5) /hpf Urine RBC (Auto) 3-5 H (0-2) /hpf U Hyaline Cast (Auto) 3-5 H (0-2) /lpf U Epithel Cells (Auto) 0-2 (0-2) /hpf Urine Bacteria (Auto) 4+ H (None Seen) Adenovirus (PCR) Not Detected (NotDetected) B. pertussis DNA (PCR) Not Detected (NotDetected) B.parapertussis DNA PCR Not Detected (NotDetected) C. pneumoniae DNA (PCR) Not Detected (NotDetected) Coronavirus OC43 (PCR) Not Detected (NotDetected) Coronavirus HKU1 (PCR) Not Detected (NotDetected) Coronavirus 229E (PCR) Not Detected (NotDetected) SARS-CoV-2 (PCR) Not Detected (NotDetected) Coronavirus NL63 (PCR) Not Detected (NotDetected) Human Metapneumovir PCR Not Detected (NotDetected) Influenza Type A (PCR) Not Detected (NotDetected) Influenza Type B (PCR) Not Detected (NotDetected) M. pneumoniae (PCR) Not Detected (NotDetected) Parainfluenza 1 (PCR) Not Detected (NotDetected) Parainfluenza 2 (PCR) Not Detected (NotDetected) Parainfluenza 3 (PCR) Not Detected (NotDetected) Parainfluenza 4 (PCR) Not Detected (NotDetected) RSV (PCR) Not Detected (NotDetected) Entero/Rhino (PCR) Not Detected (NotDetected) Diagnostic Findings Cervical Spine CT 11/08/23 00:35 Exam(s): CT C SPINE EXAM: CT Cervical Spine Without Intravenous Contrast CLINICAL HISTORY: Reason for exam: fall, AMS. TECHNIQUE: Axial computed tomography images of the cervical spine without intravenous contrast. Automated exposure control was utilized for the study. A dose lowering technique was utilized adhering to the principles of ALARA. COMPARISON: Comparison made to prior CT scan cervical spine from August 10, 2023. FINDINGS: Vertebrae: Unremarkable. No acute fracture. Discs/spinal canal/neural foramina: No acute findings. There is a critical spinal canal stenosis at C5-6. Soft tissues: Unremarkable. IMPRESSION: No evidence of acute cervical spine pathology. 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 Recommend MRI to evaluate for myelopathy. Electronically signed by: Sejal Martinez MD 11/08/23 01:46 AM Chest X-Ray 11/08/23 00:35 XR chest 1V portable HISTORY: 88 years-old Male Sepsis acute sepsis COMPARISON: 08/10/2023 TECHNIQUE: AP view of the chest FINDINGS: Cardiac silhouette is enlarged. Mild chronic coarsening of interstitium. No pneumothorax, large pleural effusion or overt pulmonary edema. Mild subsegmental left basilar densities. Degenerative changes of the shoulders and spine with sigmoidal scoliosis. Chronic appearing rib fractures. IMPRESSION: 1. Cardiomegaly without acute process. 2. Mild left basilar opacities suggest atelectasis. ACT 112: Negative or not required by law. The above report was generated using voice recognition software. It may contain grammatical, syntax or spelling errors. Electronically signed by: Michael Goyal M.D. 11/08/2023 7:[address] 11/08/23 00:35 Exam(s): CT HEAD Without Contrast EXAM: CT Head Without Intravenous Contrast CLINICAL HISTORY: Reason for exam: fall, AMS. TECHNIQUE: Axial computed tomography images of the head/brain without intravenous contrast. Automated exposure control was utilized for the study. A dose lowering technique was utilized adhering to the principles of ALARA. COMPARISON: Comparison made to prior head CT from August 10, 2023. FINDINGS: Brain: Remote ischemic injury of the left temporal, frontal, parietal and occipital lobe with encephalomalacia and gliosis. Moderate nonspecific white matter changes. No edema. Ventricles: Moderate ventriculomegaly. Bones/joints: Unremarkable. No acute fracture. Soft tissues: Unremarkable. Sinuses: Chronic left sphenoid sinusitis. No acute sinusitis. Mastoid air cells: Unremarkable as visualized. No mastoid effusion. IMPRESSION: No evidence of acute intracranial pathology. Electronically signed by: Sejal Martinez MD 11/08/23 01:49 AM PG Care Time/CCT Total # of Minutes Spent Total Time Spent with Patient: Total time spent is greater than 50% in coordination of care (as documented) at patient's floor/unit and/or counseling patient: Coding Level of Care Code None Diagnoses Sepsis due to urinary tract infection A41.9; N39.0 Benign prostatic hyperplasia with urinary obstruction N40.1; N13.8 Urinary retention R33.9 Recurrent urinary tract infection N39.0 AMS (altered mental status) R41.82 Frequent falls R29.6 Cerebral vascular accident I63.9 Controlled type 2 diabetes mellitus with microalbuminuria E11.29; R80.9 History of cardiac cath Z98.894
[2023-11-08] MEDS ORDERED: VANCOMYCIN HCL 1,250 MG in SODIUM CHLORIDE 0.9% 500 ML IV SCH (10:00)
[2023-11-08] MEDS: HEPARIN SOD 5,000 UNIT/0.5 ML VIAL SQ SCH (10:08)
--- NOTE | 2023-11-08 11:37 | Pharmacy Report ---
Pharmacy PK ABX Note - Date of Service November 08, 2023 - Assessment and Plan Assessment 88 year old M receiving empiric vancomycin and cefepime for treatment of recurrent UTI. History of recurrent CONS (oxacillin resistant) UTI. Pertinent microbiologic data includes: * BC x 2 pending * Urine culture pending Plan Vancomycin * Loading dose: 1750 mg IV x 1 * Maintenance dose: 1250 mg IV every 24 hours * Regimen is predicted to achieve target AUC/BILLIE of 400-600 mg/L.hr * predicted AUC at steady state: 539 * Will obtain level if therapy continues beyond 48 hours Pharmacy will continue to follow and will adjust dose/frequency as necessary. Thank you. Pharmacy has transitioned to AUC monitoring for vancomycin. AUC/BILLIE is the preferred PK/PD target and is associated with decreased risk of nephrotoxicity compared to traditional trough targets.
--- NOTE | 2023-11-08 11:53 | Electrocardiogram Report ---
Test Reason : Blood Pressure : / mmHG Vent. Rate : 084 BPM Atrial Rate : 084 BPM P-R Int : 176 ms QRS Dur : 098 ms QT Int : 366 ms P-R-T Axes : 052 -07 -23 degrees QTc Int : 432 ms Sinus rhythm with Premature atrial complexes Otherwise normal ECG When compared with ECG of 10-AUG-2023 14:28, Premature atrial complexes are now Present Confirmed by Carson Leon ([id number]) on 11/08/2023 11:53:11 AM Referred By: REFERRED SELF Confirmed By:Beau Leon
[2023-11-08] MEDS ORDERED: Nursing to Pharmacy Communication SCH (12:45)
[2023-11-08] MEDS: METOPROLOL TARTRATE 25 MG TAB PO SCH (13:10)
[2023-11-08] MEDS: FINASTERIDE 5 MG TAB PO SCH (14:05)
[2023-11-08] MEDS: CLOPIDOGREL BISULFATE 75 MG TAB PO SCH (14:05)
[2023-11-08] MEDS: CEFEPIME 2,000 MG in SYRINGE 0 ML IV SCH (15:01)
--- NOTE | 2023-11-08 15:46 | Urology Progress Note ---
Date of Service November 08, 2023 Assessment & Plan (1) Urinary retention: (2) Acute UTI: Plan Afebrile and hemodynamically stable at present Labs today show white count 14.92, hemoglobin 15, creatinine 1.17 Urine and blood cultures are pending Urinary retention managed with Elliott catheter. Recommend maintaining Elliott catheter for at least 1 week for bladder rest and decompression. If he is still in the hospital, voiding trial could be performed at that time. This could also be coordinated as an outpatient. Continue antibiotics and tailor as culture data becomes available Continue supportive care Continue finasteride and consider addition of tamsulosin Will arrange outpatient follow-up with our service Urology will follow peripherally. Please call with any further questions or concerns Admission and Anticipated Discharge Date Admission Date: November 08, 2023 Subjective Pt seen at bedside today No acute distress Awake and alert. Answers some yes/no questions Elliott intact draining clear yellow urine Denies pain or discomfort No fevers Review of Systems Constitutional: as per Subjective / HPI Genitourinary: + as per Subjective / HPI Physical Exam Constitutional: no acute distress Respiratory: no respiratory distress and no labored breathing Neurologic: awake Answers some yes/no questions Psychiatric: Orientation: alert and cooperative Genitourinary: Elliott intact Results & Data Vital Signs (Past 12 Hours) Vital Signs Temp Pulse Pulse Pulse Resp BP BP 11/08/23 13:09 90 151/87 H 11/08/23 07:25 11/08/23 05:29 11/08/23 05:29 36.8 C 95 H 20 146/84 H 11/08/23 04:51 99 H 16 159/91 H 11/08/23 04:40 98 H 16 159/91 H Pulse Ox O2 Del Method 11/08/23 13:09 11/08/23 07:25 Room Air 11/08/23 05:29 Room Air 11/08/23 05:29 99 Room Air 11/08/23 04:51 96 Room Air 11/08/23 04:40 95 Room Air PG Care Time/CCT Total # of Minutes Spent Total Time Spent with Patient: Total time spent is greater than 50% in coordination of care (as documented) at patient's floor/unit and/or counseling patient: Coding Level of Care Code 57496 SUB INP/OBS CARE 2/35MIN Diagnoses Urinary retention R33.9 Acute UTI N39.0
[2023-11-08] MEDS: VANCOMYCIN HCL 1,250 MG in SODIUM CHLORIDE 0.9% 250 ML IV SCH (20:31)
[2023-11-09 06:51] LABS: Basophils # (auto) 0.05 K/uL (0.00-0.20); Basophils % (auto) 0.6 %; Eosinophils # (auto) 0.41 K/uL (0.00-0.50); Eosinophils % (auto) 4.6 %; Hematocrit (blood only) 36.4 % (42.0-52.0); Hemoglobin 12.2 g/dl (14.0-18.0); Immature Granulocytes # (auto) 0.03 K/uL (0.01-0.20); Immature Granulocytes % (auto) 0.3 %; Lymphocytes # (auto) 1.81 K/uL (1.20-3.40); Lymphocytes % (auto) 20.2 %; Mean Corpuscular Hemoglobin 30.4 pg (25.0-34.0); Mean Corpuscular Hgb Conc 33.5 g/dL (32.0-36.0); Mean Corpuscular Volume 90.8 fL (80.0-100.0); Mean Platelet Volume 9.1 fL (9.4-12.4); Monocytes # (auto) 0.84 K/uL (0.11-0.59); Monocytes % (auto) 9.4 %; Neutrophils # (auto) 5.84 K/uL (1.40-6.50); Neutrophils % (auto) 64.9 %; Platelet Count 194 K/uL (130-400); RDW Coefficient of Variation 12.6 % (11.5-14.5); RDW Standard Deviation 42.1 fL (36.4-46.3); Red Blood Count 4.01 M/uL (4.70-6.10); White Blood Count 8.98 K/ul (4.8-10.8)
[2023-11-09 07:16] LABS: Albumin Level 3.6 gm/dl (3.4-5.0); BUN Creatinine Ratio 15.4 (10-20); Calcium 8.7 mg/dl (8.6-10.3); Creatinine Clr Calc Pharmacy 59.7 ml/min; Est GFR (African American) 88.1 ml/min; Magnesium 1.7 mg/dl (1.7-2.4); Potassium 3.6 mmol/L (3.5-5.1)
[2023-11-09 07:19] LABS: Estimated Average Glucose 157 mg/dl; Hemoglobin A1C 7.1 % (4.5-5.6)
[2023-11-09] MEDS: LOSARTAN POTASSIUM 50 MG TAB PO SCH (09:23)
--- NOTE | 2023-11-09 11:24 | Hospitalist Progress Note ---
Date of Service November 09, 2023 Assessment & Plan (1) Sepsis due to urinary tract infection: Plan: Sepsis present on admission has resolved. MRSA isolated in the urine. Cefepime has been discontinued. He is now on oral vancomycin, day 2. Eventual switch to oral Bactrim at the time of discharge. (2) Benign prostatic hyperplasia with urinary obstruction: Plan: Urinary retention present on admission. Elliott catheter placed in the ED. Flomax has been added to Proscar. Appreciate urology consultation and recommendations. Elliott catheter will remain in place at the time of discharge. (3) Recurrent urinary tract infection: Plan: MRSA isolated. Continue intravenous vancomycin, day 2. Eventual switch to oral Bactrim at discharge (4) AMS (altered mental status): Plan: Acute metabolic encephalopathy present on admission. He has now returned to his mental status baseline. Supportive care (5) Frequent falls: Plan: Supportive care. Await OT and PT evaluations. Suspect he will need SNF or IPR placement at the time of discharge (6) Cerebral vascular accident: Plan: Past history of CVA. Stable. Continue Plavix (7) Controlled type 2 diabetes mellitus with microalbuminuria: Plan: ADA diet. Sliding scale coverage. Restart metformin which was held on admission. Plan Currently on intravenous vancomycin which will be switched to oral Bactrim at the time of discharge. Elliott catheter will remain in place at the time of discharge. OT and PT evaluations pending. Admission and Anticipated Discharge Date Admission Date: November 08, 2023 Subjective Alert. Son is at the bedside. Urology consultation noted. Flomax has been added to Proscar. Elliott catheter will remain in place at the time of discharge. MRSA isolated in the urine. Continue vancomycin, day 2. Cefepime has been discontinued. Will eventually switch to oral Bactrim at the time of discharge. OT and PT evaluations pending Review of Systems 2 Review of Systems: Constitutional-no fever or chills ENT-no blurred vision, no double vision, no epistaxis, no sore throat Respiratory-no cough, no wheezing, no shortness of breath Cardiac-no palpitations, no chest pain, no syncope GI-no nausea, vomiting, diarrhea, melena, hematochezia -urinary retention on admission prompted placement of Elliott catheter. No hematuria. Musculoskeletal-no joint pain, no muscle tenderness Skin-no bruising, no rashes, no pruritus Neuro-no isolated weakness, no paresthesia, no weakness Psych-no depression, no anxiety Physical Exam 2 Physical Exam: General-alert. Denies fever or chills HEENT-head atraumatic and normocephalic, pupils equal and reactive to light, extraocular muscles intact Neck-no lymphadenopathy or thyromegaly, trachea midline Chest-clear to auscultation. No rales, wheezing or rhonchi Cardiac-regular rate and rhythm, normal S1 and S2 Abdomen-normal bowel sounds, no hepatosplenomegaly GUFoley catheter in place. No hematuria Extremities-no cyanosis, clubbing, or edema Neuro-cranial nerves II through XII intact, motor and sensory function within normal limits, strength symmetrical with generalized weakness consistent with age, no focal deficits Psych-flat affect. Oriented to name only. Results & Data Results & Data Vital Signs (Past 12 Hours) Vital Signs Temp Pulse Resp BP Pulse Ox O2 Del Method 11/09/23 07:44 36.7 C 87 16 177/91 H 95 Room Air 11/09/23 07:10 Room Air Laboratory Results 11/09/23 06:06 11/09/23 06:06 PG Care Time/CCT Total # of Minutes Spent Total Time Spent with Patient: Total time spent is greater than 50% in coordination of care (as documented) at patient's floor/unit and/or counseling patient: Coding Level of Care Code 64367 SUB INP/OBS CARE 3/50MIN Diagnoses Sepsis due to urinary tract infection A41.9; N39.0 Benign prostatic hyperplasia with urinary obstruction N40.1; N13.8 Recurrent urinary tract infection N39.0 AMS (altered mental status) R41.82 Frequent falls R29.6 Cerebral vascular accident I63.9 Controlled type 2 diabetes mellitus with microalbuminuria E11.29; R80.9
[2023-11-09] MEDS: DOCUSATE SODIUM 100 MG CAP PO SCH (12:36)
[2023-11-09] MEDS: POLYETHYLENE (MIRALAX) 17 GM PACK PO SCH (12:36)
[2023-11-09] MEDS: TAMSULOSIN HCL 0.4 MG CAP PO SCH (20:50)
[2023-11-10 07:36] LABS: Basophils # (auto) 0.03 K/uL (0.00-0.20); Basophils % (auto) 0.3 %; Eosinophils # (auto) 0.22 K/uL (0.00-0.50); Eosinophils % (auto) 2.4 %; Hemoglobin 14.2 g/dl (14.0-18.0); Immature Granulocytes # (auto) 0.03 K/uL (0.01-0.20); Immature Granulocytes % (auto) 0.3 %; Lymphocytes # (auto) 1.15 K/uL (1.20-3.40); Lymphocytes % (auto) 12.5 %; Mean Corpuscular Hemoglobin 30.8 pg (25.0-34.0); Mean Corpuscular Hgb Conc 34.6 g/dL (32.0-36.0); Mean Corpuscular Volume 88.9 fL (80.0-100.0); Mean Platelet Volume 8.9 fL (9.4-12.4); Monocytes # (auto) 0.84 K/uL (0.11-0.59); Monocytes % (auto) 9.1 %; Neutrophils # (auto) 6.96 K/uL (1.40-6.50); Neutrophils % (auto) 75.4 %; Platelet Count 219 K/uL (130-400); RDW Coefficient of Variation 12.2 % (11.5-14.5); RDW Standard Deviation 39.8 fL (36.4-46.3); Red Blood Count 4.61 M/uL (4.70-6.10); White Blood Count 9.23 K/ul (4.8-10.8)
[2023-11-10 07:50] LABS: BUN Creatinine Ratio 15.8 (10-20); Calcium 9.2 mg/dl (8.6-10.3); Creatinine Clr Calc Pharmacy 57.2 ml/min; Est GFR (African American) 83.7 ml/min; Est GFR (Non-African American) 72.2 ml/min; Magnesium 1.8 mg/dl (1.7-2.4); Phosphorus 2.3 mg/dl (2.5-4.9); Potassium 3.5 mmol/L (3.5-5.1)
[2023-11-10] MEDS: METOPROLOL TARTRATE 25 MG TAB PO ONE (11:00)
[2023-11-10] MEDS: metFORMIN HCL 500 MG TAB PO SCH (11:00)
--- NOTE | 2023-11-10 11:11 | Discharge Summary ---
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 He was noted by his son to have had a syncopal episode while in the bathroom, and was brought to the emergency department for assessment. His family reports that the patient has been having worsening weakness and inability to interact with them over the past several days. He is not able to talk, but does communicate with them by gesturing. In the emergency department, his urine suggested infection, and he was noted to have a coagulase-negative staph is a present several times over the past 3 years. They report that he had been to give her urology office at 1 time, and was unable to produce urine at that visit. They describe him standing at the commode for several minutes sometimes need to urinate but having difficulty doing so. He had Elliott catheter placed in the emergency department, and immediately produced large volumes of release 1 L of cloudy appearing urine. The patient himself was not able to contribute to HPI or review of systems due t o acute and chronic issues as noted Principal Diagnosis Sepsis, coagulase negative staphylococcal UTI, acute urinary retention requiring Elliott catheter placement, metabolic encephalopathy, BPH with LUTS Discharge Exam General-alert. Denies fever or chills HEENT-head atraumatic and normocephalic, pupils equal and reactive to light, extraocular muscles intact Neck-no lymphadenopathy or thyromegaly, trachea midline Chest-clear to auscultation. No rales, wheezing or rhonchi Cardiac-regular rate and rhythm, premature beats, normal S1 and S2 Abdomen-normal bowel sounds, no hepatosplenomegaly GUFoley catheter in place. No hematuria Extremities-no cyanosis, clubbing, or edema Neuro-cranial nerves II through XII intact, motor and sensory function within normal limits, strength symmetrical with generalized weakness consistent with age, no focal deficits Psych-flat affect. Oriented to name only. Discharge Data Allergies Allergy/AdvReac Type Severity Reaction Status Date / Time No Known Allergies Allergy Verified 11/08/23 00:55 Consultations 11/08/23 02:12 ED Decision to Admit Stat 11/08/23 04:33 Consult Urology Routine 11/08/23 05:28 Consult Urology Routine Ordered Studies 11/08/23 00:35 CT cervical spine wo con Stat CT head/brain wo con Stat Hospital Course (1) Sepsis due to urinary tract infection: Sepsis present on admission has resolved. Coagulase-negative staph isolated in the urine. Cefepime has been discontinued. He was treated with IV vancomycin while hospitalized and then switched to oral Bactrim at discharge. (2) Benign prostatic hyperplasia with urinary obstruction: Urinary retention present on admission. Elliott catheter placed in the ED. Flomax has been added to Proscar. Appreciate urology consultation and recommendations. Elliott catheter will remain in place at the time of discharge. (3) Recurrent urinary tract infection: Coagulation negative staph isolated. He was treated with vancomycin while hospitalized and now switched to oral Bactrim at discharge. (4) AMS (altered mental status): Acute metabolic encephalopathy present on admission. He has now returned to his mental status baseline. Supportive care (5) Frequent falls: Supportive care. OT and PT evaluations completed. Both recommend IPR placement. He will be discharged to [facility]. (6) Cerebral vascular accident: Past history of CVA. Stable. Continue Plavix (7) Controlled type 2 diabetes mellitus with microalbuminuria: ADA diet. Sliding scale coverage. Restarted metformin which was held on admission. Plan Discharge to [facility] today on oral Bactrim DS. Elliott catheter will remain in place at the time of discharge. Total Time Total Time Spent Total Time Spent (In Minutes): 50 minutes Discharge Plan Discharge Items Patient Disposition: Transfer Inpatient Rehab Fac Reason For Visit: UTI, CONFUSION Discharge Diagnosis: Coagulations negative staphylococcal UTI, sepsis, urinary retention requiring Elliott catheter placement, BPH with LUTS, acute metabolic encephalopathy Condition on Discharge: Good Activity: Resume your previous activity Non-emergency contact: Primary Care Provider and Urologist Call non-emergency contact if: your symptoms worsen Follow-up/Referrals: Salomon Stanton, [Primary Care Provider] - Diet: Carb Consistent or DM2 and Heart Healthy Addtl Attending Provider Instructions: Elliott catheter remains in place. Follow-up with urology for eventual removal. Pending Studies at Discharge: No Stand-Alone Forms: My [facility] Skilled Items Patient informed of condition?: Yes DNR: Yes Discharge Level of Care: Acute rehab Communicable Disease: No Discharge Prognosis: Stable Lines: None Urinary Catheter: Yes Medications and DC Order Prescriptions: New tamsulosin 0.4 mg Capsule 0.4 mg PO HS Qty: 0 0RF docusate sodium 100 mg Capsule 100 mg PO BID Qty: 0 0RF metoprolol tartrate 50 mg Tablet 50 mg PO BID Qty: 0 0RF sulfamethoxazole-trimethoprim [Bactrim DS] 800-160 mg Tablet 1 tab PO BID Qty: 0 0RF polyethylene glycol 3350 [Miralax] 17 gram Powder In Packet 17 g PO DAILY Qty: 0 0RF metformin 500 mg Tablet 500 mg PO BIDM Qty: 0 0RF Continued (DME) blood-glucose meter [FreeStyle Lite Meter] Kit See Rx Instructions .Route Qty: 1 0RF Rx Instructions: As directed (DME) FreeStyle Lite Strips Strip See Rx Instructions .Route Qty: 100 5RF Rx Instructions: test once daily (DME) lancets [FreeStyle Lancets] 28 gauge misc See Rx Instructions .Route Qty: 100 5RF Rx Instructions: test once daily (DME) CPAP Supplies Misc See Rx Instructions .Route Qty: 1 0RF Rx Instructions: CPAP Mask use qHS losartan 100 mg tablet 100 mg PO QAM Qty: 90 3RF finasteride 5 mg tablet 5 mg PO QAM Qty: 90 3RF clopidogrel 75 mg tablet 75 mg PO QAM Qty: 90 3RF metformin 500 mg tablet 500 mg PO BID Qty: 180 3RF simvastatin 20 mg tablet 20 mg PO HS Qty: 90 3RF Hold Instructions: Hold starting 04/04 for Paxlovid, c/w s/p 2 weeks off med Centrum Silver Men 300-600-300 mcg tablet 1 tab PO QAM (DME) bilateral LE AFO braces See Rx Instructions .Route .MEDSUPPLY Qty: 1 0RF Rx Instructions: As directed triamcinolone acetonide 0.1 % cream 1 applic topical BID PRN (Reason: Skin Irritation) Qty: 30 2RF magnesium oxide 400 mg magnesium Tablet 400 mg PO BID Discontinued metoprolol tartrate 25 mg tablet 25 mg PO BID Qty: 180 3RF Discharge Orders: Discharge Order (Routine); Ordered 11/10/23 Ordered By: Riley Ayala/Other Patient Handouts: High Blood Sugar (Hyperglycemia), Hypoglycemia (Low Blood Sugar), Managing Type 2 Diabetes Admission Data Admit Date/Time: 11/08/23 02:54 Attending Provider: Riley Petersen Admit Provider: Kwame Xavier Primary Care Provider: Salomon Stanton Other Providers: Gume Aguilar; Kwame Xavier; [facility] Coding Level of Care Code 24752 INP/OBS DISCH >30 MIN Diagnoses Sepsis due to urinary tract infection A41.9; N39.0 Benign prostatic hyperplasia with urinary obstruction N40.1; N13.8 Recurrent urinary tract infection N39.0 AMS (altered mental status) R41.82 Frequent falls R29.6 Cerebral vascular accident I63.9 Controlled type 2 diabetes mellitus with microalbuminuria E11.29; R80.9
--- NOTE | 2023-11-10 15:22 | Electrocardiogram Report ---
Test Reason : Blood Pressure : / mmHG Vent. Rate : 080 BPM Atrial Rate : 080 BPM P-R Int : 158 ms QRS Dur : 098 ms QT Int : 392 ms P-R-T Axes : 057 -21 -25 degrees QTc Int : 452 ms Sinus rhythm with Premature atrial complexes Abnormal ECG When compared with ECG of 08-NOV-2023 00:34, No significant change was found Confirmed by Carson Leon ([id number]) on 11/10/2023 3:22:32 PM Referred By: REFERRED SELF Confirmed By:Beau Leon
[2023-11-10] MEDS ORDERED: SULFAMETHOXAZOLE/TRIMETHOPRIM DS 800/160MG TAB PO SCH (21:00)
[2023-11-10] MEDS ORDERED: METOPROLOL TARTRATE 50 MG TAB PO SCH (21:00)
== END 2023-11-10 14:59 | DRG 871 ==
LOC: ED 00:25 → 3N 02:54 → SUATTDRO 02:54 → 3N 04:51

== ENCOUNTER 2024-06-11 14:42 | Inpatient (IN) ==
--- NOTE | 2024-06-11 15:44 | Emergency Department Note ---
Impression & Plan Complicated urinary tract infection, History of prostate surgery, Abnormal computed tomography of abdomen and pelvis, Confusion, Generalized weakness, Leukocytosis, Elliott catheter present ED Provider Note NAME: TEODORA HOGAN AGE: 88 SEX: M : 1935 ARRIVES VIA: Ambulance INFORMANT: Patient ED PROVIDER(S): Rhett Solares MD CHIEF COMPLAINT: Generalized weakness, recent prostate surgery, recent UTI, confusion PLAN: Disposition: Admit MEDICAL DECISION MAKING: The patient is a pleasant 88-year-old gentleman with a past medical history of BPH with LUTS, UTI, hypertension, hyperlipidemia, history of TIA who presents to the emergency department via EMS and then accompanied by his son for evaluation of generalized weakness and confusion from his baseline in setting of being seen in this emergency department a week ago for symptoms of urinary retention and urine infection where a Elliott catheter was placed in the setting of being status post prostate surgery (Rezum procedure) on 05/27. The patient lives with his son who reports that the patient developed increased weakness from his baseline today where he was unable to stand on his own. The patient has baseline amatory dysfunction on chronic right-sided weakness related to prior stroke per the patient's son. However he is typically able to get around independently. The patient's son also reports that he has some mild confusion at baseline but this is increased where the patient reported living by himself even though he lives with his son. They report that they did have a scheduled urology appointment today but due to his significant weakness presented to the emergency department. They deny any fevers, nausea, vomiting. He reports that his Elliott catheter has been draining but feels his urine output is less. EKG without overt acute ischemia. CXR negative for acute cardiopulmonary process per my personal preliminary review/interpretation. WBC 15.8 K with neutrophilia but no left shift. H/H similar to prior. Platelets within normal limits. Chemistry without metabolic acidosis. Electrolytes and LFTs without significant abnormality. TSH within normal limits. UA is consistent with infection with WBCs, RBCs and 4+ bacteria. CT of the head was negative for acute normalities. CT of the abdomen pelvis was performed and demonstrates possible abscess within or adjacent to the midline prostate/inseparable from the posterior wall of the bladder measuring 4 x 3.7 x 3.5 cm. Severe cystitis is also described. Description of stable chronic pancreatitis without acute pancreatitis is noted. Additionally, atherosclerosis is present and suggestion of new occlusion of the right external iliac artery with description of minimal flow at the inguinal region though on a venous phase study. Review of patient's prior cultures demonstrates history of Pseudomonas as well as most recently Staph epidermidis which may have reflected contamination. Nevertheless empiric antibiotics initiated with cefepime and daptomycin at this time. Case was discussed with Dr. Avalos, urology on-call. Appreciate consultation and recommendations. Agrees with admission for IV antibiotics and assessment for improvement. CT findings could be consistent with abscess however given nature of the Rezum procedure, findings may be postoperative. Case was discussed with Dr. Kang, [facility] hospitalist, who will evaluate the patient for admission. Triage Nursing notes reviewed and agree them. Prior/external medical records reviewed Vital Signs: reviewed Differential diagnosis: Infection, dehydration, metabolic abnormality, hypo/hyperglycemia, electrolyte disturbance, anemia, hypoxia, cardiac sources, intracerebral event, toxicologic, neurologic, as well as other pathologies. ER treatment provided: See below. Diagnostics interpreted by me: ECG: Normal sinus rhythm, 78 bpm, no ectopy, nonspecific ST abnormality, no overt ST ovation or depression, QTc 430, QRS 100. Cardiac Monitoring: An order for continuous cardiac monitoring was placed and demonstrated Normal sinus rhythm, 78 bpm, no ectopy. Laboratory studies: See below Imaging studies: See below Consultation(s): Dr. Avalos, urology on-call. Dr. Kang, [facility] hospitalist. HPI: The patient is a pleasant 88-year-old gentleman with a past medical history of BPH with LUTS, UTI, hypertension, hyperlipidemia, history of TIA who presents to the emergency department via EMS and then accompanied by his son for evaluation of generalized weakness and confusion from his baseline in setting of being seen in this emergency department a week ago for symptoms of urinary retention and urine infection where a Elliott catheter was placed in the setting of being status post prostate surgery (Rezum procedure) on 05/27. The patient lives with his son who reports that the patient developed increased weakness from his baseline today where he was unable to stand on his own. The patient has baseline amatory dysfunction on chronic right-sided weakness related to prior stroke per the patient's son. However he is typically able to get around independently. The patient's son also reports that he has some mild confusion at baseline but this is increased where the patient reported living by himself even though he lives with his son. They report that they did have a scheduled urology appointment today but due to his significant weakness presented to the emergency department. They deny any fevers, nausea, vomiting. He reports that his Elliott catheter has been draining but feels his urine output is less. ROS: See above HPI for pertinent positives & negatives. A total of 10 systems reviewed and were otherwise negative. VITALS:See Below PHYSICAL EXAMINATION: GENERAL: Awake, alert, fatigued-appearing, in no distress HENT: Normocephalic, atraumatic. Oropharynx with dry mucous membranes.. EYES: Normal conjunctiva. Sclera non-icteric. NECK: Supple. No nuchal rigidity. FROM. No JVD. RESPIRATORY: Clear to auscultation. CARDIAC: Regular rate, normal rhythm. Extremities warm and well perfused. Pulses equal. ABDOMEN: Mild lower abdominal distention but soft. Mild suprapubic tenderness to palpation. No rebound or guarding. MUSCULOSKELETAL: Chest examination reveals no tenderness. The back is symmetrical on inspection without obvious abnormality. There is no CVA tenderness to palpation. No joint edema. LOWER EXTREMITIES: Calves are equal size bilaterally and non-tender. No edema. No discoloration. NEURO: Alert to self and place, confused to situation. Generalized weakness in all extremities with slight increased weakness on the right consistent with the patient's baseline per son at the bedside. SKIN: No rash or jaundice noted. Rhett Solares MD Past Med/Surg History Problem List (Updated 06/12/24 @ 04:16 by Rhett Solares MD) Elliott catheter present (Acute) Leukocytosis (Acute) Generalized weakness (Acute) Confusion (Acute) Abnormal computed tomography of abdomen and pelvis (Acute) History of prostate surgery (Acute) Complicated urinary tract infection (Acute) Stenosis of right external iliac artery Weakness UTI (urinary tract infection) Acute urinary retention (Acute) Penile bleeding (Acute) Encounter for pre-operative examination Nocturnal enuresis (Acute) Diabetic ulcer of right heel (Acute) healed; last seen by wound clinic 04/09/24 Abnormal ankle brachial index Blister of finger MRSA (methicillin resistant staph aureus) culture positive 10/2023 hospital admission; UTI +MRSA Recurrent urinary tract infection Urinary retention (Acute) Fall (Acute) frequent falls; most recent: 09/2023 AMS (altered mental status) (Acute) 10/2023 [facility] admission (sepsis 2/2 UTI) Facial rash Abnormal ECG (Acute) had cath 03/28/23 Acute pain of right knee (Acute) Chronic skin ulcer of left ear (Acute) Seborrheic dermatitis (Acute) Benign prostatic hyperplasia with urinary obstruction (Chronic) Carotid artery stenosis (Acute) Cervical disc disease (Acute) Obstructive sleep apnea (Chronic) Hyperlipidemia Dermatophytosis Hypertension Hypercholesteremia Controlled type 2 diabetes mellitus with microalbuminuria TIA (transient ischemic attack) (Acute) Medical History (Updated 06/12/24 @ 04:16 by Rhett Solares MD) Coronary artery disease severe per 03/28/23 cath: Severe obstructive coronary disease involving subtotal occlusion of the proximal RCA, 50% distal left main, 99% om 2 lesions. Good collateralization of the right coronary via [id number] collaterals Hx of transient ischemic attack (TIA) Hypertension Hx of recurrent urinary tract infection Urinary retention Cervical disc disease son unsure, reports no limits to rom of neck Hx of sepsis (10/2023) admit to [facility], went to rehab ([facility]) afterwards x 2 weeks MRSA (methicillin resistant Staphylococcus aureus) MRSA UTI during [facility] admission 10/2023 Diabetic ulcer of right heel healed now- released from wound clinic 04/09/24 Nocturnal enuresis Carotid artery stenosis Hyperlipidemia BPH (benign prostatic hyperplasia) Controlled type 2 diabetes mellitus with microalbuminuria Frequent falls son jose a (poa) now living with pt. - pt. has only fallen x 1 since august - approx. 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 Surgical History (Updated 06/12/24 @ 03:37 by Rhett Solares MD) History of cardiac cath (03/2023) 03/2023, "wasn't feeling right," no stents>"pt has minimal damage to heart"; f/u [facility] Hx of cataract surgery (06/2023) b/l Hx of squamous cell carcinoma excision Family History Mother Coronary heart disease Brother Coronary heart disease Diabetes Hypertension Father Diabetes Denies family history of Ovarian cancer Prostate cancer Myocardial infarction Breast cancer Lung cancer Colorectal cancer Social History Smoking Status: Former smoker Tobacco Type: Cigarettes Age Started Using Tobacco: 18; Age Quit Using Tobacco: 37; packs per day: 1; Second Hand Exposure: No; Do You Dip or Chew Tobacco: No; Hx Alcohol Use: Yes Alcohol type: wine and hard liquor Alcohol Intake Frequency: 2-4 x/Month Alcohol Intake Frequency Comment: OCCASIONAL Hx Substance Use: No Preferred Language: Pashto Communication Ability: Effective Communication Ability Comment: loss of speech w/stroke Visual Impairment: No Limitations Hearing Ability: Use of Hearing Aid Template Inspector Required: No Beliefs That Will Affect Care: None marital status: / Current Living Situation: Family Current Living Situation Comment: son lives with pt current occupational status: retired 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 Other Information That Helps Us Care for You: No Feels Safe at Home: Yes Safety Concerns: Feels Safe At This Time Childhood Exposure to Second-Hand Smoke: Yes Diet: regular caffeine: Yes Dental Care, Regularly: No Physical Activity Frequency: 5-6 Times per Week Seatbelt Use: never Sunscreen Use: Yes Assistive Devices: CPAP, Denture - Upper, Glasses, Hearing Aid - Bilateral and Special Shoe Allergies Allergies Allergy/AdvReac Type Severity Reaction Status Date / Time No Known Allergies Allergy Verified 05/27/24 08:19 Home Meds Home Medications Medication Instructions Recorded Confirmed [id number] 300 mcg-K 60 1 tab PO QAM 02/15/19 06/02/24 mcg-lycop 600 mcg-lutein 300 mcg tablet (Centrum Silver Men) magnesium oxide 400 mg PO BID 03/30/21 06/02/24 tamsulosin 0.4 mg capsule 0.4 mg PO HS 05/16/24 06/02/24 Previous Rx's Medication Instructions Recorded bilateral LE AFO braces #1 ea 11/23/21 triamcinolone acetonide 0.1 % 1 applic topical BID PRN Skin 08/01/22 topical cream Irritation #30 grams blood-glucose meter (FreeStyle #1 ea 08/02/22 Lite Meter kit) lancets 28 gauge (FreeStyle #100 ea 08/02/22 Lancets) CPAP Supplies #1 ea 02/07/23 clopidogrel 75 mg tablet 75 mg PO QAM #90 tabs 07/18/23 finasteride 5 mg tablet 5 mg PO QAM #90 tabs 07/18/23 simvastatin 20 mg tablet 20 mg PO HS #90 tabs 10/31/23 metformin 500 mg tablet 500 mg PO BIDM #0 tabs 11/10/23 docusate sodium 100 mg capsule 100 mg PO DAILY PRN constipation 11/29/23 #0 caps polyethylene glycol 3350 17 gram 17 g PO DAILY PRN constipation #0 11/29/23 oral powder packet (Miralax) ea blood sugar diagnostic (FreeStyle #100 ea 01/24/24 Test strips) solifenacin 5 mg tablet (Vesicare) 5 mg PO HS #30 tabs 02/13/24 Diabetic Shoes #1 ea 03/07/24 metoprolol tartrate 50 mg tablet 50 mg PO BID #180 tabs 04/15/24 ciprofloxacin HCl 500 mg tablet 500 mg PO Q12H #14 tabs 05/27/24 (Cipro) oxybutynin chloride 5 mg tablet 5 mg PO Q8H PRN bladder spasms #9 05/27/24 tabs phenazopyridine 200 mg tablet 200 mg PO Q8H PRN pain #10 tabs 05/27/24 (Pyridium) tamsulosin 0.4 mg capsule 0.4 mg PO HS #30 caps 05/27/24 Results & Data (ED) Vital Signs Vital Signs - 24 hr 06/11/24 15:03 06/11/24 15:03 06/11/24 15:07 Temperature 37.0 C 37.0 C Temperature Source Oral Oral Pulse Rate 81 80 Pulse Rate [Apical] 81 Pulse Rhythm Regular Pulse Rhythm [Apical] Regular Pulse Strength Normal Pulse Strength [Apical] Normal Respiratory Rate 20 18 Respiratory Effort / Characteristics Non-Labored Spontaneous Non-Labored Spontaneous Respiratory Depth Normal Normal Respiratory Pattern Regular Regular Blood Pressure 107/77 Blood Pressure [Left Arm] 107/77 Blood Pressure Mean 87 Blood Pressure Mean [Left Arm] 87 Blood Pressure Position Semi-fowlers Blood Pressure Position [Left Arm] Semi-fowlers Pulse Oximetry 94 94 Oxygen Delivery Method Room Air Room Air Sepsis Recent Fever Within 48 Hours No Sepsis New/Unexplained Change in Mental Status N/A Sepsis Action Taken by Nursing No Action Required 06/11/24 17:09 06/11/24 17:11 06/11/24 17:47 Temperature Temperature Source Pulse Rate 82 Pulse Rate [Apical] 82 82 Pulse Rhythm Pulse Rhythm [Apical] Pulse Strength Pulse Strength [Apical] Respiratory Rate 16 16 18 Respiratory Effort / Characteristics Non-Labored Spontaneous Non-Labored Spontaneous Respiratory Depth Normal Normal Respiratory Pattern Regular Blood Pressure Blood Pressure [Left Arm] 136/79 142/78 H Blood Pressure Mean Blood Pressure Mean [Left Arm] 98 99 Blood Pressure Position Blood Pressure Position [Left Arm] Pulse Oximetry 96 Oxygen Delivery Method Room Air Room Air Room Air Sepsis Recent Fever Within 48 Hours Sepsis New/Unexplained Change in Mental Status Sepsis Action Taken by Nursing 06/11/24 18:47 06/11/24 19:00 Temperature Temperature Source Pulse Rate 86 Pulse Rate [Apical] 90 Pulse Rhythm Pulse Rhythm [Apical] Pulse Strength Pulse Strength [Apical] Respiratory Rate 14 Respiratory Effort / Characteristics Respiratory Depth Respiratory Pattern Blood Pressure Blood Pressure [Left Arm] 162/90 H Blood Pressure Mean Blood Pressure Mean [Left Arm] 114 Blood Pressure Position Blood Pressure Position [Left Arm] Semi-fowlers Pulse Oximetry Oxygen Delivery Method Sepsis Recent Fever Within 48 Hours Sepsis New/Unexplained Change in Mental Status Sepsis Action Taken by Nursing Laboratory Data Attestation: I reviewed the patient's lab results. 06/11/24 16:16 06/11/24 16:16 Lab Results 06/11/24 06/11/24 06/11/24 Range/Units 15:00 16:16 16:25 WBC 15.86 H (4.8-10.8) K/ul RBC 4.30 L (4.70-6.10) M/uL Hgb 13.1 L (14.0-18.0) g/dl POC Hgb 13.3 L (14.0-18.0) g/dl Hct 38.9 L (42.0-52.0) % POC Hct 39 L (42-52) % MCV 90.5 (80.0-100.0) fL MCH 30.5 (25.0-34.0) pg MCHC 33.7 (32.0-36.0) g/dL RDW Std Deviation 42.8 (36.4-46.3) fL RDW Coeff of Doris 13.0 (11.5-14.5) % Plt Count 296 (130-400) K/uL MPV 9.0 L (9.4-12.4) fL Immature Gran % (Auto) 0.6 % Neut % (Auto) 81.4 % Lymph % (Auto) 8.4 % Cottle % (Auto) 7.8 % Eos % (Auto) 1.5 % Baso % (Auto) 0.3 % Neut # (Auto) 12.91 H (1.40-6.50) K/uL Lymph # (Auto) 1.34 (1.20-3.40) K/uL Cottle # (Auto) 1.24 H (0.11-0.59) K/uL Eos # (Auto) 0.23 (0.00-0.50) K/uL Baso # (Auto) 0.05 (0.00-0.20) K/uL Immature Gran # (Auto) 0.09 (0.01-0.20) K/uL PT 11.0 (9.0-12.0) Seconds INR 1.0 (0.9-1.1) POC Sodium 134 L (135-144) mmol/L Sodium 134 L (136-145) mmol/L POC Potassium 4.3 (3.3-5.0) mmol/L Potassium 4.4 (3.5-5.1) mmol/L POC Chloride 98 L (101-112) mmol/L Chloride 98 (98-107) mmol/L Carbon Dioxide 29 (21-32) mmol/L POC Total CO2 25 (24-31) mmol/L Anion Gap 7 (3-11) POC Anion Gap 16.0 (16-25) mmol/L POC BUN 21 H (7-18) mg/dl BUN 20 (6-23) mg/dl Creatinine 0.95 (0.6-1.4) mg/dl POC Creatinine 1.0 (0.6-1.3) mg/dl Est Cr Clr Drug Dosing 63.1 ml/min eGFR 77.95 BUN/Creatinine Ratio 21.1 H (10-20) Glucose 229 H (70-99(Fasting)) mg/dl POC Glucose (other) 229 H (70-99) mg/dl Calcium 9.8 (8.6-10.3) mg/dl POC Ioniz Calcium Freedom 1.17 (1.12-1.32) mmol/l Phosphorus 2.9 (2.5-4.9) mg/dl Magnesium 2.0 (1.7-2.4) mg/dl Total Bilirubin 0.7 (0.2-1.0) mg/dl AST 14 (13-39) U/L ALT 11 (7-52) U/L Alkaline Phosphatase 55 (34-104) U/L Total Protein 7.7 (6.0-8.3) gm/dl Albumin 3.9 (3.4-5.0) gm/dl Globulin 3.8 (2.5-4.0) gm/dl Albumin/Globulin Ratio 1.0 (0.9-2) TSH 3.843 (0.300-4.500) uIu/ml Urine Color Yellow Urine Appearance Cloudy A (Clear) Urine pH 7.0 (4.5-7.5) Ur Specific [place] >= 1.030 (1.000-1.030) Urine Protein 3+ H (Negative) Urine Glucose (UA) 2+ H (Negative) Urine Ketones Negative (Negative) Urine Blood 3+ H (Negative) Urine Nitrite Negative (Negative) Urine Bilirubin Negative (Negative) Urine Urobilinogen Negative (Negative) Ur Leukocyte Esterase 1+ H (Negative) Urine RBC >20 H (0-2) /hpf Urine WBC >50 H (0-5) /hpf Ur Epithelial Cells 0-2 (0-2) /hpf Urine Bacteria 4+ H (None Seen) Hyaline Casts Present A (None Presnt) /lpf WBC Casts Present A (None Prsent) /lpf Administered Medications Sodium Chloride (Nss) 1,000 mls @ 80 mls/hr IV .[id number] [facility] Stop: 06/12/24 13:29 Last Admin: 06/12/24 01:57 Dose: 80 mls/hr Documented By: DN Insulin Aspart (Insulin Aspart Per Unit Charge) 0 units SC Q6 [facility] Stop: 07/11/24 22:44 Last Admin: 06/11/24 23:32 Dose: 3 units Documented By: DYLLAN Co-signed By: IVELISSE Magnesium Oxide (Magnesium Oxide 400 Mg Tab) 400 mg PO BID [facility] Stop: 07/11/24 22:44 Last Admin: 06/11/24 23:23 Dose: 400 mg Documented By: DYLLAN Metoprolol Tartrate (Metoprolol Tartrate 50 Mg Tab) 50 mg PO BID [facility] Stop: 07/11/24 22:44 Last Admin: 06/11/24 23:23 Dose: 50 mg Documented By: DYLLAN Oxybutynin Chloride (Oxybutynin Chloride Xl 5 Mg Tabcr) 5 mg PO HS [facility] Stop: 07/11/24 22:44 Last Admin: 06/11/24 23:23 Dose: 5 mg Documented By: DYLLAN Tamsulosin HCl (Tamsulosin Hcl 0.4 Mg Cap) 0.4 mg PO HS [facility] Stop: 07/11/24 22:44 Last Admin: 06/11/24 23:23 Dose: 0.4 mg Documented By: DYLLAN Discontinued Medications Sodium Chloride (Nss) 500 mls @ 999 mls/hr IV .Q31M ONE Stop: 06/11/24 16:08 Last Infusion: 06/11/24 16:48 Dose: Infused Documented By: Admin: 06/11/24 16:17 Dose: 999 mls/hr Documented By: IKE Cefepime HCl (Maxipime 2000mg) 2,000 mg in 20 mls @ 5 mls/min IV NOW STA; Protocol Stop: 06/11/24 17:59 Last Admin: 06/11/24 18:07 Dose: 5 mls/min Documented By: BERONICA Daptomycin 400 mg/ Syringe 8 mls @ 4 mls/min IV NOW STA; Protocol Stop: 06/11/24 17:57 Last Admin: 06/11/24 18:15 Dose: 4 mls/min Documented By: ERASTO Ioversol (Optiray 320 100ml) 94 ml IV ONCE ONE Stop: 06/11/24 17:25 Last Admin: 06/11/24 17:25 Dose: 94 ml Documented By: LOAN Simvastatin (Simvastatin 20 Mg Tab) 20 mg PO HS [facility] Stop: 07/11/24 22:44 Last Admin: 06/11/24 23:23 Dose: 20 mg Documented By: [facility] Imaging Data Radiologist's Impression: Chest X-Ray 06/11/24 15:33 EXAM: Radiograph of the Chest 1 View INDICATION: Weakness. TECHNIQUE: Frontal view of the chest. COMPARISON: 11/08/2023 FINDINGS: Lungs and pleural spaces: Stable minimal scarring in the left lung base. No consolidation or pulmonary edema. No pleural effusion or pneumothorax. Heart: Stable prominent cardiac shadow accentuated by technique. Mediastinum: Normal contour. Bones/joints: Degenerative changes noted in the scoliotic spine. No acute osseous abnormality noted. Soft tissues: No abnormality noted. No radiopaque foreign body noted. Upper abdomen: No abnormality noted. IMPRESSION: No acute cardiopulmonary disease. ACT 112: Negative or not required by law. Electronically signed by Peggy Martinez 06-11-2024 4:35 PM Abdomen/Pelvis CT 06/11/24 16:30 EXAM: CT Abdomen and Pelvis With Intravenous Contrast INDICATION: Weakness. Urinary tract infection. TECHNIQUE: Axial computed tomography images of the abdomen and pelvis with intravenous contrast. Sagittal and coronal reformatted images were created and reviewed. This CT exam was performed using one or more of the following dose reduction techniques: automated exposure control, adjustment of the mA and/or kV according to patient size, and/or use of iterative reconstruction technique. CONTRAST: 91ml of Optiray 320 was administered intravenously. COMPARISON: 08/10/2023 and 03/17/2023 FINDINGS: Limitations: None. Lung bases: Basilar airway thickening with mild patchy peribronchial opacity noted in the visualized lung bases. Pleural space: No visualized pleural effusion or pneumothorax. Heart: Stable cardiomegaly and dense coronary calcification. No pericardial effusion. Mediastinum: No abnormality noted. ABDOMEN: Liver: No abnormality noted. Gallbladder and bile ducts: No calcified stones or surrounding fluid. Pancreas: Stable chronic distal pancreatic ductal dilatation and stones. No peripancreatic inflammation. No enhancing mass. No pancreatic gas. Spleen: No significant abnormality noted. Adrenals: No significant abnormality noted. 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 Homogeneous enhancement. No stones or hydronephrosis. Stomach and bowel: No distension or mucosal thickening. No inflammation noted. PELVIS: Appendix: No findings to suggest acute appendicitis. Bladder: There is a catheter balloon inflated in the urinary bladder which is markedly thickened. There is mild surrounding mesenteric inflammation. There is a fluid and gas collection interposed between the bladder and the prostate measuring 4.0 cm AP by 3.7 cm transverse by 3.5 cm long. There are adjacent dense prostate calcifications. Reproductive: No abnormalities noted. ABDOMEN and PELVIS: Intraperitoneal space: No free air. No significant fluid collection. Bones/joints: Degenerative changes noted throughout the spine. No acute osseous abnormality seen. Soft tissues: There are small bilateral fat containing inguinal hernias. Vasculature: There is moderate atherosclerosis. There is new occlusion of the right external iliac artery with some minimal flow at the inguinal region. Lymph nodes: There are stable shotty retroperitoneal nodes. No pathologically enlarged nodes. IMPRESSION: 1. New since the exam of 08/10/2023 is occlusion of the right external iliac artery. 2. There is an abscess within or adjacent to the midline prostate inseparable from the posterior wall of the bladder measuring 4.0 x 3.7 x 3.5 cm. 3. Severe cystitis. 4. Stable chronic distal pancreatitis. No acute pancreatitis noted. ACT 112: Negative or not required by law. Electronically signed by Peggy Martinez 06-11-2024 5:[address] 06/11/24 16:30 EXAM: CT Head Without Intravenous Contrast INDICATION: Weakness. TECHNIQUE: Axial computed tomography images of the head/brain without intravenous contrast. Sagittal and/or coronal reformats are provided. Sagittal and coronal reformatted images were created and reviewed. This CT exam was performed using one or more of the following dose reduction techniques: automated exposure control, adjustment of the mA and/or kV according to patient size, and/or use of iterative reconstruction technique. COMPARISON: 11/08/2023 FINDINGS: Limitations: None. Brain and extra-axial spaces: There is age appropriate cortical atrophy and chronic ischemic periventricular white matter hypodensity. No acute infarct, hemorrhage or mass noted. Stable appearance of moderate old left MCA territory infarct. Bones/joints: No acute changes. Soft tissues: No significant abnormality noted. Vasculature: No acute abnormality noted. Sinuses: Trace chronic right maxillary sinus thickening. Stable partial chronic opacification of the sphenoid sinuses. No sinus fluid. Mastoid air cells: No mastoid effusion. Orbits: No significant abnormality noted. IMPRESSION: Cerebral atrophy. No acute changes. ACT 112: Negative or not required by law. Electronically signed by Peggy Martinez 06-11-2024 5:37 PM Discharge Plan Visit Data Chief Complaint: Urinary Symptoms ED Provider: Rhett Solares ED Midlevel Provider: Carson Gaytan Discharge Problem: Complicated urinary tract infection, History of prostate surgery, Abnormal computed tomography of abdomen and pelvis, Confusion, Generalized weakness, Leukocytosis, Elliott catheter present Patient Disposition: Admitted As Inpatient Discharge Instructions Interventions: ED Discharge Assessment Last Done: 06/12/24 00:22 Discharge Problem: Leukocytosis Qualifiers: Leukocytosis type: unspecified Qualified Code(s): D72.829 - Elevated white blood cell count, unspecified
[2024-06-11 16:06] LABS: Appearance Urine Cloudy (Clear); Bilirubin Urine Negative (Negative); Blood Urine 3+ (Negative); Color Urine Yellow; Glucose Urine UA 2+ (Negative); Ketones Urine Negative (Negative); Leukocyte Esterase Urine 1+ (Negative); Nitrite Urine Negative (Negative); Protein Urine 3+ (Negative); Specific Gravity Urine >= 1.030 (1.000-1.030); Urobilinogen Urine Negative (Negative)
[2024-06-11 16:16] LABS: Bacteria Urine 4+ (None Seen); Epithelial Cell Urine 0-2 /hpf (0-2); WBC Urine >50 /hpf (0-5)
[2024-06-11 16:17] LABS: RBC Urine >20 /hpf (0-2)
[2024-06-11] MEDS: SODIUM CHLORIDE 0.9% 500 ML IV ONE (16:17)
[2024-06-11 16:18] LABS: Hyaline Casts Urine Present /lpf (None Presnt); White Blood Cell Casts Urine Present /lpf (None Prsent)
--- NOTE | 2024-06-11 16:36 | XRay Report ---
EXAM: Radiograph of the Chest 1 View INDICATION: Weakness. TECHNIQUE: Frontal view of the chest. COMPARISON: 11/08/2023 FINDINGS: Lungs and pleural spaces: Stable minimal scarring in the left lung base. No consolidation or pulmonary edema. No pleural effusion or pneumothorax. Heart: Stable prominent cardiac shadow accentuated by technique. Mediastinum: Normal contour. Bones/joints: Degenerative changes noted in the scoliotic spine. No acute osseous abnormality noted. Soft tissues: No abnormality noted. No radiopaque foreign body noted. Upper abdomen: No abnormality noted. IMPRESSION: No acute cardiopulmonary disease. ACT 112: Negative or not required by law. Electronically signed by Peggy Martinez 06-11-2024 4:35 PM
[2024-06-11 16:37] LABS: iSTAT Hemoglobin 13.3 g/dl (14.0-18.0); iSTAT Ionized Calcium 1.17 mmol/l (1.12-1.32); iSTAT Potassium 4.3 mmol/L (3.3-5.0)
[2024-06-11 16:46] LABS: Basophils # (auto) 0.05 K/uL (0.00-0.20); Basophils % (auto) 0.3 %; Eosinophils # (auto) 0.23 K/uL (0.00-0.50); Eosinophils % (auto) 1.5 %; Hematocrit (blood only) 38.9 % (42.0-52.0); Hemoglobin 13.1 g/dl (14.0-18.0); Immature Granulocytes # (auto) 0.09 K/uL (0.01-0.20); Immature Granulocytes % (auto) 0.6 %; Lymphocytes # (auto) 1.34 K/uL (1.20-3.40); Lymphocytes % (auto) 8.4 %; Mean Corpuscular Hemoglobin 30.5 pg (25.0-34.0); Mean Corpuscular Hgb Conc 33.7 g/dL (32.0-36.0); Mean Corpuscular Volume 90.5 fL (80.0-100.0); Monocytes # (auto) 1.24 K/uL (0.11-0.59); Monocytes % (auto) 7.8 %; Neutrophils # (auto) 12.91 K/uL (1.40-6.50); Neutrophils % (auto) 81.4 %; Platelet Count 296 K/uL (130-400); RDW Standard Deviation 42.8 fL (36.4-46.3); White Blood Count 15.86 K/ul (4.8-10.8)
[2024-06-11 16:50] LABS: Albumin Level 3.9 gm/dl (3.4-5.0); BUN Creatinine Ratio 21.1 (10-20); Bilirubin,Total 0.7 mg/dl (0.2-1.0); Calcium 9.8 mg/dl (8.6-10.3); Creatinine Clr Calc Pharmacy 63.1 ml/min; Globulin 3.8 gm/dl (2.5-4.0); Phosphorus 2.9 mg/dl (2.5-4.9); Potassium 4.4 mmol/L (3.5-5.1); Total Protein 7.7 gm/dl (6.0-8.3)
[2024-06-11 17:05] LABS: Thyroid Stimulating Hormone 3.843 uIu/ml (0.300-4.500)
[2024-06-11] MEDS: OPTIRAY 320 100ml IV ONE (17:25)
--- NOTE | 2024-06-11 17:37 | CT Scan Report ---
EXAM: CT Head Without Intravenous Contrast INDICATION: Weakness. TECHNIQUE: Axial computed tomography images of the head/brain without intravenous contrast. Sagittal and/or coronal reformats are provided. Sagittal and coronal reformatted images were created and reviewed. This CT exam was performed using one or more of the following dose reduction techniques: automated exposure control, adjustment of the mA and/or kV according to patient size, and/or use of iterative reconstruction technique. COMPARISON: 11/08/2023 FINDINGS: Limitations: None. Brain and extra-axial spaces: There is age appropriate cortical atrophy and chronic ischemic periventricular white matter hypodensity. No acute infarct, hemorrhage or mass noted. Stable appearance of moderate old left MCA territory infarct. Bones/joints: No acute changes. Soft tissues: No significant abnormality noted. Vasculature: No acute abnormality noted. Sinuses: Trace chronic right maxillary sinus thickening. Stable partial chronic opacification of the sphenoid sinuses. No sinus fluid. Mastoid air cells: No mastoid effusion. Orbits: No significant abnormality noted. IMPRESSION: Cerebral atrophy. No acute changes. ACT 112: Negative or not required by law. Electronically signed by Peggy Martinez 06-11-2024 5:37 PM
--- NOTE | 2024-06-11 17:57 | CT Scan Report ---
EXAM: CT Abdomen and Pelvis With Intravenous Contrast INDICATION: Weakness. Urinary tract infection. TECHNIQUE: Axial computed tomography images of the abdomen and pelvis with intravenous contrast. Sagittal and coronal reformatted images were created and reviewed. This CT exam was performed using one or more of the following dose reduction techniques: automated exposure control, adjustment of the mA and/or kV according to patient size, and/or use of iterative reconstruction technique. CONTRAST: 91ml of Optiray 320 was administered intravenously. COMPARISON: 08/10/2023 and 03/17/2023 FINDINGS: Limitations: None. Lung bases: Basilar airway thickening with mild patchy peribronchial opacity noted in the visualized lung bases. Pleural space: No visualized pleural effusion or pneumothorax. Heart: Stable cardiomegaly and dense coronary calcification. No pericardial effusion. Mediastinum: No abnormality noted. ABDOMEN: Liver: No abnormality noted. Gallbladder and bile ducts: No calcified stones or surrounding fluid. Pancreas: Stable chronic distal pancreatic ductal dilatation and stones. No peripancreatic inflammation. No enhancing mass. No pancreatic gas. Spleen: No significant abnormality noted. Adrenals: No significant abnormality noted. 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 Homogeneous enhancement. No stones or hydronephrosis. Stomach and bowel: No distension or mucosal thickening. No inflammation noted. PELVIS: Appendix: No findings to suggest acute appendicitis. Bladder: There is a catheter balloon inflated in the urinary bladder which is markedly thickened. There is mild surrounding mesenteric inflammation. There is a fluid and gas collection interposed between the bladder and the prostate measuring 4.0 cm AP by 3.7 cm transverse by 3.5 cm long. There are adjacent dense prostate calcifications. Reproductive: No abnormalities noted. ABDOMEN and PELVIS: Intraperitoneal space: No free air. No significant fluid collection. Bones/joints: Degenerative changes noted throughout the spine. No acute osseous abnormality seen. Soft tissues: There are small bilateral fat containing inguinal hernias. Vasculature: There is moderate atherosclerosis. There is new occlusion of the right external iliac artery with some minimal flow at the inguinal region. Lymph nodes: There are stable shotty retroperitoneal nodes. No pathologically enlarged nodes. IMPRESSION: 1. New since the exam of 08/10/2023 is occlusion of the right external iliac artery. 2. There is an abscess within or adjacent to the midline prostate inseparable from the posterior wall of the bladder measuring 4.0 x 3.7 x 3.5 cm. 3. Severe cystitis. 4. Stable chronic distal pancreatitis. No acute pancreatitis noted. ACT 112: Negative or not required by law. Electronically signed by Peggy Martinez 06-11-2024 5:57 PM
[2024-06-11] MEDS: CEFEPIME 2000MG 2,000 MG/20 ML SYR IV STA (18:07)
[2024-06-11] MEDS: DAPTOmycin 400 MG in SYRINGE 0 ML IV STA (18:15)
--- NOTE | 2024-06-11 19:45 | History & Physical Report ---
Date of Service June 11, 2024 Assessment & Plan (1) UTI (urinary tract infection): Plan: -CBC with a leukocytosis of 15. -CMP unremarkable. -TSH normal. -UA with 3+ protein, 3+ blood, 1+ leukocyte esterase, bacteria, hyaline cast, and white blood cell counts. -Abdominal and pelvis CT showed an abscess within or adjacent to the midline prostate inseparable from the posterior wall of the bladder measuring 4.0 x 3.7 x 3.5 cm. As well as severe cystitis. -Started on daptomycin And cefepime. (2) Weakness: Plan: -Right-sided weakness. History of CVA with right-sided deficits. -Head CT negative. -TSH was normal. (3) Benign prostatic hyperplasia with urinary obstruction: Plan: -REZUM done on 05/27 by urology -Abdominal and pelvis CT showed an abscess within or adjacent to the midline prostate inseparable from the posterior wall of the bladder measuring 4.0 x 3.7 x 3.5 cm. -Continue Flomax, finasteride, and oxybutynin. -Urology consulted, appreciate recommendations. Will keep n.p.o. for any surgical intervention in the AM. (4) Controlled type 2 diabetes mellitus with microalbuminuria: Plan: - Patient's home regimen held on admission -Continue BSG checks, sliding-scale insulin, hypoglycemic protocol (5) Stenosis of right external iliac artery: Plan: -CT abdomen pelvis also showed occlusion of the right external iliac artery. -Patient had a arterial eval a couple months ago which showed chronic stenosis and occlusions in the right lower extremity. -On physical exam patient is not having any significant symptoms. No decrease in temperature in the right lower extremity. -Does have some right-sided weakness though patient has a known history of CVA with these defects. -Will get repeat arterial Doppler of the right lower extremity. -Will consult vascular surgery (6) Obstructive sleep apnea: Plan: DALY on CPAP. (7) Hyperlipidemia: Plan: -Will hold simvastatin as patient is on daptomycin. (8) Hypertension: Plan: -Continue home medications. History of Present Illness Chief Complaint: Complic UTI, weak, s/p Rezum Primary Care Provider: Salomon Stanton, DO Patient is a 88-year-old male with significant past medical history of coronary artery disease, remote CVA with residual right-sided weakness and speech deficits, PAD, type 2 diabetes, hypertension, dyslipidemia, BPH, DALY on CPAP. Patient had a recent REZUM done on 05/27 by urology. He has been wearing a catheter ever since. Presented to the hospital with his son reports that he just finished a round of antibiotics for UTI yesterday and has had his catheter in since his surgery. States that the patient was not moving very well. States that he has been having strength standing up. He is also been confused more. He is alert and oriented x 1 (self) which is worse than his baseline. Allergies Allergy/AdvReac Type Severity Reaction Status Date / Time No Known Allergies Allergy Verified 05/27/24 08:19 Home Medications Medication Instructions Recorded Confirmed Type [id number] 300 mcg-K 60 1 tab PO QAM 02/15/19 06/02/24 History mcg-lycop 600 mcg-lutein 300 mcg tablet (Centrum Silver Men) magnesium oxide 400 mg PO BID 03/30/21 06/02/24 History bilateral LE AFO braces #1 ea 11/23/21 05/22/24 Rx triamcinolone acetonide 0.1 % 1 applic topical BID PRN Skin 08/01/22 06/02/24 Rx topical cream Irritation #30 grams blood-glucose meter (FreeStyle #1 ea 08/02/22 05/22/24 Rx Lite Meter kit) lancets 28 gauge (FreeStyle #100 ea 08/02/22 05/22/24 Rx Lancets) CPAP Supplies #1 ea 02/07/23 05/22/24 Rx clopidogrel 75 mg tablet 75 mg PO QAM #90 tabs 07/18/23 06/02/24 Rx finasteride 5 mg tablet 5 mg PO QAM #90 tabs 07/18/23 06/02/24 Rx simvastatin 20 mg tablet 20 mg PO HS #90 tabs 10/31/23 06/02/24 Rx metformin 500 mg tablet 500 mg PO BIDM #0 tabs 11/10/23 06/02/24 Rx docusate sodium 100 mg capsule 100 mg PO DAILY PRN constipation 11/29/23 06/02/24 Rx #0 caps polyethylene glycol 3350 17 gram 17 g PO DAILY PRN constipation #0 11/29/23 06/02/24 Rx oral powder packet (Miralax) ea blood sugar diagnostic (FreeStyle #100 ea 01/24/24 05/22/24 Rx Test strips) solifenacin 5 mg tablet (Vesicare) 5 mg PO HS #30 tabs 02/13/24 06/02/24 Rx Diabetic Shoes #1 ea 03/07/24 05/22/24 Rx metoprolol tartrate 50 mg tablet 50 mg PO BID #180 tabs 04/15/24 06/02/24 Rx tamsulosin 0.4 mg capsule 0.4 mg PO HS 05/16/24 06/02/24 History ciprofloxacin HCl 500 mg tablet 500 mg PO Q12H #14 tabs 05/27/24 06/02/24 Rx (Cipro) oxybutynin chloride 5 mg tablet 5 mg PO Q8H PRN bladder spasms #9 05/27/24 06/02/24 Rx tabs phenazopyridine 200 mg tablet 200 mg PO Q8H PRN pain #10 tabs 05/27/24 06/02/24 Rx (Pyridium) tamsulosin 0.4 mg capsule 0.4 mg PO HS #30 caps 05/27/24 06/02/24 Rx Past Med/Surg History Problem List (Updated 06/12/24 @ 00:38 by Aureliano Lyn DO) Stenosis of right external iliac artery Weakness UTI (urinary tract infection) Acute urinary retention (Acute) Penile bleeding (Acute) Encounter for pre-operative examination Nocturnal enuresis (Acute) Diabetic ulcer of right heel (Acute) healed; last seen by wound clinic 04/09/24 Abnormal ankle brachial index Blister of finger MRSA (methicillin resistant staph aureus) culture positive 10/2023 hospital admission; UTI +MRSA Recurrent urinary tract infection Urinary retention (Acute) Fall (Acute) frequent falls; most recent: 09/2023 AMS (altered mental status) (Acute) 10/2023 [facility] admission (sepsis 2/2 UTI) Facial rash Abnormal ECG (Acute) had cath 03/28/23 Acute pain of right knee (Acute) Chronic skin ulcer of left ear (Acute) Seborrheic dermatitis (Acute) Benign prostatic hyperplasia with urinary obstruction (Chronic) Carotid artery stenosis (Acute) Cervical disc disease (Acute) Obstructive sleep apnea (Chronic) Hyperlipidemia Dermatophytosis Hypertension Hypercholesteremia Controlled type 2 diabetes mellitus with microalbuminuria TIA (transient ischemic attack) (Acute) Medical History (Updated 06/12/24 @ 00:38 by Aureliano Lyn DO) Coronary artery disease severe per 03/28/23 cath: Severe obstructive coronary disease involving subtotal occlusion of the proximal RCA, 50% distal left main, 99% om 2 lesions. Good collateralization of the right coronary via [id number] collaterals Hx of transient ischemic attack (TIA) Hypertension Hx of recurrent urinary tract infection Urinary retention Cervical disc disease son unsure, reports no limits to rom of neck Hx of sepsis (10/2023) admit to [facility], went to rehab ([facility]) afterwards x 2 weeks MRSA (methicillin resistant Staphylococcus aureus) MRSA UTI during [facility] admission 10/2023 Diabetic ulcer of right heel healed now- released from wound clinic 04/09/24 Nocturnal enuresis Carotid artery stenosis Hyperlipidemia BPH (benign prostatic hyperplasia) Controlled type 2 diabetes mellitus with microalbuminuria Frequent falls son jose a (poa) now living with pt. - pt. has only fallen x 1 since august - approx. 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 Surgical History History of cardiac cath (03/2023) 03/2023, "wasn't feeling right," no stents>"pt has minimal damage to heart"; f/u [facility] cardio Hx of cataract surgery (06/2023) b/l Hx of squamous cell carcinoma excision Family History Mother Coronary heart disease Brother Coronary heart disease Diabetes Hypertension Father Diabetes Denies family history of Ovarian cancer Prostate cancer Myocardial infarction Breast cancer Lung cancer Colorectal cancer Social History (Reviewed 05/27/24 @ 08:18 by Magda [place] Smoking Status: Unknown if ever smoked Tobacco Type: Cigarettes Age Started Using Tobacco: 18; Age Quit Using Tobacco: 37; packs per day: 1; Second Hand Exposure: No; Do You Dip or Chew Tobacco: No; Hx Alcohol Use: Yes Alcohol type: wine and hard liquor Alcohol Intake Frequency: 2-4 x/Month Alcohol Intake Frequency Comment: OCCASIONAL Hx Substance Use: No Preferred Language: Cymro Communication Ability: Impaired Communication Ability Comment: loss of speech w/stroke Visual Impairment: No Limitations Hearing Ability: Use of Hearing Aid Principal Secretary Required: No Beliefs That Will Affect Care: None marital status: / Current Living Situation: Family Current Living Situation Comment: son lives with pt current occupational status: retired 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 Feels Safe at Home: Yes Childhood Exposure to Second-Hand Smoke: Yes Diet: regular caffeine: Yes Dental Care, Regularly: No Physical Activity Frequency: 5-6 Times per Week Seatbelt Use: never Sunscreen Use: Yes Assistive Devices: CPAP, Denture - Upper, Glasses, Raised Toilet Seat and Wheelchair Review of Systems Review of Systems: All systems reviewed & are unremarkable except as noted in HPI & below Physical Exam Physical Exam: Constitutional: well-appearing, no acute distress HEENT: NCAT, no conjunctival injection CV: regular rhythm, no murmur appreciated, extremities well-perfused, no LE edema Resp: CTABL, no wheezes/rales/rhonchi appreciated, no increased work of breathing GI: soft, nondistended, nontender, BS normoactive MSK: no gross deformities appreciated Skin: warm, dry, no rash appreciated Neuro: Alert and oriented x 1 right-sided weakness Results & Data Results & Data Vital Signs (Past 12 Hours) Vital Signs Temp Pulse Pulse Resp BP BP Pulse Ox 06/11/24 18:47 86 06/11/24 17:47 82 18 142/78 H 96 06/11/24 17:11 82 16 06/11/24 17:09 82 16 136/79 06/11/24 15:07 80 06/11/24 15:03 37.0 C 81 18 107/77 94 06/11/24 15:03 37.0 C 81 20 107/77 94 O2 Del Method 06/11/24 18:47 06/11/24 17:47 Room Air 06/11/24 17:11 Room Air 06/11/24 17:09 Room Air 06/11/24 15:07 06/11/24 15:03 Room Air 06/11/24 15:03 Room Air
[2024-06-11] MEDS ORDERED: GLUCAGON FOR INJ 1 MG VIAL SQ PRN (22:45)
[2024-06-11] MEDS ORDERED: DEXTROSE 50% 50 ML SYRINGE IV PRN (22:45)
[2024-06-11] MEDS ORDERED: POLYETHYLENE (MIRALAX) 17 GM PACK PO PRN (22:45)
[2024-06-11] MEDS ORDERED: GLUCOSE 10 TAB/TUBE PO PRN (22:45)
[2024-06-11] MEDS ORDERED: GLUCOSE 40% GEL 15 GM TUBE PO PRN (22:45)
[2024-06-11] MEDS ORDERED: PHENAZOPYRIDINE HCL 200 MG TAB PO PRN (22:45)
[2024-06-11] MEDS ORDERED: CARBOHYDRATES FOR HYPOGLYCEMIA PO PRN (22:45)
[2024-06-11] MEDS ORDERED: ONDANSETRON INJ 2 MG/ML 2 ML VIAL IV PRN (22:45)
[2024-06-11] MEDS: SIMVASTATIN 20 MG TAB PO SCH (23:23)
[2024-06-11] MEDS: TAMSULOSIN HCL 0.4 MG CAP PO SCH (23:23)
[2024-06-11] MEDS: OXYBUTYNIN CHLORIDE XL 5 MG TABCR PO SCH (23:23)
[2024-06-11] MEDS: MAGNESIUM OXIDE 400 MG TAB PO SCH (23:23)
[2024-06-11] MEDS: METOPROLOL TARTRATE 50 MG TAB PO SCH (23:23)
[2024-06-11] MEDS: INSULIN ASPART PER UNIT CHARGE SC SCH (23:32)
[2024-06-12] MEDS: SODIUM CHLORIDE 0.9% 1,000 ML IV SCH (01:57)
--- NOTE | 2024-06-12 04:42 | Billing Data ---
Date of Service June 11, 2024 Coding Level of Care Code 02649 INT INP/OBS CARE
[2024-06-12] MEDS: CEFEPIME 1000MG 1,000 MG/10 ML SYR IV SCH (05:51)
--- NOTE | 2024-06-12 06:35 | Ultrasound Report ---
EXAM: US arterial duplex LE RT CLINICAL HISTORY: Follow up CT findings. Rt leg asymptomatic. +diabetes. TECHNIQUE: Ultrasound examination of the right lower extremity arteries with ankle brachial indices was performed in real time and duplex. One or more of the following were performed- spectral analysis, resistive index, waveform analysis, and pulsed Doppler. COMPARISON: Mentioned with previous ultrasound 02/12/2024 but not available. FINDINGS: Ankle-brachial index was not performed. Right proximal part of the external iliac artery is not visualized due to overlying bowel gas. Limited visualization of the right external iliac artery and common femoral arteries due to plaque formation showing trickle flow detected within the B-flow wave. Increased velocities of the right proximal superficial femoral artery causing about 70 to 90% stenosis. No flow seen within the distal right superficial femoral artery likely occluded. Low velocity and monophasic flow is seen throughout the right lower lumbar extremity arteries. Collateral Circulation: not evaluated. Additional Findings: None. Vessel Flow Pattern Right Peak Velocity Right (cm/sec) External iliac artery EIA Monophasic 29 Common Femoral Artery (CLINICAL APPEALS RN) Monophasic 15-25 Deep Femoral Artery (DPA) Monophasic 119 Superficial Femoral Artery (SFA) Monophasic Proximal: 352 cm/s. Mid: 18 cm/s. Distal 0 cm/s Popliteal Artery (POP A) Monophasic Proximal: 37 cm/s Distal: 27 Cm/s Posterior Tibial Artery (DIRECTOR OF ACADEMIC), proximal Monophasic 18 cm/s Posterior Tibial Artery (DIRECTOR OF ACADEMIC), distal Monophasic 16 Peroneal artery Monophasic Proximal: 13 cm/s. Distal: 13 cm/s Anterior tibial artery Monophasic Proximal: 27 cm/s. Distal: 25 cm/s Dorsalis Pedis Artery (DPA) Monophasic 12 cm/s IMPRESSION: 1. Right proximal part of the external iliac artery is not visualized due to overlying bowel gas. 2. Limited visualization of the right external iliac artery and common femoral arteries due to plaque formation showing trickle flow of the right common femotral artery detected within the B-flow wave, suggesting chronic occlusive disease. 3. Increased velocities of the right proximal superficial femoral artery causing about 70 to 90% stenosis. 4. No flow seen within the distal right superficial femoral artery likely occluded. 5. Low velocity and monophasic flow is seen throughout the right lower lumbar extremity arteries. 6. Please correlate clinically. [facility] was called at [phone] at 5:30 AM [facility] [place] on 06/12/2024, and Alma(nurse) was informed regarding the presence of Significant Medical Findings in the report. Electronically signed by Ronni Michel 06-12-2024 06:34 AM
[2024-06-12 06:37] LABS: Eosinophils % (auto) 4.6 %; Hematocrit (blood only) 33.6 % (42.0-52.0); Hemoglobin 11.1 g/dl (14.0-18.0); Lymphocytes % (auto) 9.8 %; Mean Corpuscular Hemoglobin 29.9 pg (25.0-34.0); Mean Corpuscular Volume 90.6 fL (80.0-100.0); Mean Platelet Volume 8.7 fL (9.4-12.4); Monocytes % (auto) 9.3 %; Neutrophils % (auto) 75.4 %; Platelet Count 279 K/uL (130-400); RDW Coefficient of Variation 13.1 % (11.5-14.5); RDW Standard Deviation 43.2 fL (36.4-46.3); Red Blood Count 3.71 M/uL (4.70-6.10); White Blood Count 13.06 K/ul (4.8-10.8)
[2024-06-12 06:38] LABS: Basophils # (auto) 0.04 K/uL (0.00-0.20); Basophils % (auto) 0.3 %; Immature Granulocytes # (auto) 0.08 K/uL (0.01-0.20); Immature Granulocytes % (auto) 0.6 %; Lymphocytes # (auto) 1.28 K/uL (1.20-3.40); Monocytes # (auto) 1.21 K/uL (0.11-0.59); Neutrophils # (auto) 9.85 K/uL (1.40-6.50)
[2024-06-12 06:58] LABS: Albumin Globulin Ratio 0.9 (0.9-2); Albumin Level 3.1 gm/dl (3.4-5.0); BUN Creatinine Ratio 21.4 (10-20); Bilirubin,Total 0.6 mg/dl (0.2-1.0); Calcium 8.8 mg/dl (8.6-10.3); Creatinine Clr Calc Pharmacy 57.4 ml/min; Globulin 3.3 gm/dl (2.5-4.0); Magnesium 1.8 mg/dl (1.7-2.4); Potassium 3.9 mmol/L (3.5-5.1); Total Protein 6.4 gm/dl (6.0-8.3)
--- NOTE | 2024-06-12 07:56 | Hospitalist Progress Note ---
Date of Service June 12, 2024 Assessment & Plan (1) UTI (urinary tract infection): Plan: -CBC with a leukocytosis of ~13 w/ neutrophilic predominance -CMP unremarkable and renal markers wnl -UA suggestive of infection despite recent completion of abx; U/Cx pending -CTAP noting abscess within or adjacent to the midline prostate inseparable from the posterior wall of the bladder measuring 4.0 x 3.7 x 3.5 cm, as well as severe cystitis -Given persistent infection despite abx therapy, prostatitis is also on the differential. -Currently on Cefepime and Daptomycin due to hx of MRSA UTI in the past. If MRSA nares is negative, will dc Daptomycin. (2) Benign prostatic hyperplasia with urinary obstruction: Plan: -REZUM done on 05/27 by urology -Abdominal and pelvis CT showed an abscess within or adjacent to the midline prostate inseparable from the posterior wall of the bladder measuring 4.0 x 3.7 x 3.5 cm. -Continue Flomax, finasteride, and oxybutynin. -Urology consulted Will hold off from further interventions as abscess noted on CTAP could more so be related to fluid and gas collection of prostate likely postoperative given the nature of Rezum procedure using water vapor/steam. Continue Elliott catheter w/ coordination of outpatient urology f/u for voiding trial - Will continue with abx therapy and monitor clinical status. If no improvement is noted despite appropriate abx therapy, will revisit possibility of I&D of potential abscess adjacent to prostate (3) Stenosis of right external iliac artery: Plan: -CT abdomen pelvis also showed occlusion of the right external iliac artery. -Patient had a arterial eval a couple months ago with Dr. Montero which showed chronic stenosis and occlusions in the right lower extremity. -On physical exam patient is not having any significant symptoms. History limited due to confusion. No decrease in temperature in the right lower extremity. -Vascular surgery consulted (4) Weakness: Plan: -Right-sided weakness. History of CVA with right-sided deficits. -Head CT negative. -TSH was normal. -PT/OT consulted (5) Controlled type 2 diabetes mellitus with microalbuminuria: Plan: - Last Hgb A1c on 10/2023 was 7.1% - Repeat Hgb A1c pending - Patient's home regimen held on admission - Continue BSG checks, sliding-scale insulin, hypoglycemic protocol (6) Obstructive sleep apnea: Plan: DALY on CPAP. (7) Hyperlipidemia: Plan: -Will hold simvastatin as patient is on daptomycin. (8) Hypertension: Plan: -Continue home medications. Plan DVT ppx; Lovenox Diet: DM-2, HH Admission and Anticipated Discharge Date Admission Date: June 11, 2024 Supervising Physician Co-Signing Physician Notes I personally examined the patient and verified all orozco points of history and exam, discussed case, and agree with decision making with Dr Russo denies complaints. Also quite confused. Vitals noted, in general he is disoriented to place but appears to be comfortable and in no distress. HEENT normocephalic atraumatic mucous membranes moist. Breathing unlabored no accessory muscle use good effort. Skin without rashes pallor or icterus. Abdomen soft mild distention nontender no guarding rebound or rigidity delirium superimposed on uncertain baseline precipitated by complicated urinary tract infection/Elliott catheter associated urinary tract infection present on admissionpossible prostate abscess (urology suspects this is postoperative changes rather than abscessobviously continue to follow on antibiotics and even immediately after antibiotics are ceased)continue antibiotics, supportive care, follow p.o. intake. Peripheral arterial diseaselikely chronic, but also quite severe. Appreciate vascular input given the low likelihood of needing any procedures, starting Lovenox for DVT prophylaxis in the morningobviously can hold/discontinue if anything changes in that regard Subjective Evaluated at bedside and found to be alone, confused, and disoriented. Reports no pain. No fevers and no overnight events. Nursing states he had his urinary catheter changes last night. Physical Exam Physical Exam: Constitutional: well-appearing, no acute distress HEENT: NCAT, no conjunctival injection CV: regular rhythm, no murmur appreciated, extremities well-perfused, no LE edema Resp: CTABL, no wheezes/rales/rhonchi appreciated, no increased work of breathing GI: soft, nondistended, patient not noting pain with palpation but seemed to flinch with palpation of RLQ MSK: no gross deformities appreciated Skin: warm, dry, no rash appreciated Neuro: Alert and oriented x 1, confused Results & Data Results & Data Vital Signs (Past 12 Hours) Vital Signs Temp Pulse Pulse Pulse Resp BP BP 06/12/24 07:42 37.2 C 85 16 148/78 H 06/12/24 05:50 83 06/12/24 04:16 36.5 C 87 20 124/77 06/12/24 02:18 06/12/24 02:18 37.1 C 76 18 105/62 06/12/24 02:00 75 06/12/24 00:00 86 21 123/64 06/11/24 23:30 98 H 16 113/60 06/11/24 23:00 105 H 23 120/63 06/11/24 22:46 104 H 22 135/63 06/11/24 22:36 104 H 06/11/24 22:00 110 H 26 H 115/60 06/11/24 20:54 103 H 19 119/69 Pulse Ox O2 Del Method O2 Flow Rate 06/12/24 07:42 96 Room Air 06/12/24 05:50 06/12/24 04:16 95 Nasal Cannula 2 06/12/24 02:18 Nasal Cannula 2 06/12/24 02:18 91 Room Air 2 06/12/24 02:00 06/12/24 00:00 96 Nasal Cannula 2 06/11/24 23:30 94 Nasal Cannula 2 06/11/24 23:00 95 Room Air 06/11/24 22:46 91 Room Air 06/11/24 22:36 06/11/24 22:00 92 Room Air 06/11/24 20:54 92 Room Air Resident Activity Tracking Resident Involvement: Resident Care Provided Care Provided: Adult Hospital Medicine
[2024-06-12] MEDS: CLOPIDOGREL BISULFATE 75 MG TAB PO SCH (08:14)
[2024-06-12] MEDS: FINASTERIDE 5 MG TAB PO SCH (08:14)
[2024-06-12] MEDS: CEROVITE ADV FORMULA TAB PO SCH (08:14)
--- NOTE | 2024-06-12 09:44 | Urology Consultation ---
Date of Consultation June 12, 2024 Assessment & Plan (1) History of prostate surgery: (2) Complicated urinary tract infection: (3) Elliott catheter present: 88-year-old male with history of BPH with LUTS and urinary retention status post Rezum admitted for complicated UTI. Patient is afebrile, hemodynamically stable. Labs today reviewedcreatinine 0.98, WBC downtrending (13.06), hemoglobin 11.1. Urinalysis suspicious for infection. Urine culture is pending. Recommend continue with broad-spectrum antibiotics, follow cultures and narrow per sensitivity data when available. CT reviewed and discussedfluid and gas collection of prostate likely postoperative given the nature of Rezum procedure using water vapor/steam. Recommend maintain Elliott catheter for management of urinary retention. Will arrange outpatient voiding trial after discharge. Continue supportive care, antibiotics and medical management per hospital medicine service. No acute intervention at this time, okay to resume diet from perspective. Case reviewed with Dr. Cosme. will follow peripherally, please contact us with any additional questions or concerns. History of Present Illness Attending Physician: Winston Cooper DO History of Present Illness This is an 88-year-old male with history of BPH with LUTS and urinary retention s/p REZUM on 05/27/24. Elliott was removed on 06/06/24, but required replacement in ED later that night. He presented to the emergency department on 06/11/24 via EMS for evaluation of generalized weakness and confusion. On arrival to ED, he was afebrile and hemodynamically stable. Lab work showed a white count of 15.86, hemoglobin 13.1, sodium 134, creatinine 0.95. Urinalysis showed 3+ protein, 2+ glucose, 3+ blood, 1+ LE, >20 RBC, >50 WBC, 4+ bacteria. Workup included CT abdomen pelvis which showed a Elliott catheter within the urinary bladder, bladder wall thickened. There is a fluid and gas collection interposed between the bladder and the prostate measuring 4 x 3.7 x 3.5 cm. ED course: IV fluids, tamsulosin, oxybutynin, cefepime and daptomycin. Patient seen and examined at bedside this morning. He is awake and resting in bed. He is unable to provide meaningful history at present. Denies pain. Elliott patent and draining clear urine. Denies nausea, vomiting, fever or chills at present. Allergies Allergy/AdvReac Type Severity Reaction Status Date / Time No Known Allergies Allergy Verified 05/27/24 08:19 Home Medications Medication Instructions Recorded Confirmed Type [id number] 300 mcg-K 60 1 tab PO QAM 02/15/19 06/02/24 History mcg-lycop 600 mcg-lutein 300 mcg tablet (Centrum Silver Men) magnesium oxide 400 mg PO BID 03/30/21 06/02/24 History bilateral LE AFO braces #1 ea 11/23/21 05/22/24 Rx triamcinolone acetonide 0.1 % 1 applic topical BID PRN Skin 08/01/22 06/02/24 Rx topical cream Irritation #30 grams blood-glucose meter (FreeStyle #1 ea 08/02/22 05/22/24 Rx Lite Meter kit) lancets 28 gauge (FreeStyle #100 ea 08/02/22 05/22/24 Rx Lancets) CPAP Supplies #1 ea 02/07/23 05/22/24 Rx clopidogrel 75 mg tablet 75 mg PO QAM #90 tabs 07/18/23 06/02/24 Rx finasteride 5 mg tablet 5 mg PO QAM #90 tabs 07/18/23 06/02/24 Rx simvastatin 20 mg tablet 20 mg PO HS #90 tabs 10/31/23 06/02/24 Rx metformin 500 mg tablet 500 mg PO BIDM #0 tabs 11/10/23 06/02/24 Rx docusate sodium 100 mg capsule 100 mg PO DAILY PRN constipation 11/29/23 06/02/24 Rx #0 caps polyethylene glycol 3350 17 gram 17 g PO DAILY PRN constipation #0 11/29/23 06/02/24 Rx oral powder packet (Miralax) ea blood sugar diagnostic (FreeStyle #100 ea 01/24/24 05/22/24 Rx Test strips) solifenacin 5 mg tablet (Vesicare) 5 mg PO HS #30 tabs 02/13/24 06/02/24 Rx Diabetic Shoes #1 ea 03/07/24 05/22/24 Rx metoprolol tartrate 50 mg tablet 50 mg PO BID #180 tabs 04/15/24 06/02/24 Rx tamsulosin 0.4 mg capsule 0.4 mg PO HS 05/16/24 06/02/24 History ciprofloxacin HCl 500 mg tablet 500 mg PO Q12H #14 tabs 05/27/24 06/02/24 Rx (Cipro) oxybutynin chloride 5 mg tablet 5 mg PO Q8H PRN bladder spasms #9 05/27/24 06/02/24 Rx tabs phenazopyridine 200 mg tablet 200 mg PO Q8H PRN pain #10 tabs 05/27/24 06/02/24 Rx (Pyridium) tamsulosin 0.4 mg capsule 0.4 mg PO HS #30 caps 05/27/24 06/02/24 Rx Patient History Medical History Coronary artery disease severe per 03/28/23 cath: Severe obstructive coronary disease involving subtotal occlusion of the proximal RCA, 50% distal left main, 99% om 2 lesions. Good collateralization of the right coronary via [id number] collaterals Hx of transient ischemic attack (TIA) Hypertension Hx of recurrent urinary tract infection Urinary retention Cervical disc disease son unsure, reports no limits to rom of neck Hx of sepsis (10/2023) admit to [facility], went to rehab ([facility]) afterwards x 2 weeks MRSA (methicillin resistant Staphylococcus aureus) MRSA UTI during [facility] admission 10/2023 Diabetic ulcer of right heel healed now- released from wound clinic 04/09/24 Nocturnal enuresis Carotid artery stenosis Hyperlipidemia BPH (benign prostatic hyperplasia) Controlled type 2 diabetes mellitus with microalbuminuria Frequent falls son jose a (poa) now living with pt. - pt. has only fallen x 1 since august - approx. 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 Surgical History History of cardiac cath (03/2023) 03/2023, "wasn't feeling right," no stents>"pt has minimal damage to heart"; f/u [facility] cardio Hx of cataract surgery (06/2023) b/l Hx of squamous cell carcinoma excision Family History Mother Coronary heart disease Brother Coronary heart disease Diabetes Hypertension Father Diabetes Denies family history of Ovarian cancer Prostate cancer Myocardial infarction Breast cancer Lung cancer Colorectal cancer Social History Smoking Status: Former smoker Tobacco Type: Cigarettes Age Started Using Tobacco: 18; Age Quit Using Tobacco: 37; packs per day: 1; Second Hand Exposure: No; Do You Dip or Chew Tobacco: No; Hx Alcohol Use: Yes Alcohol type: wine and hard liquor Alcohol Intake Frequency: 2-4 x/Month Alcohol Intake Frequency Comment: OCCASIONAL Hx Substance Use: No Preferred Language: Arabic Communication Ability: Effective Communication Ability Comment: loss of speech w/stroke Visual Impairment: No Limitations Hearing Ability: Use of Hearing Aid [employer] Required: No Beliefs That Will Affect Care: None marital status: / Current Living Situation: Family Current Living Situation Comment: son lives with pt current occupational status: retired 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 Other Information That Helps Us Care for You: No Feels Safe at Home: Yes Safety Concerns: Feels Safe At This Time Childhood Exposure to Second-Hand Smoke: Yes Diet: regular caffeine: Yes Dental Care, Regularly: No Physical Activity Frequency: 5-6 Times per Week Seatbelt Use: never Sunscreen Use: Yes Assistive Devices: CPAP, Denture - Upper, Glasses, Hearing Aid - Bilateral and Special Shoe Review of Systems Review of Systems: All systems reviewed & are unremarkable except as noted in HPI & below Physical Exam Constitutional: no acute distress Respiratory: normal respiratory effort; no respiratory distress and no labored breathing Gastrointestinal (Abdomen): Inspection/Auscultation: abdomen normal to inspection Musculoskeletal: Head/Neck/Chest: normocephalic Neurologic: moves all extremities and awake Psychiatric: Orientation: alert, oriented to person and cooperative Genitourinary: Elliott patent and draining clear urine Results & Data Vital Signs (Past 12 Hours) Vital Signs Temp Pulse Pulse Pulse Resp BP BP 06/12/24 07:42 37.2 C 85 16 148/78 H 06/12/24 05:50 83 06/12/24 04:16 36.5 C 87 20 124/77 06/12/24 02:18 06/12/24 02:18 37.1 C 76 18 105/62 06/12/24 02:00 75 06/12/24 00:00 86 21 123/64 06/11/24 23:30 98 H 16 113/60 06/11/24 23:00 105 H 23 120/63 06/11/24 22:46 104 H 22 135/63 06/11/24 22:36 104 H 06/11/24 22:00 110 H 26 H 115/60 Pulse Ox O2 Del Method O2 Flow Rate 06/12/24 07:42 96 Room Air 06/12/24 05:50 06/12/24 04:16 95 Nasal Cannula 2 06/12/24 02:18 Nasal Cannula 2 06/12/24 02:18 91 Room Air 2 06/12/24 02:00 06/12/24 00:00 96 Nasal Cannula 2 06/11/24 23:30 94 Nasal Cannula 2 06/11/24 23:00 95 Room Air 06/11/24 22:46 91 Room Air 06/11/24 22:36 06/11/24 22:00 92 Room Air PG Care Time/CCT Total # of Minutes Spent Total Time Spent with Patient: Total time spent is greater than 50% in coordination of care (as documented) at patient's floor/unit and/or counseling patient: Coding Level of Care Code 40310 INT INP/OBS CARE 2/55MIN Diagnoses History of prostate surgery Z98.890 Complicated urinary tract infection N39.0 Elliott catheter present Z97.8
--- NOTE | 2024-06-12 13:02 | Vascular Medicine Consultation ---
Date of Consultation June 12, 2024 Assessment & Plan (1) Peripheral artery disease: 2. Prior Right heel ulcer 3. Type 2 diabetes 4. Prior stroke with significant right-sided residual deficits 5. BPH with UTI post procedure 6. Generalized weakness Reviewed patient's recent repeat arterial duplex and CT scan. 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 SFA occlusion also chronic. Patient's prior wounds have healed and right foot appears well-perfused today. No rest lower extremity pain. Patient remains nonambulatory. He has complex multilevel PAD and at this point no potential benefit from attempts at revascularization. Recommend continued conservative vascular care and ASCVD risk factor modification. No plans for intervention unless refractory pain or limb threatening wound. Can follow-up with vascular medicine as needed. History of Present Illness Attending Physician: Winston Cooper DO History of Present Illness Mr. Strickland is a 88-year-old man currently admitted for UTI and increased weakness seen by vascular medicine today for lower extremity PAD. We previously saw patient at the wound clinic 02/2024. At that time he had complex multilevel right lower extremity arterial disease and conservative management recommended. Prior medical history remarkable for remote CVA with residual right-sided weakness and speech deficits. Also with type 2 diabetes, hypertension, dyslipidemia, DALY on CPAP. Prior smoker, quit age 37, 20 pack years. He has a history of BPH and prior UTIs and recently underwent procedure for BPH with Dr. Cosme with urology. At baseline lives at home with his son. This year has been mostly wheelchair dependent due to right-sided weakness, wounds. Prior wounds present since 01/13/2024 occurring while putting on footwear. Treated at wound care center starting 01/31/2024. Treatment has included standard wound therapy, off-loading. Wound eventually healed and discharged from wound clinic 04/09/2024. Yesterday CT of abdomen/pelvis with incidental finding of right external iliac occlusion. Repeat arterial duplex suggested trickle flow in FIELD SUPERINTENDENT, severe proximal SFA, 100% distal SFA and diminished monophasic waveforms and tibials Prior vascular testing: Arterial duplex 02/16: Right KATTY 0.57, TBI 0.3 (toe pressure 44). Left KATTY 0.96, TBI 0.56. Diminished, monophasic right EIA waveforms consistent with inflow disease. 75+% right proximal, 100% distal SFA. Proximal popliteal reconstitutes with monophasic waveforms, patent tibials. Allergies Allergy/AdvReac Type Severity Reaction Status Date / Time No Known Allergies Allergy Verified 05/27/24 08:19 Home Medications Medication Instructions Recorded Confirmed Type [id number] 300 mcg-K 60 1 tab PO QAM 02/15/19 06/02/24 History mcg-lycop 600 mcg-lutein 300 mcg tablet (Centrum Silver Men) magnesium oxide 400 mg PO BID 03/30/21 06/02/24 History bilateral LE AFO braces #1 ea 11/23/21 05/22/24 Rx triamcinolone acetonide 0.1 % 1 applic topical BID PRN Skin 08/01/22 06/02/24 Rx topical cream Irritation #30 grams blood-glucose meter (FreeStyle #1 ea 08/02/22 05/22/24 Rx Lite Meter kit) lancets 28 gauge (FreeStyle #100 ea 08/02/22 05/22/24 Rx Lancets) CPAP Supplies #1 ea 02/07/23 05/22/24 Rx clopidogrel 75 mg tablet 75 mg PO QAM #90 tabs 07/18/23 06/02/24 Rx finasteride 5 mg tablet 5 mg PO QAM #90 tabs 07/18/23 06/02/24 Rx simvastatin 20 mg tablet 20 mg PO HS #90 tabs 10/31/23 06/02/24 Rx metformin 500 mg tablet 500 mg PO BIDM #0 tabs 11/10/23 06/02/24 Rx docusate sodium 100 mg capsule 100 mg PO DAILY PRN constipation 11/29/23 06/02/24 Rx #0 caps polyethylene glycol 3350 17 gram 17 g PO DAILY PRN constipation #0 11/29/23 06/02/24 Rx oral powder packet (Miralax) ea blood sugar diagnostic (FreeStyle #100 ea 01/24/24 05/22/24 Rx Test strips) solifenacin 5 mg tablet (Vesicare) 5 mg PO HS #30 tabs 02/13/24 06/02/24 Rx Diabetic Shoes #1 ea 03/07/24 05/22/24 Rx metoprolol tartrate 50 mg tablet 50 mg PO BID #180 tabs 04/15/24 06/02/24 Rx tamsulosin 0.4 mg capsule 0.4 mg PO HS 05/16/24 06/02/24 History ciprofloxacin HCl 500 mg tablet 500 mg PO Q12H #14 tabs 05/27/24 06/02/24 Rx (Cipro) oxybutynin chloride 5 mg tablet 5 mg PO Q8H PRN bladder spasms #9 05/27/24 06/02/24 Rx tabs phenazopyridine 200 mg tablet 200 mg PO Q8H PRN pain #10 tabs 05/27/24 06/02/24 Rx (Pyridium) tamsulosin 0.4 mg capsule 0.4 mg PO HS #30 caps 05/27/24 06/02/24 Rx Patient History Medical History Coronary artery disease severe per 03/28/23 cath: Severe obstructive coronary disease involving subtotal occlusion of the proximal RCA, 50% distal left main, 99% om 2 lesions. Good collateralization of the right coronary via [id number] collaterals Hx of transient ischemic attack (TIA) Hypertension Hx of recurrent urinary tract infection Urinary retention Cervical disc disease son unsure, reports no limits to rom of neck Hx of sepsis (10/2023) admit to [facility], went to rehab ([facility]) afterwards x 2 weeks MRSA (methicillin resistant Staphylococcus aureus) MRSA UTI during [facility] admission 10/2023 Diabetic ulcer of right heel healed now- released from wound clinic 04/09/24 Nocturnal enuresis Carotid artery stenosis Hyperlipidemia BPH (benign prostatic hyperplasia) Controlled type 2 diabetes mellitus with microalbuminuria Frequent falls son jose a (poa) now living with pt. - pt. has only fallen x 1 since august - approx. 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 Surgical History History of cardiac cath (03/2023) 03/2023, "wasn't feeling right," no stents>"pt has minimal damage to heart"; f/u [facility] cardio Hx of cataract surgery (06/2023) b/l Hx of squamous cell carcinoma excision Family History Mother Coronary heart disease Brother Coronary heart disease Diabetes Hypertension Father Diabetes Denies family history of Ovarian cancer Prostate cancer Myocardial infarction Breast cancer Lung cancer Colorectal cancer Social History Smoking Status: Former smoker Tobacco Type: Cigarettes Age Started Using Tobacco: 18; Age Quit Using Tobacco: 37; packs per day: 1; Second Hand Exposure: No; Do You Dip or Chew Tobacco: No; Hx Alcohol Use: Yes Alcohol type: wine and hard liquor Alcohol Intake Frequency: 2-4 x/Month Alcohol Intake Frequency Comment: OCCASIONAL Hx Substance Use: No Preferred Language: Mosotho Communication Ability: Impaired Communication Ability Comment: loss of speech w/stroke Visual Impairment: No Limitations Hearing Ability: Use of Hearing Aid Apprentice Embalmer Required: No Beliefs That Will Affect Care: None marital status: / Current Living Situation: Family Current Living Situation Comment: son lives with pt current occupational status: retired 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 Other Information That Helps Us Care for You: No Feels Safe at Home: Yes Safety Concerns: Feels Safe At This Time Childhood Exposure to Second-Hand Smoke: Yes Diet: regular caffeine: Yes Dental Care, Regularly: No Physical Activity Frequency: 5-6 Times per Week Seatbelt Use: never Sunscreen Use: Yes Assistive Devices: Bedside Commode, Cane and Wheelchair Review of Systems Review of Systems: Unobtainable due to cognitive status Physical Exam Physical Exam: General: Comfortable, frail, only answers yes or no to questions Eyes: Sclerae anicteric Lungs: Clear to auscultation bilaterally, Cardiac: Regular rate and rhythm, no murmurs Abdomen: Soft, nontender Neuro: Residual right-sided weakness Psych: Alert orient x3, normal affect and mood Extremities/Vascular: -- 2+ radial bilaterally -- Nonpalpable femoral/popliteal on right --Nonpalpable DP/PT pulses on right. Right foot warm with slightly reduced capillary show No residual wounds -- No edema Results & Data Vital Signs (Past 12 Hours) Vital Signs Temp Pulse Pulse Pulse Resp BP Pulse Ox 06/12/24 11:39 98.2 F 83 18 105/64 92 06/12/24 11:10 06/12/24 10:24 06/12/24 07:42 99.0 F 85 16 148/78 H 96 06/12/24 05:50 83 06/12/24 04:16 97.7 F 87 20 124/77 95 06/12/24 02:18 06/12/24 02:18 98.8 F 76 18 105/62 91 06/12/24 02:00 75 Pulse Ox O2 Del Method O2 Flow Rate O2 Flow Rate 06/12/24 11:39 Room Air 06/12/24 11:10 97 2 06/12/24 10:24 Room Air 06/12/24 07:42 Room Air 06/12/24 05:50 06/12/24 04:16 Nasal Cannula 2 06/12/24 02:18 Nasal Cannula 2 06/12/24 02:18 Room Air 2 06/12/24 02:00 PG Care Time/CCT Total # of Minutes Spent Total Time Spent with Patient: Total time spent is greater than 50% in coordination of care (as documented) at patient's floor/unit and/or counseling patient: Coding Level of Care Code 57903 INT INP/OBS CARE 2/55MIN Diagnoses Peripheral artery disease I73.9
[2024-06-12 13:33] LABS: Estimated Average Glucose 197 mg/dl; Hemoglobin A1C 8.5 % (4.5-5.6)
--- NOTE | 2024-06-12 13:49 | Billing Data ---
Date of Service June 12, 2024 Coding Level of Care Code 68662 SUB INP/OBS CARE
[2024-06-12] MEDS: DAPTOmycin 325 MG in SYRINGE 0 ML IV SCH (17:24)
[2024-06-12] MEDS ORDERED: MICONAZOLE NITRATE POWDER 85 GM EXT PRN (21:36)
[2024-06-12] MEDS: INSULIN ASPART PER UNIT CHARGE SC SCH (22:57)
[2024-06-13] MEDS: ENOXAPARIN INJ 40 MG/0.4 ML SYR SQ SCH (08:06)
[2024-06-13 08:31] LABS: Basophils # (auto) 0.03 K/uL (0.00-0.20); Basophils % (auto) 0.2 %; Eosinophils # (auto) 0.56 K/uL (0.00-0.50); Eosinophils % (auto) 4.5 %; Hematocrit (blood only) 34.3 % (42.0-52.0); Hemoglobin 11.7 g/dl (14.0-18.0); Immature Granulocytes # (auto) 0.05 K/uL (0.01-0.20); Immature Granulocytes % (auto) 0.4 %; Lymphocytes # (auto) 1.28 K/uL (1.20-3.40); Lymphocytes % (auto) 10.4 %; Mean Corpuscular Hemoglobin 30.5 pg (25.0-34.0); Mean Corpuscular Hgb Conc 34.1 g/dL (32.0-36.0); Mean Corpuscular Volume 89.3 fL (80.0-100.0); Mean Platelet Volume 8.9 fL (9.4-12.4); Monocytes # (auto) 1.11 K/uL (0.11-0.59); Neutrophils # (auto) 9.31 K/uL (1.40-6.50); Neutrophils % (auto) 75.5 %; Platelet Count 307 K/uL (130-400); RDW Coefficient of Variation 12.9 % (11.5-14.5); RDW Standard Deviation 42.2 fL (36.4-46.3); Red Blood Count 3.84 M/uL (4.70-6.10); White Blood Count 12.34 K/ul (4.8-10.8)
[2024-06-13 08:48] LABS: BUN Creatinine Ratio 22.4 (10-20); Calcium 8.7 mg/dl (8.6-10.3); Creatinine Clr Calc Pharmacy 74.8 ml/min; Potassium 3.6 mmol/L (3.5-5.1)
--- NOTE | 2024-06-13 10:09 | Hospitalist Progress Note ---
Date of Service June 13, 2024 Assessment & Plan (1) UTI (urinary tract infection): Plan: -CBC with mild improvement of leukocytosis 13.06 --> 12.34 -CMP unremarkable and renal markers wnl -UA suggestive of infection despite recent completion of abx; U/Cx w/ pin-point growth (re-incubating) -CTAP noting abscess within or adjacent to the midline prostate inseparable from the posterior wall of the bladder measuring 4.0 x 3.7 x 3.5 cm, as well as severe cystitis -Given persistent infection despite abx therapy, prostatitis is also on the differential. -Continue Cefepime (2) Benign prostatic hyperplasia with urinary obstruction: Plan: -REZUM done on 05/27 by urology -Abdominal and pelvis CT showed an abscess within or adjacent to the midline prostate inseparable from the posterior wall of the bladder measuring 4.0 x 3.7 x 3.5 cm. -Continue Flomax, finasteride, and oxybutynin. -Urology consulted; hold off on interventions, continue catheter w/ outpatient f/u for voiding trial - Will continue with abx therapy and monitor clinical status. If no improvement is noted despite appropriate abx therapy, will revisit possibility of I&D of potential abscess adjacent to prostate (3) Stenosis of right external iliac artery: Plan: -CT abdomen pelvis also showed occlusion of the right external iliac artery. -Patient had a arterial eval a couple months ago with Dr. Montero which showed chronic stenosis and occlusions in the right lower extremity. -Vascular surgery consulted; no intervention as this is likely chronic (4) Weakness: Plan: -Right-sided weakness. History of CVA with right-sided deficits. -Head CT negative. -TSH was normal. -PT/OT consulted (5) Controlled type 2 diabetes mellitus with microalbuminuria: Plan: - Last Hgb A1c on 10/2023 was 7.1% - Repeat Hgb A1c is 8.5% - Continue lantus w/ SSI; bsg check achs (6) Obstructive sleep apnea: Plan: DALY on CPAP. (7) Hyperlipidemia: Plan: -Continue statin now that daptomycin is dc (8) Hypertension: Plan: -Continue home medications. Plan DVT ppx; Lovenox Diet: DM-2, HH Admission and Anticipated Discharge Date Admission Date: June 11, 2024 Supervising Physician Co-Signing Physician Notes I personally examined the patient and verified all orozco points of history and exam, discussed case, and agree with decision making with Dr Russo no new issues noted. Sleeping. Case discussed with resident physician in detail. Vitals noted. Resting comfortably and in no distress. HEENT normocephalic atraumatic mucous membranes moist. Breathing unlabored no accessory muscle use good effort. Skin without rashes pallor or icterus. delirium superimposed on uncertain baseline precipitated by complicated urinary tract infection/Elliott catheter associated urinary tract infection present on admissionpossible prostate abscess (urology suspects this is postoperative changes rather than abscessobviously continue to follow on antibiotics and even immediately after antibiotics are ceased)continue antibiotics, supportive care, follow p.o. intake. White count slightly improvedstay the course for now. Any worsening or any failure to improve or any rebound off of antibioticswould ask urology to reevaluate Peripheral arterial diseaselikely chronic, but also quite severe. Appreciate vascular input DVT proph - lovenox Subjective Feeling well. Denies pain. No changes overnight Physical Exam Physical Exam: Constitutional: well-appearing, no acute distress HEENT: NCAT, no conjunctival injection CV: regular rhythm, no murmur appreciated, extremities well-perfused, no LE edema Resp: CTABL, no wheezes/rales/rhonchi appreciated, no increased work of breathin g GI: soft, nondistended Skin: warm, dry, no rash appreciated Neuro: Awake, alert and oriented x 1 Results & Data Results & Data Vital Signs (Past 12 Hours) Vital Signs Temp Pulse Pulse Resp BP Pulse Ox O2 Del Method 06/13/24 08:22 37.0 C 86 16 152/86 H 94 Room Air 06/13/24 05:53 96 H 06/13/24 02:56 36.7 C 88 18 164/71 H 95 Room Air 06/13/24 01:04 74 18 97 06/13/24 00:24 Room Air, CPAP 06/12/24 23:49 180/101 H 06/12/24 23:49 36.6 C 98 H 16 180/114 H 98 Nasal Cannula 06/12/24 23:15 102 H O2 Flow Rate 06/13/24 08:22 06/13/24 05:53 06/13/24 02:56 06/13/24 01:04 2 06/13/24 00:24 06/12/24 23:49 06/12/24 23:49 2 06/12/24 23:15 Resident Activity Tracking Resident Involvement: Resident Care Provided Care Provided: Adult Hospital Medicine
--- NOTE | 2024-06-13 18:35 | Billing Data ---
Date of Service June 13, 2024 Coding Level of Care Code 47950 SUB INP/OBS CARE
[2024-06-13] MEDS: SIMVASTATIN 20 MG TAB PO SCH (21:01)
[2024-06-13] MEDS: LANTUS PER UNIT CHARGE SQ SCH (21:02)
--- NOTE | 2024-06-13 21:30 | Electrocardiogram Report ---
Test Reason : Blood Pressure : */* mmHG Vent. Rate : 78 BPM Atrial Rate : 78 BPM P-R Int : 152 ms QRS Dur : 100 ms QT Int : 378 ms P-R-T Axes : 50 -6 -34 degrees QTcB Int : 430 ms Normal sinus rhythm Nonspecific ST abnormality Abnormal ECG When compared with ECG of 10-Nov-2023 10:49, Premature atrial complexes are no longer Present Criteria for Inferior infarct are no longer Present Confirmed by Edgar Reese ([id number]) on 06/13/2024 9:29:39 PM Referred By: REFERRED SELF Confirmed By: Edgar Reese
[2024-06-14 07:43] LABS: Basophils # (auto) 0.02 K/uL (0.00-0.20); Basophils % (auto) 0.1 %; Eosinophils # (auto) 0.03 K/uL (0.00-0.50); Eosinophils % (auto) 0.2 %; Hematocrit (blood only) 34.7 % (42.0-52.0); Hemoglobin 11.7 g/dl (14.0-18.0); Immature Granulocytes # (auto) 0.06 K/uL (0.01-0.20); Immature Granulocytes % (auto) 0.4 %; Lymphocytes # (auto) 1.29 K/uL (1.20-3.40); Lymphocytes % (auto) 8.8 %; Mean Corpuscular Hgb Conc 33.7 g/dL (32.0-36.0); Mean Platelet Volume 8.9 fL (9.4-12.4); Monocytes % (auto) 7.5 %; Neutrophils # (auto) 12.12 K/uL (1.40-6.50); Platelet Count 310 K/uL (130-400); RDW Coefficient of Variation 12.7 % (11.5-14.5); RDW Standard Deviation 41.6 fL (36.4-46.3); White Blood Count 14.62 K/ul (4.8-10.8)
[2024-06-14 07:55] LABS: BUN Creatinine Ratio 22.2 (10-20); Calcium 8.9 mg/dl (8.6-10.3); Creatinine Clr Calc Pharmacy 62.5 ml/min; Potassium 4.3 mmol/L (3.5-5.1)
--- NOTE | 2024-06-14 10:11 | Hospitalist Progress Note ---
Date of Service June 14, 2024 Assessment & Plan (1) UTI (urinary tract infection): Plan: -CBC with increased leukocytosis from 12.34 to 14.62 -CMP unremarkable and renal markers wnl -UA suggestive of infection despite recent completion of abx -CTAP noting abscess within or adjacent to the midline prostate inseparable from the posterior wall of the bladder measuring 4.0 x 3.7 x 3.5 cm, as well as severe cystitis -Given persistent infection despite abx therapy, prostatitis is also on the differential. -Discussed with Urology given increased WBC; state increase in WBC could be due to inflammatory response, and therefore would still hold off on interventions. -U/Cx growing Enterococcus faecalis sensitive to ampicillin, therefore, will dc Cefepime and add Ampicillin. If good response, could change to Augmentin prior to discharge -Will trend CRP. Procal also ordered. (2) Benign prostatic hyperplasia with urinary obstruction: Plan: -REZUM done on 05/27 by urology -Abdominal and pelvis CT showed an abscess within or adjacent to the midline prostate inseparable from the posterior wall of the bladder measuring 4.0 x 3.7 x 3.5 cm. -Continue Flomax, finasteride, and oxybutynin. -Urology consulted; hold off on interventions, continue catheter w/ outpatient f/u for voiding trial - Will continue with abx therapy and monitor clinical status. Reached out to Urology as detailed above. (3) Stenosis of right external iliac artery: Plan: -CT abdomen pelvis also showed occlusion of the right external iliac artery. -Patient had a arterial eval a couple months ago with Dr. Montero which showed chronic stenosis and occlusions in the right lower extremity. -Vascular surgery consulted; no intervention as this is likely chronic (4) Weakness: Plan: -Right-sided weakness. History of CVA with right-sided deficits. -Head CT negative. -TSH was normal. -PT/OT consulted (5) Controlled type 2 diabetes mellitus with microalbuminuria: Plan: - Last Hgb A1c on 10/2023 was 7.1% - Repeat Hgb A1c is 8.5% - Continue lantus w/ SSI; bsg check achs (6) Obstructive sleep apnea: Plan: DALY on CPAP. (7) Hyperlipidemia: Plan: -Continue statin (8) Hypertension: Plan: -Continue home medications. Plan DVT ppx; Lovenox Diet: DM-2, HH Admission and Anticipated Discharge Date Admission Date: June 11, 2024 Supervising Physician Co-Signing Physician Notes I personally examined the patient and verified all orozco points of history and exam, discussed case, and agree with decision making with Dr Russo no new issues noted. denies complaints. Case discussed with resident physician in detail. Vitals noted. sitting up in the chair and in no distress. HEENT normocephalic atraumatic mucous membranes moist. Breathing unlabored no accessory muscle use good effort. Skin without rashes pallor or icterus. abd soft nd nt. delirium superimposed on uncertain baseline precipitated by complicated urinary tract infection/Elliott catheter associated urinary tract infection present on admissionpossible prostate abscess (urology suspects this is postoperative changes rather than abscess Growing Enterococcusswitch to more enterococcal specific antibiotics and continue to follow. Slight uptick in white count today concerningbut otherwise he looks well clinically. Continue to follow white countstart to trend CRP and procalcitonin as well Peripheral arterial diseaselikely chronic, but also quite severe. Appreciate vascular input DVT proph - lovenox dispositionwhile the case management notes relate that the son's plan would be to take patient home with home health, his most recent performance with PT makes it highly concerningit does look like the son was hopeful that patient would make progressobviously continue to follow. At the current time, at dispo he would likely need SNF or rehab Subjective Feeling well. Denies pain. No changes overnight. Physical Exam Physical Exam: Constitutional: well-appearing, no acute distress HEENT: NCAT, no conjunctival injection CV: regular rhythm, no murmur appreciated, extremities well-perfused, no LE edema Resp: CTABL, no wheezes/rales/rhonchi appreciated, no increased work of breathing GI: soft, nondistended Skin: warm, dry, no rash appreciated Neuro: Awake, alert and oriented to person and knows he's in the hospital Results & Data Results & Data Vital Signs (Past 12 Hours) Vital Signs Temp Pulse Pulse Resp BP Pulse Ox O2 Del Method 06/14/24 09:14 CPAP 06/14/24 08:03 36.4 C L 83 18 151/71 H 98 Room Air 06/14/24 05:44 88 06/14/24 03:41 36.5 C 76 20 125/71 96 Room Air 06/14/24 02:23 101 H 20 99 06/14/24 00:55 89 06/13/24 23:35 37.0 C 82 20 157/96 H 97 Room Air 06/13/24 22:52 Room Air O2 Flow Rate 06/14/24 09:14 06/14/24 08:03 06/14/24 05:44 06/14/24 03:41 06/14/24 02:23 2 06/14/24 00:55 06/13/24 23:35 06/13/24 22:52 Resident Activity Tracking Resident Involvement: Resident Care Provided Care Provided: Adult Hospital Medicine
[2024-06-14] MEDS ORDERED: VANCOMYCIN CONSULT ACTIVE PRN (14:44)
[2024-06-14] MEDS ORDERED: AMPICILLIN/SULBACTAM SOD 3,000 MG/100 ML BAG IV SCH (15:00)
[2024-06-14] MEDS: AMPICILLIN 2,000 MG in SODIUM CHLOR 0.9% MINI-B 100 ML IV SCH (15:47)
--- NOTE | 2024-06-14 18:38 | Billing Data ---
Date of Service June 14, 2024 Coding Level of Care Code 64682 SUB INP/OBS CARE MIN
[2024-06-14] MEDS: ACETAMINOPHEN 325 MG TAB PO PRN (20:15)
[2024-06-15 06:31] LABS: Basophils # (auto) 0.06 K/uL (0.00-0.20); Basophils % (auto) 0.5 %; Eosinophils # (auto) 0.48 K/uL (0.00-0.50); Eosinophils % (auto) 4.2 %; Hematocrit (blood only) 32.4 % (42.0-52.0); Hemoglobin 11.1 g/dl (14.0-18.0); Immature Granulocytes # (auto) 0.04 K/uL (0.01-0.20); Immature Granulocytes % (auto) 0.3 %; Lymphocytes # (auto) 1.81 K/uL (1.20-3.40); Lymphocytes % (auto) 15.7 %; Mean Corpuscular Hemoglobin 30.3 pg (25.0-34.0); Mean Corpuscular Hgb Conc 34.3 g/dL (32.0-36.0); Mean Corpuscular Volume 88.5 fL (80.0-100.0); Mean Platelet Volume 8.6 fL (9.4-12.4); Monocytes # (auto) 1.09 K/uL (0.11-0.59); Monocytes % (auto) 9.4 %; Neutrophils # (auto) 8.08 K/uL (1.40-6.50); Neutrophils % (auto) 69.9 %; Platelet Count 300 K/uL (130-400); RDW Coefficient of Variation 12.3 % (11.5-14.5); RDW Standard Deviation 40.2 fL (36.4-46.3); Red Blood Count 3.66 M/uL (4.70-6.10); White Blood Count 11.56 K/ul (4.8-10.8)
[2024-06-15 06:47] LABS: BUN Creatinine Ratio 21.8 (10-20); C Reactive Protein 5.74 mg/dl (0-0.5); Calcium 8.5 mg/dl (8.6-10.3); Creatinine Clr Calc Pharmacy 71.7 ml/min; Potassium 3.7 mmol/L (3.5-5.1)
[2024-06-15 07:59] VITALS: RESP 20; TEMP 98.2
[2024-06-15 11:57] VITALS: BP 153/81; PULSE 88; O2SAT 96
--- NOTE | 2024-06-15 12:09 | Discharge Summary ---
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 Patient had a recent REZUM done on 05/27 by urology. He has been wearing a catheter ever since. Presented to the hospital with his son reports that he just finished a round of antibiotics for UTI yesterday and has had his catheter in since his surgery. States that the patient was not moving very well. States that he has been having strength standing up. He is also been confused more. He is alert and oriented x 1 (self) which is worse than his baseline. Admission Exam Per Admitting Provider Constitutional: well-appearing, no acute distress HEENT: NCAT, no conjunctival injection CV: regular rhythm, no murmur appreciated, extremities well-perfused, no LE edema Resp: CTABL, no wheezes/rales/rhonchi appreciated, no increased work of breathing GI: soft, nondistended, nontender, BS normoactive MSK: no gross deformities appreciated Skin: warm, dry, no rash appreciated Neuro: Alert and oriented x 1 right-sided weakness Principal Diagnosis Complicated cystitis (Enterococcus faecalis) Discharge Exam Constitutional: well-appearing, no acute distress HEENT: NCAT, no conjunctival injection CV: regular rhythm, no murmur appreciated, extremities well-perfused, no LE edema Resp: CTABL, no wheezes/rales/rhonchi appreciated, no increased work of breathing GI: soft, nontender Skin: warm, dry, no rash appreciated Neuro: more awake and alert compared to yesterday, and oriented to person and knows he's in the hospital Discharge Data Allergies Allergy/AdvReac Type Severity Reaction Status Date / Time No Known Allergies Allergy Verified 05/27/24 08:19 Consultations 06/11/24 18:31 ED Decision to Admit Stat 06/11/24 22:45 Consult Urology Routine Consult Vascular Surgery Routine Ordered Studies 06/11/24 16:30 CT abd pelvis IV con only Stat CT head/brain wo con Stat 06/12/24 01:07 US arterial duplex LE RT Urgent Hospital Course (1) UTI (urinary tract infection): -CTAP noting abscess within or adjacent to the midline prostate inseparable from the posterior wall of the bladder measuring 4.0 x 3.7 x 3.5 cm, as well as severe cystitis -Urology held off from interventions due to likelihood that CTAP findings were due to gas/fluid accumulation from REZUM procedure and not true abscess. -Improved leukocytosis from 14.62 to 11.56 after change in antibiotic to Ampicillin to cover Enterococcus faecalis; patient remained afebrile throughout hospital admission Sensitivities show Enterococcus resistant to Levofloxacin and Ciprofloxacin, which may explain why previous abx did not help manage UTI -Given clinical improvement as well as decrease in WBC and CRP with change in abx, will be discharging patient today with 14-day course of Augmentin bid Will manage it as a complicated cystitis Consider repeat CBC and CRP in follow up visit to ensure WBC and CRP continues downtrending If labs not downtrending significantly, or if patient's clinical picture is improving slower, may consider extending abx therapy to treat possible prostatitis -Spoke with patient's Son to notify him of plan and recommendations for follow up. (2) Benign prostatic hyperplasia with urinary obstruction: -REZUM done on 05/27 by urology -Abdominal and pelvis CT showed an abscess within or adjacent to the midline prostate inseparable from the posterior wall of the bladder measuring 4.0 x 3.7 x 3.5 cm. -Continue Flomax, finasteride, and oxybutynin. -Urology consulted; hold off on interventions, continue catheter w/ outpatient f/u for voiding trial; scheduled for 06/28/2024, per patient's son (3) Stenosis of right external iliac artery: -CT abdomen pelvis also showed occlusion of the right external iliac artery. -Patient had a arterial eval a couple months ago with Dr. Montero which showed chronic stenosis and occlusions in the right lower extremity. -Vascular surgery consulted; no intervention as this is likely chronic -Follow up as outpatient (4) Weakness: -Right-sided weakness. History of CVA with right-sided deficits. -Head CT negative. -TSH was normal. -PT/OT consulted; okay for discharge with [employer] (5) Controlled type 2 diabetes mellitus with microalbuminuria: - Last Hgb A1c on 10/2023 was 7.1% - Repeat Hgb A1c is 8.5% - Follow up with PCP (6) Obstructive sleep apnea: - Continue home CPAP (7) Hyperlipidemia: -Continue statin (8) Hypertension: -Continue home medications. Plan Discharge back home with his Son; also has [employer] [facility]. Total Time Total Time Spent Total Time Spent (In Minutes): <30 Discharge Plan Discharge Items Patient Disposition: Home - Home Health Services Reason For Visit: COMP UTI, WEAK, S/P REZUM, UROLOGY AWARE Discharge Diagnosis: Complicated UTI versus Prostatitis Activity: Per Instructions section Non-emergency contact: Primary Care Provider and Urologist Call non-emergency contact if: your symptoms worsen and your temperature is above 101 Follow-up/Referrals: Vikas Cosme DO [Physician] - Salomon Stanton DO [Primary Care Provider] - (Within 1 week of discharge) Diet: Carb Consistent or DM2 and Heart Healthy Addtl Attending Provider Instructions: You were admitted to the hospital after you were noted to be more confused and weak. Initial testing done while you are in the emergency department showed t hat your immune cells were elevated and your urine sample appeared to show an infection. We did a CAT scan of your abdomen pelvis which showed signs that were suggestive of a urinary tract infection that reached your bladder, as well as a accumulation of fluid and gas next to your prostate which is one of the changes that can be seen after your recent surgery with urology. We started you on antibiotics to treat your urinary tract infection since this may have been a cause for your worsening confusion. At that time we are treating you with ampicillin through your IV to cover for the bacteria that was shown in the culture of your urine sample (Enterococcus, which is a common bacteria that causes urinary tract infections in patients with urinary catheters). Today, your immune cells are coming down and you appear more awake and more alert than you have been in the days prior, which is suggestive that the current treatment is effective. For this reason, we will be discharging you back home today with an oral antibiotic that is very similar to the one you are on now and should have similar effectiveness. The antibiotic we will be discharging you with today is called Augmentin, which should be taken 2 times a day for 14 days. We recommend that you take this antibiotic with food and water as it can cause some GI upset (nausea/vomiting/diarrhea). We advise you follow up with your primary care provider, hopefully within one week of discharge for your post-discharge evaluation, and possibly repeat some labs to make sure you are still responding well to the antibiotics. We also recommend that you follow-up with your Urologist in their clinic to follow-up on your clinical progression as well as to follow-up on your postoperative course. A discharge summary will be sent to your primary care physician to ensure continuity of care. Please bring this discharge summary with you to your next office appointment so that your provider can review it at that time. Follow-up appointments: Keep all your follow-up appointments as already scheduled. If you cannot make an appointment, notify your provider. Medications: Your medication list has been reviewed and reconciled upon discharge to ensure accuracy and continuity of care. An updated list of all your medications is included with your hospital discharge paperwork. Please review this list cl osely, and make note of any changes. Take your medications as instructed; do not skip a dose of your medicines. Make sure all of your doctors know every medicine you are taking (including dchc-ewm-buzepsr medicines, vitamins, and supplements). Call your primary care provider before taking any new medicines (including over- the-counter medicines, vitamins, and supplements), because some of these may interact with your current medications, or may make your symptoms worse. Tell your primary care provider if you cannot afford your medications. CONTACT YOUR PRIMARY CARE PROVIDER if you experience any of the following: Worsening of symptoms Fever, chills, or fatigue Difficulty following your treatment plan, or difficulty taking medications CALL 911 OR GO TO THE EMERGENCY DEPARTMENT if you experience any of the following: Sudden, severe abdominal pain or nausea/vomiting Severe chest pain, or chest pain that radiates (moves) to your jaw or arm Sudden, severe shortness of breath or difficulty breathing Thank you for allowing us to participate in your care. Pending Studies at Discharge: No Stand-Alone Forms: [facility], Smoking Cessation Medications and DC Order Prescriptions: New amoxicillin-pot clavulanate 875-125 mg tablet 1 tab PO BID 14 Days Qty: 28 0RF Continued (DME) blood-glucose meter [FreeStyle Lite Meter] Kit See Rx Instructions .Route Qty: 1 0RF Rx Instructions: As directed (DME) lancets [FreeStyle Lancets] 28 gauge misc See Rx Instructions .Route Qty: 100 5RF Rx Instructions: test once daily (DME) CPAP Supplies Misc See Rx Instructions .Route Qty: 1 0RF Rx Instructions: CPAP Mask use qHS finasteride 5 mg tablet 5 mg PO QAM Qty: 90 3RF clopidogrel 75 mg tablet 75 mg PO QAM Qty: 90 3RF simvastatin 20 mg tablet 20 mg PO HS Qty: 90 3RF Hold Instructions: Hold starting 04/04 for Paxlovid, c/w s/p 2 weeks off med docusate sodium 100 mg capsule 100 mg PO DAILY PRN (Reason: constipation) Qty: 0 0RF Rx Instructions: CONFIRMED W/ SON THAT PT ONLY TAKES PRN FOR CONSTIPATION. polyethylene glycol 3350 [Miralax] 17 gram powder in packet 17 g PO DAILY PRN (Reason: constipation) Qty: 0 0RF Rx Instructions: CONFIRMED W/ SON THAT PT ONLY TAKES PRN FOR CONSTIPATION (DME) FreeStyle Test Strip See Rx Instructions .Route Qty: 100 5RF Rx Instructions: test once daily prior to meal metoprolol tartrate 50 mg tablet 50 mg PO BID Qty: 180 3RF Centrum Silver Men 300-600-300 mcg tablet 1 tab PO QAM (DME) bilateral LE AFO braces See Rx Instructions .Route .MEDSUPPLY Qty: 1 0RF Rx Instructions: As directed triamcinolone acetonide 0.1 % cream 1 applic topical BID PRN (Reason: Skin Irritation) Qty: 30 2RF solifenacin [Vesicare] 5 mg tablet 5 mg PO HS Qty: 30 0RF (DME) Diabetic Shoes Misc See Rx Instructions .Route Qty: 1 0RF Rx Instructions: Diabetic Shoes and Insoles magnesium oxide 400 mg magnesium Tablet 400 mg PO BID metformin 500 mg Tablet 500 mg PO BIDM Qty: 0 0RF tamsulosin 0.4 mg capsule 0.4 mg PO HS phenazopyridine [Pyridium] 200 mg tablet 200 mg PO Q8H PRN (Reason: pain) Qty: 10 0RF tamsulosin 0.4 mg capsule 0.4 mg PO HS Qty: 30 0RF oxybutynin chloride 5 mg tablet 5 mg PO Q8H PRN (Reason: bladder spasms) Qty: 9 0RF Discontinued ciprofloxacin HCl [Cipro] 500 mg tablet 500 mg PO Q12H Qty: 14 0RF Discharge Orders: Discharge Order (Routine); Ordered 06/15/24 Ordered By: Yolis Ayala/Other Patient Handouts: Managing Type 2 Diabetes Admission Data Admit Date/Time: 06/11/24 20:35 Attending Provider: Winston Cooper Admit Provider: Aureliano Lyn Primary Care Provider: Salomon Stanton Other Providers: Stephanie Kang; Carson Avalos; Laya Mcneill; Vikas Cosme; Elsi Roblero; Miriam Sánchez; Gume Aguilar; Farida Ulloa; Roberto Swartz; Shara Bess; Chris Hartley; Carson Montero Other Interventions: Discharge Summary Assessment (RN) Last Done: 06/15/24 12:22 Supervising Physician Co-Signing Physician Notes I personally examined the patient and verified all orozco points of history and exam, discussed case, and agree with decision making with Dr Russo feels ok, no complaints. dr russo d/w son who feels comfortable taking pt home. Vitals noted. sitting up in the chair and in no distress. HEENT normocephalic atraumatic mucous membranes moist. Breathing unlabored no accessory muscle use good effort. Skin without rashes pallor or icterus. delirium superimposed on uncertain baseline precipitated by complicated urinary tract infection/Elliott catheter associated urinary tract infection present on admissionpossible prostate abscess (urology suspects this is postoperative changes rather than abscess Growing Enterococcuswhich was also R to levaquin - likely explaining refractory/failed Rx. safe for home on po abx duration for complicated UTI. if quickly recurs after current treatment done, then would need to reconsider prostate involvement - but hopefully the situation unfolded simply due to enterococcus that was resistant to prior line of treatment Peripheral arterial diseaselikely chronic, but also quite severe. Appreciate vascular input DVT proph - lovenox dispositionsafe/stable for home w son. outpt f/u next week. labs as outpt next week. urology f/u as scheduled or katie if recurrent infection either during or as soon as current Rx complete. Resident Activity Tracking Resident Involvement: Resident Care Provided Care Provided: Adult Hospital Medicine
[2024-06-15] MEDS: INFLUENZA VACC TS2024-25(65y+)/PF (IIV3) 0.5mL Syr IM ONE (13:27)
--- NOTE | 2024-06-15 15:26 | Billing Data ---
Date of Service June 15, 2024 Coding Level of Care Code 76519 IN/OBS DISCH 30 MIN/LESS
== END 2024-06-15 14:18 | disposition home health service (06) | DRG 699 ==
LOC: ED 14:42 → SUATTDRO 20:35 → EDINP 20:35 → 2W 06-12 00:22

== ENCOUNTER 2024-06-19 17:11 | Inpatient (IN) ==
--- NOTE | 2024-06-19 17:43 | Emergency Department Note ---
Impression & Plan Catheter-associated urinary tract infection, Acute urinary retention, Malfunction of Blair catheter ED Provider Note NAME: TEODORA HOGAN AGE: 88 SEX: M : 1935 ARRIVES VIA: Walk-In INFORMANT: Patient, ED PROVIDER(S): Delonte Smith DO CHIEF COMPLAINT: Urinary retention HPI: The patient is an 88-year-old male who presented to the emergency department for an evaluation of urinary tension. The patient presented with family. The patient has a history of a stroke as well as prostate issues. He recently had a procedure but also had a return to our facility because of the recurrent urine infection. The patient is currently on Augmentin for urinary tract infection. The patient's had no fever or vomiting although he cannot make any complaints because of his previous history of stroke. ROS: See above HPI for pertinent positives & negatives. A total of 10 systems reviewed and were otherwise negative. PAST MEDICAL HISTORY: See Below PAST SURGICAL HISTORY: See Below FAMILY HISTORY: See Below SOCIAL HISTORY: See Below HOME MEDICATIONS: See Below ALLERGIES: See Below VITALS: See Below PHYSICAL EXAMINATION: GENERAL: The patient is awake and alert. He does not appear to be uncomfortable although is difficult to discern if the patient is in pain. EYES: The conjunctivae are clear. The pupils are round and reactive. EARS, NOSE, MOUTH AND THROAT: The nose is without any evidence of any deformity. NECK: The neck is nontender and supple. RESPIRATORY: Normal respiratory effort is noted there is no evidence of wheezing rhonchi or rales CARDIOVASCULAR: Regular rate and rhythm noted there no murmurs rubs or gallops normal S1 normal S2. GASTROINTESTINAL: The abdomen is distended. There is significant suprapubic tenderness. MUSCULOSKELETAL/EXTREMITIES: There is no evidence of gross deformity full range of motion is noted in the hips and shoulders. SKIN: There was pedal edema bilaterally. Skin was warm and dry. NEUROLOGIC: The is awake and follows commands slowly. 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 I am unable to assess orientation at this time. MEDICAL DECISION MAKING: The patient is an 88-year-old male who presented to the emergency department for an evaluation of a malfunctioning Blair catheter. The patient was found to be in urinary retention. The patient has a history of recent surgical manipulation. He is had a Blair catheter placed since. Since that time he has had multiple urinary tract infections. I did review the patient's previous urine cultures. These have grown out different bacteria which have had varied resistance patterns. The patient was initially treated with IV Unasyn. I then added IV vancomycin. I discussed the patient's laboratory results with the family. Given his comorbidities I discussed his condition with the on-call [facility] hospitalist group. They have agreed to evaluate the patient in the emergency department for further management and disposition. Triage Nursing notes reviewed. Prior medical records reviewed Vital Signs: reviewed and remarkable for no significant abnormalities Differential diagnosis: Catheter malfunction, obstruction, dehydration, urinary tract infection, urinary retention, acute kidney injury, as well as other pathologies. ER treatment provided: See below Diagnostics interpreted by me: ECG: none Cardiac Monitoring: An order was placed for continuous cardiac monitoring. The monitor shows a rate of 81 bpm with sinus rhythm. Laboratory studies: As stated above and show below. Imaging studies: See below. Consultation(s): I discussed this case with Dr. Kang who is on-call for the [facility] hospitalist group. Past Med/Surg History Problem List (Updated 06/19/24 @ 19:16 by Delonte Smith DO) Malfunction of Blair catheter (Acute) Acute urinary retention (Acute) Catheter-associated urinary tract infection (Acute) Acute urinary retention (Acute) Penile bleeding (Acute) Nocturnal enuresis (Acute) Diabetic ulcer of right heel (Acute) healed; last seen by wound clinic 04/09/24 Abnormal ankle brachial index Blister of finger MRSA (methicillin resistant staph aureus) culture positive 10/2023 hospital admission; UTI +MRSA Recurrent urinary tract infection Urinary retention (Acute) Fall (Acute) frequent falls; most recent: 09/2023 AMS (altered mental status) (Acute) 10/2023 [facility] admission (sepsis 2/2 UTI) Facial rash Abnormal ECG (Acute) had cath 03/28/23 Acute pain of right knee (Acute) Chronic skin ulcer of left ear (Acute) Seborrheic dermatitis (Acute) Carotid artery stenosis (Acute) Cervical disc disease (Acute) Dermatophytosis Hypercholesteremia TIA (transient ischemic attack) (Acute) Medical History Blair catheter present Leukocytosis Generalized weakness Confusion Abnormal computed tomography of abdomen and pelvis Complicated urinary tract infection Stenosis of right external iliac artery UTI (urinary tract infection) Weakness Benign prostatic hyperplasia with urinary obstruction Obstructive sleep apnea Hyperlipidemia Hypertension Controlled type 2 diabetes mellitus with microalbuminuria Coronary artery disease severe per 03/28/23 cath: Severe obstructive coronary disease involving subtotal occlusion of the proximal RCA, 50% distal left main, 99% om 2 lesions. Good collateralization of the right coronary via [id number] collaterals Hx of transient ischemic attack (TIA) Hypertension Hx of recurrent urinary tract infection Urinary retention Cervical disc disease son unsure, reports no limits to rom of neck Hx of sepsis (10/2023) admit to [facility], went to rehab ([facility]) afterwards x 2 weeks MRSA (methicillin resistant Staphylococcus aureus) MRSA UTI during [facility] admission 10/2023 Diabetic ulcer of right heel healed now- released from wound clinic 04/09/24 Nocturnal enuresis Carotid artery stenosis Hyperlipidemia BPH (benign prostatic hyperplasia) Controlled type 2 diabetes mellitus with microalbuminuria Frequent falls son jose a (poa) now living with pt. - pt. has only fallen x 1 since august - approx. 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 Surgical History History of prostate surgery History of cardiac cath (03/2023) 03/2023, "wasn't feeling right," no stents>"pt has minimal damage to heart"; f/u [facility] cardio Hx of cataract surgery (06/2023) b/l Hx of squamous cell carcinoma excision Family History Mother Coronary heart disease Brother Coronary heart disease Diabetes Hypertension Father Diabetes Denies family history of Ovarian cancer Prostate cancer Myocardial infarction Breast cancer Lung cancer Colorectal cancer Social History Smoking Status: Former smoker Tobacco Type: Cigarettes Age Started Using Tobacco: 18; Age Quit Using Tobacco: 37; packs per day: 1; Second Hand Exposure: No; Do You Dip or Chew Tobacco: No; Hx Alcohol Use: Yes Alcohol type: wine and hard liquor Alcohol Intake Frequency: 2-4 x/Month Alcohol Intake Frequency Comment: OCCASIONAL Hx Substance Use: No Preferred Language: Latvian Communication Ability: Impaired Communication Ability Comment: loss of speech w/stroke Visual Impairment: No Limitations Hearing Ability: Use of Hearing Aid Creative Designer Required: No Beliefs That Will Affect Care: None marital status: / Current Living Situation: Family Current Living Situation Comment: son lives with pt current occupational status: retired 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 Feels Safe at Home: Yes Childhood Exposure to Second-Hand Smoke: Yes Diet: regular caffeine: Yes Dental Care, Regularly: No Physical Activity Frequency: 5-6 Times per Week Seatbelt Use: never Sunscreen Use: Yes Assistive Devices: Bedside Commode, Cane and Wheelchair Allergies Allergies Allergy/AdvReac Type Severity Reaction Status Date / Time No Known Allergies Allergy Verified 05/27/24 08:19 Home Meds Home Medications Medication Instructions Recorded Confirmed [id number] 300 mcg-K 60 1 tab PO QAM 02/15/19 06/19/24 mcg-lycop 600 mcg-lutein 300 mcg tablet (Centrum Silver Men) magnesium oxide 400 mg PO BID 03/30/21 06/19/24 tamsulosin 0.4 mg capsule 0.4 mg PO HS 05/16/24 06/19/24 Previous Rx's Medication Instructions Recorded bilateral LE AFO braces #1 ea 11/23/21 triamcinolone acetonide 0.1 % 1 applic topical BID PRN Skin 08/01/22 topical cream Irritation #30 grams blood-glucose meter (FreeStyle #1 ea 08/02/22 Lite Meter kit) lancets 28 gauge (FreeStyle #100 ea 08/02/22 Lancets) CPAP Supplies #1 ea 02/07/23 clopidogrel 75 mg tablet 75 mg PO QAM #90 tabs 07/18/23 finasteride 5 mg tablet 5 mg PO QAM #90 tabs 07/18/23 simvastatin 20 mg tablet 20 mg PO HS #90 tabs 10/31/23 metformin 500 mg tablet 500 mg PO BIDM #0 tabs 11/10/23 docusate sodium 100 mg capsule 100 mg PO DAILY PRN constipation 11/29/23 #0 caps polyethylene glycol 3350 17 gram 17 g PO DAILY PRN constipation #0 11/29/23 oral powder packet (Miralax) ea blood sugar diagnostic (FreeStyle #100 ea 01/24/24 Test strips) solifenacin 5 mg tablet (Vesicare) 5 mg PO HS #30 tabs 02/13/24 Diabetic Shoes #1 ea 03/07/24 metoprolol tartrate 50 mg tablet 50 mg PO BID #180 tabs 04/15/24 oxybutynin chloride 5 mg tablet 5 mg PO Q8H PRN bladder spasms #9 05/27/24 tabs phenazopyridine 200 mg tablet 200 mg PO Q8H PRN pain #10 tabs 05/27/24 (Pyridium) amoxicillin 875 mg-potassium 1 tab PO BID 14 days #28 tabs 06/15/24 clavulanate 125 mg tablet Results & Data (ED) Vital Signs Vital Signs - 24 hr 06/19/24 17:26 06/19/24 18:00 06/19/24 18:04 Temperature 36.6 C Temperature Source Temporal Artery Scan Pulse Rate 83 85 81 Respiratory Rate 19 Respiratory Effort / Characteristics Non-Labored Spontaneous Respiratory Depth Normal Blood Pressure 133/74 Blood Pressure Mean 93 Pulse Oximetry 97 95 Oxygen Delivery Method Room Air Room Air Sepsis Recent Fever Within 48 Hours No Sepsis New/Unexplained Change in Mental Status N/A Sepsis Action Taken by Nursing No Action Required Home Medications Current Medication List: was personally reviewed by me Laboratory Data Attestation: I reviewed the patient's lab results. 06/19/24 18:00 06/19/24 18:00 Lab Results 06/19/24 06/19/24 Range/Units 17:57 18:00 WBC 17.52 H (4.8-10.8) K/ul RBC 4.14 L (4.70-6.10) M/uL Hgb 12.2 L (14.0-18.0) g/dl Hct 37.0 L (42.0-52.0) % MCV 89.4 (80.0-100.0) fL MCH 29.5 (25.0-34.0) pg MCHC 33.0 (32.0-36.0) g/dL RDW Std Deviation 41.8 (36.4-46.3) fL RDW Coeff of Doris 12.7 (11.5-14.5) % Plt Count 387 (130-400) K/uL MPV 8.7 L (9.4-12.4) fL Immature Gran % (Auto) 0.6 % Neut % (Auto) 83.8 % Lymph % (Auto) 8.9 % [place] % (Auto) 5.6 % Eos % (Auto) 0.8 % Baso % (Auto) 0.3 % Neut # (Auto) 14.69 H (1.40-6.50) K/uL Lymph # (Auto) 1.56 (1.20-3.40) K/uL [place] # (Auto) 0.98 H (0.11-0.59) K/uL Eos # (Auto) 0.14 (0.00-0.50) K/uL Baso # (Auto) 0.05 (0.00-0.20) K/uL Immature Gran # (Auto) 0.10 (0.01-0.20) K/uL Sodium 133 L (136-145) mmol/L Potassium 4.2 (3.5-5.1) mmol/L Chloride 97 L (98-107) mmol/L Carbon Dioxide 28 (21-32) mmol/L Anion Gap 8 (3-11) BUN 17 (6-23) mg/dl Creatinine 0.94 (0.6-1.4) mg/dl Est Cr Clr Drug Dosing Not Reportable eGFR 78.95 BUN/Creatinine Ratio 18.1 (10-20) Glucose 222 H (70-99(Fasting)) mg/dl Calcium 9.6 (8.6-10.3) mg/dl Total Bilirubin 0.3 (0.2-1.0) mg/dl AST 15 (13-39) U/L ALT 17 (7-52) U/L Alkaline Phosphatase 47 (34-104) U/L Total Protein 7.7 (6.0-8.3) gm/dl Albumin 3.6 (3.4-5.0) gm/dl Globulin 4.1 H (2.5-4.0) gm/dl Albumin/Globulin Ratio 0.9 (0.9-2) Lipase 15 (11-82) U/L Procalcitonin 0.07 (0-0.5) ng/ml Urine Color Yellow Urine Appearance Turbid A (Clear) Urine pH 6.5 (4.5-7.5) Ur Specific Wiley 1.017 (1.000-1.030) Urine Protein 2+ H (Negative) Urine Glucose (UA) 2+ H (Negative) Urine Ketones Negative (Negative) Urine Blood 3+ H (Negative) Urine Nitrite Negative (Negative) Urine Bilirubin Negative (Negative) Urine Urobilinogen Negative (Negative) Ur Leukocyte Esterase 3+ H (Negative) Urine WBC (Auto) >50 H (0-5) /hpf Urine RBC (Auto) >20 H (0-2) /hpf U Hyaline Cast (Auto) 11-20 H (0-2) /lpf U Epithel Cells (Auto) 3-5 H (0-2) /hpf Urine Bacteria (Auto) 3+ H (None Seen) Administered Medications Sodium Chloride (Nss) 1,000 mls @ 999 mls/hr IV .Q1H1M ONE Stop: 06/19/24 19:49 Last Admin: 06/19/24 19:13 Dose: 999 mls/hr Documented By: [facility] Discontinued Medications Ampicillin Sodium/Sulbactam Sodium (Unasyn) 3,000 mg in 100 mls @ 200 mls/hr IV NOW STA Stop: 06/19/24 18:09 Last Infusion: 06/19/24 18:47 Dose: Infused Documented By: Admin: 06/19/24 18:17 Dose: 200 mls/hr Documented By: [facility] Discharge Plan Visit Data Chief Complaint: Unable to Void Stated Complaint: UNABLE TO VOID,?BLAIR CLOGGED ED Provider: Delonte Smith Discharge Problem: Catheter-associated urinary tract infection, Acute urinary retention, Malfunction of Blair catheter Patient Disposition: Being Evaluated by Hospitalist Forms Stand Alone Forms: My [facility] Prescriptions Prescriptions: No Action (DME) blood-glucose meter [FreeStyle Lite Meter] Kit See Rx Instructions .Route Qty: 1 0RF Rx Instructions: As directed (DME) lancets [FreeStyle Lancets] 28 gauge misc See Rx Instructions .Route Qty: 100 5RF Rx Instructions: test once daily (DME) CPAP Supplies Misc See Rx Instructions .Route Qty: 1 0RF Rx Instructions: CPAP Mask use qHS finasteride 5 mg tablet 5 mg PO QAM Qty: 90 3RF clopidogrel 75 mg tablet 75 mg PO QAM Qty: 90 3RF simvastatin 20 mg tablet 20 mg PO HS Qty: 90 3RF Hold Instructions: Hold starting 04/04 for Paxlovid, c/w s/p 2 weeks off med docusate sodium 100 mg capsule 100 mg PO DAILY PRN (Reason: constipation) Qty: 0 0RF Rx Instructions: CONFIRMED W/ SON THAT PT ONLY TAKES PRN FOR CONSTIPATION. polyethylene glycol 3350 [Miralax] 17 gram powder in packet 17 g PO DAILY PRN (Reason: constipation) Qty: 0 0RF Rx Instructions: CONFIRMED W/ SON THAT PT ONLY TAKES PRN FOR CONSTIPATION (DME) FreeStyle Test Strip See Rx Instructions .Route Qty: 100 5RF Rx Instructions: test once daily prior to meal metoprolol tartrate 50 mg tablet 50 mg PO BID Qty: 180 3RF Centrum Silver Men 300-600-300 mcg tablet 1 tab PO QAM (DME) bilateral LE AFO braces See Rx Instructions .Route .MEDSUPPLY Qty: 1 0RF Rx Instructions: As directed triamcinolone acetonide 0.1 % cream 1 applic topical BID PRN (Reason: Skin Irritation) Qty: 30 2RF solifenacin [Vesicare] 5 mg tablet 5 mg PO HS Qty: 30 0RF (DME) Diabetic Shoes Misc See Rx Instructions .Route Qty: 1 0RF Rx Instructions: Diabetic Shoes and Insoles magnesium oxide 400 mg magnesium Tablet 400 mg PO BID metformin 500 mg Tablet 500 mg PO BIDM Qty: 0 0RF tamsulosin 0.4 mg capsule 0.4 mg PO HS phenazopyridine [Pyridium] 200 mg tablet 200 mg PO Q8H PRN (Reason: pain) Qty: 10 0RF oxybutynin chloride 5 mg tablet 5 mg PO Q8H PRN (Reason: bladder spasms) Qty: 9 0RF amoxicillin-pot clavulanate 875-125 mg tablet 1 tab PO BID 14 Days Qty: 28 0RF Referrals Referrals: Stanton,Salomon P., DO [Primary Care Provider] - Discharge Problem: Catheter-associated urinary tract infection Qualifiers: Indwelling urinary catheter type: indwelling urethral catheter Encounter type: initial encounter Qualified Code(s): T83.511A - Infection and inflammatory reaction due to indwelling urethral catheter, initial encounter Malfunction of Blair catheter Qualifiers: Encounter type: initial encounter Qualified Code(s): T83.011A - Breakdown (mechanical) of indwelling urethral catheter, initial encounter
[2024-06-19] MEDS: AMPICILLIN/SULBACTAM SOD 3,000 MG/100 ML BAG IV STA (18:17)
[2024-06-19 18:23] LABS: Appearance Urine Turbid (Clear); Bacteria Urine Automated 3+ (None Seen); Bilirubin Urine Negative (Negative); Blood Urine 3+ (Negative); Color Urine Yellow; Glucose Urine UA 2+ (Negative); Ketones Urine Negative (Negative); Leukocyte Esterase Urine 3+ (Negative); Nitrite Urine Negative (Negative); Protein Urine 2+ (Negative); RBC Urine Automated >20 /hpf (0-2); Specific Gravity Urine 1.017 (1.000-1.030); Urobilinogen Urine Negative (Negative); WBC Urine Automated >50 /hpf (0-5); pH Urine 6.5 (4.5-7.5)
[2024-06-19 18:31] LABS: Basophils # (auto) 0.05 K/uL (0.00-0.20); Basophils % (auto) 0.3 %; Eosinophils # (auto) 0.14 K/uL (0.00-0.50); Eosinophils % (auto) 0.8 %; Hemoglobin 12.2 g/dl (14.0-18.0); Immature Granulocytes % (auto) 0.6 %; Lymphocytes # (auto) 1.56 K/uL (1.20-3.40); Lymphocytes % (auto) 8.9 %; Mean Corpuscular Hemoglobin 29.5 pg (25.0-34.0); Mean Corpuscular Volume 89.4 fL (80.0-100.0); Mean Platelet Volume 8.7 fL (9.4-12.4); Monocytes # (auto) 0.98 K/uL (0.11-0.59); Monocytes % (auto) 5.6 %; Neutrophils # (auto) 14.69 K/uL (1.40-6.50); Neutrophils % (auto) 83.8 %; Platelet Count 387 K/uL (130-400); RDW Coefficient of Variation 12.7 % (11.5-14.5); RDW Standard Deviation 41.8 fL (36.4-46.3); Red Blood Count 4.14 M/uL (4.70-6.10); White Blood Count 17.52 K/ul (4.8-10.8)
[2024-06-19 18:39] LABS: Alanine Aminotransferase 17 U/L (7-52); Albumin Globulin Ratio 0.9 (0.9-2); Albumin Level 3.6 gm/dl (3.4-5.0); Alkaline Phosphatase 47 U/L (34-104); Anion Gap 8 (3-11); Aspartate Aminotransferase 15 U/L (13-39); BUN Creatinine Ratio 18.1 (10-20); Bilirubin,Total 0.3 mg/dl (0.2-1.0); Blood Urea Nitrogen 17 mg/dl (6-23); Calcium 9.6 mg/dl (8.6-10.3); Carbon Dioxide 28 mmol/L (21-32); Chloride 97 mmol/L (98-107); Globulin 4.1 gm/dl (2.5-4.0); Glucose 222 mg/dl (70-99(Fasting)); Lipase 15 U/L (11-82); Potassium 4.2 mmol/L (3.5-5.1); Sodium 133 mmol/L (136-145); Total Protein 7.7 gm/dl (6.0-8.3)
[2024-06-19] MEDS ORDERED: VANCOMYCIN CONSULT ACTIVE PRN ×2 (19:02→22:25)
[2024-06-19] MEDS: SODIUM CHLORIDE 0.9% 1,000 ML IV ONE ×2 (19:13→19:50)
--- NOTE | 2024-06-19 20:19 | History & Physical Report ---
Date of Service June 19, 2024 Assessment & Plan (1) Malfunction of Elliott catheter: Plan: 88yo male with history of BPH with LUTS, urinary retention s/p recent urological procedure presenting with malfunctioning Elliott catheter and UTI. Patient with recent admission for UTI for which he has been taking Augmentin. Did have some reported hematuria, possibly pulled on the catheter. Elliott replaced in the ER, now seems to be functioning properly. -Observation to medical -Maintain Elliott catheter, irrigate as needed -Monitor I/Os -Continue Flomax, Finasteride and Oxybutynin (2) UTI (urinary tract infection): Plan: Chronic. Patient with elevated Lactate = 3.9 in the ER, improved to 2.3 after IVF. Afebrile and HD stable. UA is suggestive of infection. Patient with history of Enterococcus UTI as well as Pseudomonas -Follow cultures sent from the ER, blood and urine -Continue Vancomycin for now -Cefepime for h/o Pseudomonas UTI -Pyridium PRN (3) Obstructive sleep apnea: Plan: Chronic. Stable. Patient reports compliance with CPAP -Continue CPAP 8 cm H2O qHS (4) Hyperlipidemia: Plan: Chronic -Continue Simvastatin (5) Hypertension: Plan: Chronic -Continue metoprolol 50mg po BID (6) Controlled type 2 diabetes mellitus with microalbuminuria: Plan: Chronic. Last CbgC0B=2.5 on 06/12/24. Patient on metformin 500mg po BID -ISS -Goal blood sugar 110 - 140 History of Present Illness Chief Complaint: Elliott not draining Primary Care Provider: Salomon Stanton DO Chris Strickland is an 88yo male with history of BPH and LUTS with urinary retention s/p REZUM water vapor therapy performed by Urology on 05/27/24. Patient with urinary retention - had Elliott removed on 06/06/24 with subsequent replacement in the ER later that night due to urinary retention. Patient was admitted to [facility] on 06/11/24 with UTI. Urine culture at that time POSITIVE for Enterococcus. Patient was seen by Urology in consultation during that admission - no intervention performed. He was ultimately discharged home with a prescription for Augmentin BID x 14 days. Patient has been taking this medication as prescribed with no issues. He presents tonight with his sons. Son reports that he drained patient's Elliott bag two times yesterday as per usual. The urine did appear somewhat bloody and patient had some blood in his Depends - which can occur when he pulls on his catheter. During the day today, patient had no UOP from his Elliott. No additional complaints - no report of fever, chills, abdominal pain or fullness, no confusion. Patient with normal appetite but didn't drink as much fluid today as he usually does. In the ER patient had his Elliott catheter replaced with return of 600mL junaid urine when new Elliott in place. ER Course: Unasyn NSS x 2L Vancomycin Allergies Allergy/AdvReac Type Severity Reaction Status Date / Time No Known Allergies Allergy Verified 05/27/24 08:19 Home Medications Medication Instructions Recorded Confirmed Type qevitncd-mg-iawqo 300 mcg-K 60 1 tab PO QAM 02/15/19 06/19/24 History mcg-lycop 600 mcg-lutein 300 mcg tablet (Centrum Silver Men) magnesium oxide 400 mg PO BID 03/30/21 06/19/24 History bilateral LE AFO braces #1 ea 11/23/21 06/19/24 Rx triamcinolone acetonide 0.1 % 1 applic topical BID PRN Skin 08/01/22 06/19/24 Rx topical cream Irritation #30 grams blood-glucose meter (FreeStyle #1 ea 08/02/22 06/19/24 Rx Lite Meter kit) lancets 28 gauge (FreeStyle #100 ea 08/02/22 06/19/24 Rx Lancets) CPAP Supplies #1 ea 02/07/23 06/19/24 Rx clopidogrel 75 mg tablet 75 mg PO QAM #90 tabs 07/18/23 06/19/24 Rx finasteride 5 mg tablet 5 mg PO QAM #90 tabs 07/18/23 06/19/24 Rx simvastatin 20 mg tablet 20 mg PO HS #90 tabs 10/31/23 06/19/24 Rx metformin 500 mg tablet 500 mg PO BIDM #0 tabs 11/10/23 06/19/24 Rx docusate sodium 100 mg capsule 100 mg PO DAILY PRN constipation 11/29/23 06/19/24 Rx #0 caps polyethylene glycol 3350 17 gram 17 g PO DAILY PRN constipation #0 11/29/23 06/19/24 Rx oral powder packet (Miralax) ea blood sugar diagnostic (FreeStyle #100 ea 01/24/24 06/19/24 Rx Test strips) solifenacin 5 mg tablet (Vesicare) 5 mg PO HS #30 tabs 02/13/24 06/19/24 Rx Diabetic Shoes #1 ea 03/07/24 06/19/24 Rx metoprolol tartrate 50 mg tablet 50 mg PO BID #180 tabs 04/15/24 06/19/24 Rx tamsulosin 0.4 mg capsule 0.4 mg PO HS 05/16/24 06/19/24 History oxybutynin chloride 5 mg tablet 5 mg PO Q8H PRN bladder spasms #9 05/27/24 06/19/24 Rx tabs phenazopyridine 200 mg tablet 200 mg PO Q8H PRN pain #10 tabs 05/27/24 06/19/24 Rx (Pyridium) amoxicillin 875 mg-potassium 1 tab PO BID 14 days #28 tabs 06/15/24 06/19/24 Rx clavulanate 125 mg tablet Past Med/Surg History Problem List Malfunction of Elliott catheter (Acute) Acute urinary retention (Acute) Catheter-associated urinary tract infection (Acute) Acute urinary retention (Acute) Penile bleeding (Acute) Nocturnal enuresis (Acute) Diabetic ulcer of right heel (Acute) healed; last seen by wound clinic 04/09/24 Abnormal ankle brachial index Blister of finger MRSA (methicillin resistant staph aureus) culture positive 10/2023 hospital admission; UTI +MRSA Recurrent urinary tract infection Urinary retention (Acute) Fall (Acute) frequent falls; most recent: 09/2023 AMS (altered mental status) (Acute) 10/2023 [facility] admission (sepsis 2/2 UTI) Facial rash Abnormal ECG (Acute) had cath 03/28/23 Acute pain of right knee (Acute) Chronic skin ulcer of left ear (Acute) Seborrheic dermatitis (Acute) Carotid artery stenosis (Acute) Cervical disc disease (Acute) Dermatophytosis Hypercholesteremia TIA (transient ischemic attack) (Acute) Medical History Elliott catheter present Leukocytosis Generalized weakness Confusion Abnormal computed tomography of abdomen and pelvis Complicated urinary tract infection Stenosis of right external iliac artery UTI (urinary tract infection) Weakness Benign prostatic hyperplasia with urinary obstruction Obstructive sleep apnea Hyperlipidemia Hypertension Controlled type 2 diabetes mellitus with microalbuminuria Coronary artery disease severe per 03/28/23 cath: Severe obstructive coronary disease involving subtotal occlusion of the proximal RCA, 50% distal left main, 99% om 2 lesions. Good collateralization of the right coronary via duaj-dj-hizie collaterals Hx of transient ischemic attack (TIA) Hypertension Hx of recurrent urinary tract infection Urinary retention Cervical disc disease son unsure, reports no limits to rom of neck Hx of sepsis (10/2023) admit to [facility], went to rehab ([facility]) afterwards x 2 weeks MRSA (methicillin resistant Staphylococcus aureus) MRSA UTI during [facility] admission 10/2023 Diabetic ulcer of right heel healed now- released from wound clinic 04/09/24 Nocturnal enuresis Carotid artery stenosis Hyperlipidemia BPH (benign prostatic hyperplasia) Controlled type 2 diabetes mellitus with microalbuminuria Frequent falls son chris (poa) now living with pt. - pt. has only fallen x 1 since august - approx. 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 Surgical History History of prostate surgery History of cardiac cath (03/2023) 03/2023, "wasn't feeling right," no stents>"pt has minimal damage to heart"; f/u [facility] cardio Hx of cataract surgery (06/2023) b/l Hx of squamous cell carcinoma excision Family History Mother Coronary heart disease Brother Coronary heart disease Diabetes Hypertension Father Diabetes Denies family history of Ovarian cancer Prostate cancer Myocardial infarction Breast cancer Lung cancer Colorectal cancer Social History Smoking Status: Former smoker Tobacco Type: Cigarettes Age Started Using Tobacco: 18; Age Quit Using Tobacco: 37; packs per day: 1; Second Hand Exposure: No; Do You Dip or Chew Tobacco: No; Hx Alcohol Use: Yes Alcohol type: wine and hard liquor Alcohol Intake Frequency: 2-4 x/Month Alcohol Intake Frequency Comment: OCCASIONAL Hx Substance Use: No Preferred Language: Finnish Communication Ability: Impaired Communication Ability Comment: expressive aphagia Visual Impairment: No Limitations Hearing Ability: Use of Hearing Aid [employer] Required: No Beliefs That Will Affect Care: None marital status: / Current Living Situation: Family Current Living Situation Comment: son Chris cares for pt current occupational status: retired 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 Other Information That Helps Us Care for You: No Feels Safe at Home: Yes Safety Concerns: Feels Safe At This Time Childhood Exposure to Second-Hand Smoke: Yes Diet: regular caffeine: Yes Dental Care, Regularly: No Physical Activity Frequency: 5-6 Times per Week Seatbelt Use: never Sunscreen Use: Yes Assistive Devices: Brace/Splint/Immobilizer, Cane, CPAP, Denture - Upper and Glasses Assistive Devices Comment: bilateral foot braces Review of Systems Review of Systems: All systems reviewed & are unremarkable except as noted in HPI & below Physical Exam Physical Exam: General: patient resting comfortably, NAD, non-toxic in appearance, slow to answer questions Skin: warm, dry, intact, no rashes or lesions HEENT: NC/AT, PERRL, EOMI, anicteric sclera, conjunctiva without injection, external ear normal to inspection and nontender, nares patent, moist mucus membranes, dentition intact, no oropharyngeal lesions, neck supple, trachea midline, no LAD, no thyromegaly, no JVD Heart: +S1/S2, regular, no m/r/g Lungs: equal air entry bilaterally, no rales/rhonchi/wheezes Abd: +BS, soft, NT/ND, no masses/organomegaly/ascites Ext: warm, 2+ pulses in UE/LE bilaterally, no clubbing/cyanosis or edema Elliott catheter in place with 600mL clear, junaid colored urine Neuro: nonfocal, speech slow, intact, no facial droop, moving all extremities on command with equal strength 5/5 Results & Data Results & Data Vital Signs (Past 12 Hours) Vital Signs Temp Pulse Pulse Resp BP BP Pulse Ox 06/19/24 19:12 75 18 151/86 H 95 06/19/24 18:04 81 95 06/19/24 18:00 85 06/19/24 17:26 36.6 C 83 19 133/74 97 O2 Del Method 06/19/24 19:12 Room Air 06/19/24 18:04 Room Air 06/19/24 18:00 06/19/24 17:26 Room Air Laboratory Results Laboratory Results WBC 17.52 K/ul (4.8-10.8) H 06/19/24 18:00 RBC 4.14 M/uL (4.70-6.10) L 06/19/24 18:00 Hgb 12.2 g/dl (14.0-18.0) L 06/19/24 18:00 Hct 37.0 % (42.0-52.0) L 06/19/24 18:00 MCV 89.4 fL (80.0-100.0) 06/19/24 18:00 MCH 29.5 pg (25.0-34.0) 06/19/24 18:00 MCHC 33.0 g/dL (32.0-36.0) 06/19/24 18:00 RDW Std Deviation 41.8 fL (36.4-46.3) 06/19/24 18:00 RDW Coeff of Doris 12.7 % (11.5-14.5) 06/19/24 18:00 Plt Count 387 K/uL (130-400) 06/19/24 18:00 MPV 8.7 fL (9.4-12.4) L 06/19/24 18:00 Immature Gran % (Auto) 0.6 % 06/19/24 18:00 Neut % (Auto) 83.8 % 06/19/24 18:00 Lymph % (Auto) 8.9 % 06/19/24 18:00 Lucas % (Auto) 5.6 % 06/19/24 18:00 Eos % (Auto) 0.8 % 06/19/24 18:00 Baso % (Auto) 0.3 % 06/19/24 18:00 Neut # (Auto) 14.69 K/uL (1.40-6.50) H 06/19/24 18:00 Lymph # (Auto) 1.56 K/uL (1.20-3.40) 06/19/24 18:00 Lucas # (Auto) 0.98 K/uL (0.11-0.59) H 06/19/24 18:00 Eos # (Auto) 0.14 K/uL (0.00-0.50) 06/19/24 18:00 Baso # (Auto) 0.05 K/uL (0.00-0.20) 06/19/24 18:00 Immature Gran # (Auto) 0.10 K/uL (0.01-0.20) 06/19/24 18:00 Sodium 133 mmol/L (136-145) L 06/19/24 18:00 Potassium 4.2 mmol/L (3.5-5.1) 06/19/24 18:00 Chloride 97 mmol/L (98-107) L 06/19/24 18:00 Carbon Dioxide 28 mmol/L (21-32) 06/19/24 18:00 Anion Gap 8 (3-11) 06/19/24 18:00 BUN 17 mg/dl (6-23) 06/19/24 18:00 Creatinine 0.94 mg/dl (0.6-1.4) 06/19/24 18:00 Est Cr Clr Drug Dosing Not Reportable 06/19/24 18:00 eGFR 78.95 06/19/24 18:00 BUN/Creatinine Ratio 18.1 (10-20) 06/19/24 18:00 Glucose 222 mg/dl (70-99(Fasting)) H 06/19/24 18:00 POC Glucose 132 mg/dl (70-99) H 06/19/24 22:21 Lactate 2.3 mmol/L (0.4-2.0) H* 06/19/24 21:07 Calcium 9.6 mg/dl (8.6-10.3) 06/19/24 18:00 Total Bilirubin 0.3 mg/dl (0.2-1.0) 06/19/24 18:00 AST 15 U/L (13-39) 06/19/24 18:00 ALT 17 U/L (7-52) 06/19/24 18:00 Alkaline Phosphatase 47 U/L (34-104) 06/19/24 18:00 C-Reactive Protein 8.00 mg/dl (0-0.5) H 06/19/24 18:00 Total Protein 7.7 gm/dl (6.0-8.3) 06/19/24 18:00 Albumin 3.6 gm/dl (3.4-5.0) 06/19/24 18:00 Globulin 4.1 gm/dl (2.5-4.0) H 06/19/24 18:00 Albumin/Globulin Ratio 0.9 (0.9-2) 06/19/24 18:00 Lipase 15 U/L (11-82) 06/19/24 18:00 Procalcitonin 0.07 ng/ml (0-0.5) 06/19/24 18:00 Urine Color Yellow 06/19/24 17:57 Urine Appearance Turbid (Clear) A 06/19/24 17:57 Urine pH 6.5 (4.5-7.5) 06/19/24 17:57 Ur Specific [place] 1.017 (1.000-1.030) 06/19/24 17:57 Urine Protein 2+ (Negative) H 06/19/24 17:57 Urine Glucose (UA) 2+ (Negative) H 06/19/24 17:57 Urine Ketones Negative (Negative) 06/19/24 17:57 Urine Blood 3+ (Negative) H 06/19/24 17:57 Urine Nitrite Negative (Negative) 06/19/24 17:57 Urine Bilirubin Negative (Negative) 06/19/24 17:57 Urine Urobilinogen Negative (Negative) 06/19/24 17:57 Ur Leukocyte Esterase 3+ (Negative) H 06/19/24 17:57 Urine WBC (Auto) >50 /hpf (0-5) H 06/19/24 17:57 Urine RBC (Auto) >20 /hpf (0-2) H 06/19/24 17:57 U Hyaline Cast (Auto) 11-20 /lpf (0-2) H 06/19/24 17:57 U Epithel Cells (Auto) 3-5 /hpf (0-2) H 12/25/24 17:57 Urine Bacteria (Auto) 3+ (None Seen) H 06/19/24 17:57 PG Care Time/CCT Total # of Minutes Spent Total Time Spent with Patient: Total time spent is greater than 50% in coordination of care (as documented) at patient's floor/unit and/or counseling patient: Coding Level of Care Code 97676 INT INP/OBS CARE 3/75MIN Diagnoses Malfunction of Elliott catheter T83.011A Encounter type: initial encounter UTI (urinary tract infection) N39.0 Obstructive sleep apnea G47.33 Hyperlipidemia E78.5 Hypertension I10 Controlled type 2 diabetes mellitus with microalbuminuria E11.29; R80.9 (1) Malfunction of Elliott catheter Encounter type: initial encounter Qualified Code(s): T83.011A - Breakdown (mechanical) of indwelling urethral catheter, initial encounter
[2024-06-19] MEDS: VANCOMYCIN HCL 2,000 MG in SODIUM CHLORIDE 0.9% 500 ML IV ONE (20:21)
[2024-06-19] MEDS ORDERED: DOCUSATE SODIUM 100 MG CAP PO PRN (22:25)
[2024-06-19] MEDS ORDERED: VANCOMYCIN HCL 1,000 MG/270 ML BAG IV SCH (22:25)
[2024-06-19] MEDS ORDERED: oxyBUTYnin chloride 5 MG TAB PO PRN (22:25)
[2024-06-19] MEDS ORDERED: CARBOHYDRATES FOR HYPOGLYCEMIA PO PRN (22:25)
[2024-06-19] MEDS ORDERED: DEXTROSE 50% 50 ML SYRINGE IV PRN (22:25)
[2024-06-19] MEDS ORDERED: POLYETHYLENE (MIRALAX) 17 GM PACK PO PRN (22:25)
[2024-06-19] MEDS ORDERED: GLUCOSE 40% GEL 15 GM TUBE PO PRN (22:25)
[2024-06-19] MEDS ORDERED: GLUCAGON FOR INJ 1 MG VIAL SQ PRN (22:25)
[2024-06-19] MEDS ORDERED: GLUCOSE 10 TAB/TUBE PO PRN (22:25)
[2024-06-19] MEDS: Patient's HEIGHT &/or WEIGHT Needed STA (22:38)
[2024-06-19] MEDS: SIMVASTATIN 20 MG TAB PO SCH (23:11)
[2024-06-19] MEDS: CEFEPIME 2000MG 2,000 MG/20 ML SYR IV SCH (23:11)
[2024-06-19] MEDS: TAMSULOSIN HCL 0.4 MG CAP PO SCH (23:11)
[2024-06-19] MEDS: METOPROLOL TARTRATE 50 MG TAB PO SCH (23:11)
[2024-06-19] MEDS: INSULIN ASPART PER UNIT CHARGE SC SCH (23:16)
[2024-06-20] MEDS: SODIUM CHLORIDE 0.9% 1,000 ML IV SCH (00:58)
[2024-06-20] MEDS: ONDANSETRON INJ 2 MG/ML 2 ML VIAL IV PRN (01:11)
[2024-06-20 07:33] LABS: Hematocrit (blood only) 31.3 % (42.0-52.0); Hemoglobin 10.5 g/dl (14.0-18.0); Mean Corpuscular Hemoglobin 29.9 pg (25.0-34.0); Mean Corpuscular Hgb Conc 33.5 g/dL (32.0-36.0); Mean Corpuscular Volume 89.2 fL (80.0-100.0); Mean Platelet Volume 8.7 fL (9.4-12.4); Platelet Count 305 K/uL (130-400); RDW Coefficient of Variation 12.8 % (11.5-14.5); Red Blood Count 3.51 M/uL (4.70-6.10); White Blood Count 13.21 K/ul (4.8-10.8)
[2024-06-20 07:45] LABS: BUN Creatinine Ratio 18.4 (10-20); Calcium 8.5 mg/dl (8.6-10.3); Creatinine Clr Calc Pharmacy 72.7 ml/min; Potassium 3.9 mmol/L (3.5-5.1)
[2024-06-20] MEDS: VANCOMYCIN HCL 1,500 MG in SODIUM CHLORIDE 0.9% 500 ML IV SCH (08:29)
[2024-06-20] MEDS: FINASTERIDE 5 MG TAB PO SCH (08:30)
[2024-06-20] MEDS: CLOPIDOGREL BISULFATE 75 MG TAB PO SCH (08:31)
--- NOTE | 2024-06-20 11:28 | Pharmacy Report ---
Pharmacy PK ABX Note - Date of Service June 20, 2024 - Assessment and Plan Assessment * 88 year old M receiving vancomycin and cefepime for treatment of mesa cath related UTI. Patient with recent admission for UTI for which he was taking Augmentin. He has a history of E. faecalis, Staph epi, and Pseudomonas UTIs. * Pertinent microbiologic data includes: + UA, urine and blood cultures are pending. * Presents with leukocytosis which is improving today and has been afebrile. Day # 2 of antimicrobial therapy. Plan Vancomycin * Loading dose: 2000 mg IV x 1 * Maintenance dose: 1500 mg IV every 24 hours * Regimen is predicted to achieve target AUC/BILLIE of 400-600 mg/L.hr * Random vanco level will be ordered in the next 48-72 hours. Pharmacy will continue to follow and will adjust dose/frequency as necessary. Thank you. Pharmacy has transitioned to AUC monitoring for vancomycin. AUC/BILLIE is the preferred PK/PD target and is associated with decreased risk of nephrotoxicity compared to traditional trough targets.
--- NOTE | 2024-06-20 12:31 | Hospitalist Progress Note ---
Date of Service June 20, 2024 Assessment & Plan (1) Malfunction of Elliott catheter: Plan: 88yo male with history of BPH with LUTS, urinary retention s/p recent urological procedure (REZUM) presenting with malfunctioning Elliott catheter and UTI. Patient with recent admission for Enterococcus UTI for which he has been taking Augmentin. Did have some reported hematuria, possibly pulled on the catheter. Elliott replaced in the ER and was functioning properly, but has now stopped functioning again on 06/20. Consulted urology-recommend discontinuing Elliott and trial of void on 06/20. If PVR greater than 400 mL, develops symptoms of urinary retention, or unable to void-they recommend placing a 20 [place] coud catheter UA with some contamination of epithelial cells, urine culture pending Continues on empiric antibiotics for UTI which would also cover previous Enterococcus Continue Flomax, Finasteride (2) UTI (urinary tract infection): Plan: Previous admission and discharge several days prior to this admission for Enterococcus UTI-treated on discharge with p.o. Augmentin with last day of treatment 06/22 UA here abnormal but also contaminated with epithelial cells. Elliott catheter was replaced on 06/19 in the ED and is now removed on 06/20 No fever but with leukocytosis worsening at 17,000 but could be stress response from urinary retention and malfunctioning Elliott catheter. Patient with elevated Lactate = 3.9 in the ER, improved to 2.3 after IVF. Procalcitonin negative, CRP elevated at 8. Leukocytosis now improving Patient with history of Enterococcus UTI as well as Pseudomonas on previous urine culture in 04/2024 Blood cultures now growing Staphylococcus species in aerobic bottle of 1 of 2 sets. PCR with no ID given-suspect contaminant Repeat blood cultures x 2 sets now. He has no indwelling hardware from what I can tell from review of chart and imaging Urine culture-still pending Continue cefepime and vancomycin for now and follow final cultures, follow vancomycin levels Follow CBC, BMP Discontinue IV fluids (3) Bacteremia: Plan: With Staphylococcus species, ID pending, 1/4 bottles, suspect contaminant Continue vancomycin and follow repeat blood cultures (4) Obstructive sleep apnea: Plan: Chronic. Stable. Patient reports compliance with CPAP Continue CPAP 8 cm H2O qHS (5) Hyperlipidemia: Plan: Chronic-Continue Simvastatin History of CVA, PAD-no acute issues Continue Plavix (6) Hypertension: Plan: Chronic, BP is controlled to mildly elevated-Continue metoprolol 50mg po BID (7) Controlled type 2 diabetes mellitus with microalbuminuria: Plan: Chronic. Last [id number]=2.5 on 06/12/24. Patient on metformin 500mg po BID-held Continue ISS-Goal blood sugar 110 - 140 Plan DVT prophylaxis add Lovenox SQ Disposition-continued stay on medical/surgical unit, consult PT/OT. He resides at home with his son and already has home health established, he has 16/01 care through his multiple family members. I discussed care with his son and daughter at the bedside on 06/20 Admission and Anticipated Discharge Date Admission Date: June 19, 2024 Subjective Patient denies abdominal pain, chest pain, or shortness of breath. He is eating his lunch when I saw him. His Elliott catheter today again was not functioning despite being flushed multiple times by nursing. I discussed his care with the urology nurse practitioner. Physical Exam Constitutional: WD/WN, vitals as above Respiratory: normal respiratory effort, lungs clear to auscultation Cardiovascular: RRR, no murmur, no edema Gastrointestinal (Abdomen): normal bowel sounds, soft, nontender, no hepatosplenomegaly Inspection/Auscultation: + abdomen distended (Protuberant but soft) Psychiatric: Orientation: alert, oriented to person, oriented to place and cooperative Results & Data Results & Data Vital Signs (Past 12 Hours) Vital Signs Temp Pulse Resp BP Pulse Ox O2 Del Method 06/20/24 07:52 36.6 C 82 18 149/74 H 92 CPAP Laboratory Results CBC, BMP, UA, lactate, procalcitonin, CRP, urine culture, blood cultures reviewed PG Care Time/CCT Total # of Minutes Spent Total Time Spent with Patient: Total time spent is greater than 50% in coordination of care (as documented) at patient's floor/unit and/or counseling patient: Coding Level of Care Code 64786 SUB INP/OBS CARE 2/35MIN Diagnoses Malfunction of Elliott catheter T83.011A Encounter type: initial encounter UTI (urinary tract infection) N39.0 Bacteremia R78.81 Obstructive sleep apnea G47.33 Hyperlipidemia E78.5 Hypertension I10 Controlled type 2 diabetes mellitus with microalbuminuria E11.29; R80.9 (1) Malfunction of Elliott catheter Encounter type: initial encounter Qualified Code(s): T83.011A - Breakdown (mechanical) of indwelling urethral catheter, initial encounter
--- NOTE | 2024-06-20 14:55 | Urology Consultation ---
Date of Consultation June 20, 2024 Assessment & Plan (1) History of prostate surgery: (2) Complicated urinary tract infection: (3) Elliott catheter present: 88-year-old male with history of BPH with LUTS and urinary retention s/p Rezum on 05/27 admitted for complicated UTI and malfunctioning catheter Patient is afebrile, hemodynamically stable. Labs today reviewedcreatinine 0.76, WBC downtrending (13.21) Urine culture 06/19 prelim no growth Blood cultures pending Elliott intact with minimal output so far today - approximately 50ml yellow urine in drainage bag at present. Unsuccessful attempts at irrigating the catheter today by nursing staff Suspect the catheter may be malpositioned Will remove catheter now and monitor ability to void Continue flomax Recommend monitoring closely with bladder scans. If patient is unable to void, bladder scan >400ml, and/or develops symptoms of urinary retention, recommend catheter replacement with a 20Fr coud catheter Continue with broad-spectrum antibiotics, follow cultures and narrow per sensitivity data when available Continue supportive care Urology will follow along, please contact us with any additional questions/ concerns. History of Present Illness Attending Physician: Katherine Newton MD History of Present Illness This is an 88-year-old male with history of BPH with LUTS and urinary retention s/p REZUM on 05/27/24 who is admitted with suspected UTI and malfunctioning Elliott. His Elliott was initially removed on 06/06/24, but required replacement in ED later that night. He was recently admitted to [facility] on 06/11/24 with UTI. Urine culture grew Enterococcus. He was ultimately discharged home with a prescription for Augmentin BID x 14 days. He returned to the ED on 06/19/24 with malfunctioning catheter and concern for UTI. On arrival to ED, he was afebrile and hemodynamically stable. Lab work showed a white count of 17.52 and creatinine 0.94. Urinalysis showed 3+ blood, 3+ leukocyte Estrace, > 50 WBC, > 20 RBC, 3+ bacteria. Urine and blood cultures collected and pending. Elliott catheter exchanged in the ED with 600ml output. He was admitted to medicine service. On cefepime and vancomycin. Per nursing, patient with minimal output today. Nursing attempted irrigation (instilled 120ml), but was unable to aspirate any urine/fluid. Per nursing, there was drainage around the catheter after irrigation. He was bladder scanned for 394ml. Patient seen and examined at bedside today. He is awake and eating lunch at time of visit. Patient with limited verbal expression due to aphagia. Answers yes/no questions. Elliott intact with approx 50ml yellow urine in drainage bag. He denies pain at present. Allergies Allergy/AdvReac Type Severity Reaction Status Date / Time No Known Allergies Allergy Verified 05/27/24 08:19 Home Medications Medication Instructions Recorded Confirmed Type [id number]-mw-[id number] 300 mcg-K 60 1 tab PO QAM 02/15/19 06/19/24 History mcg-lycop 600 mcg-lutein 300 mcg tablet (Centrum Silver Men) magnesium oxide 400 mg PO BID 03/30/21 06/19/24 History bilateral LE AFO braces #1 ea 11/23/21 06/19/24 Rx triamcinolone acetonide 0.1 % 1 applic topical BID PRN Skin 08/01/22 06/19/24 Rx topical cream Irritation #30 grams blood-glucose meter (FreeStyle #1 ea 08/02/22 06/19/24 Rx Lite Meter kit) lancets 28 gauge (FreeStyle #100 ea 08/02/22 06/19/24 Rx Lancets) CPAP Supplies #1 ea 02/07/23 06/19/24 Rx clopidogrel 75 mg tablet 75 mg PO QAM #90 tabs 07/18/23 06/19/24 Rx finasteride 5 mg tablet 5 mg PO QAM #90 tabs 07/18/23 06/19/24 Rx simvastatin 20 mg tablet 20 mg PO HS #90 tabs 10/31/23 06/19/24 Rx metformin 500 mg tablet 500 mg PO BIDM #0 tabs 11/10/23 06/19/24 Rx docusate sodium 100 mg capsule 100 mg PO DAILY PRN constipation 11/29/23 06/19/24 Rx #0 caps polyethylene glycol 3350 17 gram 17 g PO DAILY PRN constipation #0 11/29/23 06/19/24 Rx oral powder packet (Miralax) ea blood sugar diagnostic (FreeStyle #100 ea 01/24/24 06/19/24 Rx Test strips) solifenacin 5 mg tablet (Vesicare) 5 mg PO HS #30 tabs 02/13/24 06/19/24 Rx Diabetic Shoes #1 ea 03/07/24 06/19/24 Rx metoprolol tartrate 50 mg tablet 50 mg PO BID #180 tabs 04/15/24 06/19/24 Rx tamsulosin 0.4 mg capsule 0.4 mg PO HS 05/16/24 06/19/24 History oxybutynin chloride 5 mg tablet 5 mg PO Q8H PRN bladder spasms #9 05/27/24 06/19/24 Rx tabs phenazopyridine 200 mg tablet 200 mg PO Q8H PRN pain #10 tabs 05/27/24 06/19/24 Rx (Pyridium) amoxicillin 875 mg-potassium 1 tab PO BID 14 days #28 tabs 06/15/24 06/19/24 Rx clavulanate 125 mg tablet Patient History Medical History Elliott catheter present Leukocytosis Generalized weakness Confusion Abnormal computed tomography of abdomen and pelvis Complicated urinary tract infection Stenosis of right external iliac artery UTI (urinary tract infection) Weakness Benign prostatic hyperplasia with urinary obstruction Obstructive sleep apnea Hyperlipidemia Hypertension Controlled type 2 diabetes mellitus with microalbuminuria Coronary artery disease severe per 03/28/23 cath: Severe obstructive coronary disease involving subtotal occlusion of the proximal RCA, 50% distal left main, 99% om 2 lesions. Good collateralization of the right coronary via [id number] collaterals Hx of transient ischemic attack (TIA) Hypertension Hx of recurrent urinary tract infection Urinary retention Cervical disc disease son unsure, reports no limits to rom of neck Hx of sepsis (10/2023) admit to [facility], went to rehab ([facility]) afterwards x 2 weeks MRSA (methicillin resistant Staphylococcus aureus) MRSA UTI during [facility] admission 10/2023 Diabetic ulcer of right heel healed now- released from wound clinic 04/09/24 Nocturnal enuresis Carotid artery stenosis Hyperlipidemia BPH (benign prostatic hyperplasia) Controlled type 2 diabetes mellitus with microalbuminuria Frequent falls son jose a (poa) now living with pt. - pt. has only fallen x 1 since august - approx. 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 Surgical History History of prostate surgery History of cardiac cath (03/2023) 03/2023, "wasn't feeling right," no stents>"pt has minimal damage to heart"; f/u [facility] Hx of cataract surgery (06/2023) b/l Hx of squamous cell carcinoma excision Family History Mother Coronary heart disease Brother Coronary heart disease Diabetes Hypertension Father Diabetes Denies family history of Ovarian cancer Prostate cancer Myocardial infarction Breast cancer Lung cancer Colorectal cancer Social History Smoking Status: Former smoker Tobacco Type: Cigarettes Age Started Using Tobacco: 18; Age Quit Using Tobacco: 37; packs per day: 1; Second Hand Exposure: No; Do You Dip or Chew Tobacco: No; Hx Alcohol Use: Yes Alcohol type: wine and hard liquor Alcohol Intake Frequency: 2-4 x/Month Alcohol Intake Frequency Comment: OCCASIONAL Hx Substance Use: No Preferred Language: Citizen Of [place] Communication Ability: Impaired Communication Ability Comment: expressive aphagia Visual Impairment: No Limitations Hearing Ability: Use of Hearing Aid Voting 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 Required: No Beliefs That Will Affect Care: None marital status: / Current Living Situation: Family Current Living Situation Comment: son Jose A cares for pt current occupational status: retired 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 Other Information That Helps Us Care for You: No Feels Safe at Home: Yes Safety Concerns: Feels Safe At This Time Childhood Exposure to Second-Hand Smoke: Yes Diet: regular caffeine: Yes Dental Care, Regularly: No Physical Activity Frequency: 5-6 Times per Week Seatbelt Use: never Sunscreen Use: Yes Assistive Devices: Bedside Commode, Cane, CPAP and Wheelchair Assistive Devices Comment: bilateral foot braces Review of Systems Review of Systems: All systems reviewed & are unremarkable except as noted in HPI & below Physical Exam Constitutional: no acute distress Respiratory: no respiratory distress and no labored breathing Gastrointestinal (Abdomen): Inspection/Auscultation: abdomen normal to inspection Percussion/Palpation: abdomen soft; abdomen nontender Musculoskeletal: Head/Neck/Chest: normocephalic Neurologic: awake Psychiatric: Orientation: alert and oriented to person Genitourinary: Elliott intact Results & Data Vital Signs (Past 12 Hours) Vital Signs Temp Pulse Resp BP Pulse Ox O2 Del Method 06/20/24 08:10 Room Air 06/20/24 07:52 36.6 C 82 18 149/74 H 92 CPAP PG Care Time/CCT Total # of Minutes Spent Total Time Spent with Patient: Total time spent is greater than 50% in coordination of care (as documented) at patient's floor/unit and/or counseling patient: Coding Level of Care Code 85073 INT INP/OBS CARE 2/55MIN Diagnoses History of prostate surgery Z98.890 Complicated urinary tract infection N39.0 Elliott catheter present Z97.8
[2024-06-20 15:04] LABS: A calco-baum cmplx NotReported Not Detected (NotDetected); Bact fragilis Not Reported Not Detected (NotDetected); Blood Culture Id Panel See PCR Comment (NotDetected); C auris Not Reported Not Detected (NotDetected); Calbicans Not Reported Not Detected (NotDetected); Candida glabrata Not Reported Not Detected (NotDetected); Candida krusei Not Reported Not Detected (NotDetected); Cneoformans/gatti Not Reported Not Detected (NotDetected); Cparapsilosis Not Reported Not Detected (NotDetected); E cloacae compx Not Reported Not Detected (NotDetected); Efaecalis Not Reported Not Detected (NotDetected); Efaecium Not Reported Not Detected (NotDetected); Enterobacterales Not Reported Not Detected (NotDetected); Escherichia coli Not Reported Not Detected (NotDetected); H influenzae Not Reported Not Detected (NotDetected); K aerogenes Not Reported Not Detected (NotDetected); Koxytoca Not Reported Not Detected (NotDetected); Kpneumoniae grp Not Reported Not Detected (NotDetected); Lmonocyt Not Reported Not Detected (NotDetected); N meningitidis Not Reported Not Detected (NotDetected); P aeruginosa Not Reported Not Detected (NotDetected); Proteus spp Not Reported Not Detected (NotDetected); Salmonella spp Not Reported Not Detected (NotDetected); Staph lugdunensis Not Reported Not Detected (NotDetected); Staph spp. Not Reported DETECTED (NotDetected); Staphaureus Not Reported Not Detected (NotDetected); Staphepi Not Reported Not Detected (NotDetected); Stenmaltophilia Not Reported Not Detected (NotDetected); Strep agal(GrpB) Not Reported Not Detected (NotDetected); Strep pneum Not Reported Not Detected (NotDetected); Strep pyog (GrpA) Not Reported Not Detected (NotDetected); Strep spp Not Reported Not Detected (NotDetected)
[2024-06-20 15:35] LABS: Staphylococcus spp. DETECTED (NotDetected)
[2024-06-20] MEDS: ENOXAPARIN INJ 40 MG/0.4 ML SYR SQ SCH (17:52)
[2024-06-20] MEDS: ACETAMINOPHEN 325 MG TAB PO PRN (20:05)
[2024-06-21 06:49] LABS: Basophils # (auto) 0.05 K/uL (0.00-0.20); Basophils % (auto) 0.5 %; Eosinophils # (auto) 0.68 K/uL (0.00-0.50); Eosinophils % (auto) 6.3 %; Immature Granulocytes # (auto) 0.09 K/uL (0.01-0.20); Immature Granulocytes % (auto) 0.8 %; Lymphocytes # (auto) 1.72 K/uL (1.20-3.40); Lymphocytes % (auto) 15.9 %; Mean Corpuscular Hemoglobin 29.2 pg (25.0-34.0); Mean Corpuscular Hgb Conc 32.4 g/dL (32.0-36.0); Mean Corpuscular Volume 90.2 fL (80.0-100.0); Mean Platelet Volume 8.8 fL (9.4-12.4); Monocytes # (auto) 0.79 K/uL (0.11-0.59); Monocytes % (auto) 7.3 %; Neutrophils # (auto) 7.49 K/uL (1.40-6.50); Neutrophils % (auto) 69.2 %; Platelet Count 303 K/uL (130-400); RDW Coefficient of Variation 12.8 % (11.5-14.5); RDW Standard Deviation 42.3 fL (36.4-46.3); Red Blood Count 3.77 M/uL (4.70-6.10); White Blood Count 10.82 K/ul (4.8-10.8)
[2024-06-21 07:13] LABS: BUN Creatinine Ratio 15.1 (10-20); Calcium 8.8 mg/dl (8.6-10.3); Creatinine Clr Calc Pharmacy 75.7 ml/min; Potassium 3.9 mmol/L (3.5-5.1)
--- NOTE | 2024-06-21 08:01 | Hospitalist Progress Note ---
Date of Service June 21, 2024 Assessment & Plan (1) Malfunction of Elliott catheter: Plan: 88yo male with history of BPH with LUTS, urinary retention s/p recent urological procedure (REZUM) presenting with malfunctioning Elliott catheter and UTI. Patient with recent admission for Enterococcus UTI for which he has been taking Augmentin. Did have some reported hematuria, possibly pulled on the catheter. Elliott replaced in the ER and was functioning properly, but has now stopped functioning again on 06/20. Consulted urology -recommend discontinuing Elliott and trial of void on 06/20. -If PVR greater than 400 mL, develops symptoms of urinary retention, or unable to void-they recommend placing a 20 [place] coud catheter. Draining appropriately 06/21, clear urine in bag UA with some contamination of epithelial cells, urine culture sent Remains on Vanco/Cefepime empiric to cover for previous enterococcus. WBC trending down, 10.8k. Afebrile Urine cx preliminary without growth however had been on Augmentin - discussed w/ Urology given CTAP last month with fluid collection felt to be gas to see if needing to repeat CTAP and they report likely unchanged and felt 2nd to gas and did not present like abscess and would avoid repeat imaging at this time. Repeat blood cultures NGTD, continue to monitor Remains on flomax/finasteride PT/OT consults pending. Son at bedside hopeful to bring patient home at mo, hopeful in next 24-48 hours. CM following. (2) UTI (urinary tract infection): Plan: Previous admission and discharge several days prior to this admission for Enterococcus UTI-treated on discharge with p.o. Augmentin with last day of treatment 06/22 UA here abnormal but also contaminated with epithelial cells. Elliott catheter was replaced on 06/19 in the ED and is now removed on 06/20 No fever but with leukocytosis worsening at 17,000 but could be stress response from urinary retention and malfunctioning Elliott catheter. Patient with elevated Lactate = 3.9 in the ER, improved to 2.3 after IVF. Procalcitonin negative, CRP elevated at 8. Leukocytosis now improving Patient with history of Enterococcus UTI as well as Pseudomonas on previous urine culture in 04/2024 Blood cultures now growing Staphylococcus species in aerobic bottle of 1 of 2 sets. PCR with no ID given-suspect contaminant Repeat blood cultures x 2 sets without growth at this time. He has no indwelling hardware from what I can tell from review of chart and imaging Urine culture as above no growth on preliminary but continues on cefepime/vanco until finalized. WBC improving. IVF have been discontinued and PO intake improved Follow CBC (3) Bacteremia: Plan: With Staphylococcus species, ID pending, 06/29 bottles, suspect contaminant given no identification on PCR Continue vancomycin and follow repeat blood cultures as above, currently without growth (4) Obstructive sleep apnea: Plan: Chronic. Stable. 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 Last [id number]=0.5 on 06/12/24. Patient on metformin 500mg po BID-held, can also contribute to lactic acidosis w/ elevated lactic on admission Continue ISS-Goal blood sugar 110 - 140 Plan DVT prophylaxis add Lovenox SQ Disposition-continued inpatient stay on IV abx. changed to full admission Repeat blood cultures pending/no growth to date. PT/OT consults pending. Updated son at bedside 06/21 and hopeful to take patient home with 16/01 care. CM following. Admission and Anticipated Discharge Date Admission Date: June 19, 2024 Supervising Physician Co-Signing Physician Notes The patient was not seen by me. The chart was reviewed. Case discussed with JOSE ALEJANDRO Mace. Agree with assessment and plan Subjective Eval this morning, son in room. Condom cath with good UOP, clear yellow in color. Discussed blood cx no growth on repeat yet, final pending. Urine cx prelim no growth but discussed could be from already being on abx however will reach out to urology given prior reports fluid collection suspected to be gas from procedure to see if repeat imaging warranted. Goal per son Chris (other brother marybel) is to get patient home with him but did report only took home over the weekend and was back pretty quickly/dad not very talkative at [employer] which was unusual for him. Does have slowed responses to questions which is not new per Chris since his stroke >30 years ago but patient is alert/oriented to place/year/knew recent Esdras passed and appears mentally near baseline per family in room. Questions/concerns addressed at this time. Physical Exam 2 Physical Exam: General: 88yo male sitting up in bed eating breakfast, son at bedside, NAD, expressive aphasia/slow responses since his CVA >30 years ago per son at bedside HEENT: head atraumatic, normocephalic, mmm, trachea midline Resp: even/unlabored, slightly diminished in the bases but no wheezing/rales, on room air CV: RRR, no significant m/r/g, no pitting edema/calf tenderness : condom cath with CLEAR yellow urine draining Psych: alert to person/place/year, slow responses at times but at baseline Results & Data Results & Data Vital Signs (Past 12 Hours) Vital Signs Temp Pulse Pulse Resp BP Pulse Ox O2 Del Method 06/21/24 07:37 36.4 C L 77 18 161/104 H 98 CPAP 06/21/24 03:45 63 20 94 06/20/24 23:49 66 15 93 O2 Flow Rate 06/21/24 07:37 1 06/21/24 03:45 2 06/20/24 23:49 2 Laboratory Results 06/21/24 05:56 06/21/24 05:56 PG Care Time/CCT Total # of Minutes Spent Total Time Spent with Patient: Total time spent is greater than 50% in coordination of care (as documented) at patient's floor/unit and/or counseling patient: Coding Level of Care Code 57534 SUB INP/OBS CARE 3/50MIN Diagnoses Malfunction of Elliott catheter T83.011A Encounter type: initial encounter UTI (urinary tract infection) N39.0 Bacteremia R78.81 Obstructive sleep apnea G47.33 Hyperlipidemia E78.5 Hypertension I10 Controlled type 2 diabetes mellitus with microalbuminuria E11.29; R80.9 (1) Malfunction of Elliott catheter Encounter type: initial encounter Qualified Code(s): T83.011A - Breakdown (mechanical) of indwelling urethral catheter, initial encounter
[2024-06-21] MEDS ORDERED: hydrALAZINE HCL 20 MG/ML VIAL IV PRN (08:21)
[2024-06-21] MEDS ORDERED: VANCOMYCIN HCL 1,000 MG/270 ML BAG IV SCH (09:00)
--- NOTE | 2024-06-21 09:36 | Urology Progress Note ---
Date of Service June 21, 2024 Assessment & Plan (1) Acute UTI: (2) History of prostate surgery: Plan 88-year-old male with history of BPH with LUTS and urinary retention s/p Rezum procedure on 05/27/24 who is admitted for complicated UTI and malfunctioning catheter Patient is afebrile, hypertensive, but otherwise stable vitals Labs today reviewedcreatinine 0.73, WBC downtrending (10.82) Urine culture 06/19 prelim no growth Blood cultures 06/29 growing Staphylococcus haemolyticus Elliott catheter removed yesterday for void trial and patient is voiding spontaneously. Has condom cath in place - urine is clear yellow. Reviewed CT A/P imaging from prior admission -fluid and gas collection of prostate likely postoperative given the nature of Rezum procedure using water vapor/steam Recommend continued monitoring of ability to void- Bladder scan PRN Continue Flomax Continue with broad-spectrum antibiotics, follow cultures and narrow per sensitivity data when available Continue supportive care If patient were to acutely worsen/decompensate, can consider repeat imaging Plan for outpatient follow-up with urology next week as scheduled Urology will follow peripherally, please call with any additional questions/ concerns or changes in patient status Admission and Anticipated Discharge Date Admission Date: June 19, 2024 Subjective Pt seen at bedside this AM Awake and resting in bed on arrival No acute distress Elliott removed yesterday for voiding trial Pt has been able to void following catheter removal - Currently with condom cath in place with clear yellow urine draining (400ml documented output overnight) Was bladder scanned last night for 88ml Denies any pain or discomfort Review of Systems Constitutional: as per Subjective / HPI Genitourinary: + as per Subjective / HPI Physical Exam Constitutional: no acute distress Respiratory: no respiratory distress and no labored breathing Gastrointestinal (Abdomen): Percussion/Palpation: abdomen soft; abdomen nontender Neurologic: awake + expressive aphasia Psychiatric: Orientation: alert and oriented to person Genitourinary: Condom cath in place w/ clear yellow urine draining Results & Data Vital Signs (Past 12 Hours) Vital Signs Temp Pulse Pulse Resp BP Pulse Ox O2 Del Method 06/21/24 07:37 36.4 C L 77 18 161/104 H 98 CPAP 06/21/24 03:45 63 20 94 06/20/24 23:49 66 15 93 O2 Flow Rate 06/21/24 07:37 1 06/21/24 03:45 2 06/20/24 23:49 2 PG Care Time/CCT Total # of Minutes Spent Total Time Spent with Patient: Total time spent is greater than 50% in coordination of care (as documented) at patient's floor/unit and/or counseling patient: Coding Level of Care Code 61449 SUB INP/OBS CARE 2/35MIN Diagnoses Acute UTI N39.0 History of prostate surgery Z98.890
[2024-06-21] MEDS: VANCOMYCIN HCL 1,000 MG/270 ML BAG IV SCH (12:38)
[2024-06-21 13:49] LABS: A calco-baum cmplx NotReported Not Detected (NotDetected); Bact fragilis Not Reported Not Detected (NotDetected); Blood Culture Id Panel PCR Panel Negative (NotDetected); C auris Not Reported Not Detected (NotDetected); Calbicans Not Reported Not Detected (NotDetected); Candida glabrata Not Reported Not Detected (NotDetected); Candida krusei Not Reported Not Detected (NotDetected); Cneoformans/gatti Not Reported Not Detected (NotDetected); Cparapsilosis Not Reported Not Detected (NotDetected); E cloacae compx Not Reported Not Detected (NotDetected); Efaecalis Not Reported Not Detected (NotDetected); Efaecium Not Reported Not Detected (NotDetected); Enterobacterales Not Reported Not Detected (NotDetected); Escherichia coli Not Reported Not Detected (NotDetected); H influenzae Not Reported Not Detected (NotDetected); K aerogenes Not Reported Not Detected (NotDetected); Koxytoca Not Reported Not Detected (NotDetected); Kpneumoniae grp Not Reported Not Detected (NotDetected); Lmonocyt Not Reported Not Detected (NotDetected); N meningitidis Not Reported Not Detected (NotDetected); P aeruginosa Not Reported Not Detected (NotDetected); Proteus spp Not Reported Not Detected (NotDetected); Salmonella spp Not Reported Not Detected (NotDetected); Staph lugdunensis Not Reported Not Detected (NotDetected); Staph spp. Not Reported Not Detected (NotDetected); Staphaureus Not Reported Not Detected (NotDetected); Staphepi Not Reported Not Detected (NotDetected); Stenmaltophilia Not Reported Not Detected (NotDetected); Strep agal(GrpB) Not Reported Not Detected (NotDetected); Strep pneum Not Reported Not Detected (NotDetected); Strep pyog (GrpA) Not Reported Not Detected (NotDetected); Strep spp Not Reported Not Detected (NotDetected)
--- NOTE | 2024-06-21 14:29 | Communication Note ---
Date of Service: June 21, 2024 Notified this afternoon blood cultures from 06/19 with staphylococcus haemolyticus on anaerobic cx in 1/4 bottles, other remains with GPB Repeat blood cx from 06/20 without growth. Remains on Vanco/Cefepime which should cover and would continue at least until blood cx from 06/20 negative x 48 hours but given CoNS and chronic catheter will place consult for ID to weigh in for recs/ongoing abx at discharge.
--- NOTE | 2024-06-21 15:16 | Infectious Disease Consult ---
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 Prior to that admission he had completed a round of antibiotics. During most recent admission CTAP demonstrated a ? abscess within or adjacent to the midline of the prostate inseparable from the posterior wall of the bladder measuring 4 x 3.7 x 3.5 cm with severe cystitis. He was evaluated by urology who held off on any interventions as they felt that the CTAP findings were gas/fluid accumulation from a recent REZUM procedure and not true abscess. Urine culture grew Enterococcus faecalis sensitive to ampicillin. He received IV ampicillin and was discharged on Augmentin for 14 days. 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 He was evaluated by vascular; no intervention as this was thought to be chronic. He was discharged with a Mesa. He returns to the ED on 06/19/2024 with decreased urination thought to be secondary to malfunction and Mesa catheter. Patient is a poor historian. His son is at bedside and provides history. Noted to have hematuria on admission. It was felt that the patientmay have partially dislodged his catheter as he also had some blood around the urethra. Had been compliant with Augmentin. Mesa catheter was replaced in the ER. 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 In the ED, temp 36.6, pulse 83, RR 19, BP 133/74, O2 sats 97% on room air. Labs: WBC 17.52, BUN 17, creatinine 0.94, lactate 3.9-->2.3. Urinalysis turbid, 3+ blood, 3+ leukocyte esterase, > 50 WBC,,> 20 RBC, 3-5 epithelial cells, 3+ bacteria. He received a dose of Unasyn and is currently on vancomycin and cefepime. Blood culture( BCID) with 1 out of 4 bottles positive for staph hemolyticus and 1 out of 4 bottles positive for GPC ( not yet identified). Repeat blood culture NGTD. Urine culture growing 100 K Enterococcus faecalis pending sensitivities. ID consulted for bacteremia and UTI. Mesa catheter has been removed. He currently has a condom catheter in place. Patient is awake and alert. He appears in no acute distress. No localizing signs or symptoms on exam. His son is at bedside and provides history. WBC down to 10.82. Microbiology: Urine culture 06/19> 100 K Enterococcus faecalis Blood culture 1/ 4 bottles positive for gram-positive bacilli (identification pending, aerobic), 1 / 4 bottles positive for staph hemolyticus (aerobic bottle) on BCID Blood culture 03/21 NGTD Antibiotics Vancomycin 06/19ongoing Unasyn 06/19 Cefepime 06/19ongoing # Staph hemolyticus bacteremia # GPR bacteremia # Enterococcus faecalis on current urine culture # Recent admission for E faecalis UTI with possible prostate abscess on imaging # BPH status post Rezum procedure 05/27/2024 # S/p mesa removal 06/20 Discussion: Staph haemolyticus bacteremia is likely a contaminant as it only grew in 1 out of 4 bottles and repeat blood cultures no growth to date. He also has a GPR bacteremia in which identification is pending. Examples of GPR include: bacillus species, corynebacterium species, Listeria species and Clostridium species. I do not think that this is Clostridium as it is growing in the aerobic bottle. The GPR may also reflect a contaminant but would await identification. He does not have any prosthetics or hardware. No current central lines. Repeat blood cultures with NGTD. He is HDS on antibiotics. Regarding the E faecalis from urine culture: He presented with associated hematuria which may have been 2/2 malfunctioning Mesa catheter. Since he cannot tell me if he had any other symptoms, would treat as UTI. It is noted that E faecalis grew from urine culture (sensitive to ampicillin). Current E faecalis grew while on Amox/clav. Would continue intravenous vancomycin at this time pending sensitivities. Mesa cather removed on 06/20, and now has a condom catheter and voiding well Recommendations -Continue IV vancomycin per pharmacy protocol -Discontinued cefepime no growth of Gram negative organisms -Follow-up the identification of GPR from 06/19 blood culture. If GPR is bacillus sp not anthracis or corynebacterium sp, then it is likely a contaminant. If GPR is Listeria or Clostridium sp, further workup would be needed - Repeat CTAP to further evaluate ? abscess seen on 06/11/24. changes were initially though to be 2/2 REZUM procedure and not true abscess. Follow-up E faecalis sensitivities in urine culture. If pending GPR in blood is deemed a contaminant and E faecalis in urine is sensitive to ampicillin, then can likely complete treatment for complicated UTI with a 7 to 10-day course of amoxicillin 875 mg p.o. q 8 hours from removal of Mesa catheter during this admission ( 06/20) if no continued concern for abscess on imaging. Thank you for this consult. ID will continue to follow. ID will not round or review the chart over the weekend. Call covering provider at [facility] at [phone] with questions. I will return 06/24/24 Odessa Ledemsa MD, MPH Infectious Disease [facility], [facility] Consultation Information Consultation was provided via telemedicine using two-way real-time interactive telecommunication between the patient and the telemedicine provider. For the duration of the visit, the provider was performing the assessment from a different facility than the patient. This includesuse of bluetooth stethoscope forauscultationperformed by the telepresenter that the telemedicine provider can hear if described in the physical exam. Roll Trucker contact information: Please call [facility] . 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 Prior to that admission he had completed a round of antibiotics. During most recent admission CTAP demonstrated a ? abscess within or adjacent to the midline of the prostate inseparable from the posterior wall of the bladder measuring 4 x 3.7 x 3.5 cm with severe cystitis. He was evaluated by urology who held off on any interventions as they felt that the CTAP findings were gas/fluid accumulation from a recent REZUM procedure and not true abscess. Urine culture grew Ente rococcus faecalis sensitive to ampicillin. He received IV ampicillin and was discharged on Augmentin for 14 days. 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 He was evaluated by vascular; no intervention as this was thought to be chronic. He was discharged with a Mesa. He returns to the ED on 06/19/2024 with decreased urination thought to be secondary to malfunction and Mesa catheter. Patient is a poor historian. His son is at bedside and provides history. Noted to have hematuria on admission. It was felt that the patientmay have partially dislodged his catheter as he also had some blood around the urethra. Had been compliant with Augmentin. Mesa catheter was replaced in the ER. 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 In the ED, temp 36.6, pulse 83, RR 19, BP 133/74, O2 sats 97% on room air. Labs: WBC 17.52, BUN 17, creatinine 0.94, lactate 3.9-->2.3. Urinalysis turbid, 3+ blood, 3+ leukocyte esterase, > 50 WBC,,> 20 RBC, 3-5 epithelial cells, 3+ bacteria. He received a dose of Unasyn and is currently on vancomycin and cefepime. Blood culture( BCID) with 1 out of 4 bottles positive for staph hemolyticus and 1 out of 4 bottles positive for GPC ( not yet identified). Repeat blood culture NGTD. Urine culture growing 100 K Enterococcus faecalis pending sensitivities. ID consulted for bacteremia and UTI. Mesa catheter has been removed. He currently has a condom catheter in place. Patient is awake and alert. He appears in no acute distress. No localizing signs or symptoms on exam. His son is at bedside and provides history. WBC down to 10.82. Allergies Allergy/AdvReac Type Severity Reaction Status Date / Time No Known Allergies Allergy Verified 05/27/24 08:19 Home Medications Medication Instructions Recorded Confirmed Type [id number] 300 mcg-K 60 1 tab PO QAM 02/15/19 06/19/24 History mcg-lycop 600 mcg-lutein 300 mcg tablet (Centrum Silver Men) magnesium oxide 400 mg PO BID 03/30/21 06/19/24 History bilateral LE AFO braces #1 ea 11/23/21 06/19/24 Rx triamcinolone acetonide 0.1 % 1 applic topical BID PRN Skin 08/01/22 06/19/24 Rx topical cream Irritation #30 grams blood-glucose meter (FreeStyle #1 ea 08/02/22 06/19/24 Rx Lite Meter kit) lancets 28 gauge (FreeStyle #100 ea 08/02/22 06/19/24 Rx Lancets) CPAP Supplies #1 ea 02/07/23 06/19/24 Rx clopidogrel 75 mg tablet 75 mg PO QAM #90 tabs 07/18/23 06/19/24 Rx finasteride 5 mg tablet 5 mg PO QAM #90 tabs 07/18/23 06/19/24 Rx simvastatin 20 mg tablet 20 mg PO HS #90 tabs 10/31/23 06/19/24 Rx metformin 500 mg tablet 500 mg PO BIDM #0 tabs 11/10/23 06/19/24 Rx docusate sodium 100 mg capsule 100 mg PO DAILY PRN constipation 11/29/23 06/19/24 Rx #0 caps polyethylene glycol 3350 17 gram 17 g PO DAILY PRN constipation #0 11/29/23 06/19/24 Rx oral powder packet (Miralax) ea blood sugar diagnostic (FreeStyle #100 ea 01/24/24 06/19/24 Rx Test strips) solifenacin 5 mg tablet (Vesicare) 5 mg PO HS #30 tabs 02/13/24 06/19/24 Rx Diabetic Shoes #1 ea 03/07/24 06/19/24 Rx metoprolol tartrate 50 mg tablet 50 mg PO BID #180 tabs 04/15/24 06/19/24 Rx oxybutynin chloride 5 mg tablet 5 mg PO Q8H PRN bladder spasms #9 12/02/24 12/25/24 Rx tabs phenazopyridine 200 mg tablet 200 mg PO Q8H PRN pain #10 tabs 05/27/24 06/19/24 Rx (Pyridium) amoxicillin 875 mg-potassium 1 tab PO BID 14 days #28 tabs 06/15/24 06/19/24 Rx clavulanate 125 mg tablet tamsulosin 0.4 mg capsule See Rx Instructions .Route 06/21/24 Rx .COMPLEX #30 caps Patient History Medical History Mesa catheter present Leukocytosis Generalized weakness Confusion Abnormal computed tomography of abdomen and pelvis Complicated urinary tract infection Stenosis of right external iliac artery UTI (urinary tract infection) Weakness Benign prostatic hyperplasia with urinary obstruction Obstructive sleep apnea Hyperlipidemia Hypertension Controlled type 2 diabetes mellitus with microalbuminuria Coronary artery disease severe per 03/28/23 cath: Severe obstructive coronary disease involving subtotal occlusion of the proximal RCA, 50% distal left main, 99% om 2 lesions. Good collateralization of the right coronary via [id number] collaterals Hx of transient ischemic attack (TIA) Hypertension Hx of recurrent urinary tract infection Urinary retention Cervical disc disease son unsure, reports no limits to rom of neck Hx of sepsis (10/2023) admit to [facility], went to rehab ([facility]) afterwards x 2 weeks MRSA (methicillin resistant Staphylococcus aureus) MRSA UTI during [facility] admission 10/2023 Diabetic ulcer of right heel healed now- released from wound clinic 04/09/24 Nocturnal enuresis Carotid artery stenosis Hyperlipidemia BPH (benign prostatic hyperplasia) Controlled type 2 diabetes mellitus with microalbuminuria Frequent falls son chris (poa) now living with pt. - pt. has only fallen x 1 since august - approx. 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 Surgical History (Reviewed 06/20/24 @ : by Stephanie Kang DO) History of prostate surgery History of cardiac cath (03/2023) 03/2023, "wasn't feeling right," no stents>"pt has minimal damage to heart"; f/u [facility] cardio Hx of cataract surgery (06/2023) b/l Hx of squamous cell carcinoma excision Family History (Reviewed 06/20/24 @ : by Stephanie Kang DO) Mother Coronary heart disease Brother Coronary heart disease Diabetes Hypertension Father Diabetes Denies family history of Ovarian cancer Prostate cancer Myocardial infarction Breast cancer Lung cancer Colorectal cancer Social History (Reviewed 06/20/24 @ : by Stephanie Kang DO) Smoking Status: Former smoker Tobacco Type: Cigarettes Age Started Using Tobacco: 18; Age Quit Using Tobacco: 37; packs per day: 1; Second Hand Exposure: No; Do You Dip or Chew Tobacco: No; Hx Alcohol Use: Yes Alcohol type: wine and hard liquor Alcohol Intake Frequency: 2-4 x/Month Alcohol Intake Frequency Comment: OCCASIONAL Hx Substance Use: No Preferred Language: Tajik Communication Ability: Impaired Communication Ability Comment: expressive aphagia Visual Impairment: No Limitations Hearing Ability: Use of Hearing Aid Field Applications Specialist Required: No Beliefs That Will Affect Care: None marital status: / Current Living Situation: Family Current Living Situation Comment: son Chris cares for pt current occupational status: retired 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 Pt with aphasia and poor historian. ROS obtained from son at BS. Pertinent positives as per HPI Physical Exam Physical Exam: NAD, aphasia Supple neck ATNC, anicteric sclera Non labored breathing Softly distended abdomen, not tender No suprapubic, flank/CVA tenderness; condom catheter in place with clear yellow urine No spinal or joint tenderness No LE edema No central lines Awake and alert Cooperative, normal mood Results & Data Vital Signs (Past 12 Hours) Vital Signs Temp Pulse Pulse Resp BP Pulse Ox O2 Del Method 06/21/24 15:10 36.9 C 70 18 154/93 H 95 Room Air 06/21/24 07:37 36.4 C L 77 18 161/104 H 98 CPAP 06/21/24 03:45 63 20 94 O2 Flow Rate 06/21/24 15:10 06/21/24 07:37 1 06/21/24 03:45 2 Laboratory Results Laboratory Results - last 48 hr 06/19/24 06/19/24 06/19/24 17:57 18:00 19:00 WBC 17.52 H RBC 4.14 L Hgb 12.2 L Hct 37.0 L MCV 89.4 MCH 29.5 MCHC 33.0 RDW Std Deviation 41.8 RDW Coeff of Doris 12.7 Plt Count 387 MPV 8.7 L Immature Gran % (Auto) 0.6 Neut % (Auto) 83.8 Lymph % (Auto) 8.9 [place] % (Auto) 5.6 Eos % (Auto) 0.8 Baso % (Auto) 0.3 Neut # (Auto) 14.69 H Lymph # (Auto) 1.56 [place] # (Auto) 0.98 H Eos # (Auto) 0.14 Baso # (Auto) 0.05 Immature Gran # (Auto) 0.10 Sodium 133 L Potassium 4.2 Chloride 97 L Carbon Dioxide 28 Anion Gap 8 BUN 17 Creatinine 0.94 Est Cr Clr Drug Dosing Not Reportable eGFR 78.95 BUN/Creatinine Ratio 18.1 Glucose 222 H POC Glucose Lactate Calcium 9.6 Total Bilirubin 0.3 AST 15 ALT 17 Alkaline Phosphatase 47 C-Reactive Protein 8.00 H Total Protein 7.7 Albumin 3.6 Globulin 4.1 H Albumin/Globulin Ratio 0.9 Lipase 15 Procalcitonin 0.07 Urine Color Yellow Urine Appearance Turbid A Urine pH 6.5 Ur Specific [place] 1.017 Urine Protein 2+ H Urine Glucose (UA) 2+ H Urine Ketones Negative Urine Blood 3+ H Urine Nitrite Negative Urine Bilirubin Negative Urine Urobilinogen Negative Ur Leukocyte Esterase 3+ H Urine WBC (Auto) >50 H Urine RBC (Auto) >20 H U Hyaline Cast (Auto) 11-20 H U Epithel Cells (Auto) 3-5 H Urine Bacteria (Auto) 3+ H Staphylococcus sp PCR Bld Cult ID Panel PCR PCR Panel Negative 06/19/24 06/19/24 06/19/24 19:11 21:07 22:21 WBC RBC Hgb Hct MCV MCH MCHC RDW Std Deviation RDW Coeff of Doris Plt Count MPV Immature Gran % (Auto) Neut % (Auto) Lymph % (Auto) [place] % (Auto) Eos % (Auto) Baso % (Auto) Neut # (Auto) Lymph # (Auto) [place] # (Auto) Eos # (Auto) Baso # (Auto) Immature Gran # (Auto) Sodium Potassium Chloride Carbon Dioxide Anion Gap BUN Creatinine Est Cr Clr Drug Dosing eGFR BUN/Creatinine Ratio Glucose POC Glucose 132 H Lactate 3.9 H* 2.3 H* Calcium Total Bilirubin AST ALT Alkaline Phosphatase C-Reactive Protein Total Protein Albumin Globulin Albumin/Globulin Ratio Lipase Procalcitonin Urine Color Urine Appearance Urine pH Ur Specific [place] Urine Protein Urine Glucose (UA) Urine Ketones Urine Blood Urine Nitrite Urine Bilirubin Urine Urobilinogen Ur Leukocyte Esterase Urine WBC (Auto) Urine RBC (Auto) U Hyaline Cast (Auto) U Epithel Cells (Auto) Urine Bacteria (Auto) Staphylococcus sp PCR DETECTED A Bld Cult ID Panel PCR See PCR Comment 06/20/24 06/20/24 06/20/24 07:02 07:51 11:39 WBC 13.21 H RBC 3.51 L Hgb 10.5 L Hct 31.3 L MCV 89.2 MCH 29.9 MCHC 33.5 RDW Std Deviation 42.0 RDW Coeff of Doris 12.8 Plt Count 305 MPV 8.7 L Immature Gran % (Auto) Neut % (Auto) Lymph % (Auto) [place] % (Auto) Eos % (Auto) Baso % (Auto) Neut # (Auto) Lymph # (Auto) [place] # (Auto) Eos # (Auto) Baso # (Auto) Immature Gran # (Auto) Sodium 134 L Potassium 3.9 Chloride 104 Carbon Dioxide 24 Anion Gap 6 BUN 14 Creatinine 0.76 Est Cr Clr Drug Dosing 72.7 eGFR 87.53 BUN/Creatinine Ratio 18.4 Glucose 201 H POC Glucose 182 H 186 H Lactate Calcium 8.5 L Total Bilirubin AST ALT Alkaline Phosphatase C-Reactive Protein Total Protein Albumin Globulin Albumin/Globulin Ratio Lipase Procalcitonin Urine Color Urine Appearance Urine pH Ur Specific [place] Urine Protein Urine Glucose (UA) Urine Ketones Urine Blood Urine Nitrite Urine Bilirubin Urine Urobilinogen Ur Leukocyte Esterase Urine WBC (Auto) Urine RBC (Auto) U Hyaline Cast (Auto) U Epithel Cells (Auto) Urine Bacteria (Auto) Staphylococcus sp PCR Bld Cult ID Panel PCR 06/20/24 06/20/24 06/21/24 16:35 20:06 05:56 WBC 10.82 H RBC 3.77 L Hgb 11.0 L Hct 34.0 L MCV 90.2 MCH 29.2 MCHC 32.4 RDW Std Deviation 42.3 RDW Coeff of Doris 12.8 Plt Count 303 MPV 8.8 L Immature Gran % (Auto) 0.8 Neut % (Auto) 69.2 Lymph % (Auto) 15.9 [place] % (Auto) 7.3 Eos % (Auto) 6.3 Baso % (Auto) 0.5 Neut # (Auto) 7.49 H Lymph # (Auto) 1.72 [place] # (Auto) 0.79 H Eos # (Auto) 0.68 H Baso # (Auto) 0.05 Immature Gran # (Auto) 0.09 Sodium 135 L Potassium 3.9 Chloride 104 Carbon Dioxide 24 Anion Gap 7 BUN 11 Creatinine 0.73 Est Cr Clr Drug Dosing 75.7 eGFR 88.61 BUN/Creatinine Ratio 15.1 Glucose 126 H POC Glucose 137 H 212 H Lactate Calcium 8.8 Total Bilirubin AST ALT Alkaline Phosphatase C-Reactive Protein Total Protein Albumin Globulin Albumin/Globulin Ratio Lipase Procalcitonin Urine Color Urine Appearance Urine pH Ur Specific [place] Urine Protein Urine Glucose (UA) Urine Ketones Urine Blood Urine Nitrite Urine Bilirubin Urine Urobilinogen Ur Leukocyte Esterase Urine WBC (Auto) Urine RBC (Auto) U Hyaline Cast (Auto) U Epithel Cells (Auto) Urine Bacteria (Auto) Staphylococcus sp PCR Bld Cult ID Panel PCR 06/21/24 06/21/24 07:35 11:31 WBC RBC Hgb Hct MCV MCH MCHC RDW Std Deviation RDW Coeff of Doris Plt Count MPV Immature Gran % (Auto) Neut % (Auto) Lymph % (Auto) [place] % (Auto) Eos % (Auto) Baso % (Auto) Neut # (Auto) Lymph # (Auto) [place] # (Auto) Eos # (Auto) Baso # (Auto) Immature Gran # (Auto) Sodium Potassium Chloride Carbon Dioxide Anion Gap BUN Creatinine Est Cr Clr Drug Dosing eGFR BUN/Creatinine Ratio Glucose POC Glucose 162 H 195 H Lactate Calcium Total Bilirubin AST ALT Alkaline Phosphatase C-Reactive Protein Total Protein Albumin Globulin Albumin/Globulin Ratio Lipase Procalcitonin Urine Color Urine Appearance Urine pH Ur Specific [place] Urine Protein Urine Glucose (UA) Urine Ketones Urine Blood Urine Nitrite Urine Bilirubin Urine Urobilinogen Ur Leukocyte Esterase Urine WBC (Auto) Urine RBC (Auto) U Hyaline Cast (Auto) U Epithel Cells (Auto) Urine Bacteria (Auto) Staphylococcus sp PCR Bld Cult ID Panel PCR Diagnostic Findings Microbiology 06/19/24 19:00 Blood Aerobic Blood Culture - Preliminary Gram positive bacilli 06/19/24 19:00 Blood Anaerobic Blood Culture - Final 06/19/24 17:57 Urine,Straight Cath Urine Culture - Preliminary Pin-point growth present, reincubating. 06/19/24 19:11 Blood Aerobic Blood Culture - Preliminary Staphylococcus haemolyticus 06/19/24 19:11 Blood Anaerobic Blood Culture - Final CTAP 06/11/24 IMPRESSION: 1. New since the exam of 08/10/2023 is occlusion of the right external iliac artery. 2. There is an abscess within or adjacent to the midline prostate inseparable from the posterior wall of the bladder measuring 4.0 x 3.7 x 3.5 cm. 3. Severe cystitis. 4. Stable chronic distal pancreatitis. No acute pancreatitis noted. Lower extremity artery duplex 06/12/24 IMPRESSION: 1. Right proximal part of the external iliac artery is not visualized due to overlying bowel gas. 2. Limited visualization of the right external iliac artery and common femoral arteries due to plaque formation showing trickle flow of the right common femotral artery detected within the B-flow wave, suggesting chronic occlusive disease. 3. Increased velocities of the right proximal superficial femoral artery causing about 70 to 90% stenosis. 4. No flow seen within the distal right superficial femoral artery likely occluded. 5. Low velocity and monophasic flow is seen throughout the right lower lumbar extremity arteries. 6. Please correlate clinically. Medications Administered Home Medications Medication Instructions Recorded Confirmed Last Taken [id number] 300 mcg-K 60 1 tab PO QAM 02/15/19 06/19/24 05/20/24 mcg-lycop 600 mcg-lutein 300 mcg tablet (Centrum Silver Men) magnesium oxide 400 mg PO BID 03/30/21 06/19/24 05/26/24 bilateral LE AFO braces #1 ea 11/23/21 06/19/24 Unknown triamcinolone acetonide 0.1 % 1 applic topical BID PRN Skin 08/01/22 06/19/24 07/11/23 topical cream Irritation #30 grams blood-glucose meter (FreeStyle #1 ea 08/02/22 06/19/24 Unknown Lite Meter kit) lancets 28 gauge (FreeStyle #100 ea 08/02/22 06/19/24 Unknown Lancets) CPAP Supplies #1 ea 02/07/23 06/19/24 Unknown clopidogrel 75 mg tablet 75 mg PO QAM #90 tabs 07/18/23 06/19/24 05/22/24 finasteride 5 mg tablet 5 mg PO QAM #90 tabs 07/18/23 06/19/24 11/07/23 simvastatin 20 mg tablet 20 mg PO HS #90 tabs 10/31/23 06/19/24 05/26/24 metformin 500 mg tablet 500 mg PO BIDM #0 tabs 11/10/23 06/19/24 05/26/24 docusate sodium 100 mg capsule 100 mg PO DAILY PRN constipation 11/29/23 06/19/24 Unknown #0 caps polyethylene glycol 3350 17 gram 17 g PO DAILY PRN constipation #0 11/29/23 06/19/24 Unknown oral powder packet (Miralax) ea blood sugar diagnostic (FreeStyle #100 ea 01/24/24 06/19/24 Unknown Test strips) solifenacin 5 mg tablet (Vesicare) 5 mg PO HS #30 tabs 02/13/24 06/19/24 Unknown Diabetic Shoes #1 ea 03/07/24 06/19/24 Unknown metoprolol tartrate 50 mg tablet 50 mg PO BID #180 tabs 04/15/24 06/19/24 05/26/24 oxybutynin chloride 5 mg tablet 5 mg PO Q8H PRN bladder spasms #9 05/27/24 06/19/24 Unknown tabs phenazopyridine 200 mg tablet 200 mg PO Q8H PRN pain #10 tabs 05/27/24 06/19/24 Unknown (Pyridium) amoxicillin 875 mg-potassium 1 tab PO BID 14 days #28 tabs 06/15/24 06/19/24 Unknown clavulanate 125 mg tablet tamsulosin 0.4 mg capsule See Rx Instructions .Route 06/21/24 Unknown .COMPLEX #30 caps Active Medications Generic Name Dose Route Start Last Admin Trade Name Freq PRN Reason Stop Dose Admin Acetaminophen 650 mg 06/19/24 22:25 06/20/24 20:05 Acetaminophen 325 Mg Tab PO 07/19/24 22:24 650 mg Q4H PRN Administration Pain or Fever Clopidogrel Bisulfate 75 mg 06/20/24 09:00 06/21/24 09:11 Clopidogrel Bisulfate 75 Mg Tab PO 07/20/24 08:59 75 mg QAM CARMINA Administration Enoxaparin Sodium 40 mg 06/20/24 16:30 06/20/24 17:52 Enoxaparin Inj 40 Mg/0.4 Ml Syr SQ 07/20/24 16:29 40 mg Q24H CARMINA Administration Finasteride 5 mg 06/20/24 09:00 06/21/24 09:10 Finasteride 5 Mg Tab PO 07/20/24 08:59 5 mg QAM CARMINA Administration Cefepime HCl 2,000 mg in 20 mls @ 5 mls/min 06/19/24 23:00 06/21/24 09:06 Maxipime 2000mg IV 06/29/24 22:59 5 mls/min Q8H CARMINA Administration Protocol Vancomycin HCl 1,000 mg in 270 mls @ 200 mls/hr 06/21/24 12:30 06/21/24 14:11 Vancomycin Hcl IV 06/29/24 12:29 Infused Q12H CARMINA Infusion Insulin Aspart 0 units 06/19/24 22:25 06/21/24 13:18 Insulin Aspart Per Unit Charge SC 07/19/24 22:24 3 units ACHS CARMINA Administration Metoprolol Tartrate 50 mg 06/19/24 22:25 06/21/24 09:10 Metoprolol Tartrate 50 Mg Tab PO 07/19/24 22:24 50 mg BID CARMINA Administration Ondansetron HCl 4 mg 06/19/24 22:25 06/20/24 01:11 Ondansetron Inj 2 Mg/Ml 2 Ml Vial IV 07/19/24 22:24 4 mg Q6H PRN Administration Nausea And Vomiting Simvastatin 20 mg 06/19/24 22:25 06/20/24 20:06 Simvastatin 20 Mg Tab PO 07/19/24 22:24 20 mg HS CARMINA Administration Tamsulosin HCl 0.4 mg 06/19/24 22:25 06/20/24 20:05 Tamsulosin Hcl 0.4 Mg Cap PO 07/19/24 22:24 0.4 mg HS CARMINA Administration (2) Malfunction of Mesa catheter Encounter type: initial encounter Qualified Code(s): T83.011A - Breakdown (mechanical) of indwelling urethral catheter, initial encounter (4) Catheter-associated urinary tract infection Encounter type: initial encounter Indwelling urinary catheter type: indwelling urethral catheter Qualified Code(s): T83.511A - Infection and inflammatory reaction due to indwelling urethral catheter, initial encounter; N39.0 - Urinary tract infection, site not specified
--- NOTE | 2024-06-22 07:49 | Hospitalist Progress Note ---
Date of Service June 22, 2024 Assessment & Plan (1) Malfunction of Elliott catheter: Plan: 88yo male with history of BPH with LUTS, urinary retention s/p recent urological procedure (REZUM) presenting with malfunctioning Elliott catheter and UTI. Patient with recent admission for Enterococcus UTI for which he has been taking Augmentin. Did have some reported hematuria, possibly pulled on the catheter. Elliott replaced in the ER and was functioning properly, but has now stopped functioning again on 06/20. Consulted urology -recommend discontinuing Elliott and trial of void on 06/20. Has been voiding with condom cath at this time -If PVR greater than 400 mL, develops symptoms of urinary retention, or unable to void-they recommend placing a 20 Turkmen coud catheter. Draining appropriately 06/21, clear urine in bag UA with some contamination of epithelial cells, urine culture sent and pin-point growth on preliminary, re-incubating Vanco/Cefepime IV continued. WBC trended down to 10.8l, however blood cultures from 06/19 with staphylococcus haemolyticus on anaerobic cx in 1/4 bottles, other remains with [facility] ID consulted, recs to continue Vancomycin. ID has discontinued Cefepime at this time. See note, if GPR is bacillus sp not anthracis or corynebacterium sp, then likely contaminant. If GPR listeria or clostridium sp, further workup will be needed. ?Repeat CTAP (as discussed w/ urology yesterday, not felt needed) however could entertain if any worsening/final speciation APPEARS IMPROVED ON EXAM 06/22 despite WBC slightly worse however afebrile and will continue current course. Repeat blood cx from 06/20 without growth to date PT/OT consults pending, son updated at bedside. Hopeful dc in next 24-48 hours pending final cultures/ID recs. (2) UTI (urinary tract infection): Plan: Previous admission and discharge several days prior to this admission for Enterococcus UTI-treated on discharge with p.o. Augmentin with last day of treatment 06/22 UA here abnormal but also contaminated with epithelial cells. Elliott catheter was replaced on 06/19 in the ED and is now removed on 06/20 No fever but with leukocytosis worsening at 17,000 but could be stress response from urinary retention and malfunctioning Elliott catheter. Patient with elevated Lactate = 3.9 in the ER, improved to 2.3 after IVF. Procalcitonin negative, CRP elevated at 8. Leukocytosis now improving Patient with history of Enterococcus UTI as well as Pseudomonas on previous urine culture in 04/2024 Blood cultures now growing 06/19 with staphylococcus haemolyticus on anaerobic cx in 1/4 bottles, other remains with GPB Blood cx from 06/20 NGTD at this time. Urine cx pin point growth, reincubating -- follow Abx as outlined above (3) Bacteremia: Plan: as above, monitoring bcx on vancomycin. cefepime discontinued. can reach out to ID in AM for discussion if doing better/repeat cx negative if wanting to go home and cleared by therapy for such. (4) Obstructive sleep apnea: Plan: Chronic. Stable. 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 Last [id number]=1.5 on 06/12/24. Patient on metformin 500mg po BID-held, can also contribute to lactic acidosis w/ elevated lactic on admission Continue ISS-Goal blood sugar 110 - 140 Plan DVT prophylaxis add Lovenox SQ Disposition-continued inpatient stay on IV abx. full admission. Continue Vancomycin per ID and will plan to touch base in AM if repeat blood cx/urine cx final and patient doing well and cleared by therapy to return home did discuss w/ son, possible dc in next 24-48 hours pending course. CM following Admission and Anticipated Discharge Date Admission Date: June 19, 2024 Supervising Physician Co-Signing Physician Notes The patient was not seen by me. The chart was reviewed. Case discussed with JOSE ALEJANDRO Mace. Agree with assessment and plan Subjective Eval this morning, son present. Sitting up in bed, eating breakfast. Reports feeling better, appears improved on exam. More talkative, more conversive. They report seeing ID on ipad w/ nursing yesterday. Discussed plan and monitoring of blood cultures but hopeful able to dc in next 24-48 hours pending course. Condom cath in place, draining appropriately. No abdominal pain/nausea. Good appetite. Taking pills w/ applesauce this morning but son reports usually chews without issue. Son reports has not seen therapy yet, will ensure done prior to dc to ensure no needs. Dispo pending if repeat blood cultures remain negative and if prior cx without bacteria concerning that would require further eval/possible repeat imaging given prior fluid collection but holding off for now. No fever/chills, denies chest pain/shortness of breath. Questions/concerns addressed at this time Physical Exam 2 Physical Exam: General: 88yo male sitting up in bed eating breakfast, son at bedside, NAD, expressive aphasia/slow responses since his CVA >30 years ago per son at bedside (much improved talkative/conversive today, reports feeling better) HEENT: head atraumatic, normocephalic, mmm, trachea midline Resp: even/unlabored, slightly diminished in the bases but no wheezing/rales, on room air 93% CV: RRR, no significant m/r/g, no pitting edema/calf tenderness : condom cath with CLEAR yellow urine draining Psych: alert to person/place/year, slow responses at times but at baseline Results & Data Results & Data Vital Signs (Past 12 Hours) Vital Signs Temp Pulse Pulse Resp BP Pulse Ox O2 Del Method 06/22/24 07:18 36.5 C 68 17 159/95 H 93 Room Air 06/22/24 02:05 74 13 95 06/21/24 22:30 80 14 98 06/21/24 22:24 36.9 C 76 16 170/64 H Room Air O2 Flow Rate 06/22/24 07:18 06/22/24 02:05 2 06/21/24 22:30 2 06/21/24 22:24 Laboratory Results 06/22/24 08:18 06/22/24 08:18 PG Care Time/CCT Total # of Minutes Spent Total Time Spent with Patient: Total time spent is greater than 50% in coordination of care (as documented) at patient's floor/unit and/or counseling patient: Coding Level of Care Code 53297 SUB INP/OBS CARE 3/50MIN Diagnoses Malfunction of Elliott catheter T83.011A Encounter type: initial encounter UTI (urinary tract infection) N39.0 Bacteremia R78.81 Obstructive sleep apnea G47.33 Hyperlipidemia E78.5 Hypertension I10 Controlled type 2 diabetes mellitus with microalbuminuria E11.29; R80.9 (1) Malfunction of Elliott catheter Encounter type: initial encounter Qualified Code(s): T83.011A - Breakdown (mechanical) of indwelling urethral catheter, initial encounter
[2024-06-22] MEDS: PHENAZOPYRIDINE HCL 200 MG TAB PO PRN (08:30)
[2024-06-22 09:10] LABS: Hematocrit (blood only) 37.3 % (42.0-52.0); Hemoglobin 12.6 g/dl (14.0-18.0); Mean Corpuscular Hemoglobin 29.6 pg (25.0-34.0); Mean Corpuscular Hgb Conc 33.8 g/dL (32.0-36.0); Mean Corpuscular Volume 87.8 fL (80.0-100.0); Mean Platelet Volume 8.5 fL (9.4-12.4); Platelet Count 342 K/uL (130-400); RDW Coefficient of Variation 12.5 % (11.5-14.5); RDW Standard Deviation 40.3 fL (36.4-46.3); Red Blood Count 4.25 M/uL (4.70-6.10); White Blood Count 12.06 K/ul (4.8-10.8)
[2024-06-22 09:28] LABS: BUN Creatinine Ratio 11.4 (10-20); Calcium 9.2 mg/dl (8.6-10.3); Creatinine Clr Calc Pharmacy 78.9 ml/min; Magnesium 1.7 mg/dl (1.7-2.4); Potassium 3.6 mmol/L (3.5-5.1)
[2024-06-22 10:41] LABS: Basophils # (auto) 0.05 K/uL (0.00-0.20); Basophils % (auto) 0.4 %; Eosinophils # (auto) 0.65 K/uL (0.00-0.50); Eosinophils % (auto) 5.4 %; Immature Granulocytes # (auto) 0.05 K/uL (0.01-0.20); Immature Granulocytes % (auto) 0.4 %; Lymphocytes # (auto) 1.52 K/uL (1.20-3.40); Lymphocytes % (auto) 12.6 %; Monocytes # (auto) 0.91 K/uL (0.11-0.59); Monocytes % (auto) 7.5 %; Neutrophils # (auto) 8.88 K/uL (1.40-6.50); Neutrophils % (auto) 73.7 %
[2024-06-23 06:18] LABS: Basophils # (auto) 0.04 K/uL (0.00-0.20); Basophils % (auto) 0.4 %; Eosinophils # (auto) 0.53 K/uL (0.00-0.50); Hematocrit (blood only) 35.8 % (42.0-52.0); Hemoglobin 12.1 g/dl (14.0-18.0); Immature Granulocytes # (auto) 0.05 K/uL (0.01-0.20); Immature Granulocytes % (auto) 0.5 %; Lymphocytes # (auto) 1.64 K/uL (1.20-3.40); Lymphocytes % (auto) 15.5 %; Mean Corpuscular Hemoglobin 29.4 pg (25.0-34.0); Mean Corpuscular Hgb Conc 33.8 g/dL (32.0-36.0); Mean Corpuscular Volume 87.1 fL (80.0-100.0); Mean Platelet Volume 8.6 fL (9.4-12.4); Monocytes # (auto) 0.83 K/uL (0.11-0.59); Monocytes % (auto) 7.8 %; Neutrophils % (auto) 70.8 %; Platelet Count 324 K/uL (130-400); RDW Coefficient of Variation 12.6 % (11.5-14.5); Red Blood Count 4.11 M/uL (4.70-6.10); White Blood Count 10.59 K/ul (4.8-10.8)
[2024-06-23 06:34] LABS: BUN Creatinine Ratio 12.3 (10-20); Calcium 8.8 mg/dl (8.6-10.3); Creatinine Clr Calc Pharmacy 75.7 ml/min; Magnesium 1.7 mg/dl (1.7-2.4); Potassium 3.6 mmol/L (3.5-5.1)
--- NOTE | 2024-06-23 08:45 | Hospitalist Progress Note ---
Date of Service June 23, 2024 Assessment & Plan (1) Malfunction of Mesa catheter: Plan: 88yo male with history of BPH with LUTS, urinary retention s/p recent urological procedure (REZUM) presenting with malfunctioning Mesa catheter and UTI. Patient with recent admission for Enterococcus UTI for which he has been taking Augmentin. Did have some reported hematuria, possibly pulled on the catheter. Mesa replaced in the ER and was functioning properly, but has now stopped functioning again on 06/20. Consulted urology -recommend discontinuing Mesa and trial of void on 06/20. -Has been voiding with condom cath at this time, draining appropriately without retention issues -Recs if PVR greater than 400 mL, develops symptoms of urinary retention, or unable to void-they recommend placing a 20 Pashto coud catheter. Vanco/Cefepime IV ID consulted given bcx results -discontinued Cefepime but continues on Vancomycin given was on augmentin prior to admission and urine cx growing -See note ( if GPR is bacillus sp not anthracis or corynebacterium sp, then likely contaminant. If GPR listeria or clostridium sp, further workup will be needed. ?Repeat CTAP (as discussed w/ urology yesterday, not felt needed) however could entertain if any worsening/final speciation) Urine cx finalized w/ enterococcus faecalis as prior, sensitive to ampicillin Blood cultures 06/19 with staphylococcus haemolyticus anaerobic cx, Brevibacterium celere on other set, ?contaminant usually but waiting for final sensitivities for staph species and could have considered dc Amoxicillin 875mg TID to complete course however therapy evals w/ 2 assist and per discussion with son will await repeat therapy evals in AM to ensure stable to return home as desired. Continues Vancomycin IV, trough level therapeutic. WBC normalized. Afebrile. Repeat Bcx from 06/21 remain NGTD, afebrile. Hopeful dc 06/24 back to home if improvement w/ therapy evals in AM (2) UTI (urinary tract infection): Plan: Previous admission and discharge several days prior to this admission for Enterococcus UTI-treated on discharge with p.o. Augmentin with last day of treatment 06/22 UA abn but did have epis. Elevated WBC/lactic to 3.9 in ER, improved to 2.3 w/ IVF mesa replaced in ER 06/19 and has been removed 06/20 and voiding with condom cath without retention issues. Urine/blood cultures as above and remains on VANCOMYCIN IV for now. WBC normalized. Plans for Amoxicillin 875mg TID to complete course following catheter removal pending finalized cxs and will touch base w/ ID in AM (3) Bacteremia: Plan: as above, monitoring bcx on vancomycin. cefepime discontinued. F/u repeat blood cx in am to ensure remaining negative (4) Obstructive sleep apnea: Plan: Chronic. Stable. Patient reports compliance with CPAP. CPAP ordered/continued 8cm H20 (5) Hyperlipidemia: Plan: Chronic Continue Simvastatin History of CVA, PAD -no acute issues -Continue Plavix (6) Hypertension: Plan: Chronic, mild elevations but imporved following morning medications. This morning, BP 153/82 prior to administration and will continue to monitor. Would not overtx (7) Controlled type 2 diabetes mellitus with microalbuminuria: Plan: Chronic. Last TgnW5U=3.5 on 06/12/24. Patient on metformin 500mg po BID-held, can also contribute to lactic acidosis w/ elevated lactic on admission Continue ISS-Goal blood sugar 110 - 140 Plan DVT prophylaxis : Lovenox SQ Dispo: continued inpatient stay on IV abx. Will touch base w/ ID in AM but if cleared by PT/OT to return home can plan for dc w/ HH 06/24. Son updated at bedside 06/23 Admission and Anticipated Discharge Date Admission Date: June 19, 2024 Supervising Physician Co-Signing Physician Notes The patient was not seen by me. The chart was reviewed. Case discussed with JOSE ALEJANDRO Mace. Agree with assessment and plan Subjective Eval this morning, sitting up in bed, eating breakfast, son at bedside. Discussed urine cx enterococcus and sensitivities available and can consider amox 875mg THREE times daily for coverage but wanting to touch base w/ ID. Was going to touch base today for potential dc but therapy evals didn't go great and will ask to see again in AM to ensure safe/stable for son to bring home. He is agreeable to this plan as well as Mr Strickland to prevent bringing him home and having to come right back. Denies fever/chills, chest pain or trouble breathing. Good appetite, moved his bowels. Urinary incontinence w/ standing but does not have any further retention at this time. Questions/concerns addressed at this time. Physical Exam 2 Physical Exam: General: 88yo male sitting up in bed eating breakfast, son at bedside, NAD, expressive aphasia/slow responses since his CVA >30 years ago per son at bedside -- continues to be improved/conversive today, back to baseline, good appetite reported HEENT: head atraumatic, normocephalic, mmm, trachea midline Resp: even/unlabored, slightly diminished in the bases but no wheezing/rales, on room air 95% CV: RRR, no significant m/r/g, no pitting edema/calf tenderness : condom cath with CLEAR yellow urine draining Psych: alert to person/place/year, expressive aphasia at baseline Results & Data Results & Data Vital Signs (Past 12 Hours) Vital Signs Temp Pulse Pulse Resp BP Pulse Ox O2 Del Method 06/23/24 07:21 36.8 C 80 16 153/82 H 95 Room Air 06/23/24 03:15 70 14 98 06/22/24 23:19 74 18 99 06/22/24 20:45 Room Air, CPAP O2 Flow Rate 06/23/24 07:21 06/23/24 03:15 2 06/22/24 23:19 2 06/22/24 20:45 Laboratory Results 06/23/24 05:35 06/23/24 05:35 Mag 1.7 PG Care Time/CCT Total # of Minutes Spent Total Time Spent with Patient: Total time spent is greater than 50% in coordination of care (as documented) at patient's floor/unit and/or counseling patient: Coding Level of Care Code 44725 SUB INP/OBS CARE 2/35MIN Diagnoses Malfunction of Mesa catheter T83.011A Encounter type: initial encounter UTI (urinary tract infection) N39.0 Bacteremia R78.81 Obstructive sleep apnea G47.33 Hyperlipidemia E78.5 Hypertension I10 Controlled type 2 diabetes mellitus with microalbuminuria E11.29; R80.9 (1) Malfunction of Mesa catheter Encounter type: initial encounter Qualified Code(s): T83.011A - Breakdown (mechanical) of indwelling urethral catheter, initial encounter
[2024-06-23] MEDS: VANCOMYCIN LEVEL ONE (11:50)
--- NOTE | 2024-06-23 12:25 | Pharmacy Report ---
Pharmacy PK ABX Note - Date of Service June 23, 2024 - Assessment and Plan Assessment * 88 year old M receiving vancomycin and cefepime for treatment of mesa cath related UTI. Patient with recent admission for UTI for which he was taking Augmentin. He has a history of E. faecalis, Staph epi, and Pseudomonas UTIs. * Pertinent microbiologic data includes: * 06/19 Urine - E. faecalis sensitive to ampicillin * 06/19 Blood 1 of 2: only staph haemolyticus. 2 of 2 only Brevibacterium celere. Questionable clinical significance of both. * 06/20 Blood: NGTD * ID consulted. Per their note 06/21, anticipate possible transition from vancomycin to amoxicillin PO Plan Vancomycin * Maintenance dose: 1000 mg IV every 12 hours * Regimen is predicted to achieve target AUC/BILLIE of 400-600 mg/L.hr * Repeat random level in 2-3 days if vancomycin continues Pharmacy will continue to follow and will adjust dose/frequency as necessary. Thank you. Pharmacy has transitioned to AUC monitoring for vancomycin. AUC/BILLIE is the preferred PK/PD target and is associated with decreased risk of nephrotoxicity compared to traditional trough targets.
[2024-06-23 22:19] VITALS: RESP 16
--- NOTE | 2024-06-24 08:10 | Hospitalist Progress Note ---
Date of Service June 24, 2024 Assessment & Plan (1) Malfunction of Mesa catheter: Plan: 88yo male with history of BPH with LUTS, urinary retention s/p recent urological procedure (REZUM) presenting with malfunctioning Mesa catheter and UTI. Patient with recent admission for Enterococcus UTI for which he has been taking Augmentin. Did have some reported hematuria, possibly pulled on the catheter. Mesa replaced in the ER and was functioning properly, but has now stopped functioning again on 06/20. Consulted urology -recommend discontinuing Mesa and trial of void on 06/20. -Has been voiding with condom cath at this time, draining appropriately without retention issues -Recs if PVR greater than 400 mL, develops symptoms of urinary retention, or unable to void-they recommend placing a 20 Turkmen coud catheter. Vanco/Cefepime IV ID consulted given bcx results -discontinued Cefepime but continues on Vancomycin given was on augmentin prior to admission and urine cx growing -See note ( if GPR is bacillus sp not anthracis or corynebacterium sp, then likely contaminant. If GPR listeria or clostridium sp, further workup will be needed. ?Repeat CTAP (as discussed w/ urology yesterday, not felt needed) however could entertain if any worsening/final speciation) Urine cx finalized w/ enterococcus faecalis as prior, sensitive to ampicillin Blood cultures 06/19 with staphylococcus haemolyticus anaerobic cx, Brevibacterium celere on other set, ?contaminant usually but waiting for final sensitivities for staph species and could have considered dc Amoxicillin 875mg TID to complete course however therapy evals w/ 2 assist and per discussion with son will await repeat therapy evals in AM to ensure stable to return home as desired. Continues Vancomycin IV, trough level therapeutic. WBC normalized. Afebrile. Repeat Bcx from 06/21 remain NGTD, afebrile. Hopeful dc 06/24 back to home if improvement w/ therapy evals in AM 06/24 - touching base w/ ID re cultures but planning for amox 875mg TID 7-10 days from dc mesa 06/20 (would be 1/2 vs 1/) to complete course. Repeat blood cx from 06/20 remain without growth. On Vancomycin IV currently. Therapy to see this morning. (2) UTI (urinary tract infection): Plan: Previous admission and discharge several days prior to this admission for Enterococcus UTI-treated on discharge with p.o. Augmentin with last day of gaby atment 06/22 UA abn but did have epis. Elevated WBC/lactic to 3.9 in ER, improved to 2.3 w/ IVF mesa replaced in ER 06/19 and has been removed 06/20 and voiding with condom cath without retention issues. Urine/blood cultures as above and remains on VANCOMYCIN IV for now. WBC normalized. Plans for Amoxicillin 875mg TID to complete course following catheter removal pending finalized cxs and will touch base w/ ID in AM (3) Bacteremia: Plan: as above, monitoring bcx on vancomycin. cefepime discontinued. F/u repeat blood cx in am to ensure remaining negative (4) Obstructive sleep apnea: Plan: Chronic. Stable. Patient reports compliance with CPAP. CPAP ordered/continued 8cm H20 (5) Hyperlipidemia: Plan: Chronic Continue Simvastatin History of CVA, PAD -no acute issues -Continue Plavix (6) Hypertension: Plan: Chronic, mild elevations but imporved following morning medications. This morning, BP 153/82 prior to administration and will continue to monitor. Would not overtx (7) Controlled type 2 diabetes mellitus with microalbuminuria: Plan: Chronic. Last RsmS4H=1.5 on 06/12/24. Patient on metformin 500mg po BID-held, can also contribute to lactic acidosis w/ elevated lactic on admission Continue ISS-Goal blood sugar 110 - 140 Plan DVT prophylaxis : Lovenox SQ Dispo: continued inpatient stay on IV abx. Will touch base w/ ID in AM but if cleared by PT/OT to return home can plan for dc w/ HH 06/24. Son updated at bedside 06/23 Admission and Anticipated Discharge Date Admission Date: June 21, 2024 Subjective Eval this morning. Sitting up in bed. Had retention overnight, cath placed but was straight cath. Discussed I spoke with ID and can plan Amox to complete the course however will have urology come around to exchange cath. PT to come for eval but will plan for dc today this afternoon on course if all goes well. Results & Data Results & Data Vital Signs (Past 12 Hours) Vital Signs Temp Pulse Pulse Resp BP Pulse Ox O2 Del Method 06/24/24 07:09 37.1 C 69 16 135/75 97 CPAP 06/24/24 03:08 65 16 97 06/23/24 23:13 CPAP 06/23/24 22:18 36.8 C 91 H 16 165/83 H 93 Room Air 06/23/24 22:16 80 19 96 O2 Flow Rate 06/24/24 07:09 06/24/24 03:08 2 06/23/24 23:13 06/23/24 22:18 06/23/24 22:16 2 PG Care Time/CCT Total # of Minutes Spent Total Time Spent with Patient: Total time spent is greater than 50% in coordination of care (as documented) at patient's floor/unit and/or counseling patient: Coding Diagnoses Malfunction of Mesa catheter T83.011A Encounter type: initial encounter UTI (urinary tract infection) N39.0 Bacteremia R78.81 Obstructive sleep apnea G47.33 Hyperlipidemia E78.5 Hypertension I10 Controlled type 2 diabetes mellitus with microalbuminuria E11.29; R80.9 (1) Malfunction of Mesa catheter Encounter type: initial encounter Qualified Code(s): T83.011A - Breakdown (mechanical) of indwelling urethral catheter, initial encounter
[2024-06-24 10:33] LABS: BUN Creatinine Ratio 13.4 (10-20); Calcium 9.2 mg/dl (8.6-10.3); Creatinine Clr Calc Pharmacy 67.4 ml/min; Magnesium 1.8 mg/dl (1.7-2.4); Potassium 3.9 mmol/L (3.5-5.1)
--- NOTE | 2024-06-24 11:52 | Discharge Summary ---
Discharge Summary Date of Service June 24, 2024 Principal Dx & Hospital Course #1 = Principal Diagnosis (1) Malfunction of Mesa catheter: 88yo male with history of BPH with LUTS, urinary retention s/p recent urological procedure (REZUM) presenting with malfunctioning Mesa catheter and UTI. Patient with recent admission for Enterococcus UTI for which he has been taking Augmentin. Did have some reported hematuria, possibly pulled on the catheter. Mesa replaced in the ER and was functioning properly, but stopped functioning again on 06/20. Consulted Urology and mesa discontinued for voiding trial 06/20 with continued UOP via condom cath. Urine/blood cultures obtained, ID consultation placed given such. Urine grew enterococcus faecalis, sensitive to ampicillin. Blood cultures with haemolyticus anaerobic cx on 06/29 bottles from 06/19 and Brevibacterium celere on other set which was discussed with ID and felt contaminant. Was on Vancomycin/Cefepime IV initially however Cefepime discontinued w/ staph/MSSA species and enterococcus but continued while Vanco while inpatient given growth on Augmentin prior to admission and discussed with ID given final urine cx plans for AMOXICILLIN 875mg TID for 7 day course from mesa removal 06/20. Repeat blood cultures from 06/20 remained NGTD and patient WBC normalized/no further temps. Did have episode RN reported condom cath not working PM 06/23 but no bladder scan and placed catheter. Did discuss with Urology prior to discharge and catheter removed and dc following voiding. Of note, CTAP from prior admission noting possible fluid collection but was felt to be from recent procedure and not presenting like an abscess. If any ongoing issues/worsened symptoms should be considered in f/u but was discussed w/ Urology and no need for repeat imaging at this time. Cleared by PT/OT to return home w/ HH as prior doing with son/family support and caregivers. Urology/PCP follow up at discharge. Return sx discussed AFTERNOON SON WANTING REHAB PRIOR TO BRINGING HOME, CM NOTIFIED AND ARRAN GEMENTS MADE FOR [facility] PRIOR TO RETURNING HOME. (2) UTI (urinary tract infection): CAUTI as above, mesa since discontinued Cefepime/Vanco IV on admission --> Vanco IV continued until urine cx/sensitivities final and sensitive to AMpicillin and increased AMox PO at dc to complete course Repeat bcx ngtd (3) Bacteremia: as above, repeat blood cultures have remained negative and WBC normalized/no fever (4) Obstructive sleep apnea: Chronic. Stable. Patient reports compliance with CPAP. CPAP ordered/continued 8cm H20 (5) Hyperlipidemia: Chronic, continued simvastatin Hx CVA/PAD, baseline expressive aphasia. STABLE/improved mentation following tx as above, no concerns for acute CVA. Continued on plavix (6) Hypertension: Chronic, mild elevations but improved following morning medications and stable 135/75 prior to discharge. 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 Last NjcS9B=1.5 on 06/12/24. Patient on metformin 500mg po BID-held, can also contribute to lactic acidosis w/ elevated lactic on admission Continue ISS-Goal blood sugar 110 - 140 Plan DVT prophylaxis : Lovenox SQ provided while inpatient Dispo: discharged on Amoxicillin PO, no catheter. Cleared by PT/OT to return w/ HH. CM notified. Son updated at bedside 06/24 however feels too much for him at home and have made arrangements for [facility] at [place] as above. Notes For Next Care Provider Ensure follow up with Urology, monitor to ensure repeat blood cx remain NGTD but has had normalized WBC/no fever and repeat bcx NGTD >48 hrs Medication Changes From Visit Augmentin DC'd Amoxicillin 875mg PO TID to complete 7 day course from dc catheter (EOT 06/27) Admission HPI Per Admitting Provider Chris Strickland is an 88yo male with history of BPH and LUTS with urinary retention s/p REZUM water vapor therapy performed by Urology on 05/27/24. Patient with urinary retention - had Mesa removed on 06/06/24 with subsequent replacement in the ER later that night due to urinary retention. Patient was admitted to [facility] on 06/11/24 with UTI. Urine culture at that time POSITIVE for Enterococcus. Patient was seen by Urology in consultation during that admission - no intervention performed. He was ultimately discharged home with a prescription for Augmentin BID x 14 days. Patient has been taking this medication as prescribed with no issues. He presents tonight with his sons. Son reports that he drained patient's Mesa bag two times yesterday as per usual. The urine did appear somewhat bloody and patient had some blood in his Depends - which can occur when he pulls on his catheter. During the day today, patient had no UOP from his Mesa. No additional complaints - no report of fever, chills, abdominal pain or fullness, no confusion. Patient with normal appetite but didn't drink as much fluid today as he usually does. In the ER patient had his Mesa catheter replaced with return of 600mL junaid urine when new Mesa in place. ER Course: Unasyn NSS x 2L Vancomycin Admission Exam Per Admitting Provider General: patient resting comfortably, NAD, non-toxic in appearance, slow to answer questions Skin: warm, dry, intact, no rashes or lesions HEENT: NC/AT, PERRL, EOMI, anicteric sclera, conjunctiva without injection, external ear normal to inspection and nontender, nares patent, moist mucus membranes, dentition intact, no oropharyngeal lesions, neck supple, trachea midline, no LAD, no thyromegaly, no JVD Heart: +S1/S2, regular, no m/r/g Lungs: equal air entry bilaterally, no rales/rhonchi/wheezes Abd: +BS, soft, NT/ND, no masses/organomegaly/ascites Ext: warm, 2+ pulses in UE/LE bilaterally, no clubbing/cyanosis or edema Mesa catheter in place with 600mL clear, junaid colored urine Neuro: nonfocal, speech slow, intact, no facial droop, moving all extremities on command with equal strength 5/5 Discharge Exam General: 88yo male sitting up in bed eating breakfast, son at bedside, NAD, expressive aphasia/slow responses since his CVA >30 years ago per son at bedside -- continues to be improved/conversive today, back to baseline, good appetite reported HEENT: head atraumatic, normocephalic, mmm, trachea midline Resp: even/unlabored, slightly diminished in the bases but no wheezing/rales, on room air 97% CV: RRR, no significant m/r/g, no pitting edema/calf tenderness : cath w/ blood tinged urine from placement, urology having discontinued Psych: alert to person/place/year, expressive aphasia at baseline Discharge Plan Discharge Items Patient Disposition: Transfer Inpatient Rehab Fac Reason For Visit: UTI Discharge Diagnosis: Urinary tract infection, bacteremia Goals: You have been hospitalized for an acute medical problem. During your stay at [facility], we have made an effort to correct the problem that brought you to the hospital while keeping you as comfortable as possible. Medications were used to bring your condition under control and your discharge i nstructions will include directions for any medications you should take after leaving the hospital. Please make sure you see your Primary Care Provider as part of your follow up plan. Activity: As commented below Non-emergency contact: Primary Care Provider and Urologist Call non-emergency contact if: you have any medication questions, your symptoms worsen, your pain is concerning for you and you have a fever Follow-up/Referrals: Laya Mcneill CRNP [Nurse Practitioner] - 06/28/24 3:00 pm Salomon Stanton DO [Primary Care Provider] - 06/25/24 10:30 am Diet: Carb Consistent or DM2 Addtl Attending Provider Instructions: You have been hospitalized for non-working catheter and found to have evidence for ongoing infection to the blood from the urine source. Cultures were obtained and infectious disease was consulted as well as urology. You were given IV antibiotics and sensitivities were reviewed with infectious disease and at discharge, recommend AMOXICILLIN 875mg THREE TIMES DAILY to complete 7 day course from the initial removal of the catheter, which would be on June 27 as the LAST DAY. Repeat blood cultures have been NEGATIVE and your white count normalized and no fevers. Please continue antibiotics as prescribed and monitor for any increased/significant diarrhea. Please follow up with primary care and urology at discharge for ongoing management. Please return to the ER with any fever/chills, difficulty urinating or for any other symptoms concerning for you. Arrangements have been made for [facility] at discharge for ongoing strength/conditioning prior to returning home. It has been a pleasure being a part of the medical team providing for you while you have been in the hospital. Take care! Pending Studies at Discharge: Yes Studies:: Repeat Blood cultures NO GROWTH TO DATE AT PRESENT Stand-Alone Forms: [facility] dateIITians, Smoking Cessation Skilled Items Patient informed of condition?: Yes DNR: No Discharge Level of Care: Acute rehab Communicable Disease: No Discharge Prognosis: Stable Lines: None Urinary Catheter: No Medications and DC Order Prescriptions: New amoxicillin 875 mg tablet 875 mg PO TID Qty: 11 0RF Continued (DME) blood-glucose meter [FreeStyle Lite Meter] Kit See Rx Instructions .Route Qty: 1 0RF Rx Instructions: As directed (DME) lancets [FreeStyle Lancets] 28 gauge [facility] See Rx Instructions .Route Qty: 100 5RF Rx Instructions: test once daily (DME) CPAP Supplies Misc See Rx Instructions .Route Qty: 1 0RF Rx Instructions: CPAP Mask use qHS finasteride 5 mg tablet 5 mg PO QAM Qty: 90 3RF clopidogrel 75 mg tablet 75 mg PO QAM Qty: 90 3RF simvastatin 20 mg tablet 20 mg PO HS Qty: 90 3RF Hold Instructions: Hold starting 04/04 for Paxlovid, c/w s/p 2 weeks off med docusate sodium 100 mg capsule 100 mg PO DAILY PRN (Reason: constipation) Qty: 0 0RF Rx Instructions: CONFIRMED W/ SON THAT PT ONLY TAKES PRN FOR CONSTIPATION. polyethylene glycol 3350 [Miralax] 17 gram powder in packet 17 g PO DAILY PRN (Reason: constipation) Qty: 0 0RF Rx Instructions: CONFIRMED W/ SON THAT PT ONLY TAKES PRN FOR CONSTIPATION (DME) FreeStyle Test Strip See Rx Instructions .Route Qty: 100 5RF Rx Instructions: test once daily prior to meal metoprolol tartrate 50 mg tablet 50 mg PO BID Qty: 180 3RF tamsulosin 0.4 mg capsule See Rx Instructions .ROUTE .COMPLEX Qty: 30 11RF Dose Instruction: take 1 capsule by mouth daily at bedtime Rx Instructions: take 1 capsule by mouth daily at bedtime Centrum Silver Men 300-600-300 mcg tablet 1 tab PO QAM (DME) bilateral LE AFO braces See Rx Instructions .Route .MEDSUPPLY Qty: 1 0RF Rx Instructions: As directed triamcinolone acetonide 0.1 % cream 1 applic topical BID PRN (Reason: Skin Irritation) Qty: 30 2RF solifenacin [Vesicare] 5 mg tablet 5 mg PO HS Qty: 30 0RF (DME) Diabetic Shoes Misc See Rx Instructions .Route Qty: 1 0RF Rx Instructions: Diabetic Shoes and Insoles magnesium oxide 400 mg magnesium Tablet 400 mg PO BID metformin 500 mg Tablet 500 mg PO BIDM Qty: 0 0RF phenazopyridine [Pyridium] 200 mg tablet 200 mg PO Q8H PRN (Reason: pain) Qty: 10 0RF oxybutynin chloride 5 mg tablet 5 mg PO Q8H PRN (Reason: bladder spasms) Qty: 9 0RF Discontinued amoxicillin-pot clavulanate 875-125 mg tablet 1 tab PO BID 14 Days Qty: 28 0RF Discharge Orders: Discharge Order (Routine); Ordered 06/24/24 Ordered By: Laya Umanzor Admission Data Admit Date/Time: 06/21/24 13:20 Attending Provider: Jessika Butler Admit Provider: Stephanie Kang Primary Care Provider: Salomon Stanton Other Providers: Stephanie Kang; Gume Aguilar; [facility]; Michelle Gray; Kathie Lema; Jessica Guzmán; Odessa Ledesma; Jessika Antunez; Bailey Tristan; [facility] Other Interventions: Discharge Summary Assessment (RN) Last Done: 06/24/24 12:07 Hospital Stay Data Consultations 06/19/24 18:59 ED Decision to Admit Stat 06/20/24 12:28 Consult Urology Routine 06/21/24 14:26 Consult Infectious Diseases Routine Discharge Instructions Given to Patient (Per Discharging Provider) You have been hospitalized for non-working catheter and found to have evidence for ongoing infection to the blood from the urine source. Cultures were obtained and infectious disease was consulted as well as urology. You were given IV antibiotics and sensitivities were reviewed with infectious disease and at discharge, recommend AMOXICILLIN 875mg THREE TIMES DAILY to complete 7 day course from the initial removal of the catheter, which would be on June 27 as the LAST DAY. Repeat blood cultures have been NEGATIVE and your white count normalized and no fevers. Please continue antibiotics as prescribed and monitor for any increased/signif icant diarrhea. Please follow up with primary care and urology at discharge for ongoing management. Please return to the ER with any fever/chills, difficulty urinating or for any other symptoms concerning for you. Arrangements have been made for [facility] at discharge for ongoing strength/conditioning prior to returning home. It has been a pleasure being a part of the medical team providing for you while you have been in the hospital. Take care! Total Time Total Time Spent Total Time Spent (In Minutes): 45 Coding Level of Care Code 34950 INP/OBS DISCH >30 MIN Diagnoses Malfunction of Mesa catheter T83.011A Encounter type: initial encounter UTI (urinary tract infection) N39.0 Bacteremia R78.81 Obstructive sleep apnea G47.33 Hyperlipidemia E78.5 Hypertension I10 Controlled type 2 diabetes mellitus with microalbuminuria E11.29; R80.9
--- NOTE | 2024-06-24 12:22 | Urology Progress Note ---
Date of Service June 24, 2024 Assessment & Plan (1) Acute UTI: (2) History of prostate surgery: Plan - Asked to reevaluate patient today for urinary retention - Patient is afebrile, hypertensive, but otherwise stable vitals - Labs today reviewedcreatinine 0.82 - Urine culture 06/19 grew Enterococcus - Blood cultures with staphylococcus haemolyticus anaerobic cx, Brevibacterium celere on other set. Repeat BCx NGTD. ID following. - Pt reportedly developed urinary retention overnight and was straight catheterized by nursing staff - There is currently a straight cath in place, secured to pt leg, and attached to drainage bag. No balloon inflated per nursing. There is clear yellow urine draining into the bag. - It is unclear if patient was truly in urinary retention overnight? Therefore we recommend removal of current catheter and monitoring for ability to void. Recommend checking bladder scan/PVR after next void to ensure he is emptying. - If patient is found to be in urinary retention, recommend replacement of catheter with a 20 [place] coud catheter. - Continue Flomax - Continue antibiotics per ID recommendations - Plan for outpatient follow-up with urology as scheduled - Urology will follow peripherally, please call with any additional questions/ concerns or changes in patient status Plan reviewed with Dr. Cosme. Admission and Anticipated Discharge Date Admission Date: June 21, 2024 Subjective Pt seen at bedside today Awake and sitting in bedside chair on arrival No acute distress Son at bedside Pt denies any pain Patient was straight cathed overnight by nursing staff due to reports of urinary retention. Straight cath currently in place, secured to leg, and attached to drainage bag. No balloon inflated per nursing. There is clear yellow urine draining into the bag. Review of Systems Constitutional: as per Subjective / HPI Genitourinary: + as per Subjective / HPI Physical Exam Constitutional: no acute distress Respiratory: no respiratory distress and no labored breathing Gastrointestinal (Abdomen): Percussion/Palpation: abdomen soft; abdomen nontender Neurologic: awake + expressive aphasia Psychiatric: Orientation: alert and oriented to person Genitourinary: Straight cath currently in place, secured to leg, and attached to drainage bag. No balloon inflated per nursing. There is clear yellow urine draining into the bag. Results & Data Vital Signs (Past 12 Hours) Vital Signs Temp Pulse Pulse Pulse Resp BP Pulse Ox 06/24/24 12:07 37.1 C 84 69 16 135/75 97 06/24/24 07:09 37.1 C 69 16 135/75 97 06/24/24 03:08 65 16 97 O2 Del Method O2 Flow Rate 06/24/24 12:07 06/24/24 07:09 CPAP 06/24/24 03:08 2 PG Care Time/CCT Total # of Minutes Spent Total Time Spent with Patient: Total time spent is greater than 50% in coordination of care (as documented) at patient's floor/unit and/or counseling patient: Coding Level of Care Code 71364 SUB INP/OBS CARE 2/35MIN Diagnoses Acute UTI N39.0 History of prostate surgery Z98.890
--- NOTE | 2024-06-24 14:25 | Hospitalist Progress Note ---
Date of Service June 24, 2024 Assessment & Plan (1) Malfunction of Mesa catheter: Plan: 88yo male with history of BPH with LUTS, urinary retention s/p recent urological procedure (REZUM) presenting with malfunctioning Mesa catheter and UTI. Patient with recent admission for Enterococcus UTI for which he has been taking Augmentin. Did have some reported hematuria, possibly pulled on the catheter. Mesa replaced in the ER and was functioning properly, but stopped functioning again on 06/20. Consulted Urology and mesa discontinued for voiding trial 06/20 with continued UOP via condom cath. Urine/blood cultures obtained, ID consultation placed given such. Urine grew enterococcus faecalis, sensitive to ampicillin. Blood cultures with haemolyticus anaerobic cx on 06/29 bottles from 06/19 and Brevibacterium celere on other set which was discussed with ID and felt contaminant. Was on Vancomycin/Cefepime IV initially however Cefepime discontinued w/ staph/MSSA species and enterococcus but continued while Vanco while inpatient given growth on Augmentin prior to admission and discussed with ID given final urine cx plans for AMOXICILLIN 875mg TID for 7 day course from mesa removal 06/20. Repeat blood cultures from 06/20 remained NGTD and patient WBC normalized/no further temps. Did have episode RN reported condom cath not working PM 06/23 but no bladder scan and placed catheter. Did discuss with Urology prior to discharge and catheter removed and dc following voiding. Cleared by PT/OT to return home w/ HH as prior doing with son/family support and caregivers. Urology/PCP follow up at discharge recommended and s/sx to return discussed On afternoon follow up, son reporting feeling too much for him to accomodate at home and wanting referral to [facility] and CM notified. (2) UTI (urinary tract infection): Plan: CAUTI as above, mesa since discontinued Cefepime/Vanco IV on admission --> Vanco IV continued until urine cx/sensitivities final and sensitive to AMpicillin and increased AMox PO at dc to complete course Repeat bcx ngtd (3) Bacteremia: Plan: as above, repeat blood cultures have remained negative and WBC normalized/no fever (4) Obstructive sleep apnea: Plan: Chronic. Stable. Patient reports compliance with CPAP. CPAP ordered/continued 8cm H20 (5) Hyperlipidemia: Plan: Chronic, continued simvastatin (6) Hypertension: Plan: Chronic, mild elevations but improved following morning medications and stable 135/75 prior to discharge. Outpt f/u PCP Hx CVA/PAD, baseline expressive aphasia. STABLE/improved mentation following tx as above, no concerns for acute CVA. Continued on plavix (7) Controlled type 2 diabetes mellitus with microalbuminuria: Plan: Chronic. Last FbrS2H=2.5 on 06/12/24. Patient on metformin 500mg po BID-held, can also contribute to lactic acidosis w/ elevated lactic on admission Continue ISS-Goal blood sugar 110 - 140 Plan DVT prophylaxis : Lovenox SQ provided while inpatient Dispo: plan to dc on Amox however son now wanting rehab and CM notified to see about [facility]. Son updated 06/24. Admission and Anticipated Discharge Date Admission Date: June 21, 2024 Subjective Eval this morning, had issues w/ "condom cath not draining" and catheter placed but no bladder scan. Asked urology to see, removal occur and voiding since. Cleared by therapy to return home this morning, meds sent however this afternoon son reporting maybe too much for him and wanting ref to [facility]. Cm notified and dc to be cancelled (unless [facility] able ot occur today) Physical Exam 2 Physical Exam: General: 88yo male sitting up in bed eating breakfast, son at bedside, NAD, expressive aphasia/slow responses since his CVA >30 years ago per son at bedside -- continues to be improved/conversive today, back to baseline, good appetite reported HEENT: head atraumatic, normocephalic, mmm, trachea midline Resp: even/unlabored, slightly diminished in the bases but no wheezing/rales, on room air 97% CV: RRR, no significant m/r/g, no pitting edema/calf tenderness : cath with bloody tinged urine, to be removed following eval w/ urology/voiding trial Psych: alert to person/place/year, expressive aphasia at baseline Results & Data Results & Data Vital Signs (Past 12 Hours) Vital Signs Temp Pulse Pulse Pulse Resp BP Pulse Ox 06/24/24 12:07 37.1 C 84 69 16 135/75 97 06/24/24 07:09 37.1 C 69 16 135/75 97 06/24/24 03:08 65 16 97 O2 Del Method O2 Flow Rate 06/24/24 12:07 06/24/24 07:09 CPAP 06/24/24 03:08 2 Laboratory Results 06/23/24 05:35 06/24/24 09:27 PG Care Time/CCT Total # of Minutes Spent Total Time Spent with Patient: Total time spent is greater than 50% in coordination of care (as documented) at patient's floor/unit and/or counseling patient: Coding Level of Care Code 52043 SUB INP/OBS CARE 3/50MIN Diagnoses Malfunction of Mesa catheter T83.011A Encounter type: initial encounter UTI (urinary tract infection) N39.0 Bacteremia R78.81 Obstructive sleep apnea G47.33 Hyperlipidemia E78.5 Hypertension I10 Controlled type 2 diabetes mellitus with microalbuminuria E11.29; R80.9 (1) Malfunction of Mesa catheter Encounter type: initial encounter Qualified Code(s): T83.011A - Breakdown (mechanical) of indwelling urethral catheter, initial encounter
--- NOTE | 2024-06-24 14:57 | Infectious Disease Progress Nt ---
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 Prior to that admission he had completed a round of antibiotics. During most recent admission CTAP demonstrated a ? abscess within or adjacent to the midline of the prostate inseparable from the posterior wall of the bladder measuring 4 x 3.7 x 3.5 cm with severe cystitis. He was evaluated by urology who held off on any interventions as they felt that the CTAP findings were gas/fluid accumulation from a recent REZUM procedure and not true abscess. Urine culture grew Enterococcus faecalis sensitive to ampicillin. He received IV ampicillin and was discharged on Augmentin for 14 days. 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 He was evaluated by vascular; no intervention as this was thought to be chronic. He was discharged with a Mesa. He returns to the ED on 06/19/2024 with decreased urination thought to be secondary to malfunction and Mesa catheter. Patient is a poor historian. His son is at bedside and provides history. Noted to have hematuria on admission. It was felt that the patientmay have partially dislodged his catheter as he also had some blood around the urethra. Had been compliant with Augmentin. Mesa catheter was replaced in the ER. Per his son, patient did not complain of abdominal pain, back pain, nausea, vomiting, fevers or chills [employer]. In the ED, temp 36.6, pulse 83, RR 19, BP 133/74, O2 sats 97% on room air. Labs: WBC 17.52, BUN 17, creatinine 0.94, lactate 3.9-->2.3. Urinalysis turbid, 3+ blood, 3+ leukocyte esterase, > 50 WBC,,> 20 RBC, 3-5 epithelial cells, 3+ bacteria. He received a dose of Unasyn and is currently on vancomycin and cefepime. Blood culture( [facility]) with 1 out of 4 bottles positive for staph hemolyticus and 1 out of 4 bottles positive for GPC ( not yet identified). Repeat blood culture NGTD. Urine culture growing 100 K Enterococcus faecalis pending sensitivities. ID consulted for bacteremia and UTI. Mesa catheter has been removed. He currently has a condom catheter in place. On initial ID eval, patient is awake and alert. He appears in no acute distress. No localizing signs or symptoms on exam. His son is at bedside and provides history. WBC down to 10.82. Microbiology: Urine culture 06/19> 100 K Enterococcus faecalis ( amp S) Blood culture 1/ 4 bottles Brevibacterium celerei (i aerobic), 1 / 4 bottles pos itive for staph hemolyticus (aerobic bottle) on BCID Blood culture 06/20 NGTD Antibiotics Vancomycin 06/19ongoing Unasyn 06/19 Cefepime # Staph hemolyticus bacteremia # Brevibacterium celere bacteremia # Enterococcus faecalis on current urine culture # Recent admission for E faecalis UTI with possible prostate abscess on imaging # BPH status post Rezum procedure 05/27/2024 # S/p mesa removal 06/20 Discussion: Staph haemolyticus bacteremia is likely a contaminant as it only grew in 1 out of 4 bottles and repeat blood cultures no growth to date. He also has a GPR bacteremia in 1/4 bottles ---> subsequently identified as Brevibacterium celere ; likely a contaminant as well . He does not have any prosthetics or hardware. No current central lines. Repeat blood cultures with NGTD. He is HDS Regarding the E faecalis from urine culture: He presented with associated hematuria which may have been 2/2 malfunctioning Mesa catheter. Since he cannot tell me if he had any other symptoms, would treat as UTI. It is noted that E faecalis grew from rece t urine culture (sensitive to ampicillin). Current E faecalis grew while on Amox/clav. Mesa catheter removed on 06/20, and now has a condom catheter and voiding well. ID recommended repeat CTAP on 06/21 to further evaluate ? abscess seen on 06/11/24. changes were initially though to be 2/2 REZUM procedure and not true abscess 06/24 Mesa replaced for urine retention o/n> Recommendations -discontinue vanco -Follow up 06/19 and 06/20 BC -Complete treatment for complicated UTI with a 7 -day course of amoxicillin 875 mg p.o. q 8 hours from removal of Mesa catheter during this admission ( 06/20- 06/27) if no continued concern for abscess on imaging. D/w team ID will sign off. Call with questions. Odessa Ledesma MD, MPH Infectious Disease [facility], ID [facility] Call [phone] with questions. Admission and Anticipated Discharge Date Admission Date: June 21, 2024 Subjective This patient recommendation is based on a telemedicine consult request which was completed asynchronously through chart review and information provided by the primary physician. The patient was not seen or examined today. The evaluation is consultative in nature and all patient care and treatment decisions can either be accepted or rejected by the patient's primary hospital-based treating physician using their own independent medical judgment for their patient. Time Spent Reviewing Chart: 21 - 30 minutes E feacalis in urine is AMP S GPR in blood cx +Brevibacterium celere No repeat CTAP pursued by team Afebrile, stable per d/w team Urine retention o/n,mesa placed Pending discharge today Results & Data Vital Signs (Past 12 Hours) Vital Signs Temp Pulse Pulse Pulse Resp BP Pulse Ox 06/24/24 12:07 37.1 C 84 69 16 135/75 97 06/24/24 07:09 37.1 C 69 16 135/75 97 06/24/24 03:08 65 16 97 O2 Del Method O2 Flow Rate 06/24/24 12:07 06/24/24 07:09 CPAP 06/24/24 03:08 2 Laboratory Results BMP 06/24/24 09:27 Sodium 136 Potassium 3.9 Chloride 100 Carbon Dioxide 29 BUN 11 Creatinine 0.82 Glucose 189 H Calcium 9.2 Diagnostic Findings Microbiology 06/20/24 17:23 Blood Aerobic Blood Culture - Preliminary No growth in Aerobic bottle after 48 hours. 06/20/24 17:23 Blood Anaerobic Blood Culture - Final 06/20/24 17:01 Blood Aerobic Blood Culture - Preliminary No growth in Aerobic bottle after 48 hours. 06/20/24 17:01 Blood Anaerobic Blood Culture - Preliminary No growth in Anaerobic bottle after 48 hours. 06/19/24 17:57 Urine,Straight Cath Urine Culture - Final Enterococcus faecalis 06/19/24 19:00 Blood Aerobic Blood Culture - Final Brevibacterium celere 06/19/24 19:00 Blood Anaerobic Blood Culture - Final 06/19/24 19:11 Blood Aerobic Blood Culture - Preliminary Staphylococcus haemolyticus 06/19/24 19:11 Blood Anaerobic Blood Culture - Final Medications Administered Home Medications Medication Instructions Recorded Confirmed Last Taken erfogeni-ov-wwugi 300 mcg-K 60 1 tab PO QAM 02/15/19 06/19/24 05/20/24 mcg-lycop 600 mcg-lutein 300 mcg tablet (Centrum Silver Men) magnesium oxide 400 mg PO BID 03/30/21 06/19/24 05/26/24 bilateral LE AFO braces #1 ea 11/23/21 06/19/24 Unknown triamcinolone acetonide 0.1 % 1 applic topical BID PRN Skin 08/01/22 06/19/24 07/11/23 topical cream Irritation #30 grams blood-glucose meter (FreeStyle #1 ea 08/02/22 06/19/24 Unknown Lite Meter kit) lancets 28 gauge (FreeStyle #100 ea 08/02/22 06/19/24 Unknown Lancets) CPAP Supplies #1 ea 02/07/23 06/19/24 Unknown clopidogrel 75 mg tablet 75 mg PO QAM #90 tabs 07/18/23 06/19/24 05/22/24 finasteride 5 mg tablet 5 mg PO QAM #90 tabs 07/18/23 06/19/24 11/07/23 simvastatin 20 mg tablet 20 mg PO HS #90 tabs 10/31/23 06/19/24 05/26/24 metformin 500 mg tablet 500 mg PO BIDM #0 tabs 11/10/23 06/19/24 05/26/24 docusate sodium 100 mg capsule 100 mg PO DAILY PRN constipation 11/29/23 06/19/24 Unknown #0 caps polyethylene glycol 3350 17 gram 17 g PO DAILY PRN constipation #0 11/29/23 06/19/24 Unknown oral powder packet (Miralax) ea blood sugar diagnostic (FreeStyle #100 ea 01/24/24 06/19/24 Unknown Test strips) solifenacin 5 mg tablet (Vesicare) 5 mg PO HS #30 tabs 02/13/24 06/19/24 Unknown Diabetic Shoes #1 ea 03/07/24 06/19/24 Unknown metoprolol tartrate 50 mg tablet 50 mg PO BID #180 tabs 04/15/24 06/19/2407/19 oxybutynin chloride 5 mg tablet 5 mg PO Q8H PRN bladder spasms #9 05/27/24 06/19/24 Unknown tabs phenazopyridine 200 mg tablet 200 mg PO Q8H PRN pain #10 tabs 05/27/24 06/19/24 Unknown (Pyridium) tamsulosin 0.4 mg capsule See Rx Instructions .Route 06/21/24 Unknown .COMPLEX #30 caps amoxicillin 875 mg tablet 875 mg PO TID #11 tabs 06/24/24 Unknown (2) Malfunction of Mesa catheter Encounter type: initial encounter Qualified Code(s): T83.011A - Breakdown (mechanical) of indwelling urethral catheter, initial encounter (4) Catheter-associated urinary tract infection Encounter type: initial encounter Indwelling urinary catheter type: indwelling urethral catheter Qualified Code(s): T83.511A - Infection and inflammatory reaction due to indwelling urethral catheter, initial encounter; N39.0 - Urinary tract infection, site not specified
[2024-06-24 15:01] VITALS: BP 157/80; PULSE 72; TEMP 97.3; O2SAT 96
== END 2024-06-24 16:25 | DRG 699 ==
LOC: ED 17:11 → 3N 17:11 → SUATTDRO 20:19 → 3N 22:21
DX: Z79.84 Long term (current) use of oral hypoglycemic drugs; N39.0 Urinary tract infection, site not specified; Z79.02 Long term (current) use of antithrombotics/antiplatelets; B96.89 Other specified bacterial agents as the cause of diseases classified elsewhere; Z79.899 Other long term (current) drug therapy; I10 Essential (primary) hypertension; T83.011A Breakdown (mechanical) of indwelling urethral catheter, initial encounter; R33.8 Other retention of urine; E11.29 Type 2 diabetes mellitus with other diabetic kidney complication; B95.7 Other staphylococcus as the cause of diseases classified elsewhere; T83.511A Infection and inflammatory reaction due to indwelling urethral catheter, initial encounter; N40.1 Benign prostatic hyperplasia with lower urinary tract symptoms; I69.351 Hemiplegia and hemiparesis following cerebral infarction affecting right dominant side; G47.33 Obstructive sleep apnea (adult) (pediatric); B95.2 Enterococcus as the cause of diseases classified elsewhere; Z99.3 Dependence on wheelchair; E78.5 Hyperlipidemia, unspecified; I69.320 Aphasia following cerebral infarction; R78.81 Bacteremia; R80.9 Proteinuria, unspecified; Y82.8 Other medical devices associated with adverse incidents; Z87.891 Personal history of nicotine dependence

== ENCOUNTER 2024-07-09 04:00 | Inpatient (IN) ==
--- NOTE | 2024-07-09 04:13 | Emergency Department Note ---
Impression & Plan Abdominal pain, Acute UTI admit to the [facility] ED Provider Note NAME: TEODORA HOGAN AGE: 88 SEX: Male INFORMANT: Patient ED PROVIDER(S): [place] Matias DO CHIEF COMPLAINT: Urinary retention; abdominal pain PLAN: Disposition: admit to the [facility] MEDICAL DECISION MAKING: this is an 88-year-old male patient who presents to the emergency department with his sons. They state the patient woke complaining of abdominal pain believing that he was unable to urinate. Upon presentation to the ER, the patient's diaper was full of urine and bladder scan revealed only 35 mL of urine. On physical exam, the patient did have some reproducible discomfort with palpation to the abdomen and the abdomen was quite distended And tympanic to percussion. x-ray revealed evidence of a dilated loop of colon. The patient went on to have a CT scan of the abdomen/pelvis. Laboratory studies revealed no significant leukocytosis. Hemoglobin was at 12.2 which was baseline for this patient. Glucose was 152. Renal function was normal. Urinalysis was concerning for urinary tract infection. He is with the [facility] and they will evaluate for further inpatient care. CT scan was interpreted by radiology and showed no obvious sign of obstruction. Care/management discussed with: The patient's sons as well as the human resources assistant manager and the [facility] Triage Nursing notes: reviewed and agree with them. Vital Signs: reviewed and unremarkable Additional History obtained from: patient's sons who are at the bedside Chronic Medical/Social Conditions affecting care: patient lives with his sons Prior/ Outside/ External records reviewed: I reviewed previous inpatient medical records. Differential Diagnosis: Urinary retention, UTI, prostamegaly, volvulus, bowel obstruction radiographic studies: KUB: Dilated loop of colon as per my independent interpretation CT scan of the abdomen/pelvis: As per [facility] HPI: 88 year old Male arrives for evaluation of abdominal pain and difficulty with urination. They state the patient woke complaining of abdominal pain believing that he was unable to urinate. PAST MEDICAL HISTORY: See Below, PAST SURGICAL HISTORY: See Below, SOCIAL HISTORY: See Below, HOME MEDICATIONS: see list ALLERGIES: none VITALS: See Below PHYSICAL EXAMINATION: HEENT: Head - normocephalic and atraumatic Pupils are equal, round, and reactive to light. Extraocular eye muscles are intact, and sclera are anicteric. Nose - moist nasal mucosa without discharge. Mouth - moist buccal mucosa. Oropharynx is nonerythematous and there is no tonsillar exudate or edema noted. Neck: Supple; no JVD, nuchal rigidity, cervical lymphadenopathy, or auscultated bruits. Heart: Regular rate and rhythm. There is a normal S1 and S2 with no murmurs, clicks, or gallops appreciated. Lungs: Clear to auscultation bilaterally with no wheezes, rales, or rhonchi. Abdomen: Soft, Moderately distended abdomen which is slightly tender to touch around the umbilicus. There were hypoactive bowel sounds. There are no palpable pulsatile masses or hepatosplenomegaly. There is no guarding, rigidity, or rebound noted. Extremities: No evidence of cyanosis, clubbing, or edema. There are easily palpable peripheral pulses. Skin: warm and dry with good turgor and no rashes. Emergency Department course: The patient was evaluated in room A-4. A complete history and physical was performed. IV lock was initiated and labs are drawn as above. KUB was obtained. Bladder scan was performed. Patient went for CT scan of the abdomen/pelvis. Urine specimen was obtained. I discussed case with the [facility] Hospitalist and they will evaluate for further inpatient care. Past Med/Surg History Problem List (Updated 07/10/24 @ 06:00 by India Matias DO) Acute UTI (Acute) Abdominal pain (Acute) Abdominal pain Bowel obstruction Bacteremia Acute urinary retention (Acute) Catheter-associated urinary tract infection (Acute) Acute urinary retention (Acute) Penile bleeding (Acute) Nocturnal enuresis (Acute) Diabetic ulcer of right heel (Acute) healed; last seen by wound clinic 04/09/24 Abnormal ankle brachial index Blister of finger MRSA (methicillin resistant staph aureus) culture positive 10/2023 hospital admission; UTI +MRSA Recurrent urinary tract infection Urinary retention (Acute) Fall (Acute) frequent falls; most recent: 09/2023 AMS (altered mental status) (Acute) 10/2023 [facility] admission (sepsis 2/2 UTI) Facial rash Abnormal ECG (Acute) had cath 03/28/23 Acute pain of right knee (Acute) Chronic skin ulcer of left ear (Acute) Seborrheic dermatitis (Acute) Carotid artery stenosis (Acute) Cervical disc disease (Acute) Dermatophytosis Hypercholesteremia TIA (transient ischemic attack) (Acute) Medical History Malfunction of Elliott catheter Elliott catheter present Leukocytosis Generalized weakness Confusion Abnormal computed tomography of abdomen and pelvis Complicated urinary tract infection Stenosis of right external iliac artery UTI (urinary tract infection) Weakness Benign prostatic hyperplasia with urinary obstruction Obstructive sleep apnea Hyperlipidemia Hypertension Controlled type 2 diabetes mellitus with microalbuminuria Coronary artery disease severe per 03/28/23 cath: Severe obstructive coronary disease involving subtotal occlusion of the proximal RCA, 50% distal left main, 99% om 2 lesions. Good collateralization of the right coronary via [id number] collaterals Hx of transient ischemic attack (TIA) Hypertension Hx of recurrent urinary tract infection Urinary retention Cervical disc disease son unsure, reports no limits to rom of neck Hx of sepsis (10/2023) admit to [facility], went to rehab ([facility]) afterwards x 2 weeks MRSA (methicillin resistant Staphylococcus aureus) MRSA UTI during [facility] admission 10/2023 Diabetic ulcer of right heel healed now- released from wound clinic 04/09/24 Nocturnal enuresis Carotid artery stenosis Hyperlipidemia BPH (benign prostatic hyperplasia) Controlled type 2 diabetes mellitus with microalbuminuria Frequent falls son chris (poa) now living with pt. - pt. has only fallen x 1 since august - approx. 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 Surgical History History of prostate surgery History of cardiac cath (03/2023) 03/2023, "wasn't feeling right," no stents>"pt has minimal damage to heart"; f/u [facility] cardio Hx of cataract surgery (06/2023) b/l Hx of squamous cell carcinoma excision Family History Mother Coronary heart disease Brother Coronary heart disease Diabetes Hypertension Father Diabetes Denies family history of Ovarian cancer Prostate cancer Myocardial infarction Breast cancer Lung cancer Colorectal cancer Social History Smoking Status: Former smoker Tobacco Type: Cigarettes Age Started Using Tobacco: 18; Age Quit Using Tobacco: 37; packs per day: 1; Second Hand Exposure: No; Do You Dip or Chew Tobacco: No; Hx Alcohol Use: Yes Alcohol type: wine and hard liquor Alcohol Intake Frequency: 2-4 x/Month Alcohol Intake Frequency Comment: OCCASIONAL Hx Substance Use: No Preferred Language: Kinyarwanda Communication Ability: Impaired Communication Ability Comment: expressive aphagia Visual Impairment: No Limitations Hearing Ability: Use of Hearing Aid Field Professional Required: No Beliefs That Will Affect Care: None marital status: / Current Living Situation: Family Current Living Situation Comment: son Chris carepipo for pt current occupational status: retired 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 Feels Safe at Home: Yes Childhood Exposure to Second-Hand Smoke: Yes Diet: regular caffeine: Yes Dental Care, Regularly: No Physical Activity Frequency: 5-6 Times per Week Seatbelt Use: never Sunscreen Use: Yes Assistive Devices: Bedside Commode, Cane, CPAP, Denture - Upper, Glasses, Hospital Bed, Special Shoe and Wheelchair Allergies Allergies Allergy/AdvReac Type Severity Reaction Status Date / Time No Known Allergies Allergy Verified 07/04/24 13:58 Home Meds Home Medications Medication Instructions Recorded Confirmed [id number] 300 mcg-K 60 1 tab PO QAM 02/15/19 07/09/24 mcg-lycop 600 mcg-lutein 300 mcg tablet (Centrum Silver Men) magnesium oxide 400 mg PO BID 03/30/21 07/09/24 docusate sodium 100 mg capsule 100 mg PO DAILY PRN constipation 07/09/24 07/09/24 Previous Rx's Medication Instructions Recorded bilateral LE AFO braces #1 ea 11/23/21 triamcinolone acetonide 0.1 % 1 applic topical BID PRN Skin 08/01/22 topical cream Irritation #30 grams blood-glucose meter (FreeStyle #1 ea 08/02/22 Lite Meter kit) lancets 28 gauge (FreeStyle #100 ea 08/02/22 Lancets) CPAP Supplies #1 ea 02/07/23 clopidogrel 75 mg tablet 75 mg PO QAM #90 tabs 07/18/23 finasteride 5 mg tablet 5 mg PO QAM #90 tabs 07/18/23 simvastatin 20 mg tablet 20 mg PO HS #90 tabs 10/31/23 metformin 500 mg tablet 500 mg PO BIDM #0 tabs 11/10/23 polyethylene glycol 3350 17 gram 17 g PO DAILY PRN constipation #0 11/29/23 oral powder packet (Miralax) ea blood sugar diagnostic (FreeStyle #100 ea 01/24/24 Test strips) Diabetic Shoes #1 ea 03/07/24 metoprolol tartrate 50 mg tablet 50 mg PO BID #180 tabs 04/15/24 phenazopyridine 200 mg tablet 200 mg PO Q8H PRN pain #10 tabs 05/27/24 (Pyridium) tamsulosin 0.4 mg capsule See Rx Instructions .Route 06/21/24 .COMPLEX #30 caps Results & Data (ED) Vital Signs Vital Signs - 24 hr 07/09/24 06:09 07/09/24 06:30 Pulse Rate 96 H 85 Respiratory Rate 18 13 Blood Pressure 179/106 H 156/107 H Blood Pressure Mean 130 123 Pulse Oximetry 93 92 Laboratory Data 07/09/24 05:18 07/09/24 05:18 Lab Results 07/09/24 07/09/24 Range/Units 05:18 06:15 WBC 8.51 (4.8-10.8) K/ul RBC 4.13 L (4.70-6.10) M/uL Hgb 12.2 L (14.0-18.0) g/dl Hct 36.9 L (42.0-52.0) % MCV 89.3 (80.0-100.0) fL MCH 29.5 (25.0-34.0) pg MCHC 33.1 (32.0-36.0) g/dL RDW Std Deviation 43.4 (36.4-46.3) fL RDW Coeff of Doris 13.2 (11.5-14.5) % Plt Count 271 (130-400) K/uL MPV 8.9 L (9.4-12.4) fL Immature Gran % (Auto) 0.5 % Neut % (Auto) 62.7 % Lymph % (Auto) 19.6 % [place] % (Auto) 8.5 % Eos % (Auto) 7.9 % Baso % (Auto) 0.8 % Neut # (Auto) 5.34 (1.40-6.50) K/uL Lymph # (Auto) 1.67 (1.20-3.40) K/uL [place] # (Auto) 0.72 H (0.11-0.59) K/uL Eos # (Auto) 0.67 H (0.00-0.50) K/uL Baso # (Auto) 0.07 (0.00-0.20) K/uL Immature Gran # (Auto) 0.04 (0.01-0.20) K/uL Sodium 135 L (136-145) mmol/L Potassium 4.2 (3.5-5.1) mmol/L Chloride 99 (98-107) mmol/L Carbon Dioxide 30 (21-32) mmol/L Anion Gap 6 (3-11) BUN 17 (6-23) mg/dl Creatinine 0.81 (0.6-1.4) mg/dl Est Cr Clr Drug Dosing 67.1 ml/min eGFR 85.87 BUN/Creatinine Ratio 21.0 H (10-20) Glucose 152 H (70-99(Fasting)) mg/dl Calcium 9.5 (8.6-10.3) mg/dl Total Bilirubin 0.4 (0.2-1.0) mg/dl AST 16 (13-39) U/L ALT 16 (7-52) U/L Alkaline Phosphatase 43 (34-104) U/L Total Protein 7.3 (6.0-8.3) gm/dl Albumin 3.9 (3.4-5.0) gm/dl Globulin 3.4 (2.5-4.0) gm/dl Albumin/Globulin Ratio 1.1 (0.9-2) Urine Color Yellow Urine Appearance Cloudy A (Clear) Urine pH 8.0 H (4.5-7.5) Ur Specific [place] 1.031 H (1.000-1.030) Urine Protein 1+ H (Negative) Urine Glucose (UA) Negative (Negative) Urine Ketones Negative (Negative) Urine Blood 1+ H (Negative) Urine Nitrite Positive A (Negative) Urine Bilirubin Negative (Negative) Urine Urobilinogen Negative (Negative) Ur Leukocyte Esterase 3+ H (Negative) Urine WBC (Auto) >50 H (0-5) /hpf Urine RBC (Auto) 11-20 H (0-2) /hpf U Hyaline Cast (Auto) 0-2 (0-2) /lpf U Epithel Cells (Auto) 0-2 (0-2) /hpf Urine Bacteria (Auto) 4+ H (None Seen) Administered Medications Clopidogrel Bisulfate (Clopidogrel Bisulfate 75 Mg Tab) 75 mg PO [facility] Stop: 08/08/24 09:29 Last Admin: 07/09/24 10:09 Dose: 75 mg Documented By: OSEAS Finasteride (Finasteride 5 Mg Tab) 5 mg PO [facility] Stop: 08/08/24 09:29 Last Admin: 07/09/24 10:07 Dose: 5 mg Documented By: OSEAS Cefepime HCl (Maxipime 2000mg) 2,000 mg in 20 mls @ 5 mls/min IV Q12H PENDING SALE TO [facility]; Protocol Stop: 07/19/24 06:59 Last Admin: 07/09/24 21:02 Dose: 5 mls/min Documented By: Admin: 07/09/24 07:27 Dose: 5 mls/min Documented By: OSEAS Sodium Chloride (Nss) 1,000 mls @ 80 mls/hr IV .[id number] PENDING SALE TO [facility] Stop: 07/10/24 06:59 Last Admin: 07/09/24 19:43 Dose: 80 mls/hr Documented By: Infusion: 07/09/24 19:42 Dose: Infused Documented By: Admin: 07/09/24 07:28 Dose: 80 mls/hr Documented By: OSEAS Insulin Aspart (Insulin Aspart Per Unit Charge) 0 units SC [facility] Stop: 08/08/24 12:44 Last Admin: 07/09/24 21:01 Dose: 2 units Documented By: MARLYN Co-signed By: [id number] Admin: 07/09/24 18:15 Dose: 3 units Documented By: FABIOLA Co-signed By: FABIOLA(2) Magnesium Oxide (Magnesium Oxide 400 Mg Tab) 400 mg PO BID ACRMINA Stop: 08/08/24 09:29 Last Admin: 07/09/24 21:02 Dose: 400 mg Documented By: Admin: 07/09/24 10:09 Dose: 400 mg Documented By: OSEAS Metoprolol Tartrate (Metoprolol Tartrate 50 Mg Tab) 50 mg PO BID CARMINA Stop: 08/08/24 09:29 Last Admin: 07/09/24 21:02 Dose: 50 mg Documented By: Admin: 07/09/24 10:09 Dose: 50 mg Documented By: OSEAS Multivitamins (Multivitamin Tab) 1 tab PO QAM CARMINA Stop: 08/08/24 09:29 Last Admin: 07/09/24 10:09 Dose: 1 tab Documented By: OSEAS Polyethylene Glycol (Polyethylene (Miralax) 17 Gm Pack) 17 gm PO DAILY CARMINA Stop: 08/08/24 14:59 Last Admin: 07/09/24 16:26 Dose: 17 gm Documented By: FABIOLA Simvastatin (Simvastatin 20 Mg Tab) 20 mg PO HS PENDING SALE TO [facility] Stop: 08/08/24 20:59 Last Admin: 07/09/24 21:02 Dose: 20 mg Documented By: MARLYN Tamsulosin HCl (Tamsulosin Hcl 0.4 Mg Cap) 0.4 mg PO HS PENDING SALE TO [facility] Stop: 08/08/24 20:59 Last Admin: 07/09/24 21:03 Dose: 0.4 mg Documented By: MARLYN Discontinued Medications Vancomycin HCl 1,750 mg/ (Sodium Chloride) 535 mls @ 200 mls/hr IV NOW STA Stop: 07/09/24 09:55 Last Infusion: 07/09/24 11:46 Dose: Infused Documented By: Admin: 07/09/24 09:05 Dose: 200 mls/hr Documented By: OSEAS Insulin Aspart (Insulin Aspart Per Unit Charge) 0 units SC ACHS [facility] Stop: 08/08/24 09:29 Last Admin: 07/09/24 13:32 Dose: Not Given Documented By: Admin: 07/09/24 10:15 Dose: 1 units Documented By: OSEAS Co-signed By: ALEJANDRO Insulin Aspart (Insulin Aspart Per Unit Charge) 0 units SC Q6 [facility] Stop: 08/08/24 09:29 Last Admin: 07/09/24 13:32 Dose: Not Given Documented By: ROSIBEL Ioversol (Optiray 320 100ml) 100 ml IV ONCE ONE Stop: 07/09/24 06:01 Last Admin: 07/09/24 06:01 Dose: 93 ml Documented By: SABINO Discharge Plan Visit Data Chief Complaint: Urinary Symptoms Stated Complaint: CAN'T URINATE ED Provider: [place] Matias Discharge Problem: Abdominal pain, Acute UTI Patient Disposition: Admitted As Inpatient Discharge Instructions Interventions: ED Discharge Assessment Last Done: 07/09/24 09:17
[2024-07-09 05:34] LABS: Basophils # (auto) 0.07 K/uL (0.00-0.20); Basophils % (auto) 0.8 %; Eosinophils # (auto) 0.67 K/uL (0.00-0.50); Eosinophils % (auto) 7.9 %; Hematocrit (blood only) 36.9 % (42.0-52.0); Hemoglobin 12.2 g/dl (14.0-18.0); Immature Granulocytes # (auto) 0.04 K/uL (0.01-0.20); Immature Granulocytes % (auto) 0.5 %; Lymphocytes # (auto) 1.67 K/uL (1.20-3.40); Lymphocytes % (auto) 19.6 %; Mean Corpuscular Hemoglobin 29.5 pg (25.0-34.0); Mean Corpuscular Hgb Conc 33.1 g/dL (32.0-36.0); Mean Corpuscular Volume 89.3 fL (80.0-100.0); Mean Platelet Volume 8.9 fL (9.4-12.4); Monocytes # (auto) 0.72 K/uL (0.11-0.59); Monocytes % (auto) 8.5 %; Neutrophils # (auto) 5.34 K/uL (1.40-6.50); Neutrophils % (auto) 62.7 %; Platelet Count 271 K/uL (130-400); RDW Coefficient of Variation 13.2 % (11.5-14.5); RDW Standard Deviation 43.4 fL (36.4-46.3); Red Blood Count 4.13 M/uL (4.70-6.10); White Blood Count 8.51 K/ul (4.8-10.8)
[2024-07-09 05:47] LABS: Albumin Globulin Ratio 1.1 (0.9-2); Albumin Level 3.9 gm/dl (3.4-5.0); Bilirubin,Total 0.4 mg/dl (0.2-1.0); Calcium 9.5 mg/dl (8.6-10.3); Creatinine Clr Calc Pharmacy 67.1 ml/min; Globulin 3.4 gm/dl (2.5-4.0); Potassium 4.2 mmol/L (3.5-5.1); Total Protein 7.3 gm/dl (6.0-8.3)
[2024-07-09] MEDS: OPTIRAY 320 100ml IV ONE (06:01)
--- NOTE | 2024-07-09 06:21 | History & Physical Report ---
Date of Service July 09, 2024 Assessment & Plan (1) Bowel obstruction: (2) UTI (urinary tract infection): Plan 88 year old male w/ PMHx urinary catheterization associated UTI, DALY, HLD, HTN, T2DM, and BPH w/ LUTS presenting to ED for lower abdominal pain. Most recent admission 06/19-06/24/2024 for UTI w/ mesa catheter malfunction. 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 No N/V/D, no F/C. 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 KUB supportive of obstructive, pending official read on CTAP but appearing to support this finding per my read. - No leukocytosis, LFTs WNL; NPO - KUB dilated ascending colon loops without the presence of an area of liquid level, suggestive of obstruction; CTAP pending - IVF NSS @ 80mL/hr while NPO - Gen sx + GI consulted - appreciate input + recs #UTI Symptoms of inability to void with lower abdominal pain. Does have variable bacterias growingon prior urine cx to include pseudomonas and entetococcus. Does have mesa catheter in place and follows with urology regularly with upcoming appointment scheduled for the end of June. S/p REZUM (05/27/2024) requiring mesa catheter. - UA w/ presence of infection; pending urine cx - Start cefepime + vanco per prior sensitivities - Zofran 4mg IV q4hr, pyridium prn - Maintain Mesa catheter and irrigate as needed; I+Os; bladder scan x 1 w/ PVR then bladder scan prn - Continue Flomax, finasteride, oxybutynin for BPH #T2DM W/ microalbuminuria, on metformin as outpatient- hold po meds. - A1c 06/12/24 @ 8.5% - SSI with target BSG range 110-140mg/dL, CF 30, carb ratio 10 - T2DM diet; BSG ACHS- Adjust regimen as needed #DALY- CPAP 8cm H2O qHS #HLD-Simvastatin #HTN- Metoprolol #H/o CVA- Baseline expressive aphasia; Plavix #Constipation- Docusate, MiraLAX Dispo: Admit med/sx VTE Prophylaxis: SCDs This document was dictated utilizing [employer]. Please excuse any grammatical errors that may be secondary to use of this software. Admission and Anticipated Discharge Date Admission Date: 07/09/2024 History of Present Illness Chief Complaint: Abdominal pain Primary Care Provider: Salomon Stanton DO 88 year old male w/ PMHx urinary catheterization associated UTI, DALY, HLD, HTN, T2DM, and BPH w/ LUTS presenting to ED for lower abdominal pain. Most recent admission 06/19-06/24/2024 for UTI w/ mesa catheter malfunction. Patient's 2 sons are present in the room and helps provide history. 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 This seemed to have resolved in the short-term and the patient stopped complaining about it until around 020 the morning of arrival when the patient again awoke his son with complaints of abdominal pain that was not resolved with urination. Mainly located to the left lower quadrant. Patient unable to express more detail of the pain such as the severity or quality of pain. Denying fever/chills. Overall, CBC reveals H/H near patient's baseline (12.2/36.9) and no leukocytosis. CMP Na 135 but otherwise WNL Cr and BUN, no gross electrolyte abnormalities. Pt's UA reveals presence of bacteria. KUB shows dilated ascending colon loops without the presence of an air or liquid level, recommend further study be carried out to rule out obstruction, also with suspected left- sided opaque shadow and left renal region which could be calculus. A CTAP was done following this, pending official read but does appear to support presence of obstruction per my read. Overall, patient's denying chest pain, shortness of breath, palpitations, nausea/vomiting/diarrhea/constipation, headache, fever/chills, numbness/tingling, weakness, or URI symptoms. Pt did not yet take am medications. Please see Dr. Xavier's attestation for adjustments/additions to treatment plan. Allergies Allergy/AdvReac Type Severity Reaction Status Date / Time No Known Allergies Allergy Verified 07/04/24 13:58 Home Medications Medication Instructions Recorded Confirmed Type [id number] 300 mcg-K 60 1 tab PO QAM 02/15/19 07/09/24 History mcg-lycop 600 mcg-lutein 300 mcg tablet (Centrum Silver Men) magnesium oxide 400 mg PO BID 03/30/21 07/09/24 History bilateral LE AFO braces #1 ea 11/23/21 07/04/24 Rx triamcinolone acetonide 0.1 % 1 applic topical BID PRN Skin 08/01/22 07/09/24 Rx topical cream Irritation #30 grams blood-glucose meter (FreeStyle #1 ea 08/02/22 07/04/24 Rx Lite Meter kit) lancets 28 gauge (FreeStyle #100 ea 08/02/22 07/04/24 Rx Lancets) CPAP Supplies #1 ea 02/07/23 07/04/24 Rx clopidogrel 75 mg tablet 75 mg PO QAM #90 tabs 07/18/23 07/09/24 Rx finasteride 5 mg tablet 5 mg PO QAM #90 tabs 07/18/23 07/09/24 Rx simvastatin 20 mg tablet 20 mg PO HS #90 tabs 10/31/23 07/09/24 Rx metformin 500 mg tablet 500 mg PO BIDM #0 tabs 11/10/23 07/09/24 Rx polyethylene glycol 3350 17 gram 17 g PO DAILY PRN constipation #0 11/29/23 07/09/24 Rx oral powder packet (Miralax) ea blood sugar diagnostic (FreeStyle #100 ea 01/24/24 07/04/24 Rx Test strips) Diabetic Shoes #1 ea 03/07/24 07/04/24 Rx metoprolol tartrate 50 mg tablet 50 mg PO BID #180 tabs 04/15/24 07/09/24 Rx phenazopyridine 200 mg tablet 200 mg PO Q8H PRN pain #10 tabs 05/27/24 07/09/24 Rx (Pyridium) tamsulosin 0.4 mg capsule See Rx Instructions .Route 06/21/24 07/09/24 Rx .COMPLEX #30 caps docusate sodium 100 mg capsule 100 mg PO DAILY PRN constipation 07/09/24 07/09/24 History Past Med/Surg History Problem List (Updated 07/09/24 @ 11:43 by Johnny Rios PA-C) Abdominal pain Bowel obstruction Bacteremia Acute urinary retention (Acute) Catheter-associated urinary tract infection (Acute) Acute urinary retention (Acute) Penile bleeding (Acute) Nocturnal enuresis (Acute) Diabetic ulcer of right heel (Acute) healed; last seen by wound clinic 04/09/24 Abnormal ankle brachial index Blister of finger MRSA (methicillin resistant staph aureus) culture positive 10/2023 hospital admission; UTI +MRSA Recurrent urinary tract infection Urinary retention (Acute) Fall (Acute) frequent falls; most recent: 09/2023 AMS (altered mental status) (Acute) 10/2023 [facility] admission (sepsis 2/2 UTI) Facial rash Abnormal ECG (Acute) had cath 03/28/23 Acute pain of right knee (Acute) Chronic skin ulcer of left ear (Acute) Seborrheic dermatitis (Acute) Carotid artery stenosis (Acute) Cervical disc disease (Acute) Dermatophytosis Hypercholesteremia TIA (transient ischemic attack) (Acute) Medical History Malfunction of Mesa catheter Mesa catheter present Leukocytosis Generalized weakness Confusion Abnormal computed tomography of abdomen and pelvis Complicated urinary tract infection Stenosis of right external iliac artery UTI (urinary tract infection) Weakness Benign prostatic hyperplasia with urinary obstruction Obstructive sleep apnea Hyperlipidemia Hypertension Controlled type 2 diabetes mellitus with microalbuminuria Coronary artery disease severe per 03/28/23 cath: Severe obstructive coronary disease involving subtotal occlusion of the proximal RCA, 50% distal left main, 99% om 2 lesions. Good collateralization of the right coronary via [id number] collaterals Hx of transient ischemic attack (TIA) Hypertension Hx of recurrent urinary tract infection Urinary retention Cervical disc disease son unsure, reports no limits to rom of neck Hx of sepsis (10/2023) admit to [facility], went to rehab ([facility]) afterwards x 2 weeks MRSA (methicillin resistant Staphylococcus aureus) MRSA UTI during [facility] admission 10/2023 Diabetic ulcer of right heel healed now- released from wound clinic 04/09/24 Nocturnal enuresis Carotid artery stenosis Hyperlipidemia BPH (benign prostatic hyperplasia) Controlled type 2 diabetes mellitus with microalbuminuria Frequent falls son chris (poa) now living with pt. - pt. has only fallen x 1 since august - approx. 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); he is WC bound Peripheral artery disease 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 wheelchair dependent Surgical History History of prostate surgery History of cardiac cath (03/2023) 03/2023, "wasn't feeling right," no stents>"pt has minimal damage to heart"; f/u [facility] cardio Hx of cataract surgery (06/2023) b/l Hx of squamous cell carcinoma excision Family History Mother Coronary heart disease Brother Coronary heart disease Diabetes Hypertension Father Diabetes Denies family history of Ovarian cancer Prostate cancer Myocardial infarction Breast cancer Lung cancer Colorectal cancer Social History Smoking Status: Former smoker Tobacco Type: Cigarettes Age Started Using Tobacco: 18; Age Quit Using Tobacco: 37; packs per day: 1; Second Hand Exposure: No; Do You Dip or Chew Tobacco: No; Hx Alcohol Use: Yes Alcohol type: wine and hard liquor Alcohol Intake Frequency: 2-4 x/Month Alcohol Intake Frequency Comment: OCCASIONAL Hx Substance Use: No Preferred Language: Trinidadian Communication Ability: Impaired Communication Ability Comment: expressive aphagia Visual Impairment: No Limitations Hearing Ability: Use of Hearing Aid Associate Technician Required: No Beliefs That Will Affect Care: None marital status: / Current Living Situation: Family Current Living Situation Comment: son Chris cares for pt current occupational status: retired 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 Feels Safe at Home: Yes Childhood Exposure to Second-Hand Smoke: Yes Diet: regular caffeine: Yes Dental Care, Regularly: No Physical Activity Frequency: 5-6 Times per Week Seatbelt Use: never Sunscreen Use: Yes Assistive Devices: Bedside Commode, Cane, CPAP, Denture - Upper, Glasses, Hospital Bed, Special Shoe and Wheelchair Review of Systems Review of Systems: All systems reviewed & are unremarkable except as noted in Subjective Physical Exam Physical Exam: General: No acute distress Skin: Warm and dry, without rashes or lesions Head: Normocephalic, atraumatic Eyes: PERRL, conjunctivae clear, sclera non-icteric ENT: External ear and ear canal without swelling; nose atraumatic; good dentition, tongue normal appearance, pharynx normal without tonsillar swelling or exudate Neck: Supple, no LAD; no JVD Cardio: RRR, no M/G/R, S1 and S2 normal Resp: No respiratory distress, Lungs CTA in all lobes bilaterally, no wheezes, rales, or rhonchi Abdomen: Slightly hard, symmetric, nontender; no overt distention; No masses or hepatosplenomegaly; Bowel sounds normoactive MSK: No deformities, full ROM throughout; pulses palpable and equal; no edema. Neuro: Awake, alert; Muscle strength 5/5 bilaterally in UE/LE; Sensation intact bilaterally; CN intact Psych: Appropriate mood and affect; good judgement and insight. 2 sons present in room at time of visit. Results & Data Results & Data Vital Signs (Past 12 Hours) Vital Signs Temp Pulse Pulse Resp BP BP Pulse Ox 07/09/24 06:09 96 H 18 179/106 H 93 07/09/24 05:42 82 12 146/75 H 07/09/24 04:51 85 12 159/93 H 98 07/09/24 04:36 83 13 140/79 95 07/09/24 04:02 36.9 C 89 20 164/86 H 99 O2 Del Method 07/09/24 06:09 07/09/24 05:42 07/09/24 04:51 07/09/24 04:36 Room Air 07/09/24 04:02 Room Air Laboratory Results 07/09/24 05:18 WBC 8.51 RBC 4.13 L Hgb 12.2 L Hct 36.9 L MCV 89.3 MCH 29.5 MCHC 33.1 RDW Std Deviation 43.4 RDW Coeff of Doris 13.2 Plt Count 271 MPV 8.9 L Immature Gran % (Auto) 0.5 Neut % (Auto) 62.7 Lymph % (Auto) 19.6 [place] % (Auto) 8.5 Eos % (Auto) 7.9 Baso % (Auto) 0.8 Neut # (Auto) 5.34 Lymph # (Auto) 1.67 [place] # (Auto) 0.72 H Eos # (Auto) 0.67 H Baso # (Auto) 0.07 Immature Gran # (Auto) 0.04 Sodium 135 L Potassium 4.2 Chloride 99 Carbon Dioxide 30 Anion Gap 6 BUN 17 Creatinine 0.81 Est Cr Clr Drug Dosing 67.1 eGFR 85.87 BUN/Creatinine Ratio 21.0 H Glucose 152 H Calcium 9.5 Total Bilirubin 0.4 AST 16 ALT 16 Alkaline Phosphatase 43 Total Protein 7.3 Albumin 3.9 Globulin 3.4 Albumin/Globulin Ratio 1.1 Diagnostic Findings KUB X-Ray 07/09/24 04:31 EXAM: XR KUB/Abdomen 1 view CLINICAL HISTORY: ABD PAIN ABD DISTENTION. TECHNIQUE: X-ray images of the abdomen were obtained in supine and upright positions. COMPARISON: 06/11/2024 CT. FINDINGS: Gas Pattern: Dilated ascending colon loops without the presence of an air-liquid level; nevertheless, it is suggested that further study be carried out to rule out obstruction. Soft Tissues: Suspected left sided oapque shadow noted in the left renal shadow region, could be calculus. IMPRESSION: 1. Dilated ascending colon loops without the presence of an air-liquid level; nevertheless, it is suggested that further study be carried out to rule out obstruction. (New finding). 2. Suspected left sided oapque shadow noted in the left renal shadow region, could be calculus. Electronically signed by Ronni Michel 07-09-2024 06:20 AM Code Status & VTE Plan Code Status Conditional Supervising Physician Co-Signing Physician Notes Attending addendum: I have physically seen this patient, have supervised the DAVID's activities, and agree with the H&P unless as otherwise noted. Assessment and Plan: The patient is an 88-year-old male with medical history including catheter associated UTI, DALY, hyperlipidemia, hypertension, but his most 5 to BPH with LUTS. He presents to the emergency department with lower abdominal pain his most recent admissions 06/11-06/15/24, and 06/19-06/24/2024 for Mesa catheter malfunction. Patient has history of multiple bacterial infections. Patient was evaluated emergency department, did have some improvement initial symptoms, after urinating, however, his symptoms returned, and with CT CT scan suggesting possible obstruction, he was referred for evaluation for admission urinalysis was also discussed of recurrent infection. #Abdominal pain- KUB with dilated ascending colon, with concern regarding possible obstruction CT scan abdomen and pelvis trace abnormal but no official read at this time N.p.o. Consult gastroenterology/general surgery as needed #Recurrent urinary tract infection, catheter associated- Follow urine culture and sensitivity Continue cefepime and vancomycin Zofran 4 mg IV every 6 hours as needed tamsulosin, finasteride and oxybutynin as before Ongoing medical issues: DALY at bedtime 8 cmH2O at bedtime Hyperlipidemia-continue simvastatin Hypertension-continue metoprolol with hold parameters History of CVA/baseline expressive aphasia-continue clopidogrel PG Care Time/CCT Total # of Minutes Spent Total Time Spent with Patient: Total time spent is greater than 50% in coordination of care (as documented) at patient's floor/unit and/or counseling patient: Coding Level of Care Code 05010 INT INP/OBS CARE MIN Diagnoses Bowel obstruction K56.609 UTI (urinary tract infection) N39.0
[2024-07-09 06:36] LABS: Appearance Urine Cloudy (Clear); Bacteria Urine Automated 4+ (None Seen); Bilirubin Urine Negative (Negative); Blood Urine 1+ (Negative); Cast Urine Automated 0-2 /lpf (0-2); Color Urine Yellow; Epithelial Cell Urine Auto 0-2 /hpf (0-2); Glucose Urine UA Negative (Negative); Ketones Urine Negative (Negative); Leukocyte Esterase Urine 3+ (Negative); Nitrite Urine Positive (Negative); Protein Urine 1+ (Negative); Specific Gravity Urine 1.031 (1.000-1.030); Urobilinogen Urine Negative (Negative); WBC Urine Automated >50 /hpf (0-5)
[2024-07-09] MEDS ORDERED: ONDANSETRON INJ 2 MG/ML 2 ML VIAL IV PRN (06:48)
[2024-07-09] MEDS ORDERED: VANCOMYCIN CONSULT ACTIVE PRN (06:48)
[2024-07-09] MEDS ORDERED: VANCOMYCIN HCL 1,250 MG in SODIUM CHLORIDE 0.9% 250 ML IV SCH (07:00)
--- NOTE | 2024-07-09 07:18 | CT Scan Report ---
EXAM: CT abd pelvis IV con only CLINICAL HISTORY: eval sbo; volvulus TECHNIQUE: CT scan of the abdomen and pelvis was performed with IV contrast. 93 ml of Inj. Optiray 320 was administered as an intravenous contrast agent. Bowel loops are opacified by prior administration of oral contrast. Coronal and sagittal reconstructive images were also obtained. DLP 1388.27 mGy*cm CTDI 27.87 mGy COMPARISON: 07/09/2024 X-Ray Abdomen and 06/11/2024 CT abdomen and pelvis. FINDINGS: Cardiac size is increased. Bilateral interstitial thickening. Bilateral laminar pleural effusion. Abdomen: Small hiatal hernia. The liver is normal in size. No focal or diffuse parenchymal abnormality. The portal vein, intrahepatic biliary radicals and the bile ducts are normal. The gallbladder is normal. No pericholecystic collection or radio-dense calculi in the gall bladder. The spleen, pancreas, and adrenal glands are unremarkable. The kidneys are unremarkable. They are normal in size and shape. Fibrous horseshoe kidney. Kidneys positioned towards the midline. They are normal in size. Hyperdense calculus of 2mm in the lower pole of the left kidney, non-obstructive. No hydronephrosis. The ascending colon, the transverse colon, the descending colon, visualized small bowel loops are unremarkable. Dolichosigmoid. There is no evidence of significant enlargement of the mesenteric or retroperitoneal lymph nodes. Pelvis: Thickening of the urinary bladder berger with intraluminal air bubbles. Dilatation of the left distal ureter, non-specific. Signs of prostate surgery with TRUP defect showed calcifications. Right inguinal hernia with adipose and bladder contents. Left inguinal hernia with adipose content. No evidence of pelvic lymphadenopathy. Advanced degenerative changes in the visualized spine. Pelvic rib noted projecting anterior of the right anterior acetabulum. IMPRESSION: 1. No bowel obstruction is observed. Dolichosigmoid. 2. Hyperdense calculus of 2mm in the lower pole of the left kidney, non-obstructive. 3. Thickening of the urinary bladder berger with intraluminal air bubble. It is suggested to rule out cystitis. 4. Dilatation of the left distal ureter, non-specific. 5. Signs of prostate surgery with TRUP defect showed calcifications. 6. Right inguinal hernia with adipose and bladder contents. 7. Left inguinal hernia with adipose content. 8. Small hiatal hernia. 9. Fibrous horse shoe kidney. 10. Pelvic rib noted projecting anterior of the right anterior acetabulum. 11. No significant interval changes. Electronically signed by Ronni Michel 07-09-2024 07:17 AM
[2024-07-09] MEDS: CEFEPIME 2000MG 2,000 MG/20 ML SYR IV SCH (07:27)
[2024-07-09] MEDS: SODIUM CHLORIDE 0.9% 1,000 ML IV SCH (07:28)
[2024-07-09] MEDS: VANCOMYCIN HCL 1,750 MG in SODIUM CHLORIDE 0.9% 500 ML IV STA (09:05)
[2024-07-09] MEDS ORDERED: CARBOHYDRATES FOR HYPOGLYCEMIA PO PRN (09:17)
[2024-07-09] MEDS ORDERED: PHARMACY GLYCEMIC MGMT CONSULT PRN (09:17)
[2024-07-09] MEDS ORDERED: DEXTROSE 50% 50 ML SYRINGE IV PRN (09:17)
[2024-07-09] MEDS ORDERED: TRIAMCINOLONE ACET 0.1% CR 15 GM TUBE TOP PRN (09:17)
[2024-07-09] MEDS ORDERED: GLUCOSE 40% GEL 15 GM TUBE PO PRN (09:17)
[2024-07-09] MEDS ORDERED: PHENAZOPYRIDINE HCL 200 MG TAB PO PRN (09:17)
[2024-07-09] MEDS ORDERED: POLYETHYLENE (MIRALAX) 17 GM PACK PO PRN (09:17)
[2024-07-09] MEDS ORDERED: GLUCAGON FOR INJ 1 MG VIAL SQ PRN (09:17)
[2024-07-09] MEDS ORDERED: GLUCOSE 10 TAB/TUBE PO PRN (09:17)
[2024-07-09] MEDS ORDERED: DOCUSATE SODIUM 100 MG CAP PO PRN (09:17)
[2024-07-09] MEDS: FINASTERIDE 5 MG TAB PO SCH (10:07)
[2024-07-09] MEDS: METOPROLOL TARTRATE 50 MG TAB PO SCH (10:09)
[2024-07-09] MEDS: MULTIVITAMIN TAB PO SCH (10:09)
[2024-07-09] MEDS: MAGNESIUM OXIDE 400 MG TAB PO SCH (10:09)
[2024-07-09] MEDS: CLOPIDOGREL BISULFATE 75 MG TAB PO SCH (10:09)
[2024-07-09] MEDS: INSULIN ASPART PER UNIT CHARGE SC SCH ×3 (10:15→18:15)
--- NOTE | 2024-07-09 10:30 | Pharmacy Report ---
Pharmacy PK ABX Note - Date of Service July 09, 2024 - Assessment and Plan Assessment * 88 year old M receiving cefepime and vancomycin for treatment of CAUTI. * PMH: Rezum procedure in May currently being followed by urology with chronic Elliott, hemiparesis 2nd prior stroke, wheelchair bound * Culture history (urine): oxacillin-resistant coag negative Staph, Pseudomonas aeruginosa, E. faecalis * Pertinent microbiologic this admission data includes: urine culture pending. Unclear if Elliott was changed prior, but potentially unlikely due to recent urologic procedure * SCr at/near baseline - unclear if could be falsely low due to hx hemiparesis Plan Vancomycin * Target AUC/BILLIE of 400-600 mg/L.hr * Loading dose: 1750 mg IV x 1 * Maintenance dose: 1500 mg IV every 24 hours * Random level ordered for 1/16 AM Pharmacy will continue to follow and will adjust dose/frequency as necessary. Thank you. Pharmacy has transitioned to AUC monitoring for vancomycin. AUC/BILLIE is the preferred PK/PD target and is associated with decreased risk of nephrotoxicity compared to traditional trough targets.
[2024-07-09] MEDS ORDERED: Nursing to Pharmacy Communication SCH ×2 (11:15→16:30)
--- NOTE | 2024-07-09 11:40 | Gastrointestinal Consultation ---
Date of Consultation July 09, 2024 Assessment & Plan (1) Abdominal pain: Patient feels as though symptoms have resolved. Possibly symptoms are related to bladder findings / hernia findings on CT. questionable obstruction seen on KUB, but CT shown no obstruction. - would continue to monitor. - will await surgical input on hernias. - further recommendations to follow, see MD black. Supervising Physician Co-Signing Physician Notes Patient brought in by the son after 2 episodes of right-sided abdominal pain at home. He has a history of urinary retention and bladder catheterization. Catheter was removed after his last admission. There is still significant bladder wall thickening. See CT report. There does appear to be air throughout the entirety of the colon. Original KUB suggested ascending colon. CT does not show any obvious obstruction. Son notes that his abdomen always appears as it is and full. I suspect he is basically a chronic colonic intestinal pseudoobstruction type picture. At this point I would suggest we try to feed him. We can repeat do an abdominal series. Urinary bladder issue is likely playing a role here. The abdomen is protuberant soft nontender bowel sounds are present there is tympany throughout consistent with the history. This does not appear to be an acute obstruction. History of Present Illness Reason for Consultation: obstruction Requesting Physician: Marcela GONZALEZ Attending Physician: Kwame Xavier MD History of Present Illness Patient is an 88 year old male with a past medical history of urinary catheterization associated UTI, DALY, HLD, HTN, T2DM, and BPH w/ LUTS who presented to ED on 07/09 for lower abdominal pain. Most recent admission 06/19- 06/24/2024 for UTI w/ mesa catheter malfunction. Pain started 2 days prior to admission and then worsened this morning. he denies nausea, vomiting. Upon work up in the ED, he had KUB questioning an obstruction. He had a CT scan performed showing no obstruction, but there is a thickening of the urinary bladder, dilated ureter, and right inguinal hernia with adipose and bladder contents. He admits to an inguinal hernia that he has known about for a long time. he tells me that since he has been here that his pain has resolved. He has not had a bowel movement since he has been here but family tells me his last bowel movement was yesterday and he was passing gas. CT 07/09/24 1. No bowel obstruction is observed. Dolichosigmoid. 2. Hyperdense calculus of 2mm in the lower pole of the left kidney, non-obstructive. 3. Thickening of the urinary bladder berger with intraluminal air bubble. It is suggested to rule out cystitis. 4. Dilatation of the left distal ureter, non-specific. 5. Signs of prostate surgery with TRUP defect showed calcifications. 6. Right inguinal hernia with adipose and bladder contents. 7. Left inguinal hernia with adipose content. 8. Small hiatal hernia. 9. Fibrous horse shoe kidney. 10. Pelvic rib noted projecting anterior of the right anterior acetabulum. 11. No significant interval changes. Allergies Allergy/AdvReac Type Severity Reaction Status Date / Time No Known Allergies Allergy Verified 07/04/24 13:58 Home Medications Medication Instructions Recorded Confirmed Type [id number] 300 mcg-K 60 1 tab PO QAM 02/15/19 07/09/24 History mcg-lycop 600 mcg-lutein 300 mcg tablet (Centrum Silver Men) magnesium oxide 400 mg PO BID 03/30/21 07/09/24 History bilateral LE AFO braces #1 ea 11/23/21 07/04/24 Rx triamcinolone acetonide 0.1 % 1 applic topical BID PRN Skin 08/01/22 07/09/24 Rx topical cream Irritation #30 grams blood-glucose meter (FreeStyle #1 ea 08/02/22 07/04/24 Rx Lite Meter kit) lancets 28 gauge (FreeStyle #100 ea 08/02/22 07/04/24 Rx Lancets) CPAP Supplies #1 ea 02/07/23 07/04/24 Rx clopidogrel 75 mg tablet 75 mg PO QAM #90 tabs 07/18/23 07/09/24 Rx finasteride 5 mg tablet 5 mg PO QAM #90 tabs 07/18/23 07/09/24 Rx simvastatin 20 mg tablet 20 mg PO HS #90 tabs 10/31/23 07/09/24 Rx metformin 500 mg tablet 500 mg PO BIDM #0 tabs 11/10/23 07/09/24 Rx polyethylene glycol 3350 17 gram 17 g PO DAILY PRN constipation #0 11/29/23 07/09/24 Rx oral powder packet (Miralax) ea blood sugar diagnostic (FreeStyle #100 ea 01/24/24 07/04/24 Rx Test strips) Diabetic Shoes #1 ea 03/07/24 07/04/24 Rx metoprolol tartrate 50 mg tablet 50 mg PO BID #180 tabs 04/15/24 07/09/24 Rx phenazopyridine 200 mg tablet 200 mg PO Q8H PRN pain #10 tabs 05/27/24 07/09/24 Rx (Pyridium) tamsulosin 0.4 mg capsule See Rx Instructions .Route 06/21/24 07/09/24 Rx .COMPLEX #30 caps docusate sodium 100 mg capsule 100 mg PO DAILY PRN constipation 07/09/24 07/09/24 History Patient History Medical History Malfunction of Mesa catheter Mesa catheter present Leukocytosis Generalized weakness Confusion Abnormal computed tomography of abdomen and pelvis Complicated urinary tract infection Stenosis of right external iliac artery UTI (urinary tract infection) Weakness Benign prostatic hyperplasia with urinary obstruction Obstructive sleep apnea Hyperlipidemia Hypertension Controlled type 2 diabetes mellitus with microalbuminuria Coronary artery disease severe per 03/28/23 cath: Severe obstructive coronary disease involving subtotal occlusion of the proximal RCA, 50% distal left main, 99% om 2 lesions. Good collateralization of the right coronary via [id number] collaterals Hx of transient ischemic attack (TIA) Hypertension Hx of recurrent urinary tract infection Urinary retention Cervical disc disease son unsure, reports no limits to rom of neck Hx of sepsis (10/2023) admit to [facility], went to rehab ([facility]) afterwards x 2 weeks MRSA (methicillin resistant Staphylococcus aureus) MRSA UTI during [facility] admission 10/2023 Diabetic ulcer of right heel healed now- released from wound clinic 04/09/24 Nocturnal enuresis Carotid artery stenosis Hyperlipidemia BPH (benign prostatic hyperplasia) Controlled type 2 diabetes mellitus with microalbuminuria Frequent falls son chris (poa) now living with pt. - pt. has only fallen x 1 since august - approx. 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 Surgical History History of prostate surgery History of cardiac cath (03/2023) 03/2023, "wasn't feeling right," no stents>"pt has minimal damage to heart"; f/u [facility] cardio Hx of cataract surgery (06/2023) b/l Hx of squamous cell carcinoma excision Family History Mother Coronary heart disease Brother Coronary heart disease Diabetes Hypertension Father Diabetes Denies family history of Ovarian cancer Prostate cancer Myocardial infarction Breast cancer Lung cancer Colorectal cancer Social History Smoking Status: Former smoker Tobacco Type: Cigarettes Age Started Using Tobacco: 18; Age Quit Using Tobacco: 37; packs per day: 1; Second Hand Exposure: No; Do You Dip or Chew Tobacco: No; Hx Alcohol Use: Yes Alcohol type: wine and hard liquor Alcohol Intake Frequency: 2-4 x/Month Alcohol Intake Frequency Comment: OCCASIONAL Hx Substance Use: No Preferred Language: Tajik Communication Ability: Impaired Communication Ability Comment: expressive aphagia Visual Impairment: No Limitations Hearing Ability: Use of Hearing Aid Computer Applications Developer Required: No Beliefs That Will Affect Care: None marital status: / Current Living Situation: Family Current Living Situation Comment: son Chris cares for pt current occupational status: retired 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 Other Information That Helps Us Care for You: No Feels Safe at Home: Yes Safety Concerns: Feels Safe At This Time Childhood Exposure to Second-Hand Smoke: Yes Diet: regular caffeine: Yes Dental Care, Regularly: No Physical Activity Frequency: 5-6 Times per Week Seatbelt Use: never Sunscreen Use: Yes Assistive Devices: Bedside Commode, Cane, CPAP, Denture - Upper, Glasses, Hospital Bed, Special Shoe and Wheelchair Review of Systems Review of Systems: All systems reviewed & are unremarkable except as noted in HPI & below Physical Exam Constitutional: WD/WN, vitals as above Respiratory: normal respiratory effort, lungs clear to auscultation Cardiovascular: Rate/Rhythm: regular rate and regular rhythm Gastrointestinal (Abdomen): normal bowel sounds, soft, nontender, no hepatosplenomegaly Psychiatric: Orientation: alert and oriented x 3 Results & Data Vital Signs (Past 12 Hours) Vital Signs Temp Pulse Pulse Resp BP BP Pulse Ox 07/09/24 09:43 87 18 158/91 H 92 07/09/24 09:00 92 H 18 170/110 H 95 07/09/24 07:00 86 18 161/82 H 95 07/09/24 06:30 85 13 156/107 H 92 07/09/24 06:09 96 H 18 179/106 H 93 07/09/24 05:42 82 12 146/75 H 07/09/24 04:51 85 12 159/93 H 98 07/09/24 04:36 83 13 140/79 95 07/09/24 04:02 98.4 F 89 20 164/86 H 99 O2 Del Method 07/09/24 09:43 Room Air 07/09/24 09:00 Room Air 07/09/24 07:00 Room Air 07/09/24 06:30 07/09/24 06:09 07/09/24 05:42 07/09/24 04:51 07/09/24 04:36 Room Air 07/09/24 04:02 Room Air Coding Level of Care Code 75855 ER DEPT VISIT LOW LVL 3 Diagnoses Abdominal pain R10.9
--- NOTE | 2024-07-09 12:14 | Pharmacy Report ---
Pharmacy Glycemic Short Note 2 - Date of Service July 09, 2024 - Glycemic Short BSG Results (Last 24 hours): 07/09/24 07/09/24 05:18 10:06 Glucose 152 H POC Glucose 148 H OUTPATIENT ANTIDIABETIC REGIMEN: * metformin 500mg po BID HbA1c: 8.5% on 06/12/24 ASSESSMENT: * 88 year old male admitted today for bowel obstruction/CAUTI. Pharmacy has been consulted for glycemic management while admitted. * Pt is currently NPO and is receiving vanco + cefepime for CAUTI. * BSG on admit was 148mg/dL. Since this is only slightly out of goal range and patient is maintained on only an oral agent as an outpatient, will not start Lantus insulin at this time. Weight based bolus insulin with a stress of 2 has been ordered to start this morning. PLAN FOR INPATIENT GLYCEMIC CONTROL: * Hold outpatient oral diabetes medications * Basal insulin * hold for now * Bolus insulin * NovoLog per scale ACHS or Q6hrs while NPO * Goal Range: Low 110 mg/dL - High 140 mg/dL * Correction Factor: 30 mg/dL/unit * Nutritional / Prandial insulin per carb ratio of 1 unit per 10 grams CHO consumed
[2024-07-09] MEDS ORDERED: INFLUENZA VACC TS2024-25(65y+)/PF (IIV3) 0.5mL Syr IM ONE (13:24)
[2024-07-09] MEDS: POLYETHYLENE (MIRALAX) 17 GM PACK PO SCH (16:26)
[2024-07-09] MEDS: SIMVASTATIN 20 MG TAB PO SCH (21:02)
[2024-07-09] MEDS: TAMSULOSIN HCL 0.4 MG CAP PO SCH (21:03)
[2024-07-10 07:44] LABS: Calcium 9.1 mg/dl (8.6-10.3); Potassium 4.6 mmol/L (3.5-5.1)
[2024-07-10 07:50] LABS: BUN Creatinine Ratio 13.9 (10-20); Creatinine Clr Calc Pharmacy 75.5 ml/min
[2024-07-10 08:30] LABS: Hematocrit (blood only) 36.3 % (42.0-52.0); Hemoglobin 12.1 g/dl (14.0-18.0); Mean Corpuscular Hemoglobin 29.9 pg (25.0-34.0); Mean Corpuscular Hgb Conc 33.3 g/dL (32.0-36.0); Mean Corpuscular Volume 89.6 fL (80.0-100.0); Mean Platelet Volume 9.3 fL (9.4-12.4); Platelet Count 265 K/uL (130-400); RDW Coefficient of Variation 13.3 % (11.5-14.5); RDW Standard Deviation 43.8 fL (36.4-46.3); Red Blood Count 4.05 M/uL (4.70-6.10); White Blood Count 7.97 K/ul (4.8-10.8)
[2024-07-10] MEDS: VANCOMYCIN HCL 1,500 MG in SODIUM CHLORIDE 0.9% 500 ML IV SCH (08:35)
--- NOTE | 2024-07-10 10:15 | XRay Report ---
XR abdomen 2V w PA chest HISTORY: 88 years-old Male Colonic ileus acute generalized abdominal pain with colonic ileus COMPARISON: CT 07/09/2024 TECHNIQUE: PA view of the chest with erect and supine views of the abdomen FINDINGS: Cardiac silhouette is enlarged. Atherosclerosis of the aorta. Pulmonary vascular congestion with mild bibasilar densities/atelectasis. Degenerative changes are noted within the spine, shoulders and hips . No pneumatosis or pneumoperitoneum. Moderate fecal retention with persistent gaseous distention of th e large bowel measuring up to 8 cm. Previously noted 4 mm calcification of the interpolar left kidney is not visualized. No small bowel obstruction. IMPRESSION: 1. Cardiomegaly with pulmonary vascular congestion and mild bibasilar densities favoring atelectasis. 2. No bowel obstruction or pneumoperitoneum. 3. Suggested constipation with gaseous distention of the large bowel. ACT 112: Negative or not required by law. The above report was generated using voice recognition software. It may contain grammatical, syntax o r spelling errors. Electronically signed by: Michael Goyal M.D. 07/10/2024 10:13 AM
--- NOTE | 2024-07-10 11:19 | Gastroenterology Progress Note ---
Date of Service July 10, 2024 Assessment & Plan (1) Abdominal pain: Plan: KUB this morning did not show an obstruction and he has had no further reoccurrence of pain. - would plan to advance his diet and see how he does with this. Admission and Anticipated Discharge Date Admission Date: July 09, 2024 Supervising Physician Co-Signing Physician Notes Clinically about the same. On MiraLAX for constipation. I believe this gentleman has chronic abdominal distention with have a colonic pseudoobstruction . Son notes that he always has abdominal distention and fullness in the right side of the abdomen versus the left which is consistent with his exam showing more tympany in the ascending colon area though tympany throughout. X-ray also suggests air throughout the entirety of the colon without obvious cutoff. Management is to typically avoid medications as slow gut activity such as tricyclic antidepressants narcotics Imodium Lomotil. MiraLAX may be of benefit. Ambulation can be helpful. The role of his urinary tract and this is not clear but likely contributing we will continue to follow. Subjective Patient has had no further abdominal pain. no bowel movements yet. no nausea or vomiting. Son at bedside tells me he was told he was going to have his diet advanced. KUB this morning as follows: 1. Cardiomegaly with pulmonary vascular congestion and mild bibasilar densities favoring atelectasis. 2. No bowel obstruction or pneumoperitoneum. 3. Suggested constipation with gaseous distention of the large bowel. Review of Systems Review of Systems: All systems reviewed & are unremarkable except as noted in HPI & below Physical Exam Constitutional: WD/WN, vitals as above Respiratory: normal respiratory effort, lungs clear to auscultation Cardiovascular: Rate/Rhythm: regular rate and regular rhythm Gastrointestinal (Abdomen): normal bowel sounds, not tender. soft. Psychiatric: Orientation: alert Affect: euthymic affect Results & Data Results & Data Vital Signs (Past 12 Hours) Vital Signs Temp Pulse Pulse Resp BP Pulse Ox O2 Del Method 07/10/24 07:46 97.3 F L 90 15 146/72 H 98 Room Air 07/10/24 07:25 Room Air 07/10/24 03:27 70 16 97 07/09/24 23:23 75 18 98 Coding Level of Care Code 54412 SUB INP/OBS CARE 07/20MIN Diagnoses Abdominal pain R10.9
--- NOTE | 2024-07-10 11:46 | Pharmacy Report ---
Pharmacy Glycemic Sign Off Nt - Date of Service July 10, 2024 - Assessment & Plan ASSESSMENT: * Pharmacy was consulted by Grace Jain on 07/09 for glycemic control and to write orders per [facility] inpatient glycemic control protocol. * Major changes made by pharmacy to antidiabetic regimen include: * added novolog scale * Please see recommendations for outpatient antidiabetic regimen below. PLAN FOR INPATIENT GLYCEMIC CONTROL: No changes needed to current regimen. * Continue to hold basal * Continue NovoLog per scale ACHS/Q6hrs while NPO * Goal range = 110 140 mg/dl * CF = 30 mg/dl/unit * CR = 1 unit for ever 10 g CHO consumed * Pharmacy is signing off of glycemic consult and will no longer be making adjustments to inpatient regimen. Please feel free to re-consult if needed. Thank you.
--- NOTE | 2024-07-10 12:03 | Hospitalist Progress Note ---
Date of Service July 10, 2024 Assessment & Plan (1) Bowel obstruction: Plan: -CT negative -KUB today negative -GI consult appreciated -will advance diet as tolerted (2) UTI (urinary tract infection): Plan: -cefepime/vancomycin -culture + for Klebsiella aerogenes -awaiting sensitivites (3) Diabetes: Plan: RISS (4) Hypertension: Plan: -Metoprolol Plan PT evaluation pending Admission and Anticipated Discharge Date Admission Date: July 09, 2024 Subjective No events overnight. KUB this am showing no obstruction. Advancing diet. Review of Systems Review of Systems: CONST: Negative for fever, body aches and chills. HENT: Negative for neck pain/stiffness, headache, congestion, sore throat, swelling. EYES: Negative for discharge/pain or vision changes. RESP: Negative for cough/hemoptysis and shortness of breath. CV: Negative chest pain, difficulty breathing, palpitations. ABD: Negative pain, nausea, vomiting. : Negative increase frequency, dysuria, blood in urine or stool. MUSC: Negative for muscle aches, edema. SKIN: Negative rash, lesions/sores. NEURO: Negative headache, dizziness, weakness. Physical Exam Physical Exam: GENERAL APPEARANCE NAD, activity normal for age, well developed/ well nourished, no cyanosis, pallor, or diaphoresis. EYES lids/conjunctiva normal. EARS/NOSE/THROAT Mucous membranes moist, nares normal, lips/teeth normal uvula midline without oral pharyngeal erythema, exudate or swelling TMs normal bilaterally. No lymphangitis/lymphedema. HEAD/NECK normocephalic atraumatic, no facial trauma, neck is supple. RESPIRATORY respiratory effort normal, speaks in full sentences, no tripod position, no accessory muscle use. Lungs clear to auscultation without rhonchi, wheezes, rales CARDIAC Regular rate and rhythm, no edema. ABDOMINAL Soft, ND/NT. No evidence of fluid wave. No pulsatile masses on exam, rebound tenderness, Head sign or pain over Mcburney's point. MUSCLES/EXTREMITIES No abnormal range of motion, no swelling. SKIN Warm, pink and dry. No rashes, dermatoses, petechiae or lesions. NEUROLOGICAL Speech is clear and appropriate. Normal level of consciousness. Gait and coordination are normal. 5/5 strength in all extremities. PSYCH Normal mood and affect. Judgement/competence is appropriate Results & Data Results & Data Vital Signs (Past 12 Hours) Vital Signs Temp Pulse Pulse Resp BP Pulse Ox O2 Del Method 07/10/24 07:46 36.3 C L 90 15 146/72 H 98 Room Air 07/10/24 07:25 Room Air 07/10/24 03:27 70 16 97 PG Care Time/CCT Total # of Minutes Spent Total Time Spent with Patient: Total time spent is greater than 50% in coordination of care (as documented) at patient's floor/unit and/or counseling patient: Coding Level of Care Code 21515 SUB INP/OBS CARE 2/35MIN Diagnoses Bowel obstruction K56.609 UTI (urinary tract infection) N39.0 Diabetes E11.9 Hypertension I10
[2024-07-11 07:07] VITALS: RESP 16; TEMP 98.1; O2SAT 96
[2024-07-11 08:01] LABS: Hematocrit (blood only) 34.9 % (42.0-52.0); Hemoglobin 11.9 g/dl (14.0-18.0); Mean Corpuscular Hemoglobin 30.3 pg (25.0-34.0); Mean Corpuscular Hgb Conc 34.1 g/dL (32.0-36.0); Mean Corpuscular Volume 88.8 fL (80.0-100.0); Mean Platelet Volume 9.1 fL (9.4-12.4); Platelet Count 251 K/uL (130-400); RDW Coefficient of Variation 13.2 % (11.5-14.5); RDW Standard Deviation 43.5 fL (36.4-46.3); Red Blood Count 3.93 M/uL (4.70-6.10); White Blood Count 7.03 K/ul (4.8-10.8)
[2024-07-11 08:11] LABS: Calcium 9.1 mg/dl (8.6-10.3); Creatinine Clr Calc Pharmacy 70.6 ml/min; Potassium 3.8 mmol/L (3.5-5.1)
[2024-07-11] MEDS ORDERED: VANCOMYCIN LEVEL ONE (08:30)
--- NOTE | 2024-07-11 12:14 | Discharge Summary ---
Discharge Summary Date of Service July 11, 2024 Principal Dx & Hospital Course #1 = Principal Diagnosis (1) Bowel obstruction: -CT negative -KUB today negative -GI consult appreciated -will advance diet as tolerted (2) UTI (urinary tract infection): -cefepime/vancomycin -culture + for Klebsiella aerogenes -sensitivities to cipro (3) Diabetes: RISS (4) Hypertension: -Metoprolol Plan PT evaluation pending Admission HPI Per Admitting Provider 88 year old male w/ PMHx urinary catheterization associated UTI, DALY, HLD, HTN, T2DM, and BPH w/ LUTS presenting to ED for lower abdominal pain. Most recent admission 06/19-06/24/2024 for UTI w/ mesa catheter malfunction. Patient's 2 sons are present in the room and helps provide history. 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 This seemed to have resolved in the short-term and the patient stopped complaining about it until around 020 the morning of arrival when the patient again awoke his son with complaints of abdominal pain that was not resolved with urination. Mainly located to the left lower quadrant. Patient unable to express more detail of the pain such as the severity or quality of pain. Denying fever/chi lls. Overall, CBC reveals H/H near patient's baseline (12.2/36.9) and no leukocytosis. CMP Na 135 but otherwise WNL Cr and BUN, no gross electrolyte abnormalities. Pt's UA reveals presence of bacteria. KUB shows dilated ascending colon loops without the presence of an air or liquid level, recommend further study be carried out to rule out obstruction, also with suspected left- sided opaque shadow and left renal region which could be calculus. A CTAP was done following this, pending official read but does appear to support presence of obstruction per my read. Overall, patient's denying chest pain, shortness of breath, palpitations, nausea/vomiting/diarrhea/constipation, headache, fever/chills, numbness/tingling, weakness, or URI symptoms. Pt did not yet take am medications. Please see Dr. Xavier's attestation for adjustments/additions to treatment plan. Discharge Exam GENERAL APPEARANCE NAD, activity normal for age, well developed/ well nourished, no cyanosis, pallor, or diaphoresis. EYES lids/conjunctiva normal. EARS/NOSE/THROAT Mucous membranes moist, nares normal, lips/teeth normal uvula midline without oral pharyngeal erythema, exudate or swelling TMs normal bilaterally. No lymphangitis/lymphedema. HEAD/NECK normocephalic atraumatic, no facial trauma, neck is supple. RESPIRATORY respiratory effort normal, speaks in full sentences, no tripod position, no accessory muscle use. Lungs clear to auscultation without rhonchi, wheezes, rales CARDIAC Regular rate and rhythm, no edema. ABDOMINAL Soft, ND/NT. No evidence of fluid wave. No pulsatile masses on exam, rebound tenderness, Head sign or pain over Mcburney's point. MUSCLES/EXTREMITIES No abnormal range of motion, no swelling. SKIN Warm, pink and dry. No rashes, dermatoses, petechiae or lesions. NEUROLOGICAL Speech is clear and appropriate. Normal level of consciousness. Gait and coordination are normal. 5/5 strength in all extremities. PSYCH Normal mood and affect. Judgement/competence is appropriate Discharge Plan Discharge Items Patient Disposition: Home - Self-Care Reason For Visit: BOWEL OBSTRUCTION Discharge Diagnosis: UTI Activity: Resume your previous activity Non-emergency contact: Primary Care Provider Call non-emergency contact if: you have any medication questions Follow-up/Referrals: Salomon Stanton, [Primary Care Provider] - Diet: Regular Addtl Attending Provider Instructions: Follow up with PCP in 2 weeks Pending Studies at Discharge: No Stand-Alone Forms: My [facility] [employer], Smoking Cessation Medications and DC Order Prescriptions: New ciprofloxacin HCl [Cipro] 250 mg tablet 250 mg PO BID Qty: 10 0RF Continued (DME) blood-glucose meter [FreeStyle Lite Meter] Kit See Rx Instructions .Route Qty: 1 0RF Rx Instructions: As directed (DME) lancets [FreeStyle Lancets] 28 gauge misc See Rx Instructions .Route Qty: 100 5RF Rx Instructions: test once daily (DME) CPAP Supplies Misc See Rx Instructions .Route Qty: 1 0RF Rx Instructions: CPAP Mask use qHS finasteride 5 mg tablet 5 mg PO QAM Qty: 90 3RF clopidogrel 75 mg tablet 75 mg PO QAM Qty: 90 3RF simvastatin 20 mg tablet 20 mg PO HS Qty: 90 3RF Hold Instructions: Hold starting 04/04 for Paxlovid, c/w s/p 2 weeks off med polyethylene glycol 3350 [Miralax] 17 gram powder in packet 17 g PO DAILY PRN (Reason: constipation) Qty: 0 0RF Rx Instructions: CONFIRMED W/ SON THAT PT ONLY TAKES PRN FOR CONSTIPATION (DME) FreeStyle Test Strip See Rx Instructions .Route Qty: 100 5RF Rx Instructions: test once daily prior to meal metoprolol tartrate 50 mg tablet 50 mg PO BID Qty: 180 3RF tamsulosin 0.4 mg capsule See Rx Instructions .ROUTE .COMPLEX Qty: 30 11RF Dose Instruction: take 1 capsule by mouth daily at bedtime Rx Instructions: take 1 capsule by mouth daily at bedtime Centrum Silver Men 300-600-300 mcg tablet 1 tab PO QAM (DME) bilateral LE AFO braces See Rx Instructions .Route .MEDSUPPLY Qty: 1 0RF Rx Instructions: As directed triamcinolone acetonide 0.1 % cream 1 applic topical BID PRN (Reason: Skin Irritation) Qty: 30 2RF (DME) Diabetic Shoes Misc See Rx Instructions .Route Qty: 1 0RF Rx Instructions: Diabetic Shoes and Insoles magnesium oxide 400 mg magnesium Tablet 400 mg PO BID metformin 500 mg Tablet 500 mg PO BIDM Qty: 0 0RF docusate sodium 100 mg capsule 100 mg PO DAILY PRN (Reason: constipation) Rx Instructions: CONFIRMED W/ SON THAT PT ONLY TAKES PRN FOR CONSTIPATION. phenazopyridine [Pyridium] 200 mg tablet 200 mg PO Q8H PRN (Reason: pain) Qty: 10 0RF Discharge Orders: Discharge Order (Routine); Ordered 07/11/24 Ordered By: Neo Joy Admission Data Admit Date/Time: 07/09/24 06:38 Attending Provider: Neo Joy Admit Provider: Kwame Xavier Primary Care Provider: Salomon Stanton Other Providers: Kwame Xavier; Jaskaran Mejia; Bigg Bah; Juju Abarca; Pam Talbert; Kenzie Solorzano; Ramona Yang; Gregorio Devine; June Segal; Sierra Delgado; Yamel Paris; Oriana Leonardo; Nereyda Schaeffer; Dipika Wallace; April Santana; Katheryn Man; Johnny Rios; Anita Melendez; Bettye Medrano Jr; Giuseppe Vázquez.; Rafi Guzmán; Matt Liu; Osvaldo Pratt; Zeina Covarrubias; Malik Garcia I; Maria Luisa Escalante; Bryon Ahn; [facility] Hospital Stay Data Consultations 07/09/24 06:54 Consult Gastroenterology Routine 07/09/24 07:06 ED Decision to Admit Stat Diagnostic Imagining Performed 07/09/24 05:08 CT abd pelvis IV con only Stat Pending Results Patient Have Any Pending Studies at Discharge: No Discharge Instructions Given to Patient (Per Discharging Provider) Follow up with PCP in 2 weeks Total Time Total Time Spent Total Time Spent (In Minutes): 50 Coding Level of Care Code 05543 INP/OBS DISCH >30 MIN Diagnoses Bowel obstruction K56.609 UTI (urinary tract infection) N39.0 Diabetes E11.9 Hypertension I10
[2024-07-11 12:28] VITALS: BP 146/72; PULSE 90
== END 2024-07-11 13:57 | disposition home health service (06) | DRG 699 ==
LOC: SUATTDRO → ED 04:00 → EDINP 06:38 → SUATTDRO 06:38 → 3W 09:17 → 3N 07-10 17:51

== ENCOUNTER 2024-10-28 15:23 | Inpatient (IN) ==
--- NOTE | 2024-10-28 15:47 | Emergency Department Note ---
Impression & Plan Sepsis, Leukocytosis, Acute UTI (urinary tract infection), Generalized weakness, Non-ST elevation PA (NSTEMI), Elevated brain natriuretic peptide (BNP) level, Hyperglycemia ED Provider Note HISTORY OF PRESENT ILLNESS: Patient is an 89-year-old male presenting with generalized weakness. Son and daughter provide most of history. Patient had presented to his primary care provider's office this morning for generalized weakness over the last 4 days. Daughter and son at bedside report that patient has had a significant decline in the last 24 hours. Reports that the patient is normally able to transfer himself from a chair to his wheelchair and then to the toilet. They report that yesterday patient was unable to get out of his wheelchair on his own and it took 2 people to assist him to the bathroom. Reports that his symptoms continued into today, prompting them to take him for evaluation at his primary doctor's office. No recent fevers. Patient denies any abdominal pain, nausea or vomiting. Family reports no recent falls. Patient lives with his son. No recent antibiotic use. Laboratory workup was done in the outpatient setting and he was referred to the emergency department given his abnormal lab tests and his symptoms. ROS: as above PHYSICAL EXAM: Constitutional: Patient appears in no acute distress. HENT: Head: Normocephalic and atraumatic. Eyes: EOMI, PERRL Mouth/Throat: Mucous membranes moist. Neck: Trachea midline. Neck supple. Cardiovascular: RRR, No murmurs, rubs or gallops. Intact distal pulses. Pulmonary/Chest: No respiratory distress. Breath sounds clear and equal bilaterally. No wheezes or rales. Abdominal: Abdomen soft, no tenderness, rebound or guarding. Musculoskeletal: No edema, tenderness or deformity noted. Skin: Warm and dry. No rash, erythema, pallor or cyanosis Psychiatric: Appropriate mood and affect for situation. Neurological: Alert and keenly responsive. CN II-XII grossly intact MDM: - Vitals signs showed hypertension and tachycardia - History obtained via patient and patient's family. History as above. - Chronic conditions affecting care: HLD; DM-2; MRSA; Peripheral artery disease; HTN - Differential diagnoses include, but are not limited to: UTI; pneumonia; ACS; CVA; intracranial hemorrhage; electrolyte abnormality; dehydration; sepsis - Order placed for continuous cardiac monitoring. At this time, monitor showed rate of 96 bpm with normal sinus rhythm, per my interpretation. - External medical records reviewed. Primary care visit note from today was reviewed. Patient was seen for complaint of weakness. History was obtained from son and daughter at that visit. He has been confused for the last 4 days. Laboratory workup and chest x-ray were ordered in the outpatient setting. They were called that his white blood cell count was significantly elevated and his chest x-ray showed some pulmonary edema and they were referred to the emergency department for further evaluation. - EKG image interpreted by myself showed normal sinus rhythm. Rate 94 bpm. QT 362. No acute ischemic changes. Significant artifact at baseline. - CXR image obtained at 1303 reviewed myself showed some pulmonary vascular congestion, per my interpretation. Radiology noted mild CHF with increased mild pulmonary interstitial opacities concerning for early interstitial pneumonia versus pulmonary edema. - Laboratory workup interpreted by myself showed leukocytosis (WBC 17.71) with neutrophil predominance; normal PT/INR; hyponatremia (Na 131); hyperglycemia (glucose 333); normal anion gap; elevated troponin (1348.2); elevated BNP (199) - Procalcitonin and blood cultures obtained. - Patient's urine dipstick from clinic was also reviewed and shows concern for infection. 2g IV Rocephin ordered for empiric antibiotic coverage. - Given patient's tachycardia, tachypnea, leukocytosis and UTI, he meets sepsis criteria. He was given 500 cc of normal saline. His sepsis fluid volume calculation based on ideal body weight is 2100 mL. However, further fluids were not administered given the patient's pulmonary edema and CHF exacerbation on his chest x-ray. - Discussion was had with case making machine operator about patient's case and need for admission - Hospitalist consulted for admission - Patient admitted to [facility] for further evaluation and management. ASSESSMENT AND PLAN: Diagnosis: sepsis; leukocytosis; acute UTI; generalized weakness; NSTEMI; hyperglycemia; elevated BNP Plan: Admit Past Med/Surg History Problem List (Updated 10/28/24 @ 17:19 by Deanna Luna MD) Hyperglycemia (Acute) Elevated brain natriuretic peptide (BNP) level (Acute) Non-ST elevation PA (NSTEMI) (Acute) Generalized weakness (Acute) Acute UTI (urinary tract infection) (Acute) Leukocytosis (Acute) Sepsis (Acute) Peripheral artery disease (Chronic) Acute UTI (Acute) Bacteremia Acute urinary retention (Acute) Catheter-associated urinary tract infection (Acute) Acute urinary retention (Acute) Penile bleeding (Acute) Nocturnal enuresis (Acute) Diabetic ulcer of right heel (Acute) healed; last seen by wound clinic 04/09/24 Abnormal ankle brachial index Blister of finger MRSA (methicillin resistant staph aureus) culture positive 10/2023 hospital admission; UTI +MRSA Recurrent urinary tract infection Urinary retention (Acute) Fall (Acute) frequent falls; most recent: 09/2023 AMS (altered mental status) (Acute) 10/2023 [facility] admission (sepsis 2/2 UTI) Facial rash Abnormal ECG (Acute) had cath 03/28/23 Acute pain of right knee (Acute) Chronic skin ulcer of left ear (Acute) Seborrheic dermatitis (Acute) Carotid artery stenosis (Acute) Cervical disc disease (Acute) Dermatophytosis Hypercholesteremia TIA (transient ischemic attack) (Acute) Medical History Diabetes Abdominal pain Abdominal pain Bowel obstruction Malfunction of Elliott catheter Elliott catheter present Leukocytosis Generalized weakness Confusion Abnormal computed tomography of abdomen and pelvis Complicated urinary tract infection Stenosis of right external iliac artery UTI (urinary tract infection) Weakness Benign prostatic hyperplasia with urinary obstruction Obstructive sleep apnea Hyperlipidemia Hypertension Controlled type 2 diabetes mellitus with microalbuminuria Coronary artery disease severe per 03/28/23 cath: Severe obstructive coronary disease involving subtotal occlusion of the proximal RCA, 50% distal left main, 99% om 2 lesions. Good collateralization of the right coronary via [id number] collaterals Hx of transient ischemic attack (TIA) Hypertension Hx of recurrent urinary tract infection Urinary retention Cervical disc disease son unsure, reports no limits to rom of neck Hx of sepsis (10/2023) admit to [facility], went to rehab ([facility]) afterwards x 2 weeks MRSA (methicillin resistant Staphylococcus aureus) MRSA UTI during [facility] admission 10/2023 Diabetic ulcer of right heel healed now- released from wound clinic 04/09/24 Nocturnal enuresis Carotid artery stenosis Hyperlipidemia BPH (benign prostatic hyperplasia) Controlled type 2 diabetes mellitus with microalbuminuria Frequent falls son chris (poa) now living with pt. - pt. has only fallen x 1 since august - approx. 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 Surgical History History of prostate surgery History of cardiac cath (03/2023) 03/2023, "wasn't feeling right," no stents>"pt has minimal damage to heart"; f/u [facility] cardio Hx of cataract surgery (06/2023) b/l Hx of squamous cell carcinoma excision Family History Mother Coronary heart disease Brother Coronary heart disease Diabetes Hypertension Father Diabetes Denies family history of Ovarian cancer Prostate cancer Myocardial infarction Breast cancer Lung cancer Colorectal cancer Social History (Updated 08/27/24 @ 09:21 by Lata Gil RN) Smoking Status: Never smoker Tobacco Type: Cigarettes Age Started Using Tobacco: 18; Age Quit Using Tobacco: 37; packs per day: 1; Second Hand Exposure: No; Do You Dip or Chew Tobacco: No; Hx Alcohol Use: No Hx Substance Use: No Preferred Language: Grenadian Communication Ability: Impaired Communication Ability Comment: expressive aphagia Visual Impairment: Limited Hearing Ability: Use of Hearing Aid Meat Inspector Required: No Beliefs That Will Affect Care: None marital status: / Current Living Situation: Family Current Living Situation Comment: son Chris carepipo for pt current occupational status: retired 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 Chris and Mark are the POAs for the pt. Feels Safe at Home: Yes Childhood Exposure to Second-Hand Smoke: Yes Diet: regular caffeine: Yes Dental Care, Regularly: No Physical Activity Frequency: 5-6 Times per Week Seatbelt Use: never Sunscreen Use: Yes Assistive Devices: Cane, Hospital Bed, Walker and Wheelchair Allergies Allergies Allergy/AdvReac Type Severity Reaction Status Date / Time No Known Allergies Allergy Verified 10/28/24 11:03 Home Meds Home Medications Medication Instructions Recorded Confirmed [id number] 300 mcg-K 60 1 tab PO QAM 02/15/19 10/28/24 mcg-lycop 600 mcg-lutein 300 mcg tablet (Centrum Silver Men) magnesium oxide 400 mg PO BID 03/30/21 10/28/24 Previous Rx's Medication Instructions Recorded bilateral LE AFO braces #1 ea 11/23/21 triamcinolone acetonide 0.1 % 1 applic topical BID PRN Skin 08/01/22 topical cream Irritation #30 grams blood-glucose meter (FreeStyle #1 ea 08/02/22 Lite Meter kit) lancets 28 gauge (FreeStyle #100 ea 08/02/22 Lancets) CPAP Supplies #1 ea 02/07/23 simvastatin 20 mg tablet 20 mg PO HS #90 tabs 10/31/23 blood sugar diagnostic (FreeStyle #100 ea 01/24/24 Test strips) Diabetic Shoes #1 ea 03/07/24 metoprolol tartrate 50 mg tablet 50 mg PO BID #180 tabs 04/15/24 tamsulosin 0.4 mg capsule See Rx Instructions .Route 06/21/24 .COMPLEX #30 caps clopidogrel 75 mg tablet 75 mg PO QAM #90 tabs 07/16/24 finasteride 5 mg tablet 5 mg PO QAM #90 tabs 07/16/24 metformin 500 mg tablet 500 mg PO BIDM #180 tabs 10/17/24 Results & Data (ED) Vital Signs Vital Signs - 24 hr 10/28/24 15:31 10/28/24 16:06 10/28/24 16:15 Temperature 36.4 C L Temperature Source Temporal Artery Scan Pulse Rate 96 H 87 Pulse Rate [Left Finger] 82 Respiratory Rate 18 21 Respiratory Effort / Characteristics Non-Labored Non-Labored Respiratory Depth Normal Normal Respiratory Pattern Regular Blood Pressure 173/94 H Blood Pressure [Left Arm] 148/98 H Blood Pressure Mean 120 Blood Pressure Mean [Left Arm] 114 Pulse Oximetry 97 94 Oxygen Delivery Method Room Air Room Air Sepsis Recent Fever Within 48 Hours No Sepsis New/Unexplained Change in Mental Status N/A Sepsis Action Taken by Nursing No Action Required Laboratory Data 10/28/24 16:14 10/28/24 16:14 Lab Results 10/28/24 Range/Units 16:14 WBC 17.71 H (4.8-10.8) K/ul RBC 4.68 L (4.70-6.10) M/uL Hgb 13.9 L (14.0-18.0) g/dl Hct 41.0 L (42.0-52.0) % MCV 87.6 (80.0-100.0) fL MCH 29.7 (25.0-34.0) pg MCHC 33.9 (32.0-36.0) g/dL RDW Std Deviation 42.4 (36.4-46.3) fL RDW Coeff of Doris 13.2 (11.5-14.5) % Plt Count 269 (130-400) K/uL MPV 9.0 L (9.4-12.4) fL Immature Gran % (Auto) 0.7 % Neut % (Auto) 88.9 % Lymph % (Auto) 4.4 % Marathon % (Auto) 5.7 % Eos % (Auto) 0.0 % Baso % (Auto) 0.3 % Neut # (Auto) 15.75 H (1.40-6.50) K/uL Lymph # (Auto) 0.78 L (1.20-3.40) K/uL Marathon # (Auto) 1.01 H (0.11-0.59) K/uL Eos # (Auto) 0.00 (0.00-0.50) K/uL Baso # (Auto) 0.05 (0.00-0.20) K/uL Immature Gran # (Auto) 0.12 (0.01-0.20) K/uL PT 10.8 (9.0-12.0) Seconds INR 1.0 (0.9-1.1) APTT 31 (21-31) Seconds PTT Ratio 1.2 Sodium 131 L (136-145) mmol/L Potassium 4.0 (3.5-5.1) mmol/L Chloride 95 L (98-107) mmol/L Carbon Dioxide 28 (21-32) mmol/L Anion Gap 8 (3-11) BUN 13 (6-23) mg/dl Creatinine 0.89 (0.6-1.4) mg/dl Est Cr Clr Drug Dosing 62.5 ml/min eGFR 82.94 BUN/Creatinine Ratio 14.6 (10-20) Glucose 333 H* (70-99(Fasting)) mg/dl Calcium 9.6 (8.6-10.3) mg/dl Magnesium 1.8 (1.7-2.4) mg/dl Total Bilirubin 0.7 (0.2-1.0) mg/dl AST 22 (13-39) U/L ALT 12 (7-52) U/L Alkaline Phosphatase 60 (34-104) U/L Troponin I High Sens 1348.2 H* (0-20) pg/ml B-Natriuretic Peptide 199 H (0-100) pg/ml Total Protein 8.1 (6.0-8.3) gm/dl Albumin 4.2 (3.4-5.0) gm/dl Globulin 3.9 (2.5-4.0) gm/dl Albumin/Globulin Ratio 1.1 (0.9-2) Administered Medications Discontinued Medications Aspirin (Aspirin 81 Mg Ectab) 81 mg PO NOW STA Stop: 10/28/24 17:10 Last Admin: 10/28/24 17:15 Dose: 81 mg Documented By: ASUNCION Ceftriaxone Sodium (Rocephin) 2,000 mg in 50 mls @ 100 mls/hr IV NOW STA Stop: 10/28/24 16:09 Last Infusion: 10/28/24 17:17 Dose: Infused Documented By: Admin: 10/28/24 16:47 Dose: 100 mls/hr Documented By: ASUNCION Sodium Chloride (Nss) 500 mls @ 999 mls/hr IV .Q31M ONE Stop: 10/28/24 16:10 Last Infusion: 10/28/24 16:51 Dose: Infused Documented By: Admin: 10/28/24 16:18 Dose: 999 mls/hr Documented By: ASUNCION Discharge Plan Visit Data Chief Complaint: Abnormal Labs/Diagnostic Testing Stated Complaint: ABN LABS, BLOOD COUNT HIGH, HYPERGLYCEMIA, HIGH BP ED Provider: Deanna Luna Discharge Problem: Sepsis, Leukocytosis, Acute UTI (urinary tract infection), Generalized weakness, Non-ST elevation PA (NSTEMI), Elevated brain natriuretic peptide (BNP) level, Hyperglycemia Condition: Serious Forms Stand Alone Forms: My [facility] Prescriptions Prescriptions: No Action (DME) blood-glucose meter [FreeStyle Lite Meter] Kit See Rx Instructions .Route Qty: 1 0RF Rx Instructions: As directed (DME) lancets [FreeStyle Lancets] 28 gauge [facility] [place] See Rx Instructions .Route Qty: 100 5RF Rx Instructions: test once daily (DME) CPAP Supplies Misc See Rx Instructions .Route Qty: 1 0RF Rx Instructions: CPAP Mask use qHS simvastatin 20 mg tablet 20 mg PO HS Qty: 90 3RF Hold Instructions: Hold starting 04/04 for Paxlovid, c/w s/p 2 weeks off med (DME) FreeStyle Test Strip See Rx Instructions .Route Qty: 100 5RF Rx Instructions: test once daily prior to meal metoprolol tartrate 50 mg tablet 50 mg PO BID Qty: 180 3RF tamsulosin 0.4 mg capsule See Rx Instructions .ROUTE .COMPLEX Qty: 30 11RF Dose Instruction: take 1 capsule by mouth daily at bedtime Rx Instructions: take 1 capsule by mouth daily at bedtime clopidogrel 75 mg tablet 75 mg PO QAM Qty: 90 3RF finasteride 5 mg tablet 5 mg PO QAM Qty: 90 3RF metformin 500 mg tablet 500 mg PO BIDM Qty: 180 3RF Centrum Silver Men 300-600-300 mcg tablet 1 tab PO QAM (DME) bilateral LE AFO braces See Rx Instructions .Route .MEDSUPPLY Qty: 1 0RF Rx Instructions: As directed triamcinolone acetonide 0.1 % cream 1 applic topical BID PRN (Reason: Skin Irritation) Qty: 30 2RF (DME) Diabetic Shoes Misc See Rx Instructions .Route Qty: 1 0RF Rx Instructions: Diabetic Shoes and Insoles magnesium oxide 400 mg magnesium Tablet 400 mg PO BID Referrals Referrals: Salomon Stanton, [Primary Care Provider] -
[2024-10-28] MEDS: SODIUM CHLORIDE 0.9% 500 ML IV ONE (16:18)
[2024-10-28 16:33] LABS: Basophils # (auto) 0.05 K/uL (0.00-0.20); Basophils % (auto) 0.3 %; Hemoglobin 13.9 g/dl (14.0-18.0); Immature Granulocytes # (auto) 0.12 K/uL (0.01-0.20); Immature Granulocytes % (auto) 0.7 %; Lymphocytes # (auto) 0.78 K/uL (1.20-3.40); Lymphocytes % (auto) 4.4 %; Mean Corpuscular Hemoglobin 29.7 pg (25.0-34.0); Mean Corpuscular Hgb Conc 33.9 g/dL (32.0-36.0); Mean Corpuscular Volume 87.6 fL (80.0-100.0); Monocytes # (auto) 1.01 K/uL (0.11-0.59); Monocytes % (auto) 5.7 %; Neutrophils # (auto) 15.75 K/uL (1.40-6.50); Neutrophils % (auto) 88.9 %; Platelet Count 269 K/uL (130-400); RDW Coefficient of Variation 13.2 % (11.5-14.5); RDW Standard Deviation 42.4 fL (36.4-46.3); Red Blood Count 4.68 M/uL (4.70-6.10); White Blood Count 17.71 K/ul (4.8-10.8)
[2024-10-28] MEDS: cefTRIAXone SODIUM 2,000 MG/50 ML BAG IV STA (16:47)
[2024-10-28 17:00] LABS: Albumin Globulin Ratio 1.1 (0.9-2); Albumin Level 4.2 gm/dl (3.4-5.0); BUN Creatinine Ratio 14.6 (10-20); Bilirubin,Total 0.7 mg/dl (0.2-1.0); Calcium 9.6 mg/dl (8.6-10.3); Creatinine Clr Calc Pharmacy 62.5 ml/min; Globulin 3.9 gm/dl (2.5-4.0); Magnesium 1.8 mg/dl (1.7-2.4); Total Protein 8.1 gm/dl (6.0-8.3); Troponin I High Sensitivity 1348.2 pg/ml (0-20)
[2024-10-28 17:15] LABS: Partial Thromboplastin Ratio 1.2; Partial Thromboplastin Time 31 Seconds (21-31); Prothrombin Time 10.8 Seconds (9.0-12.0)
[2024-10-28] MEDS: ASPIRIN 81 MG ECTAB PO STA (17:15)
--- NOTE | 2024-10-28 17:37 | History & Physical Report ---
Date of Service October 28, 2024 Assessment & Plan (1) Generalized weakness: (2) Acute UTI (urinary tract infection): (3) Non-ST elevation TN (NSTEMI): (4) Sepsis: Plan #Weaknessright now the working diagnosis for his weakness is that he is weak subsequent to sepsis from a urinary source followed by demand ischemia precipitating a small NSTEMI. Given his limited history, we will need to continue to follow him closely and adjust diagnoses and course of treatment if necessary #UTI with sepsishe is leukocytosis, rigors at home, frequent urine infections, and elevated lactate suggest sepsis from urinary source, at the same time his inability to provide much of a history in his nondescript physical exam believe other sources open. Treating empirically with ceftriaxone for now, serial exams, follow cultures, adjust course of treatment as necessary. Fluid support. #NSTEMII suspect a demand ischemia mechanism from the sepsisshe has known distal small vessel disease, and I suspect that the physiologic stress from being septic and/or dehydrated was enough to precipitate watershed ischemia in these areas. Follow troponin, check echocardiogram, manage the sepsis, aspirin now, additional metoprolol now. he had T wave inversions in lateral leads that have since resolvedI suspect the demand has been remedied. Continue to trend troponin until peak. #Diabetesfingersticks, supplemental insulin, hold metformin for now in case any interventions might be needed (doubt they will be) and roll over to a basalbolus regimen as necessary #delirium/metabolic encephalopathythis has happened to him before, all of the above particularly the UTI/sepsis and NSTEMI are probably the major precipitating causes in addition to dehydration. Reassurance, reorientation, supportive care #BPH with frequent UTIsfortunately he currently does not have a Elliott, continue his Flomax and finasteride, follow bladder scans #DVT prophylaxisLovenox History of Present Illness Chief Complaint: weakness Primary Care Provider: Salomon Stanton DO Patient is a very pleasant 89-year-old accompanied by his family who presented after seeing primaryreferred to the ER for weakness. HPI is quite limited as the patient himself does not speak much normally, and family notes that he probably is a little bit deliriousso HPI is mostly gleaned from family, the patient himself answers a few questions in one-word answers of questionable veracity. He apparently was getting weaker over the weekend, not able to transfer as well, appearing overall more fatigued. On directed questioning of family member did endorse a few episodes of shaking chills, they deny any fevers or sweats. No notable focal symptoms but again the patient himself is not able to speak too much as far as answers, he does deny focal symptoms or pain, denies chest pain or shortness of breath, but again this is a very questionable veracity. He has had a good appetitefamily jokes that he would definitely be yelling at people if he was not able to get enough to eat. Allergies Allergy/AdvReac Type Severity Reaction Status Date / Time No Known Allergies Allergy Verified 10/28/24 11:03 Home Medications Medication Instructions Recorded Confirmed Type [id number] 300 mcg-K 60 1 tab PO QAM 02/15/19 10/28/24 History mcg-lycop 600 mcg-lutein 300 mcg tablet (Centrum Silver Men) magnesium oxide 400 mg PO BID 03/30/21 10/28/24 History bilateral LE AFO braces #1 ea 11/23/21 10/28/24 Rx blood-glucose meter (FreeStyle #1 ea 08/02/22 10/28/24 Rx Lite Meter kit) lancets 28 gauge (FreeStyle #100 ea 08/02/22 10/28/24 Rx Lancets) CPAP Supplies #1 ea 02/07/23 10/28/24 Rx simvastatin 20 mg tablet 20 mg PO HS #90 tabs 10/31/23 10/28/24 Rx blood sugar diagnostic (FreeStyle #100 ea 01/24/24 10/28/24 Rx Test strips) Diabetic Shoes #1 ea 03/07/24 10/28/24 Rx metoprolol tartrate 50 mg tablet 50 mg PO BID #180 tabs 04/15/24 10/28/24 Rx clopidogrel 75 mg tablet 75 mg PO QAM #90 tabs 07/16/24 10/28/24 Rx finasteride 5 mg tablet 5 mg PO QAM #90 tabs 07/16/24 10/28/24 Rx metformin 500 mg tablet 500 mg PO BIDM #180 tabs 10/17/24 10/28/24 Rx tamsulosin 0.4 mg capsule 0.4 mg PO HS 10/28/24 10/28/24 History Past Med/Surg History Problem List Hyperglycemia (Acute) Elevated brain natriuretic peptide (BNP) level (Acute) Non-ST elevation TN (NSTEMI) (Acute) Generalized weakness (Acute) Acute UTI (urinary tract infection) (Acute) Leukocytosis (Acute) Sepsis (Acute) Peripheral artery disease (Chronic) Acute UTI (Acute) Bacteremia Acute urinary retention (Acute) Catheter-associated urinary tract infection (Acute) Acute urinary retention (Acute) Penile bleeding (Acute) Nocturnal enuresis (Acute) Diabetic ulcer of right heel (Acute) healed; last seen by wound clinic 04/09/24 Abnormal ankle brachial index Blister of finger MRSA (methicillin resistant staph aureus) culture positive 10/2023 hospital admission; UTI +MRSA Recurrent urinary tract infection Urinary retention (Acute) Fall (Acute) frequent falls; most recent: 09/2023 AMS (altered mental status) (Acute) 10/2023 [facility] admission (sepsis 2/2 UTI) Facial rash Abnormal ECG (Acute) had cath 03/28/23 Acute pain of right knee (Acute) Chronic skin ulcer of left ear (Acute) Seborrheic dermatitis (Acute) Carotid artery stenosis (Acute) Cervical disc disease (Acute) Dermatophytosis Hypercholesteremia TIA (transient ischemic attack) (Acute) Medical History Diabetes Abdominal pain Abdominal pain Bowel obstruction Malfunction of Elliott catheter Elliott catheter present Leukocytosis Generalized weakness Confusion Abnormal computed tomography of abdomen and pelvis Complicated urinary tract infection Stenosis of right external iliac artery UTI (urinary tract infection) Weakness Benign prostatic hyperplasia with urinary obstruction Obstructive sleep apnea Hyperlipidemia Hypertension Controlled type 2 diabetes mellitus with microalbuminuria Coronary artery disease severe per 03/28/23 cath: Severe obstructive coronary disease involving subtotal occlusion of the proximal RCA, 50% distal left main, 99% om 2 lesions. Good collateralization of the right coronary via [id number] collaterals Hx of transient ischemic attack (TIA) Hypertension Hx of recurrent urinary tract infection Urinary retention Cervical disc disease son unsure, reports no limits to rom of neck Hx of sepsis (10/2023) admit to [facility], went to rehab ([facility]) afterwards x 2 weeks MRSA (methicillin resistant Staphylococcus aureus) MRSA UTI during [facility] admission 10/2023 Diabetic ulcer of right heel healed now- released from wound clinic 04/09/24 Nocturnal enuresis Carotid artery stenosis Hyperlipidemia BPH (benign prostatic hyperplasia) Controlled type 2 diabetes mellitus with microalbuminuria Frequent falls son chris (poa) now living with pt. - pt. has only fallen x 1 since august - approx. 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 Surgical History History of prostate surgery History of cardiac cath (03/2023) 03/2023, "wasn't feeling right," no stents>"pt has minimal damage to heart"; f/u [facility] Hx of cataract surgery (06/2023) b/l Hx of squamous cell carcinoma excision Family History Mother Coronary heart disease Brother Coronary heart disease Diabetes Hypertension Father Diabetes Denies family history of Ovarian cancer Prostate cancer Myocardial infarction Breast cancer Lung cancer Colorectal cancer Social History Smoking Status: Never smoker Tobacco Type: Cigarettes Age Started Using Tobacco: 18; Age Quit Using Tobacco: 37; packs per day: 1; Second Hand Exposure: No; Do You Dip or Chew Tobacco: No; Hx Alcohol Use: No Hx Substance Use: No Preferred Language: Slovak Communication Ability: Impaired Communication Ability Comment: expressive aphagia Visual Impairment: Limited Hearing Ability: Use of Hearing Aid [employer] Required: No Beliefs That Will Affect Care: None marital status: / Current Living Situation: Family Current Living Situation Comment: leslye Perez cares for pt current occupational status: retired 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 Chris and Mark are the POAs for the pt. Feels Safe at Home: Yes Childhood Exposure to Second-Hand Smoke: Yes Diet: regular caffeine: Yes Dental Care, Regularly: No Physical Activity Frequency: 5-6 Times per Week Seatbelt Use: never Sunscreen Use: Yes Assistive Devices: Cane, Hospital Bed, Walker and Wheelchair Review of Systems Review of Systems: In general he is awake and alert but answers very short questions hard to truly gauge if he is oriented or not, family notes that he does seem to be somewhat like he was whenever he has been delirious before. No physical distress. HEENT normocephalic atraumatic mucous membranes moist. Cardio somewhat distant regular rate no rubs murmurs or gallops. Lungs are clear to auscultation bilaterally no rales rhonchi or wheeze with good effort. Abdomen is soft nondistended nontender no masses organomegaly. Extremities are without sinus clubbing or edema no calf tenderness. Skin without rashes pallor or icterus. Results & Data Results & Data Vital Signs (Past 12 Hours) Vital Signs Temp Pulse Pulse Resp BP BP Pulse Ox 10/28/24 16:15 82 21 148/98 H 94 10/28/24 16:06 87 10/28/24 15:31 97.5 F L 96 H 18 173/94 H 97 O2 Del Method 10/28/24 16:15 Room Air 10/28/24 16:06 10/28/24 15:31 Room Air Code Status & VTE Plan VTE Prophylaxis Plan VTE Prophylaxis will be ordered: Yes PG Care Time/CCT Total # of Minutes Spent Total Time Spent with Patient: Total time spent is greater than 50% in coordination of care (as documented) at patient's floor/unit and/or counseling patient: Coding Level of Care Code 41070 INT INP/OBS CARE 3/75MIN Diagnoses Generalized weakness R53.1 Acute UTI (urinary tract infection) N39.0 Non-ST elevation TN (NSTEMI) I21.4 Sepsis A41.9
[2024-10-28] MEDS: METOPROLOL TARTRATE 1 MG/ML VIAL IV STA (17:58)
[2024-10-28 18:24] LABS: Appearance Urine Clear (Clear); Bacteria Urine Automated 4+ (None Seen); Bilirubin Urine Negative (Negative); Blood Urine 1+ (Negative); Cast Urine Automated 0-2 /lpf (0-2); Color Urine Yellow; Epithelial Cell Urine Auto 0-2 /hpf (0-2); Glucose Urine UA 3+ (Negative); Ketones Urine 1+ (Negative); Leukocyte Esterase Urine Negative (Negative); Nitrite Urine Positive (Negative); Protein Urine 2+ (Negative); Specific Gravity Urine 1.025 (1.000-1.030); Urobilinogen Urine Negative (Negative); WBC Urine Automated 21-50 /hpf (0-5)
[2024-10-28] MEDS ORDERED: ALUMINUM/MAGNESIUM SUSP 30 ML UDC PO PRN (20:49)
[2024-10-28] MEDS ORDERED: MELATONIN 3 MG TAB PO PRN (20:49)
[2024-10-28] MEDS ORDERED: POLYETHYLENE (MIRALAX) 17 GM PACK PO PRN (20:49)
[2024-10-28] MEDS ORDERED: ONDANSETRON INJ 2 MG/ML 2 ML VIAL IV PRN (20:49)
[2024-10-28] MEDS ORDERED: ACETAMINOPHEN 325 MG TAB PO PRN (20:49)
[2024-10-28] MEDS ORDERED: NON-FORMULARY MEDICATION (Cpap Supplies misc) SCH (20:49)
[2024-10-28] MEDS: ENOXAPARIN INJ 40 MG/0.4 ML SYR SQ SCH (21:07)
[2024-10-28] MEDS: LACTATED RINGER'S 1,000 ML IV SCH (21:13)
[2024-10-28] MEDS: ENOXAPARIN 100 MG/1ML SYR SQ ONE (21:13)
[2024-10-28] MEDS: METOPROLOL TARTRATE 50 MG TAB PO SCH (21:16)
[2024-10-28] MEDS: TAMSULOSIN HCL 0.4 MG CAP PO SCH (21:16)
[2024-10-28] MEDS: MAGNESIUM OXIDE 400 MG TAB PO SCH (21:16)
[2024-10-28] MEDS ORDERED: DEXTROSE 50% 50 ML SYRINGE IV PRN (21:46)
[2024-10-28] MEDS ORDERED: GLUCOSE 10 TAB/TUBE PO PRN (21:46)
[2024-10-28] MEDS ORDERED: GLUCAGON FOR INJ 1 MG VIAL SQ PRN (21:46)
[2024-10-28] MEDS ORDERED: GLUCOSE 40% GEL 15 GM TUBE PO PRN (21:46)
[2024-10-28] MEDS ORDERED: CARBOHYDRATES FOR HYPOGLYCEMIA PO PRN (21:46)
[2024-10-28] MEDS: INSULIN ASPART PER UNIT CHARGE SC SCH (22:27)
--- NOTE | 2024-10-29 07:07 | Hospitalist Progress Note ---
Date of Service October 29, 2024 Assessment & Plan (1) Non-ST elevation SD (NSTEMI): (2) Generalized weakness: (3) Acute UTI (urinary tract infection): Plan (1) Generalized weakness: (2) Acute UTI (urinary tract infection): (3) Non-ST elevation SD (NSTEMI): (4) Sepsis: Plan 1) Weakness right now the working diagnosis for his weakness is that he is weak subsequent to sepsis from a urinary source followed by demand ischemia precipitating a small NSTEMI. follow him closely and adjust diagnoses and course of treatment if necessary 2) UTI with sepsis recent Hx of rigors at home, frequent urine infections - elevated lactate, 2.6 and WBC, 18.1 upon admission suggest sepsis from urinary source - inability to provide much of a history and his nondescript physical exam consistent w/ this but also other Dx's - Ur Cx, positive for Pseudomonas, sensitivities pending - started Cefepime, 2000 mg, IV, q12hr 3) NSTEMI - HS Troponin, 1348 --> 6688 --> 2936 - in light of new Echocardiogram results compared to last Echocardiogram, the demand ischemia mechanism from the sepsis (w/ known distal small vessel disease, physiologic stress from being septic and/or dehydrated enough to precipitate watershed ischemia in these areas) likely triggered an SD given hypokinesis of inferolateral wall - echocardiogram: EF, 50-55%; Hypokinesis of inferolateral wall; sclerotic aortic valve w/ significant stenosis; mild mitral regurgitation - started aspirin, 81 mg, daily; metoprolol, 50 mg, PO, BID now; continue Plavix, 75 mg, PO, daily -He had T wave inversions in lateral leads that have since resolved, demand likely was remedied #Diabetesfingersticks, supplemental insulin, hold metformin for now in case any interventions might be needed (doubt they will be) and roll over to a basalbolus regimen as necessary #delirium/metabolic encephalopathythis has happened to him before, all of the above particularly the UTI/sepsis and NSTEMI are probably the major precipitating causes in addition to dehydration. Reassurance, reorientation, supportive care #BPH with frequent UTIsfortunately he currently does not have a Elliott, continue his Flomax and finasteride, follow bladder scans #DVT prophylaxisLovenox Admission and Anticipated Discharge Date Admission Date: October 28, 2024 Supervising Physician Co-Signing Physician Notes I personally examined the patient and verified all orozco points of history and exam, discussed case, and agree with decision making with Dr Gaytan More confused. No meaningful HPI review of systems obtainable, although for what it is worth he denies any focal complaints. Son at the bedside. Updated the best my ability and his satisfaction. Vitals noted, in general he is awake and alert confused but no distress. HEENT normocephalic atraumatic mucous membranes moist. Breathing unlabored no accessory muscle use good effort. Skin without rashes pallor or icterus. Neuro without focal deficits. Weaknessmost likely combination of sepsis and NSTEMI. PT/OT eval and treat. Son is hopeful he will be able to take him home but is amenable to [facility] if he needs rehab sepsismost likely urinary source. Improvingwhite count improving overall physiology improved. Awaiting cultures. Continue Rocephin for now NSTEMIknown distal coronary disease, suspect the physiologic stress of the sepsis precipitated severe demand ischemia causing the NSTEMI. Discussed with cardiologymed management most appropriate. trop trended down, echo pending, EKG changes resolved (essentially w first fluid bolus/initial dose of rocephin) dysphagiaspeech eval pending Subjective Patient was seen and examined at bedside this morning. Review of Systems Review of Systems: Unobtainable due to cognitive status Physical Exam Constitutional: WD/WN, vitals as above Respiratory: normal respiratory effort, lungs clear to auscultation Cardiovascular: RRR, no murmur, no edema Gastrointestinal (Abdomen): normal bowel sounds, soft, nontender, no hepatosplenomegaly Psychiatric: Orientation: alert and oriented to person; + not oriented to place and + not oriented to time Results & Data Results & Data Vital Signs (Past 12 Hours) Vital Signs Temp Pulse Pulse Resp BP BP Pulse Ox 10/29/24 07:03 36.6 C 84 20 137/73 93 10/29/24 02:41 36.8 C 69 18 139/88 94 10/28/24 22:37 36.6 C 71 18 127/72 95 10/28/24 22:03 80 10/28/24 20:50 10/28/24 20:50 36.9 C 82 18 158/84 H 96 10/28/24 20:49 36.9 C 82 18 158/84 H 96 10/28/24 20:40 87 10/28/24 20:22 36.9 C 78 17 123/68 97 10/28/24 20:00 77 19 123/68 95 10/28/24 19:59 79 O2 Del Method 10/29/24 07:03 Room Air 10/29/24 02:41 Room Air 10/28/24 22:37 Room Air 10/28/24 22:03 10/28/24 20:50 Room Air 10/28/24 20:50 Room Air 10/28/24 20:49 Room Air 10/28/24 20:40 10/28/24 20:22 Room Air 10/28/24 20:00 Room Air 10/28/24 19:59
[2024-10-29 07:58] LABS: Basophils # (auto) 0.04 K/uL (0.00-0.20); Basophils % (auto) 0.3 %; Eosinophils % (auto) 4.2 %; Hematocrit (blood only) 35.4 % (42.0-52.0); Hemoglobin 12.1 g/dl (14.0-18.0); Immature Granulocytes # (auto) 0.09 K/uL (0.01-0.20); Immature Granulocytes % (auto) 0.6 %; Lymphocytes # (auto) 1.58 K/uL (1.20-3.40); Lymphocytes % (auto) 11.1 %; Mean Corpuscular Hemoglobin 30.2 pg (25.0-34.0); Mean Corpuscular Hgb Conc 34.2 g/dL (32.0-36.0); Mean Corpuscular Volume 88.3 fL (80.0-100.0); Mean Platelet Volume 9.2 fL (9.4-12.4); Monocytes # (auto) 1.15 K/uL (0.11-0.59); Monocytes % (auto) 8.1 %; Neutrophils # (auto) 10.77 K/uL (1.40-6.50); Neutrophils % (auto) 75.7 %; Platelet Count 236 K/uL (130-400); RDW Coefficient of Variation 13.2 % (11.5-14.5); RDW Standard Deviation 42.6 fL (36.4-46.3); Red Blood Count 4.01 M/uL (4.70-6.10); White Blood Count 14.23 K/ul (4.8-10.8)
[2024-10-29 08:12] LABS: BUN Creatinine Ratio 16.9 (10-20); Calcium 8.8 mg/dl (8.6-10.3); Creatinine Clr Calc Pharmacy 77.3 ml/min; Potassium 3.5 mmol/L (3.5-5.1)
[2024-10-29 08:22] LABS: Troponin I High Sensitivity 2936.2 pg/ml (0-20)
[2024-10-29] MEDS: FINASTERIDE 5 MG TAB PO SCH (08:36)
[2024-10-29] MEDS: ASPIRIN 81 MG ECTAB PO SCH (08:37)
[2024-10-29] MEDS: CLOPIDOGREL BISULFATE 75 MG TAB PO SCH (08:37)
[2024-10-29] MEDS ORDERED: NON-FORMULARY MEDICATION (Mv-Min-Folic-K1-Lycopen-Lutein [Centrum Silver Men] 300-600-300 PO SCH (09:00)
[2024-10-29] MEDS: ATORVASTATIN 40 MG TAB PO SCH (09:02)
--- NOTE | 2024-10-29 12:59 | Billing Data ---
Date of Service October 29, 2024 Coding Level of Care Code 31707 SUB INP/OBS CARE
[2024-10-29] MEDS: CEFEPIME 2000MG 2,000 MG/20 ML SYR IV SCH (15:53)
[2024-10-29] MEDS ORDERED: cefTRIAXone SODIUM 2,000 MG/50 ML BAG IV SCH (17:00)
--- NOTE | 2024-10-29 17:33 | XCELERA ---
[id number]
[2024-10-29] MEDS: ENOXAPARIN INJ 40 MG/0.4 ML SYR SQ SCH (20:52)
--- NOTE | 2024-10-30 07:05 | Hospitalist Progress Note ---
Date of Service October 30, 2024 Assessment & Plan (1) Non-ST elevation [place] (NSTEMI): (2) Generalized weakness: (3) Acute UTI (urinary tract infection): Plan (1) Generalized weakness: (2) Acute UTI (urinary tract infection): (3) Non-ST elevation [place] (NSTEMI): (4) Sepsis: Plan 1) UTI with sepsis recent Hx of rigors at home, frequent urine infections - elevated lactate, 2.6 and WBC, 18.1 upon admission suggest sepsis from urinary source - inability to provide much of a history and his nondescript physical exam consistent w/ this but also other Dx's - Ur Cx, positive for Pseudomonas, sensitivities pending - started Cefepime, 2000 mg, IV, q12hr 2) NSTEMI - HS Troponin, 1348 --> 6688 --> 2936 - demand ischemia from sepsis (w/ known distal small vessel disease, physiologic stress from being septic and/or dehydrated enough to precipitate watershed ischemia in these areas) likely triggered an TX given hypokinesis of inferolateral wall - echocardiogram: EF, 50-55%; Hypokinesis of inferolateral wall; sclerotic aortic valve w/ significant stenosis; mild mitral regurgitation - started aspirin, 81 mg, daily; increased metoprolol, 50 mg, PO, BID now; continue Plavix, 75 mg, PO, daily - He had T wave inversions in lateral leads that have since resolved, demand likely was remedied 3) Weakness - working diagnosis for his weakness is that he is weak subsequent to sepsis from a urinary source followed by demand ischemia precipitating a small NSTEMI, w/ some deconditioning likely a contributing factor - follow him closely, encourage assisted ambulation during stay to help gauge degree of weakness and help pt regain conditioning Chronic conditions #Diabetesfingersticks, supplemental insulin, hold metformin for now in case any interventions might be needed (doubt they will be) and roll over to a basalbolus regimen as necessary #delirium/metabolic encephalopathythis has happened to him before, all of the above particularly the UTI/sepsis and NSTEMI are probably the major precipitating causes in addition to dehydration. Reassurance, reorientation, supportive care #BPH with frequent UTIsfortunately he currently does not have a Elliott, continue his Flomax and finasteride, follow bladder scans #DVT prophylaxisLovenox Admission and Anticipated Discharge Date Admission Date: October 28, 2024 Supervising Physician Co-Signing Physician Notes I personally examined the patient and verified all orozco points of history and exam, discussed case, and agree with decision making with Dr Gaytan No meaningful HPI review of systems obtainable, son at the bedside. Updated the best my ability and his satisfaction. Vitals noted, in general he is awake and alert confused but no distress. HEENT normocephalic atraumatic mucous membranes moist. Breathing unlabored no accessory muscle use good effort. Skin without rashes pallor or icterus. Neuro without focal deficits. Weaknessmost likely combination of sepsis and NSTEMI. PT/OT eval and treat. Son is hopeful he will be able to take him home but is [facility] if he needs rehabGiven that he is doing better medically, asked son to help him get up and around this afternoon to see if the son felt like he could take care of him at home or if rehab will be needed sepsismost likely urinary source. Improvingwhite count improving overall physiology improved. culture grew Pseudomonasswitched to cefepime. Will need to assess for prostatitisstart with PSA, likely rectal exam. Continue to follow. Will need to change Elliott NSTEMIknown distal coronary disease, suspect the physiologic stress of the sepsis precipitated severe demand ischemia causing the NSTEMI. Discussed with cardiologymed management most appropriate. trop trended down, echo pending, EKG changes resolved (essentially w first fluid bolus/initial dose of rocephin) dysphagiaspeech eval appreciate Subjective Patient was seen and examined at bedside this morning, AAO x 1 (maybe 2). Knows name but not own birthdate. Knows he's in a hospital but no more. Able to follow basic commands but not able to respond to questions concerning pain, concerns, symptoms. Review of Systems Review of Systems: Unobtainable due to cognitive status Physical Exam Constitutional: WD/WN, vitals as above Respiratory: normal respiratory effort, lungs clear to auscultation Cardiovascular: RRR, no murmur, no edema Gastrointestinal (Abdomen): normal bowel sounds, soft, nontender, no hepatosplenomegaly Psychiatric: Orientation: alert and oriented to person; + not oriented to place and + not oriented to time Results & Data Results & Data Vital Signs (Past 12 Hours) Vital Signs Temp Pulse Pulse Resp BP Pulse Ox Pulse Ox 10/30/24 02:23 36.6 C 85 18 158/93 H 94 10/29/24 22:32 36.6 C 78 18 150/76 H 90 10/29/24 21:56 83 10/29/24 21:21 10/29/24 20:49 95 10/29/24 19:30 36.7 C 83 18 147/90 H 95 O2 Del Method O2 Del Method 10/30/24 02:23 Room Air 10/29/24 22:32 Room Air 10/29/24 21:56 10/29/24 21:21 Room Air 10/29/24 20:49 Room Air 10/29/24 19:30 Room Air Resident Activity Tracking Resident Involvement: Resident Care Provided Care Provided: Adult Hospital Medicine
[2024-10-30] MEDS: NYSTATIN POWDER 15GM BTL EXT SCH (12:05)
[2024-10-30] MEDS: CEFEPIME 2000MG 2,000 MG/20 ML SYR IV SCH (16:13)
--- NOTE | 2024-10-30 16:35 | Electrocardiogram Report ---
Test Reason : Blood Pressure : */* mmHG Vent. Rate : 94 BPM Atrial Rate : 94 BPM P-R Int : 162 ms QRS Dur : 106 ms QT Int : 362 ms P-R-T Axes : * 188 212 degrees QTcB Int : 452 ms Poor data quality, interpretation may be adversely affected Sinus rhythm with Premature supraventricular complexes Limb lead reversal T wave abnormality, consider inferior ischemia Abnormal ECG When compared with ECG of 11-Jun-2024 15:58, Premature supraventricular complexes are now Present Limb lead reversal is now present Confirmed by Edgar Reese ([id number]) on 10/30/2024 4:35:05 PM Referred By: Clary Patel Confirmed By: Edgar Reese
--- NOTE | 2024-10-30 16:36 | Electrocardiogram Report ---
Test Reason : Blood Pressure : */* mmHG Vent. Rate : 82 BPM Atrial Rate : 82 BPM P-R Int : 152 ms QRS Dur : 104 ms QT Int : 382 ms P-R-T Axes : 60 -5 -31 degrees QTcB Int : 446 ms Normal sinus rhythm Cannot rule out Inferior infarct , age undetermined Abnormal ECG When compared with ECG of 28-Oct-2024 15:51, Premature supraventricular complexes are no longer Present Limb lead reversal is no longer present Confirmed by Edgra Reese ([id number]) on 10/30/2024 4:35:54 PM Referred By: Clary Patel Confirmed By: Edgar Reese
--- NOTE | 2024-10-30 17:57 | Billing Data ---
Date of Service October 30, 2024 Coding Level of Care Code 87461 SUB INP/OBS CARE
--- NOTE | 2024-10-31 07:13 | Hospitalist Progress Note ---
Date of Service October 31, 2024 Assessment & Plan (1) Non-ST elevation NH (NSTEMI): (2) Generalized weakness: (3) Acute UTI (urinary tract infection): Plan (1) Generalized weakness: (2) Acute UTI (urinary tract infection): (3) Non-ST elevation NH (NSTEMI): (4) Sepsis: Plan 1) UTI with sepsis recent Hx of rigors at home, frequent urine infections - elevated lactate, 2.6 and WBC, 18.1 upon admission suggest sepsis from urinary source - inability to provide much of a history and his nondescript physical exam consistent w/ this but also other Dx's - Ur Cx, positive for Pseudomonas, sensitivities pending - started Cefepime, 2000 mg, IV, q12hr 2) NSTEMI - HS Troponin, 1348 --> 6688 --> 2936 - demand ischemia from sepsis (w/ known distal small vessel disease, physiologic stress from being septic and/or dehydrated enough to precipitate watershed ischemia in these areas) likely triggered an NH given hypokinesis of inferolateral wall - echocardiogram: EF, 50-55%; Hypokinesis of inferolateral wall; sclerotic aortic valve w/ significant stenosis; mild mitral regurgitation - started aspirin, 81 mg, daily; increased metoprolol, 50 mg, PO, BID now; continue Plavix, 75 mg, PO, daily - He had T wave inversions in lateral leads that have since resolved, demand likely was remedied 3) Weakness - working diagnosis for his weakness is that he is weak subsequent to sepsis from a urinary source followed by demand ischemia precipitating a small NSTEMI, w/ some deconditioning likely a contributing factor - follow him closely, encourage assisted ambulation during stay to help gauge degree of weakness and help pt regain conditioning Chronic conditions #Diabetesfingersticks, supplemental insulin, hold metformin for now in case any interventions might be needed (doubt they will be) and roll over to a basalbolus regimen as necessary #delirium/metabolic encephalopathythis has happened to him before, all of the above particularly the UTI/sepsis and NSTEMI are probably the major precipitating causes in addition to dehydration. Reassurance, reorientation, supportive care #BPH with frequent UTIsfortunately he currently does not have a Elliott, continue his Flomax and finasteride, follow bladder scans #DVT prophylaxisLovenox Admission and Anticipated Discharge Date Admission Date: October 28, 2024 Subjective Patient was seen and examined at bedside this morning, AAO x 1 (maybe 2). Knows name but not own birthdate. Knows he's in a hospital but no more. Able to follow basic commands but not able to respond to questions concerning pain, concerns, symptoms. Review of Systems Review of Systems: Unobtainable due to cognitive status Physical Exam Constitutional: WD/WN, vitals as above Respiratory: normal respiratory effort, lungs clear to auscultation Cardiovascular: RRR, no murmur, no edema Gastrointestinal (Abdomen): normal bowel sounds, soft, nontender, no hepatosplenomegaly Psychiatric: Orientation: alert and oriented to person; + not oriented to place and + not oriented to time Results & Data Results & Data Vital Signs (Past 12 Hours) Vital Signs Temp Pulse Pulse Resp BP Pulse Ox Pulse Ox 10/31/24 03:37 36.8 C 88 16 137/74 93 10/30/24 22:44 36.7 C 81 18 155/85 H 93 10/30/24 21:59 79 10/30/24 20:00 97 10/30/24 19:41 36.7 C 89 18 166/77 H 91 10/30/24 19:30 O2 Del Method O2 Del Method 10/31/24 03:37 Room Air 10/30/24 22:44 Room Air 10/30/24 21:59 10/30/24 20:00 Room Air 10/30/24 19:41 Room Air 10/30/24 19:30 Room Air Resident Activity Tracking Resident Involvement: Resident Care Provided Care Provided: Adult Hospital Medicine
[2024-10-31 08:15] LABS: Hematocrit (blood only) 34.7 % (42.0-52.0); Mean Corpuscular Hemoglobin 30.1 pg (25.0-34.0); Mean Corpuscular Hgb Conc 34.6 g/dL (32.0-36.0); Mean Platelet Volume 8.9 fL (9.4-12.4); Platelet Count 260 K/uL (130-400); RDW Standard Deviation 41.4 fL (36.4-46.3); Red Blood Count 3.99 M/uL (4.70-6.10); White Blood Count 10.35 K/ul (4.8-10.8)
[2024-10-31 08:34] LABS: BUN Creatinine Ratio 12.8 (10-20); Calcium 8.7 mg/dl (8.6-10.3); Potassium 3.7 mmol/L (3.5-5.1)
[2024-10-31] MEDS: MAGNESIUM HYDROXIDE SUSP 30 ML UDC PO PRN (08:34)
[2024-10-31 10:55] VITALS: BP 133/76; RESP 17; TEMP 98.8; O2SAT 90
[2024-10-31 14:29] VITALS: PULSE 88
--- NOTE | 2024-10-31 16:53 | Discharge Summary ---
Date of Service October 31, 2024 Admission HPI Per Admitting Provider Patient is a very pleasant 89-year-old accompanied by his family who presented after seeing primaryreferred to the ER for weakness. HPI is quite limited as the patient himself does not speak much normally, and family notes that he probably is a little bit deliriousso HPI is mostly gleaned from family, the patient himself answers a few questions in one-word answers of questionable veracity. He apparently was getting weaker over the weekend, not able to transfer as well, appearing overall more fatigued. On directed questioning of family member did endorse a few episodes of shaking chills, they deny any fevers or sweats. No notable focal symptoms but again the patient himself is not able to speak too much as far as answers, he does deny focal symptoms or pain, denies chest pain or shortness of breath, but again this is a very questionable veracity. He has had a good appetitefamily jokes that he would definitely be yelling at people if he was not able to get enough to eat. Admission Exam Per Admitting Provider Constitutional: WD/WN, vitals as above Respiratory: normal respiratory effort, lungs clear to auscultation Cardiovascular: RRR, no murmur, no edema Gastrointestinal (Abdomen): normal bowel sounds, soft, nontender, no hepatosplenomegaly Psychiatric: Orientation: alert and oriented to person; + not oriented to place and + not oriented to time Principal Diagnosis UTI w/ sepsis, NSTEMI Discharge Exam Constitutional WD/WN, vitals as above Respiratory normal respiratory effort, lungs clear to auscultation Cardiovascular RRR, no murmur, no edema Gastrointestinal (Abdomen) normal bowel sounds, soft, nontender, no hepatosplenomegaly Psychiatric Orientation: alert and oriented to person; + not oriented to place and + not oriented to time Discharge Data Allergies Allergy/AdvReac Type Severity Reaction Status Date / Time No Known Allergies Allergy Verified 10/28/24 11:03 Consultations 10/28/24 17:00 ED Decision to Admit Stat Hospital Course (1) Non-ST elevation NH (NSTEMI): (2) Generalized weakness: (3) Acute UTI (urinary tract infection): Plan (1) Generalized weakness: (2) Acute UTI (urinary tract infection): (3) Non-ST elevation NH (NSTEMI): (4) Sepsis: Plan 1) UTI with sepsis recent Hx of rigors at home, frequent urine infections - elevated lactate, 2.6 and WBC, 18.1 upon admission suggest sepsis from urinary source - inability to provide much of a history and his nondescript physical exam consistent w/ this but also other Dx's - Ur Cx, positive for Pseudomonas, sensitivities pending - started Cefepime, 2000 mg, IV, q12hr, recommend 5 more days of cefepime at discharge - if rehab facility unable to administer cefepime --> ciprofloxacin, 500 mg, PO, BID for 5 days 2) NSTEMI - HS Troponin, 1348 --> 6688 --> 2936 - demand ischemia from sepsis (w/ known distal small vessel disease, physiologic stress from being septic and/or dehydrated enough to precipitate watershed ischemia in these areas) likely triggered an NH given hypokinesis of inferolateral wall - echocardiogram: EF, 50-55%; Hypokinesis of inferolateral wall; sclerotic aortic valve w/ significant stenosis; mild mitral regurgitation - He had T wave inversions in lateral leads that have since resolved, demand likely was remedied - started aspirin, 81 mg, daily; started atorvastatin, 40 mg, PO, daily - continue metoprolol, 50 mg, PO, BID now; continue Plavix, 75 mg, PO, daily 3) Weakness - working diagnosis for his weakness is that he is weak subsequent to sepsis from a urinary source followed by demand ischemia precipitating a small NSTEMI, w/ some deconditioning likely a contributing factor - follow him closely, encourage assisted ambulation during stay to help gauge degree of weakness and help pt regain conditioning - discharge to acute inpatient rehab facility Chronic conditions #Diabetesfingersticks, supplemental insulin, hold metformin for now in case any interventions might be needed (doubt they will be) and roll over to a basalbolus regimen as necessary #delirium/metabolic encephalopathythis has happened to him before, all of the above particularly the UTI/sepsis and NSTEMI are probably the major precipitating causes in addition to dehydration. Reassurance, reorientation, supportive care #BPH with frequent UTIsfortunately no Elliott, straight cath during stay, continue his Flomax and finasteride, follow bladder scans #DVT prophylaxisLovenox Total Time Total Time Spent Total Time Spent (In Minutes): <30 Discharge Plan Discharge Items Patient Disposition: Transfer Inpatient Rehab Fac Reason For Visit: WEAKNESS, FATIGUE Discharge Diagnosis: UTI w/ sepsis, NSTEMI Condition on Discharge: Serious Activity: As commented below Activity Comment: Gradual increase in activity following rehab Non-emergency contact: Primary Care Provider Call non-emergency contact if: you have any medication questions and your symp toms worsen Follow-up/Referrals: Salomon Stanton, [Primary Care Provider] - Diet: Carb Consistent or DM2 and Heart Healthy Addtl Attending Provider Instructions: You were admitted to the hospital for UTI w/ sepsis and NSTEMI. You were treated with IV antibiotics including eventually cefepim. A discharge summary will be sent to your primary care physician to ensure continuity of care. Please bring this discharge summary with you to your next office appointment so that your provider can review it at that time. Follow-up appointments: We have requested a follow-up appointment with your primary care physician within one week of discharge. Please call their office if you do not hear from them. Keep all your follow-up appointments as already scheduled. If you cannot make an appointment, notify your provider. Medications: Your medication list has been reviewed and reconciled upon discharge to ensure accuracy and continuity of care. An updated list of all your medications is included with your hospital discharge paperwork. Please review this list closely, and make note of any changes. Would finish the cefepime course. Cefepime, 2000 mg, three times a day, for 5 more days. (We would start a new medication called ciprofloxacin if patient is unable to complete the cefepime course. Would take ciprofloxacin, 500 mg, twice a day, for 5 days.) We sent a new medication called aspirin to your pharmacy. Take aspirin, 81 mg, one tablet, daily, regularly. We sent a new medication called atorvastatin to your pharmacy. Take atorvastatin, 40 mg, one tablet, daily, regularly. Take your medications as instructed; do not skip a dose of your medicines. Make sure all of your doctors know every medicine you are taking (including [id number] medicines, vitamins, and supplements). Call your primary care provider before taking any new medicines (including [id number] medicines, vitamins, and supplements), because some of these may interact with your current medications, or may make your symptoms worse. Tell your primary care provider if you cannot afford your medications. CONTACT YOUR PRIMARY CARE PROVIDER if you experience any of the following: fevers, chills, rigors; increased urinary frequency or urgency, dysuria if patient should have a recurrent UTI shortly after completing his course of ciprofloxacin, patient should be restarted on ciprofloxacin, 500 mg, twice a day, for an additional 1-3 weeks and the infection be considered a prostatitis Difficulty following your treatment plan, or difficulty taking medications CALL 911 OR GO TO THE EMERGENCY DEPARTMENT if you experience any of the following: Sudden, severe abdominal pain or nausea/vomiting Severe chest pain, or chest pain that radiates (moves) to your jaw or arm Sudden, severe shortness of breath or difficulty breathing Thank you for allowing us to participate in your care Pending Studies at Discharge: No Stand-Alone Forms: My [facility] Skilled Items Patient informed of condition?: Yes DNR: No Discharge Level of Care: Acute rehab Communicable Disease: No Discharge Prognosis: Stable Lines: None Urinary Catheter: No Medications and DC Order Prescriptions: New aspirin 81 mg capsule 81 mg PO DAILY Qty: 30 0RF atorvastatin 40 mg tablet 40 mg PO DAILY Qty: 30 0RF Continued (DME) blood-glucose meter [FreeStyle Lite Meter] Kit See Rx Instructions .Route Qty: 1 0RF Rx Instructions: As directed (DME) lancets [FreeStyle Lancets] 28 gauge misc See Rx Instructions .Route Qty: 100 5RF Rx Instructions: test once daily (DME) CPAP Supplies Misc See Rx Instructions .Route Qty: 1 0RF Rx Instructions: CPAP Mask use qHS (DME) FreeStyle Test Strip See Rx Instructions .Route Qty: 100 5RF Rx Instructions: test once daily prior to meal metoprolol tartrate 50 mg tablet 50 mg PO BID Qty: 180 3RF clopidogrel 75 mg tablet 75 mg PO QAM Qty: 90 3RF finasteride 5 mg tablet 5 mg PO QAM Qty: 90 3RF metformin 500 mg tablet 500 mg PO BIDM Qty: 180 3RF simvastatin 20 mg tablet 20 mg PO HS Qty: 90 3RF Hold Instructions: Hold starting 04/04 for Paxlovid, c/w s/p 2 weeks off med Centrum Silver Men 300-600-300 mcg tablet 1 tab PO QAM (DME) bilateral LE AFO braces See Rx Instructions .Route .MEDSUPPLY Qty: 1 0RF Rx Instructions: As directed (DME) Diabetic Shoes Misc See Rx Instructions .Route Qty: 1 0RF Rx Instructions: Diabetic Shoes and Insoles magnesium oxide 400 mg magnesium Tablet 400 mg PO BID tamsulosin 0.4 mg capsule 0.4 mg PO HS Discharge Orders: Discharge Order (Routine); Ordered 10/31/24 Ordered By: Carson Gaytan Krames/Other Patient Handouts: High Blood Sugar (Hyperglycemia), Hypoglycemia (Low Blood Sugar), Managing Type 2 Diabetes Admission Data Admit Date/Time: 10/28/24 17:35 Attending Provider: Winston Cooper Admit Provider: Winston Cooper Primary Care Provider: Salomon Stanton Other Providers: Winston Cooper; [facility] Other Interventions: Discharge Summary Assessment (RN) Last Done: 10/31/24 14:26 Supervising Physician Co-Signing Physician Notes I personally examined the patient and verified all orozco points of history and exam, discussed case, and agree with decision making with Dr Gaytan No meaningful HPI review of systems obtainable, son at the bedside. he feels that the patient will need rehab. I concur. Vitals noted, in general he is awake and alert confused but no distress. HEENT normocephalic atraumatic mucous membranes moist. Breathing unlabored no accessory muscle use good effort. Skin without rashes pallor or icterus. Neuro without focal deficits. Weaknessmost likely combination of sepsis and NSTEMI. PT/OT eval and treat. Stable for rehab sepsismost likely urinary source. Improvingwhite count improving overall physiology improved. culture grew Pseudomonasswitched to cefepime. does not have recurrent infections with same bacteria, PSA lowhighly doubt prostatitis. Safe for transfer to rehab with ongoing antipseudomonal treatmentif possible would probably just stick with cefepime, but if IV is not viable at rehab facility, switching to a matilda quinolone is quite reasonable. Would treat for 5 more days to round out 7 days of treatment NSTEMIknown distal coronary disease, suspect the physiologic stress of the sepsis precipitated severe demand ischemia causing the NSTEMI. Discussed with cardiologymed management most appropriate. trop trended down, echo noted and d/w son (?possibly new wall motion abnormalities but mild vs same as echo from 2022 - current general machinist reads inferolateral hypokinesis that was not read in 2022, but then makes it clear that he feels it is similar to 202echo), EKG changes resolved (essentially w first fluid bolus/initial dose of rocephin) dysphagiaspeech nat appreciate stable for rehab
--- NOTE | 2024-10-31 17:31 | Billing Data ---
Date of Service October 31, 2024 Coding Level of Care Code 93280 IN/OBS DISCH 30 MIN/LESS
== END 2024-10-31 15:22 | DRG 871 ==
LOC: ED 15:23 → 2S 17:35